=== PATIENT | male | born 1945 | race Caucasian/White ===

== ENCOUNTER 2023-01-30 08:15 | Outpatient (RCR) | payer MEDICARE, BC, SELFPAY | END 2023-05-10 13:06 | disposition home or self-care (01) | PROVIDERS: PCP Family Medicine; Visit Provider Family Medicine | DX: M25.561 Pain in right knee (principal); M17.11 Unilateral primary osteoarthritis, right knee; Z51.89 Encounter for other specified aftercare | CPT/HCPCS: 97110; 97140; 97162 ==

== ENCOUNTER 2023-02-22 08:20 | Emergency (ER) | payer MEDICARE, BC, SELFPAY ==
[2023-02-22] VITALS (18 sets, daily range): BP systolic 159–204; BP diastolic 76–103; PULSE 56–68; RESP 16; TEMP 36.3; O2SAT 98–100; BMI 22.2
[2023-02-22 09:14] LABS: Basophils Absolute Auto 0.02 K/uL (0.00-0.30); Basophils Percent Auto 0.3 % (0.0-3.0); Eosinophils Absolute Auto 0.09 K/uL (0.00-0.50); Eosinophils Percent Auto 1.1 % (0.0-7.0); Hematocrit 36.8 % (37.0-53.0); Immature Granulocytes Abs Auto 0.05 K/uL (0.00-0.30); Immature Granulocytes Pct Auto 0.6 %; Lymphocytes Absolute Auto 2.53 K/uL (0.90-2.90); Lymphocytes Percent Auto 32.1 % (20-44); Mean Corpuscular HGB Conc 33 gm/dL (32-36); Mean Corpuscular Hemoglobin 30 pg (26-34); Mean Corpuscular Volume 91 fL (80-100); Monocytes Percent Auto 8.9 % (0.0-11.0); Neutrophils Absolute Auto 4.49 K/uL (1.7-7.0); Platelet Count* 77 K/uL (140-440); RDW Coefficient of Variation % 13.3 % (11.5-15.5); Red Blood Count 4.03 m/uL (4.30-5.90); White Blood Count* 7.88 K/uL (4.50-11.00)
[2023-02-22 09:27] LABS: Slide Review Reflex No
[2023-02-22 09:28] LABS: Chloride* 110 mmol/L (96-114); Sodium* 135 mmol/L (135-149)
[2023-02-22 09:29] LABS: Potassium* 4.6 mmol/L (3.6-5.1)
[2023-02-22 09:31] LABS: Amylase* 53 U/L (18-89); Blood Urea Nitrogen* 51 mg/dL (7-30); Carbon Dioxide* 14 mmol/L (20-32); Creatinine* 1.5 mg/dL (0.5-1.5); Est. Creatinine Clearance* 42.31; Estimated Glomerular Filt Rate 48 ml/min
[2023-02-22 09:32] LABS: Calcium* 8.5 mg/dL (8.4-10.6); Glucose* 255 mg/dL (60-115)
[2023-02-22] MEDS: ONDANSETRON 2 MG/ML inj 4 MG IVP (10:18)
[2023-02-22] MEDS: 0.9 % SODIUM CHLORIDE 1000 ml 1,000 ML IV (10:19)
[2023-02-22 10:36] LABS: C.Difficile Negative (Negative); CDIFFEPI 027 PRESUMPTIVE NEGATIVE (Negative)
--- NOTE | 2023-02-22 10:38 | ED_ITS ---
HPI - Nausea/Vomiting/Diarrhea General Chief complaint: Diarrhea Stated complaint: Diarrhea Time Seen by Provider: 02/22/23 08:49 History of Present Illness HPI Narrative: Patient is a 77-year-old gentleman who recently completed a course of Augmentin for lower extremity infection as the patient has chronic diabetes. Patient actually completed 9 of 10 days due to extreme volatile diarrhea. Patient has had no blood in his stool. He has no significant abdominal pain but does feel significantly amount of gurgling. He has had no fevers no chills no night sweats. His blood sugars in the 200-250 range. Patient has been taking his insulin without any difficulty. Patient is not been having significant vomiting but his diarrhea is extreme. Patient has no history of C difficile colitis. He has no chest pain shortness a breath orthopnea no PND no nausea no vomiting. Related Data Home Medications Medication Instructions Recorded Confirmed aspirin 81 mg capsule 81 mg PO DAILY 02/22/23 02/22/23 atorvastatin 40 mg tablet 40 mg PO DAILY 02/22/23 02/22/23 clopidogrel 75 mg tablet (Plavix) 75 mg PO DAILY 02/22/23 02/22/23 hydrochlorothiazide 25 mg tablet 25 mg PO DAILY 02/22/23 02/22/23 insulin aspart U-100 100 unit/mL 1 sliding scale dose subcut 02/22/23 02/22/23 subcutaneous solution USEASDIRECTD lisinopril 10 mg tablet 10 mg PO BID 02/22/23 02/22/23 metoprolol succinate 50 mg 50 mg PO DAILY 02/22/23 02/22/23 tablet,extended release 24 hr mycophenolate mofetil 500 mg 500 mg PO BID 02/22/23 02/22/23 tablet (CellCept) prednisone 5 mg tablet 5 mg PO DAILY 02/22/23 02/22/23 sulfamethoxazole 400 1 tab PO DAILY 02/22/23 02/22/23 mg-trimethoprim 80 mg tablet (Bactrim) Allergies Allergy/AdvReac Type Severity Reaction Status Date / Time levofloxacin Allergy Unknown Verified 02/22/23 08:30 Review of Systems Status of ROS: Reports: 10 or more systems reviewed and unremarkable except as noted in History and below [facility] Medical History (Updated 02/22/23 @ 11:33 by Vijay De Santiago MD) Hyperlipidemia ?E78.5 - Hyperlipidemia, unspecified (ICD-10) Hypertension ?I10 - Essential (primary) hypertension (ICD-10) Type 1 diabetes mellitus ?E10.9 - Type 1 diabetes mellitus without complications (ICD-10) Surgical History (Updated 02/22/23 @ 10:40 by Vijay De Santiago MD) Renal transplant, status post ?Z94.0 - Kidney transplant status (ICD-10) Social History Smoking Status: Never smoker Do you use any of these nicotine containing products: None Second hand tobacco smoke exposure: No How often do you have a drink containing alcohol: monthly or less AUDIT-C Alcohol total score: 1 Non-prescribed substance use: denies use service: No Exam Narrative: Exam Narrative: EXAM GENERAL: Patient appears comfortable and well. EYES: No scleral icterus. THYROID: no thyroid nodules or thyromegaly. LYMPH: No supraclavicular or cervical lymphadenopathy. SKIN: Visible skin seen during exam normal or with benign process only. EXT: No dependent lower extremity pedal edema. HEART: Regular rate and rhythm with no murmurs, rubs, or gallops. LUNGS: Clear to auscultation bilaterally with no crackles or wheezes. ABD: Soft, non tender, non distended. Gurgling noted with hyperactive bowel sounds PSYCH: Good eye contact, speech is not pressured. Const: Vital Signs, click to edit/add: Vital Signs - 24 hr 02/22/23 08:36 02/22/23 08:41 02/22/23 08:32 Temperature 97.4 F L Pulse Rate 68 Pulse Rate [Pulse Oximeter] 63 Respiratory Rate 16 Blood Pressure Blood Pressure [Ri ght Upper Arm] 204/103 H 185/91 H Pulse Oximetry 100 100 Oxygen Delivery Me thod Room Air 02/22/23 08:34 02/22/23 08:42 02/22/23 08:44 Temperature Pulse Rate 64 63 61 Pulse Rate [Pulse Oximeter] Respiratory Rate Blood Pressure 204/103 H 185/91 H 179/91 H Blood Pressure [Ri ght Upper Arm] Pulse Oximetry 100 100 100 Oxygen Delivery Me thod 02/22/23 08:45 02/22/23 09:01 02/22/23 09:02 Temperature Pulse Rate 62 60 62 Pulse Rate [Pulse Oximeter] Respiratory Rate Blood Pressure 174/87 H Blood Pressure [Ri ght Upper Arm] Pulse Oximetry 99 100 98 Oxygen Delivery Me thod 02/22/23 09:20 02/22/23 09:32 02/22/23 09:49 Temperature Pulse Rate 59 L 61 Pulse Rate [Pulse Oximeter] Respiratory Rate Blood Pressure 179/96 H Blood Pressure [Ri ght Upper Arm] Pulse Oximetry 99 98 Oxygen Delivery Me thod 02/22/23 10:00 02/22/23 10:03 02/22/23 10:15 Temperature Pulse Rate 58 L 57 L 56 L Pulse Rate [Pulse Oximeter] Respiratory Rate Blood Pressure 159/79 H Blood Pressure [Ri ght Upper Arm] Pulse Oximetry 100 100 100 Oxygen Delivery Me thod 02/22/23 10:30 02/22/23 10:33 02/22/23 10:45 Temperature Pulse Rate 58 L 62 60 Pulse Rate [Pulse Oximeter] Respiratory Rate Blood Pressure 164/76 H Blood Pressure [Ri ght Upper Arm] Pulse Oximetry 100 98 99 Oxygen Delivery Me thod Course Course Hospital Course: Stool for C difficile ordered. CBC basic metabolic panel UA ordered. Normal saline bolus given. IV Zofran given. Reevaluation(s) Reevaluation #1: Patient feeling better after normal saline Time: 11:30 Vital Signs Vital signs: Initial Vital Signs Pulse Rate 68 02/22/23 08:32 Pulse Oximetry 100 02/22/23 08:32 Vital Signs Pulse Rate 68 02/22/23 08:32 Pulse Oximetry 100 02/22/23 08:32 Temperature 97.4 F L 02/22/23 08:36 Pulse Rate 60 02/22/23 10:45 Respiratory Rate 16 02/22/23 08:36 Blood Pressure 164/76 H 02/22/23 10:33 Pulse Oximetry 99 02/22/23 10:45 Oxygen Delivery Method Room Air 02/22/23 08:36 MDM - Nausea/Vomiting/Diarrhea MDM Narrative Medical decision making narrative: Patient is a 77-year-old gentleman who developed diarrhea day 9 of 10 treatment with Augmentin for lower extremity ulceration. Ulceration is healing well. Patient developed significant diarrhea. Interestingly the C difficile testing is negative. Like her lytes are stable to exception of some evidence of pre renal azotemia. Hemoglobin and CBC are stable. Patient received 2 L of normal saline feels much better. Patient is status post renal transplant. Patient will be discharged home to hydrate orally had probiotics and follow up with his primary physician in the next several days. Differential Diagnosis Differential diagnosis: Likely traveler's diarrhea, food poisoning, gastroenteritis, clostridium difficile infection and dehydration Lab Data Labs: Lab Results 02/22/23 02/22/23 Range/Units 08:50 08:53 WBC 7.88 (4.50-11.00) K/uL RBC 4.03 L (4.30-5.90) m/uL Hgb 12.0 L (13.5-17.5) gm/dL Hct 36.8 L (37.0-53.0) % MCV 91 (80-100) fL MCH 30 (26-34) pg MCHC 33 (32-36) gm/dL RDW Coeff of Manan 13.3 (11.5-15.5) % Plt Count 77 L (140-440) K/uL Neut % (Auto) 57.0 (42.0-72.0) % Lymph % (Auto) 32.1 (20-44) % [place] % (Auto) 8.9 (0.0-11.0) % Eos % (Auto) 1.1 (0.0-7.0) % Baso % (Auto) 0.3 (0.0-3.0) % Neut # (Auto) 4.49 (1.7-7.0) K/uL Lymph # (Auto) 2.53 (0.90-2.90) K/uL [place] # (Auto) 0.70 (0.00-0.90) K/UL Eos # (Auto) 0.09 (0.00-0.50) K/uL Baso # (Auto) 0.02 (0.00-0.30) K/uL Sodium 135 (135-149) mmol/L Potassium 4.6 (3.6-5.1) mmol/L Chloride 110 (96-114) mmol/L Carbon Dioxide 14 L (20-32) mmol/L BUN 51 H (7-30) mg/dL Creatinine 1.5 (0.5-1.5) mg/dL Estimated Creat Clear 42.31 Estimated GFR 48 ml/min Glucose 255 H (60-115) mg/dL Calcium 8.5 (8.4-10.6) mg/dL Amylase 53 (18-89) U/L Stl C.difficile Tox PCR Negative (Negative) St C. diff Tox Epid 027 PRESUMPTIVE NEGATIVE (Negative) Discharge Plan Discharge Clinical Impression: Diarrhea Patient Disposition: Home, Self-Care Condition: Stable Instructions: Acute Diarrhea (ED) Additional Instructions: Advance diet as tolerated Probiotics as discussed Follow-up with your doctor in the next several days. Activity Level: No Restrictions Discharge Diet: Regular Prescriptions: No Action aspirin 81 mg capsule 81 mg PO DAILY atorvastatin 40 mg tablet 40 mg PO DAILY clopidogrel [Plavix] 75 mg tablet 75 mg PO DAILY hydrochlorothiazide 25 mg tablet 25 mg PO DAILY lisinopril 10 mg tablet 10 mg PO BID metoprolol succinate 50 mg tablet extended release 24 hr 50 mg PO DAILY mycophenolate mofetil [CellCept] 500 mg tablet 500 mg PO BID prednisone 5 mg tablet 5 mg PO DAILY sulfamethoxazole-trimethoprim [Bactrim] 400-80 mg tablet 1 tab PO DAILY insulin aspart U-100 100 unit/mL solution 1 sliding scale dose subcut USEASDIRECTD Follow Up/Referrals: Ca Grier MD [Primary Care Provider] - Stand Alone Forms: Origin Digital Info Instructions
== END 2023-02-22 12:18 | disposition home or self-care (01) ==
PROVIDERS: Emergency Provider Internal Medicine; PCP Family Medicine
DX: R19.7 Diarrhea, unspecified (principal)
CPT/HCPCS: 36415; 80048; 82150; 85025; 87493; 96374; 99283; J2405; J7030

== ENCOUNTER 2024-04-18 09:18 | Outpatient (CLI) | payer MEDICARE, BC, SELFPAY | END 2024-04-18 09:19 | disposition home or self-care (01) | LOC: WOUND 09:19 | PROVIDERS: PCP Family Medicine; Visit Provider Nurse Practitioner Family | DX: I73.9 Peripheral vascular disease, unspecified (principal); L97.212 Non-pressure chronic ulcer of right calf with fat layer exposed; E10.8 Type 1 diabetes mellitus with unspecified complications; Z79.4 Long term (current) use of insulin; I13.0 Hypertensive heart and chronic kidney disease with heart failure and stage 1 through stage 4 chronic kidney disease, or unspecified chronic kidney disease; D84.9 Immunodeficiency, unspecified; Z94.0 Kidney transplant status | CPT/HCPCS: 11042; G0463 ==

== ENCOUNTER 2024-04-24 10:26 | Outpatient (CLI) | payer MEDICARE, BC, SELFPAY | END 2024-04-24 10:27 | disposition home or self-care (01) | LOC: WOUND 10:26 | PROVIDERS: PCP Family Medicine; Visit Provider Nurse Practitioner Family | DX: I73.9 Peripheral vascular disease, unspecified (principal); L97.212 Non-pressure chronic ulcer of right calf with fat layer exposed; E10.8 Type 1 diabetes mellitus with unspecified complications; I13.0 Hypertensive heart and chronic kidney disease with heart failure and stage 1 through stage 4 chronic kidney disease, or unspecified chronic kidney disease; Z94.0 Kidney transplant status; Z79.4 Long term (current) use of insulin | CPT/HCPCS: 11042 ==

== ENCOUNTER 2024-05-02 08:11 | Outpatient (CLI) | payer MEDICARE, BC, SELFPAY | END 2024-05-02 08:12 | disposition home or self-care (01) | LOC: WOUND 08:11 | PROVIDERS: PCP Family Medicine; Visit Provider Nurse Practitioner Family | DX: I73.9 Peripheral vascular disease, unspecified (principal); L97.312 Non-pressure chronic ulcer of right ankle with fat layer exposed; E10.8 Type 1 diabetes mellitus with unspecified complications; I13.0 Hypertensive heart and chronic kidney disease with heart failure and stage 1 through stage 4 chronic kidney disease, or unspecified chronic kidney disease; Z94.0 Kidney transplant status; Z79.4 Long term (current) use of insulin | CPT/HCPCS: 11042 ==

== ENCOUNTER 2024-05-08 08:00 | Outpatient (CLI) | payer MEDICARE, BC, SELFPAY | END 2024-05-08 08:01 | disposition home or self-care (01) | LOC: WOUND 08:01 | PROVIDERS: PCP Family Medicine; Visit Provider Physician Assistant | DX: I73.9 Peripheral vascular disease, unspecified (principal); L97.212 Non-pressure chronic ulcer of right calf with fat layer exposed; I13.0 Hypertensive heart and chronic kidney disease with heart failure and stage 1 through stage 4 chronic kidney disease, or unspecified chronic kidney disease; E10.8 Type 1 diabetes mellitus with unspecified complications; Z94.0 Kidney transplant status; Z79.4 Long term (current) use of insulin | CPT/HCPCS: 97597 ==

== ENCOUNTER 2024-05-15 08:12 | Outpatient (CLI) | payer MEDICARE, BC, SELFPAY | END 2024-05-15 08:13 | disposition home or self-care (01) | LOC: WOUND 08:12 | PROVIDERS: PCP Family Medicine; Visit Provider Nurse Practitioner Family | DX: I73.9 Peripheral vascular disease, unspecified (principal); I13.0 Hypertensive heart and chronic kidney disease with heart failure and stage 1 through stage 4 chronic kidney disease, or unspecified chronic kidney disease; E10.8 Type 1 diabetes mellitus with unspecified complications; L97.212 Non-pressure chronic ulcer of right calf with fat layer exposed; Z79.4 Long term (current) use of insulin; Z94.0 Kidney transplant status | CPT/HCPCS: 11042 ==

== ENCOUNTER 2024-05-29 08:02 | Outpatient (CLI) | payer MEDICARE, BC, SELFPAY | END 2024-05-29 08:03 | disposition home or self-care (01) | LOC: WOUND 08:03 | PROVIDERS: PCP Family Medicine; Visit Provider Nurse Practitioner Family | DX: I73.9 Peripheral vascular disease, unspecified (principal); I13.0 Hypertensive heart and chronic kidney disease with heart failure and stage 1 through stage 4 chronic kidney disease, or unspecified chronic kidney disease; E10.8 Type 1 diabetes mellitus with unspecified complications; L97.212 Non-pressure chronic ulcer of right calf with fat layer exposed; Z79.4 Long term (current) use of insulin; Z94.0 Kidney transplant status | CPT/HCPCS: 97597 ==

== ENCOUNTER 2024-06-05 08:09 | Outpatient (CLI) | payer MEDICARE, BC, SELFPAY | END 2024-06-05 08:10 | disposition home or self-care (01) | LOC: WOUND 08:09 | PROVIDERS: PCP Family Medicine; Visit Provider Nurse Practitioner Family | DX: I73.9 Peripheral vascular disease, unspecified (principal); I13.0 Hypertensive heart and chronic kidney disease with heart failure and stage 1 through stage 4 chronic kidney disease, or unspecified chronic kidney disease; L97.812 Non-pressure chronic ulcer of other part of right lower leg with fat layer exposed; E10.8 Type 1 diabetes mellitus with unspecified complications; Z94.0 Kidney transplant status; Z79.4 Long term (current) use of insulin | CPT/HCPCS: 97597 ==

== ENCOUNTER 2024-06-12 08:04 | Outpatient (CLI) | payer MEDICARE, BC, SELFPAY | END 2024-06-12 08:05 | disposition home or self-care (01) | LOC: WOUND 08:04 | PROVIDERS: PCP Family Medicine; Visit Provider Nurse Practitioner Family | DX: I73.9 Peripheral vascular disease, unspecified (principal); I13.0 Hypertensive heart and chronic kidney disease with heart failure and stage 1 through stage 4 chronic kidney disease, or unspecified chronic kidney disease; E10.8 Type 1 diabetes mellitus with unspecified complications; L97.212 Non-pressure chronic ulcer of right calf with fat layer exposed; Z94.0 Kidney transplant status; Z79.4 Long term (current) use of insulin | CPT/HCPCS: G0463 ==

== ENCOUNTER 2024-06-19 08:00 | Outpatient (CLI) | payer MEDICARE, BC, SELFPAY | END 2024-06-19 08:01 | disposition home or self-care (01) | PROVIDERS: PCP Family Medicine; Visit Provider Nurse Practitioner Family | DX: I73.9 Peripheral vascular disease, unspecified (principal); I13.0 Hypertensive heart and chronic kidney disease with heart failure and stage 1 through stage 4 chronic kidney disease, or unspecified chronic kidney disease; E10.8 Type 1 diabetes mellitus with unspecified complications; L97.818 Non-pressure chronic ulcer of other part of right lower leg with other specified severity; Z79.4 Long term (current) use of insulin; Z94.0 Kidney transplant status | CPT/HCPCS: G0463 ==

== ENCOUNTER 2025-03-04 12:40 | Outpatient (CLI) | payer MEDICARE, BC, SELFPAY | END 2025-03-04 12:41 | disposition home or self-care (01) | LOC: WOUND 12:41 | PROVIDERS: PCP Family Medicine; Visit Provider Surgery | DX: E11.621 Type 2 diabetes mellitus with foot ulcer (principal); M86.471 Chronic osteomyelitis with draining sinus, right ankle and foot; L97.516 Non-pressure chronic ulcer of other part of right foot with bone involvement without evidence of necrosis; I73.9 Peripheral vascular disease, unspecified; C67.9 Malignant neoplasm of bladder, unspecified; Z79.60 Long term (current) use of unspecified immunomodulators and immunosuppressants; Z94.0 Kidney transplant status; Z79.4 Long term (current) use of insulin; Z96.41 Presence of insulin pump (external) (internal) | CPT/HCPCS: G0463 ==

== ENCOUNTER 2025-03-09 13:17 | Outpatient (CLI) | payer MEDICARE, BC, SELFPAY | END 2025-03-09 13:18 | disposition home or self-care (01) | LOC: WOUND 13:19 | PROVIDERS: PCP Family Medicine; Visit Provider Nurse Practitioner Family | DX: E11.621 Type 2 diabetes mellitus with foot ulcer (principal); M86.471 Chronic osteomyelitis with draining sinus, right ankle and foot; I73.9 Peripheral vascular disease, unspecified; L97.516 Non-pressure chronic ulcer of other part of right foot with bone involvement without evidence of necrosis; Z79.4 Long term (current) use of insulin; Z96.41 Presence of insulin pump (external) (internal) | CPT/HCPCS: G0463 ==

== ENCOUNTER 2025-03-11 13:25 | Outpatient (CLI) | payer MEDICARE, BC, SELFPAY | END 2025-03-11 13:26 | disposition home or self-care (01) | LOC: WOUND 13:25 | PROVIDERS: PCP Family Medicine; Visit Provider Surgery | DX: E11.621 Type 2 diabetes mellitus with foot ulcer (principal); M86.471 Chronic osteomyelitis with draining sinus, right ankle and foot; I73.9 Peripheral vascular disease, unspecified; L97.516 Non-pressure chronic ulcer of other part of right foot with bone involvement without evidence of necrosis; Z96.41 Presence of insulin pump (external) (internal); Z79.4 Long term (current) use of insulin | CPT/HCPCS: 11042; G0463 ==

== ENCOUNTER 2025-03-13 14:49 | Outpatient (CLI) | payer MEDICARE, BC, SELFPAY | END 2025-03-13 14:50 | disposition home or self-care (01) | LOC: WOUND 14:50 | PROVIDERS: PCP Family Medicine; Visit Provider Surgery | DX: E11.621 Type 2 diabetes mellitus with foot ulcer (principal); M86.471 Chronic osteomyelitis with draining sinus, right ankle and foot; L97.512 Non-pressure chronic ulcer of other part of right foot with fat layer exposed; I73.9 Peripheral vascular disease, unspecified; Z79.4 Long term (current) use of insulin; Z96.41 Presence of insulin pump (external) (internal) | CPT/HCPCS: G0463 ==

== ENCOUNTER 2025-03-17 10:55 | Outpatient (CLI) | payer MEDICARE, BC, SELFPAY | END 2025-03-17 10:56 | disposition home or self-care (01) | LOC: WOUND 10:56 | PROVIDERS: PCP Family Medicine; Visit Provider Surgery | DX: M86.471 Chronic osteomyelitis with draining sinus, right ankle and foot (principal); E10.621 Type 1 diabetes mellitus with foot ulcer; L97.518 Non-pressure chronic ulcer of other part of right foot with other specified severity; Z79.4 Long term (current) use of insulin; Z96.41 Presence of insulin pump (external) (internal) | CPT/HCPCS: G0463 ==

== ENCOUNTER 2025-03-18 12:55 | Outpatient (CLI) | payer MEDICARE, BC, SELFPAY | END 2025-03-18 12:56 | disposition home or self-care (01) | LOC: WOUND 12:55 | PROVIDERS: PCP Family Medicine; Visit Provider Surgery | DX: E10.621 Type 1 diabetes mellitus with foot ulcer (principal); M86.471 Chronic osteomyelitis with draining sinus, right ankle and foot; L97.516 Non-pressure chronic ulcer of other part of right foot with bone involvement without evidence of necrosis; I73.9 Peripheral vascular disease, unspecified; Z79.4 Long term (current) use of insulin; Z96.41 Presence of insulin pump (external) (internal); Z94.0 Kidney transplant status | CPT/HCPCS: 87070; G0463 ==

== ENCOUNTER 2025-03-20 11:10 | Outpatient (CLI) | payer MEDICARE, BC, SELFPAY | END 2025-03-20 11:11 | disposition home or self-care (01) | LOC: WOUND 11:10 | PROVIDERS: PCP Family Medicine; Visit Provider Surgery | DX: M86.471 Chronic osteomyelitis with draining sinus, right ankle and foot (principal); E10.621 Type 1 diabetes mellitus with foot ulcer; L97.518 Non-pressure chronic ulcer of other part of right foot with other specified severity; Z79.4 Long term (current) use of insulin; Z96.41 Presence of insulin pump (external) (internal) | CPT/HCPCS: G0463 ==

== ENCOUNTER 2025-03-23 15:35 | Outpatient (CLI) | payer MEDICARE, BC, SELFPAY | END 2025-03-23 15:36 | disposition home or self-care (01) | PROVIDERS: PCP Family Medicine; Visit Provider Physician Assistant Surgical | DX: M86.471 Chronic osteomyelitis with draining sinus, right ankle and foot (principal); E10.621 Type 1 diabetes mellitus with foot ulcer; L97.518 Non-pressure chronic ulcer of other part of right foot with other specified severity; Z79.4 Long term (current) use of insulin; Z96.41 Presence of insulin pump (external) (internal) | CPT/HCPCS: G0463 ==

== ENCOUNTER 2025-03-25 12:41 | Outpatient (CLI) | payer MEDICARE, BC, SELFPAY | END 2025-03-25 12:42 | disposition home or self-care (01) | LOC: WOUND 12:41 | PROVIDERS: PCP Family Medicine; Visit Provider Surgery | DX: E10.621 Type 1 diabetes mellitus with foot ulcer (principal); M86.471 Chronic osteomyelitis with draining sinus, right ankle and foot; L97.516 Non-pressure chronic ulcer of other part of right foot with bone involvement without evidence of necrosis; Z79.4 Long term (current) use of insulin; Z96.41 Presence of insulin pump (external) (internal) | CPT/HCPCS: G0463 ==

== ENCOUNTER 2025-03-27 10:34 | Outpatient (CLI) | payer MEDICARE, BC, SELFPAY | END 2025-03-27 10:35 | disposition home or self-care (01) | PROVIDERS: PCP Family Medicine; Visit Provider Nurse Practitioner Family | DX: E10.621 Type 1 diabetes mellitus with foot ulcer (principal); M86.471 Chronic osteomyelitis with draining sinus, right ankle and foot; L97.518 Non-pressure chronic ulcer of other part of right foot with other specified severity; I73.9 Peripheral vascular disease, unspecified; Z79.4 Long term (current) use of insulin; Z96.41 Presence of insulin pump (external) (internal) | CPT/HCPCS: G0463 ==

== ENCOUNTER 2025-03-30 15:30 | Outpatient (CLI) | payer MEDICARE, BC, SELFPAY | END 2025-03-30 15:31 | disposition home or self-care (01) | LOC: WOUND 15:30 | PROVIDERS: PCP Family Medicine; Visit Provider Nurse Practitioner Family | DX: M86.471 Chronic osteomyelitis with draining sinus, right ankle and foot (principal); E10.621 Type 1 diabetes mellitus with foot ulcer; L97.518 Non-pressure chronic ulcer of other part of right foot with other specified severity; Z79.4 Long term (current) use of insulin; Z96.41 Presence of insulin pump (external) (internal) | CPT/HCPCS: G0463 ==

== ENCOUNTER 2025-04-01 08:23 | Outpatient (CLI) | payer MEDICARE, BC, SELFPAY | END 2025-04-01 08:24 | disposition home or self-care (01) | LOC: WOUND 08:24 | PROVIDERS: PCP Family Medicine; Visit Provider Nurse Practitioner Family | DX: E10.621 Type 1 diabetes mellitus with foot ulcer (principal); L97.516 Non-pressure chronic ulcer of other part of right foot with bone involvement without evidence of necrosis; I73.9 Peripheral vascular disease, unspecified; Z79.4 Long term (current) use of insulin; Z96.41 Presence of insulin pump (external) (internal) | CPT/HCPCS: 11042 ==

== ENCOUNTER 2025-04-03 13:48 | Outpatient (CLI) | payer MEDICARE, BC, SELFPAY | END 2025-04-03 13:49 | disposition home or self-care (01) | PROVIDERS: PCP Family Medicine; Visit Provider Nurse Practitioner Family | DX: E10.621 Type 1 diabetes mellitus with foot ulcer (principal); M86.471 Chronic osteomyelitis with draining sinus, right ankle and foot; L97.516 Non-pressure chronic ulcer of other part of right foot with bone involvement without evidence of necrosis; Z79.4 Long term (current) use of insulin; Z96.41 Presence of insulin pump (external) (internal) | CPT/HCPCS: G0463 ==

== ENCOUNTER 2025-04-06 13:45 | Outpatient (CLI) | payer MEDICARE, BC, SELFPAY | END 2025-04-06 13:46 | disposition home or self-care (01) | LOC: WOUND 13:46 | PROVIDERS: PCP Family Medicine; Visit Provider Nurse Practitioner Family | DX: E10.621 Type 1 diabetes mellitus with foot ulcer (principal); M86.471 Chronic osteomyelitis with draining sinus, right ankle and foot; L97.516 Non-pressure chronic ulcer of other part of right foot with bone involvement without evidence of necrosis; I73.9 Peripheral vascular disease, unspecified; Z79.4 Long term (current) use of insulin | CPT/HCPCS: G0463 ==

== ENCOUNTER 2025-04-08 13:09 | Outpatient (CLI) | payer MEDICARE, BC, SELFPAY | END 2025-04-08 13:10 | disposition home or self-care (01) | LOC: WOUND 13:09 | PROVIDERS: PCP Family Medicine; Visit Provider Nurse Practitioner Family | DX: E10.621 Type 1 diabetes mellitus with foot ulcer (principal); M86.471 Chronic osteomyelitis with draining sinus, right ankle and foot; L97.516 Non-pressure chronic ulcer of other part of right foot with bone involvement without evidence of necrosis; I73.9 Peripheral vascular disease, unspecified; Z79.4 Long term (current) use of insulin; Z96.41 Presence of insulin pump (external) (internal) | CPT/HCPCS: 15275; Q4151 ==

== ENCOUNTER 2025-04-10 13:54 | Outpatient (CLI) | payer MEDICARE, BC, SELFPAY | END 2025-04-10 13:55 | disposition home or self-care (01) | LOC: WOUND 13:55 | PROVIDERS: PCP Family Medicine; Visit Provider Nurse Practitioner Family | DX: E10.621 Type 1 diabetes mellitus with foot ulcer (principal); M86.471 Chronic osteomyelitis with draining sinus, right ankle and foot; L97.516 Non-pressure chronic ulcer of other part of right foot with bone involvement without evidence of necrosis; Z79.4 Long term (current) use of insulin; Z96.41 Presence of insulin pump (external) (internal) | CPT/HCPCS: G0463 ==

== ENCOUNTER 2025-04-15 13:58 | Outpatient (CLI) | payer MEDICARE, BC, SELFPAY | END 2025-04-15 13:59 | disposition home or self-care (01) | LOC: WOUND 13:58 | PROVIDERS: PCP Family Medicine; Visit Provider Nurse Practitioner Family | DX: E10.621 Type 1 diabetes mellitus with foot ulcer (principal); M86.471 Chronic osteomyelitis with draining sinus, right ankle and foot; I73.9 Peripheral vascular disease, unspecified; L97.516 Non-pressure chronic ulcer of other part of right foot with bone involvement without evidence of necrosis; Z79.4 Long term (current) use of insulin; Z96.41 Presence of insulin pump (external) (internal) | CPT/HCPCS: G0463 ==

== ENCOUNTER 2025-04-17 15:45 | Outpatient (CLI) | payer MEDICARE, BC, SELFPAY | END 2025-04-17 15:46 | disposition home or self-care (01) | LOC: WOUND 15:45 | PROVIDERS: PCP Family Medicine; Visit Provider Nurse Practitioner Family | DX: E10.621 Type 1 diabetes mellitus with foot ulcer (principal); M86.471 Chronic osteomyelitis with draining sinus, right ankle and foot; I73.9 Peripheral vascular disease, unspecified; L97.516 Non-pressure chronic ulcer of other part of right foot with bone involvement without evidence of necrosis; Z79.4 Long term (current) use of insulin; Z96.41 Presence of insulin pump (external) (internal) | CPT/HCPCS: G0463 ==

== ENCOUNTER 2025-04-20 10:58 | Outpatient (CLI) | payer MEDICARE, BC, SELFPAY | END 2025-04-20 10:59 | disposition home or self-care (01) | PROVIDERS: PCP Family Medicine; Visit Provider Physician Assistant | DX: E10.621 Type 1 diabetes mellitus with foot ulcer (principal); I73.9 Peripheral vascular disease, unspecified; M86.471 Chronic osteomyelitis with draining sinus, right ankle and foot; L97.516 Non-pressure chronic ulcer of other part of right foot with bone involvement without evidence of necrosis; Z79.4 Long term (current) use of insulin; Z96.41 Presence of insulin pump (external) (internal) | CPT/HCPCS: G0463 ==

== ENCOUNTER 2025-04-22 15:46 | Outpatient (CLI) | payer MEDICARE, BC, SELFPAY | END 2025-04-22 15:47 | disposition home or self-care (01) | LOC: WOUND 15:46 | PROVIDERS: PCP Family Medicine; Visit Provider Surgery | DX: E10.621 Type 1 diabetes mellitus with foot ulcer (principal); M86.471 Chronic osteomyelitis with draining sinus, right ankle and foot; L97.516 Non-pressure chronic ulcer of other part of right foot with bone involvement without evidence of necrosis; I73.9 Peripheral vascular disease, unspecified; Z79.4 Long term (current) use of insulin; Z96.41 Presence of insulin pump (external) (internal) | CPT/HCPCS: 11730; 11750; 15275; Q4151 ==

== ENCOUNTER 2025-04-24 13:27 | Outpatient (CLI) | payer MEDICARE, BC, SELFPAY | END 2025-04-24 13:28 | disposition home or self-care (01) | LOC: WOUND 13:27 | PROVIDERS: PCP Family Medicine; Visit Provider Surgery | DX: E10.621 Type 1 diabetes mellitus with foot ulcer (principal); M86.471 Chronic osteomyelitis with draining sinus, right ankle and foot; L97.516 Non-pressure chronic ulcer of other part of right foot with bone involvement without evidence of necrosis; I73.9 Peripheral vascular disease, unspecified; Z79.4 Long term (current) use of insulin; Z96.41 Presence of insulin pump (external) (internal) | CPT/HCPCS: G0463 ==

== ENCOUNTER 2025-04-27 15:14 | Outpatient (CLI) | payer MEDICARE, BC, SELFPAY | END 2025-04-27 15:15 | disposition home or self-care (01) | LOC: WOUND 15:14 | PROVIDERS: PCP Family Medicine; Visit Provider Surgery | DX: E10.621 Type 1 diabetes mellitus with foot ulcer (principal); L97.516 Non-pressure chronic ulcer of other part of right foot with bone involvement without evidence of necrosis; Z79.4 Long term (current) use of insulin; Z96.41 Presence of insulin pump (external) (internal) | CPT/HCPCS: G0463 ==

== ENCOUNTER 2025-04-29 13:15 | Outpatient (CLI) | payer MEDICARE, BC, SELFPAY | END 2025-04-29 13:16 | disposition home or self-care (01) | LOC: WOUND 13:16 | PROVIDERS: PCP Family Medicine; Visit Provider Surgery | DX: E10.621 Type 1 diabetes mellitus with foot ulcer (principal); M86.471 Chronic osteomyelitis with draining sinus, right ankle and foot; L97.516 Non-pressure chronic ulcer of other part of right foot with bone involvement without evidence of necrosis; I73.9 Peripheral vascular disease, unspecified; Z79.4 Long term (current) use of insulin; Z79.84 Long term (current) use of oral hypoglycemic drugs | CPT/HCPCS: G0463 ==

== ENCOUNTER 2025-05-01 15:31 | Outpatient (CLI) | payer MEDICARE, BC, SELFPAY | END 2025-05-01 15:32 | disposition home or self-care (01) | LOC: WOUND 15:31 | PROVIDERS: PCP Family Medicine; Visit Provider Surgery | DX: E10.621 Type 1 diabetes mellitus with foot ulcer (principal); I73.9 Peripheral vascular disease, unspecified; L97.516 Non-pressure chronic ulcer of other part of right foot with bone involvement without evidence of necrosis; Z79.4 Long term (current) use of insulin; Z96.41 Presence of insulin pump (external) (internal) | CPT/HCPCS: G0463 ==

== ENCOUNTER 2025-05-04 14:29 | Outpatient (CLI) | payer MEDICARE, BC, SELFPAY | END 2025-05-04 14:30 | disposition home or self-care (01) | LOC: WOUND 14:30 | PROVIDERS: PCP Family Medicine; Visit Provider Surgery | DX: E10.621 Type 1 diabetes mellitus with foot ulcer (principal); M86.471 Chronic osteomyelitis with draining sinus, right ankle and foot; I73.9 Peripheral vascular disease, unspecified; L97.516 Non-pressure chronic ulcer of other part of right foot with bone involvement without evidence of necrosis; Z79.4 Long term (current) use of insulin; Z96.41 Presence of insulin pump (external) (internal) | CPT/HCPCS: G0463 ==

== ENCOUNTER 2025-05-06 13:16 | Outpatient (CLI) | payer MEDICARE, BC, SELFPAY | END 2025-05-06 13:17 | disposition home or self-care (01) | LOC: WOUND 13:17 | PROVIDERS: PCP Family Medicine; Visit Provider Surgery | DX: E10.621 Type 1 diabetes mellitus with foot ulcer (principal); M86.471 Chronic osteomyelitis with draining sinus, right ankle and foot; I73.9 Peripheral vascular disease, unspecified; L97.516 Non-pressure chronic ulcer of other part of right foot with bone involvement without evidence of necrosis; Z79.4 Long term (current) use of insulin; Z96.41 Presence of insulin pump (external) (internal) | CPT/HCPCS: 15275; Q4151 ==

== ENCOUNTER 2025-05-11 15:54 | Outpatient (CLI) | payer MEDICARE, BC, SELFPAY | END 2025-05-11 15:55 | disposition home or self-care (01) | LOC: WOUND 15:54 | PROVIDERS: PCP Family Medicine; Visit Provider Surgery | DX: E10.621 Type 1 diabetes mellitus with foot ulcer (principal); M86.471 Chronic osteomyelitis with draining sinus, right ankle and foot; L97.516 Non-pressure chronic ulcer of other part of right foot with bone involvement without evidence of necrosis; I73.9 Peripheral vascular disease, unspecified; Z79.4 Long term (current) use of insulin; Z96.41 Presence of insulin pump (external) (internal) | CPT/HCPCS: G0463 ==

== ENCOUNTER 2025-05-13 13:11 | Outpatient (CLI) | payer MEDICARE, BC, SELFPAY | END 2025-05-13 13:12 | disposition home or self-care (01) | LOC: WOUND 13:11 | PROVIDERS: PCP Family Medicine; Visit Provider Surgery | DX: E10.621 Type 1 diabetes mellitus with foot ulcer (principal); M86.471 Chronic osteomyelitis with draining sinus, right ankle and foot; I73.9 Peripheral vascular disease, unspecified; L97.516 Non-pressure chronic ulcer of other part of right foot with bone involvement without evidence of necrosis; Z79.4 Long term (current) use of insulin; Z96.41 Presence of insulin pump (external) (internal) | CPT/HCPCS: G0463 ==

== ENCOUNTER 2025-05-15 11:15 | Outpatient (CLI) | payer MEDICARE, BC, SELFPAY | END 2025-05-15 11:16 | disposition home or self-care (01) | LOC: WOUND 11:15 | PROVIDERS: PCP Family Medicine; Visit Provider Surgery | DX: E10.621 Type 1 diabetes mellitus with foot ulcer (principal); I73.9 Peripheral vascular disease, unspecified; L97.518 Non-pressure chronic ulcer of other part of right foot with other specified severity; Z79.4 Long term (current) use of insulin; Z96.41 Presence of insulin pump (external) (internal) | CPT/HCPCS: G0463 ==

== ENCOUNTER 2025-05-18 15:59 | Outpatient (CLI) | payer MEDICARE, BC, SELFPAY | END 2025-05-18 16:00 | disposition home or self-care (01) | LOC: WOUND 15:59 | PROVIDERS: PCP Family Medicine; Visit Provider Surgery | DX: E10.621 Type 1 diabetes mellitus with foot ulcer (principal); I73.9 Peripheral vascular disease, unspecified; L97.516 Non-pressure chronic ulcer of other part of right foot with bone involvement without evidence of necrosis; Z79.4 Long term (current) use of insulin; Z96.41 Presence of insulin pump (external) (internal) | CPT/HCPCS: G0463 ==

== ENCOUNTER 2025-05-20 13:13 | Outpatient (CLI) | payer MEDICARE, BC, SELFPAY | END 2025-05-20 13:14 | disposition home or self-care (01) | LOC: WOUND 13:13 | PROVIDERS: PCP Family Medicine; Visit Provider Surgery | DX: E10.621 Type 1 diabetes mellitus with foot ulcer (principal); M86.471 Chronic osteomyelitis with draining sinus, right ankle and foot; I73.9 Peripheral vascular disease, unspecified; L97.516 Non-pressure chronic ulcer of other part of right foot with bone involvement without evidence of necrosis; Z79.4 Long term (current) use of insulin; Z96.41 Presence of insulin pump (external) (internal) | CPT/HCPCS: G0463 ==

== ENCOUNTER 2025-05-25 16:04 | Outpatient (CLI) | payer MEDICARE, BC, SELFPAY | END 2025-05-25 16:05 | disposition home or self-care (01) | LOC: WOUND 16:05 | PROVIDERS: PCP Family Medicine; Visit Provider Surgery | DX: E10.621 Type 1 diabetes mellitus with foot ulcer (principal); M86.471 Chronic osteomyelitis with draining sinus, right ankle and foot; I73.9 Peripheral vascular disease, unspecified; L97.516 Non-pressure chronic ulcer of other part of right foot with bone involvement without evidence of necrosis; Z79.4 Long term (current) use of insulin; Z96.41 Presence of insulin pump (external) (internal) | CPT/HCPCS: G0463 ==

== ENCOUNTER 2025-05-27 13:36 | Outpatient (CLI) | payer MEDICARE, BC, SELFPAY | END 2025-05-27 13:37 | disposition home or self-care (01) | LOC: WOUND 13:36 | PROVIDERS: PCP Family Medicine; Visit Provider Surgery | DX: E10.621 Type 1 diabetes mellitus with foot ulcer (principal); I73.9 Peripheral vascular disease, unspecified; L97.516 Non-pressure chronic ulcer of other part of right foot with bone involvement without evidence of necrosis; Z79.4 Long term (current) use of insulin; Z96.41 Presence of insulin pump (external) (internal) | CPT/HCPCS: 97597 ==

== ENCOUNTER 2025-05-29 14:11 | Outpatient (CLI) | payer MEDICARE, BC, SELFPAY | END 2025-05-29 14:12 | disposition home or self-care (01) | LOC: WOUND 14:12 | PROVIDERS: PCP Family Medicine; Visit Provider Surgery | DX: E10.621 Type 1 diabetes mellitus with foot ulcer (principal); M86.471 Chronic osteomyelitis with draining sinus, right ankle and foot; I73.9 Peripheral vascular disease, unspecified; L97.516 Non-pressure chronic ulcer of other part of right foot with bone involvement without evidence of necrosis; Z79.4 Long term (current) use of insulin; Z96.41 Presence of insulin pump (external) (internal) | CPT/HCPCS: G0463 ==

== ENCOUNTER 2025-06-01 10:59 | Outpatient (CLI) | payer MEDICARE, BC, SELFPAY | END 2025-06-01 11:00 | disposition home or self-care (01) | LOC: WOUND 10:59 | PROVIDERS: PCP Family Medicine; Visit Provider Nurse Practitioner Family | DX: E10.621 Type 1 diabetes mellitus with foot ulcer (principal); M86.471 Chronic osteomyelitis with draining sinus, right ankle and foot; Z48.00 Encounter for change or removal of nonsurgical wound dressing; I73.9 Peripheral vascular disease, unspecified; L97.516 Non-pressure chronic ulcer of other part of right foot with bone involvement without evidence of necrosis; Z79.4 Long term (current) use of insulin; Z96.41 Presence of insulin pump (external) (internal) | CPT/HCPCS: G0463 ==

== ENCOUNTER 2025-06-05 15:26 | Outpatient (CLI) | payer MEDICARE, BC, SELFPAY | END 2025-06-05 15:27 | disposition home or self-care (01) | LOC: WOUND 15:26 | PROVIDERS: PCP Family Medicine; Visit Provider Nurse Practitioner Family | DX: E10.621 Type 1 diabetes mellitus with foot ulcer (principal); L97.516 Non-pressure chronic ulcer of other part of right foot with bone involvement without evidence of necrosis; M86.471 Chronic osteomyelitis with draining sinus, right ankle and foot; Z79.4 Long term (current) use of insulin | CPT/HCPCS: G0463 ==

== ENCOUNTER 2025-06-08 15:02 | Outpatient (CLI) | payer MEDICARE, BC, SELFPAY | END 2025-06-08 15:03 | disposition home or self-care (01) | LOC: WOUND 15:03 | PROVIDERS: PCP Family Medicine; Visit Provider Physician Assistant | DX: E10.621 Type 1 diabetes mellitus with foot ulcer (principal); M86.471 Chronic osteomyelitis with draining sinus, right ankle and foot; I73.9 Peripheral vascular disease, unspecified; L97.516 Non-pressure chronic ulcer of other part of right foot with bone involvement without evidence of necrosis; Z79.4 Long term (current) use of insulin; Z96.41 Presence of insulin pump (external) (internal) | CPT/HCPCS: G0463 ==

== ENCOUNTER 2025-06-10 13:14 | Outpatient (CLI) | payer MEDICARE, BC, SELFPAY | END 2025-06-10 13:15 | disposition home or self-care (01) | LOC: WOUND 13:14 | PROVIDERS: PCP Family Medicine; Visit Provider Surgery | DX: E10.621 Type 1 diabetes mellitus with foot ulcer (principal); M86.471 Chronic osteomyelitis with draining sinus, right ankle and foot; I73.9 Peripheral vascular disease, unspecified; L97.516 Non-pressure chronic ulcer of other part of right foot with bone involvement without evidence of necrosis; Z79.4 Long term (current) use of insulin; Z96.41 Presence of insulin pump (external) (internal) | CPT/HCPCS: G0463 ==

== ENCOUNTER 2025-06-15 12:00 | Outpatient (CLI) | payer MEDICARE, BC, SELFPAY | END 2025-06-15 12:01 | disposition home or self-care (01) | LOC: WOUND 06-16 14:53 | PROVIDERS: PCP Family Medicine; Visit Provider Physician Assistant Surgical | DX: E10.621 Type 1 diabetes mellitus with foot ulcer (principal); M86.471 Chronic osteomyelitis with draining sinus, right ankle and foot; I73.9 Peripheral vascular disease, unspecified; L97.516 Non-pressure chronic ulcer of other part of right foot with bone involvement without evidence of necrosis; Z79.4 Long term (current) use of insulin; Z96.41 Presence of insulin pump (external) (internal) | CPT/HCPCS: G0463 ==

== ENCOUNTER 2025-06-17 13:16 | Outpatient (CLI) | payer MEDICARE, BC, SELFPAY | END 2025-06-17 13:17 | disposition home or self-care (01) | LOC: WOUND 13:16 | PROVIDERS: PCP Family Medicine; Visit Provider Surgery | DX: E10.621 Type 1 diabetes mellitus with foot ulcer (principal); M86.471 Chronic osteomyelitis with draining sinus, right ankle and foot; I73.9 Peripheral vascular disease, unspecified; L97.516 Non-pressure chronic ulcer of other part of right foot with bone involvement without evidence of necrosis; Z79.4 Long term (current) use of insulin | CPT/HCPCS: 11042 ==

== ENCOUNTER 2025-06-19 15:24 | Outpatient (CLI) | payer MEDICARE, BC, SELFPAY | END 2025-06-19 15:25 | disposition home or self-care (01) | LOC: WOUND 15:24 | PROVIDERS: PCP Family Medicine; Visit Provider Surgery | DX: E10.621 Type 1 diabetes mellitus with foot ulcer (principal); I73.9 Peripheral vascular disease, unspecified; L97.516 Non-pressure chronic ulcer of other part of right foot with bone involvement without evidence of necrosis; Z79.4 Long term (current) use of insulin; Z96.41 Presence of insulin pump (external) (internal) | CPT/HCPCS: G0463 ==

== ENCOUNTER 2025-06-22 11:00 | Outpatient (CLI) | payer MEDICARE, BC, SELFPAY | END 2025-06-22 11:01 | disposition home or self-care (01) | PROVIDERS: PCP Family Medicine; Visit Provider Surgery | DX: E10.621 Type 1 diabetes mellitus with foot ulcer (principal); I73.9 Peripheral vascular disease, unspecified; M86.471 Chronic osteomyelitis with draining sinus, right ankle and foot; L97.516 Non-pressure chronic ulcer of other part of right foot with bone involvement without evidence of necrosis; Z79.4 Long term (current) use of insulin; Z96.41 Presence of insulin pump (external) (internal) | CPT/HCPCS: G0463 ==

== ENCOUNTER 2025-06-24 13:16 | Outpatient (CLI) | payer MEDICARE, BC, SELFPAY | END 2025-06-24 13:17 | disposition home or self-care (01) | LOC: WOUND 13:16 | PROVIDERS: PCP Family Medicine; Visit Provider Surgery | DX: E10.621 Type 1 diabetes mellitus with foot ulcer (principal); M86.471 Chronic osteomyelitis with draining sinus, right ankle and foot; L97.516 Non-pressure chronic ulcer of other part of right foot with bone involvement without evidence of necrosis; I73.9 Peripheral vascular disease, unspecified; I25.10 Atherosclerotic heart disease of native coronary artery without angina pectoris; I25.5 Ischemic cardiomyopathy; Z79.4 Long term (current) use of insulin; Z96.41 Presence of insulin pump (external) (internal) | CPT/HCPCS: 15275; Q4151 ==

== ENCOUNTER 2025-06-26 15:42 | Outpatient (CLI) | payer MEDICARE, BC, SELFPAY | END 2025-06-26 15:43 | disposition home or self-care (01) | LOC: WOUND 15:42 | PROVIDERS: PCP Family Medicine; Visit Provider Nurse Practitioner Family | DX: E10.621 Type 1 diabetes mellitus with foot ulcer (principal); I73.9 Peripheral vascular disease, unspecified; L97.516 Non-pressure chronic ulcer of other part of right foot with bone involvement without evidence of necrosis; Z79.4 Long term (current) use of insulin; Z96.41 Presence of insulin pump (external) (internal) | CPT/HCPCS: G0463 ==

== ENCOUNTER 2025-06-29 10:59 | Outpatient (CLI) | payer MEDICARE, BC, SELFPAY | END 2025-06-29 11:00 | disposition home or self-care (01) | LOC: WOUND 10:59 | PROVIDERS: PCP Family Medicine; Visit Provider Surgery | DX: E10.621 Type 1 diabetes mellitus with foot ulcer (principal); I73.9 Peripheral vascular disease, unspecified; L97.516 Non-pressure chronic ulcer of other part of right foot with bone involvement without evidence of necrosis; Z79.4 Long term (current) use of insulin; Z96.41 Presence of insulin pump (external) (internal) | CPT/HCPCS: G0463 ==

== ENCOUNTER 2025-07-01 13:09 | Outpatient (CLI) | payer MEDICARE, BC, SELFPAY | END 2025-07-01 13:10 | disposition home or self-care (01) | LOC: WOUND 13:10 | PROVIDERS: PCP Family Medicine; Visit Provider Surgery | DX: E10.621 Type 1 diabetes mellitus with foot ulcer (principal); M86.471 Chronic osteomyelitis with draining sinus, right ankle and foot; I73.9 Peripheral vascular disease, unspecified; L97.516 Non-pressure chronic ulcer of other part of right foot with bone involvement without evidence of necrosis; Z79.4 Long term (current) use of insulin; Z96.41 Presence of insulin pump (external) (internal) | CPT/HCPCS: 15275; Q4151 ==

== ENCOUNTER 2025-07-03 15:46 | Outpatient (CLI) | payer MEDICARE, BC, SELFPAY | END 2025-07-03 15:47 | disposition home or self-care (01) | LOC: WOUND 15:47 | PROVIDERS: PCP Family Medicine; Visit Provider Surgery | DX: E10.621 Type 1 diabetes mellitus with foot ulcer (principal); M86.471 Chronic osteomyelitis with draining sinus, right ankle and foot; I73.9 Peripheral vascular disease, unspecified; L97.516 Non-pressure chronic ulcer of other part of right foot with bone involvement without evidence of necrosis; Z79.4 Long term (current) use of insulin; Z96.41 Presence of insulin pump (external) (internal) | CPT/HCPCS: G0463 ==

== ENCOUNTER 2025-07-06 10:55 | Outpatient (CLI) | payer MEDICARE, BC, SELFPAY | END 2025-07-06 10:56 | disposition home or self-care (01) | LOC: WOUND 10:55 | PROVIDERS: PCP Family Medicine; Visit Provider Surgery | DX: E10.621 Type 1 diabetes mellitus with foot ulcer (principal); M86.471 Chronic osteomyelitis with draining sinus, right ankle and foot; I73.9 Peripheral vascular disease, unspecified; L97.516 Non-pressure chronic ulcer of other part of right foot with bone involvement without evidence of necrosis; Z79.4 Long term (current) use of insulin; Z96.41 Presence of insulin pump (external) (internal) | CPT/HCPCS: G0463 ==

== ENCOUNTER 2025-07-08 13:17 | Outpatient (CLI) | payer MEDICARE, BC, SELFPAY | END 2025-07-08 13:18 | disposition home or self-care (01) | LOC: WOUND 13:17 | PROVIDERS: PCP Family Medicine; Visit Provider Surgery | DX: E10.621 Type 1 diabetes mellitus with foot ulcer (principal); M86.471 Chronic osteomyelitis with draining sinus, right ankle and foot; I73.9 Peripheral vascular disease, unspecified; L97.516 Non-pressure chronic ulcer of other part of right foot with bone involvement without evidence of necrosis; I25.10 Atherosclerotic heart disease of native coronary artery without angina pectoris; Z79.4 Long term (current) use of insulin; Z96.41 Presence of insulin pump (external) (internal) | CPT/HCPCS: 15275; Q4151 ==

== ENCOUNTER 2025-07-10 15:49 | Outpatient (CLI) | payer MEDICARE, BC, SELFPAY | END 2025-07-10 15:50 | disposition home or self-care (01) | LOC: WOUND 15:49 | PROVIDERS: PCP Family Medicine; Visit Provider Surgery | DX: Z48.00 Encounter for change or removal of nonsurgical wound dressing (principal); E10.621 Type 1 diabetes mellitus with foot ulcer; L97.516 Non-pressure chronic ulcer of other part of right foot with bone involvement without evidence of necrosis; Z79.4 Long term (current) use of insulin; Z96.41 Presence of insulin pump (external) (internal) | CPT/HCPCS: G0463 ==

== ENCOUNTER 2025-07-13 11:02 | Outpatient (CLI) | payer MEDICARE, BC, SELFPAY | END 2025-07-13 11:03 | disposition home or self-care (01) | LOC: WOUND 07-14 12:21 | PROVIDERS: PCP Family Medicine; Visit Provider Surgery | DX: Z48.00 Encounter for change or removal of nonsurgical wound dressing (principal); E10.621 Type 1 diabetes mellitus with foot ulcer; M86.471 Chronic osteomyelitis with draining sinus, right ankle and foot; I73.9 Peripheral vascular disease, unspecified; L97.516 Non-pressure chronic ulcer of other part of right foot with bone involvement without evidence of necrosis; Z79.4 Long term (current) use of insulin; Z96.41 Presence of insulin pump (external) (internal) | CPT/HCPCS: G0463 ==

== ENCOUNTER 2025-07-15 13:10 | Outpatient (CLI) | payer MEDICARE, BC, SELFPAY | END 2025-07-15 13:11 | disposition home or self-care (01) | LOC: WOUND 13:11 | PROVIDERS: PCP Family Medicine; Visit Provider Surgery | DX: E10.621 Type 1 diabetes mellitus with foot ulcer (principal); M86.471 Chronic osteomyelitis with draining sinus, right ankle and foot; I73.9 Peripheral vascular disease, unspecified; L97.516 Non-pressure chronic ulcer of other part of right foot with bone involvement without evidence of necrosis; Z79.4 Long term (current) use of insulin; Z96.41 Presence of insulin pump (external) (internal) | CPT/HCPCS: 97597 ==

== ENCOUNTER 2025-07-22 13:14 | Outpatient (CLI) | payer MEDICARE, BC, SELFPAY | END 2025-07-22 13:15 | disposition home or self-care (01) | LOC: WOUND 13:14 | PROVIDERS: PCP Family Medicine; Visit Provider Surgery | DX: E10.621 Type 1 diabetes mellitus with foot ulcer (principal); M86.471 Chronic osteomyelitis with draining sinus, right ankle and foot; I73.9 Peripheral vascular disease, unspecified; L97.516 Non-pressure chronic ulcer of other part of right foot with bone involvement without evidence of necrosis; Z79.4 Long term (current) use of insulin; Z96.41 Presence of insulin pump (external) (internal); Z94.0 Kidney transplant status; Z79.60 Long term (current) use of unspecified immunomodulators and immunosuppressants | CPT/HCPCS: 15275; Q4151 ==

== ENCOUNTER 2025-07-27 11:01 | Outpatient (CLI) | payer MEDICARE, BC, SELFPAY | END 2025-07-27 11:02 | disposition home or self-care (01) | LOC: WOUND 11:02 | PROVIDERS: PCP Family Medicine; Visit Provider Surgery | DX: E10.621 Type 1 diabetes mellitus with foot ulcer (principal); L97.516 Non-pressure chronic ulcer of other part of right foot with bone involvement without evidence of necrosis; I73.9 Peripheral vascular disease, unspecified; Z79.4 Long term (current) use of insulin; Z96.41 Presence of insulin pump (external) (internal); Z94.0 Kidney transplant status; Z79.60 Long term (current) use of unspecified immunomodulators and immunosuppressants | CPT/HCPCS: G0463 ==

== ENCOUNTER 2025-07-29 13:18 | Outpatient (CLI) | payer MEDICARE, BC, SELFPAY | END 2025-07-29 13:19 | disposition home or self-care (01) | LOC: WOUND 13:18 | PROVIDERS: PCP Family Medicine; Visit Provider Physician Assistant | DX: E10.621 Type 1 diabetes mellitus with foot ulcer (principal); I73.9 Peripheral vascular disease, unspecified; M86.471 Chronic osteomyelitis with draining sinus, right ankle and foot; L97.516 Non-pressure chronic ulcer of other part of right foot with bone involvement without evidence of necrosis; Z79.4 Long term (current) use of insulin; Z96.41 Presence of insulin pump (external) (internal); Z94.0 Kidney transplant status; Z79.60 Long term (current) use of unspecified immunomodulators and immunosuppressants; I25.10 Atherosclerotic heart disease of native coronary artery without angina pectoris | CPT/HCPCS: 97597 ==

== ENCOUNTER 2025-07-31 15:25 | Outpatient (CLI) | payer MEDICARE, BC, SELFPAY | END 2025-07-31 15:26 | disposition home or self-care (01) | LOC: WOUND 15:25 | PROVIDERS: PCP Family Medicine; Visit Provider Surgery | DX: Z48.00 Encounter for change or removal of nonsurgical wound dressing (principal); E10.621 Type 1 diabetes mellitus with foot ulcer; I73.9 Peripheral vascular disease, unspecified; M86.471 Chronic osteomyelitis with draining sinus, right ankle and foot; L97.516 Non-pressure chronic ulcer of other part of right foot with bone involvement without evidence of necrosis; Z94.0 Kidney transplant status; Z79.4 Long term (current) use of insulin; Z96.41 Presence of insulin pump (external) (internal) | CPT/HCPCS: G0463 ==

== ENCOUNTER 2025-08-01 12:29 | Emergency (ER) | payer MEDICARE, BC, SELFPAY ==
--- OUTSIDE RECORDS SUMMARY | 2025-07-17 14:00 | XMS_ITS | Encounter Summary ---
Author Organization [facility] Address [address] [place] [address]. [place] [address] Care Team Providers Care [employer] Interleafer Name Role Phone Nahun Easton MD Unavailable [phone] Ca Grier Unavailable Ca Grier Primary Care Provider [phone] Stefan Thornton Unavailable Ramandeep Collier RN Unavailable Un available Guy Hernandez MD Unavailable [phone] Analilia Arellano MD Unavailable [phone] Guy Hernandez MD Unavailable [phone] Kesha Jones MD Unavailable [phone] Reason for Visit * Reason Comments RECHECK 1 month follow up vi sit * Consultation (Priority: 1-2 Weeks) - Pending Review Specialty Diagnoses / Procedures Referred By Kristina t Referred To Contact Infectious Diseases Diagnoses Immunosuppressed status Non-healing surgical wound Guy Hernandez MD [address] [place] [id number] Phone: tel: fax: Referral ID Status Reason Start Date Expiration Date V isits Requested Visits Authorized [id number] Pending Review 03/25/2025 03/25/2026 1 1 Encounter Details Date Type Department Care Team ([facility] st Contact Info) Description 07/17/2025 2:00 PM CDT Office Visit [facility] Disease Clinic [address] [phone] Kesha Jones MD [address] [facility] [place] [address] [place], [place] [id number] Toe osteomyelitis, right (H) (Primary Dx); Need for vaccination; Immunosuppressed status; Diabetes 1.5, managed as type 1 (H) Social History Tobacco Use Types Packs/Day Years Used Date Smoking Tobacco: Former Cigarettes 0 11/19/1965 - 10/21/2017 Cigars Smokeless Tobacco: Never Alcohol Use Standard Drinks/Week Comments Yes 0 (1 standard drink = 0.6 oz pur e alcohol) 1-2/wk PHQ-2 Answer Date Recorded PHQ-2 Score 0 03/25/2025 Adolescent Education Answer Date Record ed Getting School Help Needed Not on file 09/03 Sex and Gender Information Value Date Recorded Sex Assigned at Male 09/09/2021 5:01 PM CDT 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 Gender Identity Male 09/09/2021 5:01 PM CDT Sexual Orientation Straight 09/09/2021 5: 01 PM CDT documented as of this encounter Last Filed Vital Signs Vital Sign Reading Time Taken Comments Blood Pressure 179/80 07/17/2025 1:50 PM CDT Pulse 60 07/17/2025 1:50 PM CDT Temperature - - Respiratory Rate 20 07/17/2025 1:50 PM CDT Oxygen Saturation 98% 07/17/2025 1:50 PM CDT Inhaled Oxygen Concentration - - Weight 69 kg (152 lb 1.6 oz) 07/17/2025 1:50 PM CDT Height 177.8 cm (5' 10) 07/17/2025 1:50 PM CDT Body Mass Index 21.82 07/17/2025 1:50 PM CDT documented in this encounter Patient Instructions * Patient Instructions* Kesha Jones MD - 07/17/2025 2:00 PM CDT Tdap today In 1 month switch vantin to cefadroxil. Let me know if the new abx is too expensive before filling it Wound care note to be faxed to me once a month - Fax - [phone] Jones Recommended Shingrix, Flu and COVID vaccine Healthy food intake with abxs Aerate legs when possible RTC 6 weeks documented in this encounter Progress Notes * Kesha Jones MD - 07/17/2025 2:00 PM CDT Images from the original note were not included. [facility] [address] [place] [phone] Transplant Infectious Disease Consultation note Today's Date: 07/17/2025 Recommendations: continue Vantin 400 mg po bid for another month Then switch to cefadroxil 500 mg bid due to cost issues Side effects discussed Discussed Healthy food intake with long abx course Discussed Aerating the leg - always wears closed shoes even at home Wound care note to be faxed to me once a month - Fax - [phone] Jones Tdap vaccine given today Recommended Shingrix, Flu and COVID vaccine Will Fax note to Dr. Ananya Silva in [place] wound care RTC 6 weeks Thank you for involving me in the care of this patient. Please do not hesitate to contact me with any questions. Assessment: Jon Horowitz is a 79 year old with PMH of Type 1 diabetes on insulin pump (A1c 6.9 on 03/10/25 ), Kidney transplant in 1985 (on Mycophenolate 500 bid Prednisone 5 mg daily and Septra daily), diabetic neuropathy, Neck surgery 2 years ago, Bladder cancer diagnosed in 2024 on BCG treatment, PAD, ischemic heart disease Right great toe osteomyelitis: had screw placed for a fracture 30 years ago. In 2024 the screw was extruding itself out spontaneously. Building Carpenter Helper (in [place]) removed it in the clinic on 01/06/25 - on 02/10 follow up visit patient reported 3 days of redness and infection in the toe wound. X ray showed periosteal reaction. He rcvd doxycycline 3 weeks total in an intermittent fashion between January and April 2025. Angiogram of the RLE 02/2025 at [facility] showed significant vasculardisease not amenable to intervention. [place], an x ray was obtained that showed distal first phalanx osteolysis.Swab cx grew staph epi and corynebacterium sp. These are contaminants and not very useful. Requested his ben day artist to obtain deep cultures. Bone biopsy on 06/03 showed acute osteomyelitis and deep cultures for aerobic, anaerobic were negative except for Gleimia hominis previously Actinomyces hominis. Patient was on no abxs for >2 weeks when this was obtained. This could represent actinomyces infection which tends to be slow, as in his case, will treat it and see how he does. He had severe diarrhea warranting admission with augmentin before, therefore willavoid. Tried cefpodoxime 400 mg bid with some improvement at 1 month. - Serostatus:unknown - Gamma globulin status:unknown - Immunization status: due for Tdap, Shingrix, Flu and COVID vaccine - Prophylaxis: bactrim daily Total time including chart review, care-coordination and documentation time on the date of encounter - [address] Kesha Jones Division of Infectious Disease [facility] Interval History: On vantin 400 bid GI system is a bit off with it but mild Vantin is expensive, 200 dollars a month after the first month which was even more expensive. He just filled the second month prescription He has been following with wound care MWF. They think it might be getting better Interval History: Last visit 05/08/25 x ray with distal first phalanx osteolysis. Swab cx with staph epi and corynebacterium sp. These are contaminants and not very useful. Will be good to get deep and if possible bone cultures (aerobic,anaerobic, fungal and AFB) from podiatry or wound care for further management. Note was faxed to both ben day artist and wound care. He Stopped doxy like we discussed last visit 06/03 ben day artist cleaned the toe and sent for aerobic, anaerobic and mycobacterial culture. Bone wassent for H and E and that showed acute osteomyelitis. The aerobic culture did not grow any organism. The anaerobic culture grew Gleimia hominis previously Actinomyces hominis. He has seen vascular surgery at [facility]. They did angiogram 2 months ago- he has significant PAD butnone amenable to intervention. Blood sugars are doing well, A1c has been under 7 Reason for consult / Chief complaint: Consulted by Dr. Nunez for non healing toe wound History of presenting illness: Jon Horowitz is a 79 year old with PMH of Type 1 diabetes on insulin pump (A1c 6.9 on 03/10/25 ), Kidney transplant in 1985 (on Mycophenolate 500 bid ,Prednisone 5 mg daily and Septra daily), Necksurgery 2 years ago, Bladder cancer diagnosed in 2024 on BCG treatment, small vessel disease of thefeet Right toe broke decades ago - screw was used to fix it Earlier this year screw started to loosen and was being extruded spontaneously- ben day artist (in [facility]) removed it in the clinic on 01/06/25 - on 02/10 follow up visit patient reported 3 days of rednessand infection in the toe wound. X ray showed periosteal reaction. Wound was cleaned out and cultures taken in the office which was mixed shabana. Ceftriaxone injection was given in the office followed by oral abx till 02/17. Thereafter he is being followed at the wound care in [place] (not in [place], some notes in media tab, [place] [facility] [phone]) who referred him to me for a non healing toe wound to the bone despite growth enhancing wound substances and collagen with silver. He is currently on doxycycline, he thinks for 3 weeks total in an intermittent fashion. Patient Active Problem List Diagnosis Kidney replaced by transplant History of nonmelanoma skin cancer Hypertension Ulcer of left lower extremity with fat layer exposed (H) Actinic keratosis Neoplasm of uncertain behavior of skin Diabetes mellitus, type 2 (H) Seborrheic keratoses, inflamed Squamous cell carcinoma of skin, unspecified Toe infection Urothelial carcinoma (H) Infection Allergies: Allergies Allergen Reactions Amoxicillin-Pot Clavulanate Other (See Comments) and Diarrhea ##Pharmacist completed allergy assessment. Allergy determined to be low risk. Will likely tolerate cefazolin, as it does not share a side chain with amoxicillin and risk for cross-reactivity is low. Zoila Gruber [facility] Diabetes, Exacerbation Levofloxacin Other (See Comments) Patient reports tendinitis in achilles heel (transplant), foot swollen Augmentin after 3/4th of the course developed severe diarrhea, dehydration - few years ago Achilles tendonitis needing surgery with levofloxacin Medications: Current Outpatient Medications Medication Sig Dispense Refill amLODIPine (NORVASC) 10 MG tablet Take 1 tablet by mouth daily. aspirin 81 MG tablet Take 1 tablet by mouth daily atorvastatin (LIPITOR) 40 MG tablet Take 40 mg by mouth calcipotriene (DOVONOX) 0.005 % external cream Mix efudex + calcipotriene equally. Apply BID x 4-10days. Stop when skin gets red. 60 g 1 cefpodoxime (VANTIN) 200 MG tablet Take 2 tablets (400 mg) by mouth 2 times daily. 120 tablet 1 clopidogrel (PLAVIX) 75 MG tablet Take 75 mg by mouth fluorouracil (EFUDEX) 5 % external cream Mix equally with calcipotriene cream. Apply BID x 4-10 days. Stop when skin gets red. 40 g 0 hydrALAZINE (APRESOLINE) 50 MG tablet Take 50 mg by mouth. insulin aspart (NOVOLOG VIAL) 100 UNITS/ML vial lisinopril (PRINIVIL/ZESTRIL) 10 MG tablet TK 1 T PO D 3 metoprolol succinate (TOPROL-XL) 50 MG 24 hr tablet TK 1 T PO BID 3 mycophenolate (GENERIC EQUIVALENT) 250 MG capsule Take 2 capsules (500 mg) by mouth 2 times daily. 360 capsule 3 predniSONE (DELTASONE) 5 MG tablet Take 1 tablet (5 mg) by mouth daily 90 tablet 1 sulfamethoxazole-trimethoprim (BACTRIM,SEPTRA) 400-80 MG per tablet Take 1 tablet by mouth No current facility-administered medications for this visit. Immunizations: Immunization History Administered Date(s) Administered COVID-19 12+ (MODERNA) 09/05/2023, 09/10/2024 COVID-19 Bivalent 18+ (Moderna) 08/01/2022, 03/10/2023 COVID-19 Monovalent 18+ (Moderna) 01/01/2021, 01/29/2021, 07/12/2021, 12/23/2021 Influenza (IIV3) PF 08/19/2012 Pneumo Conj 13-V (2010&after) 09/19/2016 Pneumococcal 23 valent 11/07/2012 TDAP Vaccine (Boostrix) 09/30/2015 Examination: Vital signs: BP (!) 179/80 Pulse 60 Resp 20 Ht 1.778 m (5' 10) Wt 69 kg (152 lb 1.6 oz) SpO2 98% BMI 21.82 kg/m?? Constitutional: Patient in no distress Eyes: not pale, not jaundiced Skin: no rash Extremities: no pedal edema Right great toe- the hole seems smaller. I did not probe it. The nail seems less soft. The skin is less macerated Psych: Alert and oriented x 3 06/12/25 Laboratory: Hematology: Recent Labs Lab Test 12/24/23 1106 12/28/22 1117 04/28/22 0742 WBC 9.6 8.4 7.2 RBC 3.99* 4.15* 3.88* HGB 11.9* 12.5* 11.9* HCT 37.7* 38.8* 36.3* MCV 95 94 94 MCH 29.8 30.1 30.7 MCHC 31.6 32.2 32.8 RDW 13.5 14.0 13.2 PLT 130* 120* 118* Chemistry: Recent Labs Lab Test 05/19/24 0920 04/29/24 0903 12/24/23 1106 12/28/22 1117 12/28/22 1117 04/28/22 0742 NA -- -- 137 -- 142 138 POTASSIUM -- -- 4.8 -- 5.3 4.6 CHLORIDE 102 104 104 < > 106 108 CO2 -- -- - ANIONGAP -- -- 9 -- 13 7 GLC -- -- 98 -- 81 129* BUN -- -- 41.9* -- 41.4* 47* CR -- -- 1.31* -- 1.24* 1.25 SANGEETHA -- -- 9.5 -- 9.5 9.3 < > = values in this interval not displayed. Liver Function Studies: Not available Microbiology: 06/03 aerobic, anaerobic, mycobacterial cx - Gleimia hominis previously Actinomyces hominis. 02/10/25 aerobic wound culture - mixed shabana Pathology: 06/03 right big toe bone biopsy - acute osteomyelitis Imagin06/03/25 Osteomyelitis of the great toe distal phalanx. 05/08/25 Osteolysis of the first distal phalanx suspicious for osteomyelitis. 02/24/25 Right LE angiography We introduced a 5 Welsh sheath, went up and over the bifurcation, obtained a right leg angiogram which showed a patent common femoral artery, patent SFA, diffuse calcific disease affecting the popliteal artery and distal SFA with no focal occlusions or stenoses. 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 The peroneal artery and mid posterior tibial artery are diminutive throughout the leg and do not reconstitute beyond the ankle. We selected the anterior tibial artery and obtained a angiogram and found no evidence of disease that is amenable to endovascular intervention with severe forefoot disease. documented in this encounter Nursing Notes * Gurjit Fall CMA - 07/17/2025 2:00 PM CDT Chief Complaint Patient presents with RECHECK 1 month follow up visit BP (!) 179/80 Pulse 60 Resp 20 Ht 1.778 m (5' 10) Wt 69 kg (152 lb 1.6 oz) SpO2 98% BMI 21.82 kg/m?? Gurjit Fall CMA CMA at 1:52 PM on 07/17/2025 documented in this encounter Plan of Treatment Upcoming Encounters Date Type Department Care Team (Late st Contact Info) Description 08/24/2025 3:00 PM CDT Office Visit [facility] Infect[facility] Disease Clinic [address] [phone] Kesha Jones MD [address] [facility] [place] [address] [place] [address] 03/25/2026 1:00 PM CDT Virtual Visit [facility] Transplant Clinic [address] [place] [phone] Guy Hernandez MD [address] [place] [phone] documented as of this encounter Visit Diagnoses Diagnosis Toe osteomyelitis, right (H)- Primary Unspecified osteomyelitis, ankle and foot Need for vaccination Need for prophylactic vaccination and inoculation against unspecified single disease Immunosuppressed status 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, managed as type 1 (H) documented in this encounter Care Teams [employer] Paper Interleafer Relationship Specialty Start Date End Date Ca Grier [address] [place] [phone] PCP - General Family Practice 10/24/17 Nahun Easton MD [address] [place] [phone] Orthopedics 09/21/17 Ca Grier [address] [place] [phone] Referring Physician Family Practice 09/21/17 Stefan Thornton [address] [place] [phone] Strategic Planning Director INTERNAL MEDICINE - ENDOCRINOLOGY, DIABETES & METABOLISM 04/11/18 Ramandeep Collier, RN Registered Nurse Transplant 04/21/21 Guy Hernandez MD [address] [place] [phone] Nephrology 04/21/21 Analilia Arellano MD [address] [place] [phone] Dermatology 06/21/21 Guy Hernandez MD [address] [place] [phone] Assigned Nephrology Provider 05/11/24 Kesha Jones MD [address] [place] [address] [phone] Assigned Infectious Disease Provider 05/11/25 documented as of this encounter
[2025-08-01] VITALS (49 sets, daily range): BP systolic 110–153; BP diastolic 56–92; PULSE 52–64; RESP 8–65; TEMP 36.7; O2SAT 88–97; BMI 22.6
--- OUTSIDE RECORDS SUMMARY | 2025-08-01 12:32 | XMS_ITS | Encounter Summary ---
Author Organization [place] Address [address] [place] [address]. [place] [address] Care Team Providers Care Blueprinter Name Role Phone Nahun Easton MD Unavailable [phone] Ca Grier Unavailable Ca Grier Primary Care Provider [phone] Stefan Thornton Unavailable Ramandeep Collier RN Unavailable Un available Guy Hernandez MD Unavailable [phone] Analilia Arellano MD Unavailable [phone] Evens Clayton MD Unavailable Guy Hernandez MD Unavailable [phone] Kesha Jnoes MD Unavailable [phone] Encounter Details Date Type Department Care Team (Late st Contact Info) Description 08/07/2023 [facility] Medical Advice [facility] [address] [place] [address] Yenny Dejesus, RN Social History Tobacco Use Types Packs/Day Years Used Date Smoking Tobacco: Former Cigarettes 0 11/19/1965 - 10/21/2017 Cigars Smokeless Tobacco: Never Alcohol Use Standard Drinks/Week Comments Yes 0 (1 standard drink = 0.6 oz pur e alcohol) 1-2/wk PHQ-2 Answer Date Recorded PHQ-2 Score 0 03/21/2022 Sex and Gender Information Value Date Recorded Sex Assigned at Male 09/09/2021 5:01 PM CDT 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 Gender Identity Male 09/09/2021 5:01 PM CDT Sexual Orientation Straight 09/09/2021 5: 01 PM CDT documented as of this encounter Plan of Treatment Upcoming Encounters Date Type Department Care Team (Late st Contact Info) Description 08/24/2025 3:00 PM CDT Office Visit [facility] [address] [address] Kesha Jones MD [address] [facility] [address] [place], [place] [address]44[address] 03/25/2026 1:00 PM CDT Virtual Visit [facility] [address] [place] [address] Guy Hernandez MD [address] [place] [address] [phone] documented as of this encounter Visit Diagnoses Not on filedocumented in this encounter Care Teams Blueprinter Relationship Specialty Start Date End Date Ca Grier [address] [place] [address] [phone] PCP - General Family Practice 10/24/17 Nahun Easton MD [address] [place] [address] 239165 Orthopedics 09/21/17 Ca Grier [address] [place] [address] 843685 Referring Physician Family Practice 09/21/17 Stefan Thornton [address] [place] [address] [phone] Cotton Cleaner INTERNAL MEDICINE - ENDOCRINOLOGY, DIABETES & METABOLISM 04/11/18 Ramandeep Collier, RN Registered Nurse Transplant 04/21/21 Guy Hernandez MD [address] [place] [address] 09195 Nephrology 04/21/21 Analilia Arellano MD [address] [place] [address] 747695 Dermatology 06/21/21 Evens Clayton MD [address] [place] [address] [phone] Assigned Surgical Provider 03/26/22 09/21/23 Guy Hernandez MD [address] [place] [address] [phone] Assigned Nephrology Provider 05/11/24 Kesha Jones MD [address] [place] [address] 191155 Assigned Infectious Disease Provider 05/11/25 documented as of this encounter
--- OUTSIDE RECORDS SUMMARY | 2025-08-01 12:32 | XMS_ITS | Encounter Summary ---
Author Organization [place] Address [address] [place] [address] Care Team Providers Care Form Setter Steel Pan Forms Name Role Phone Wilber Schaefer MD Unavailable Nahun Easton MD Unavailable [phone] Ca Grier Unavailable Ca Grier Primary Care Provider Marisa Skinner MD Unavailable Stefan Thornton Unavailable Sanjeev Pastrana MD Unavailable Evens Clayton MD Unavailable Sanjeev Pastrana MD Unavailable [phone] Ramandeep Collier RN Unavailable Un available Guy Hernandez MD Unavailable [phone] Analilia Arellano MD Unavailable [phone] Guy Hernandez MD Unavailable [phone] Guy Hernandez MD Unavailable [phone] Evens Clayton MD Unavailable Guy Hernandez MD Unavailable [phone] Kesha Jones MD Unavailable [phone] Encounter Details Date Type Department Care Team (Late st Contact Info) Description 03/30/2018 My[facility] Medical Advice [facility] [address] [place] [address] 4th [place] [address] Joseph Thomason DPM [address] [place] [address] [phone] Social History Tobacco Use Types Packs/Day Years Used Date Smoking Tobacco: Some Days Cigarettes Started: 11/19/1965 Cigars Smokeless Tobacco: Never Alcohol Use Standard Drinks/Week Comments Yes 0 (1 standard drink = 0.6 oz pur e alcohol) 1-2/wk Sex and Gender Information Value Date Recorded Sex Assigned at Male 09/09/2021 5:01 PM CDT 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 Gender Identity Male 09/09/2021 5:01 PM CDT Sexual Orientation Straight 09/09/2021 5: 01 PM CDT documented as of this encounter Plan of Treatment Upcoming Encounters Date Type Department Care Team (Late st Contact Info) Description 08/24/2025 3:00 PM CDT Office Visit [facility] [address] [phone] Kesha Jones MD [address] [place] [address] 250 [place], [place] 683925 03/25/2026 1:00 PM CDT Virtual Visit [facility] [address] [place] [address] Guy Hernandez MD [address] [place] [address] [phone] documented as of this encounter Visit Diagnoses Not on filedocumented in this encounter Care Teams Form Setter Steel Pan Forms Relationship Specialty Start Date End Date Ca Grier [address] [place] [address] 15471 PCP - General Family Practice 10/24/17 Wilber Schaefer MD [facility] [place] [address] Dermatology 01/18/15 04/10/18 Nahun Easton MD [address] [place] [address] 76854 Orthopedics 09/21/17 Ca Grier [address] [place] [address] 81072 Referring Physician Family Practice 09/21/17 Marisa Skinner MD [address] [place] [address] 48778 Nephrology 04/11/18 04/20/21 Stefan Thornton [address] [place] [address] 96868 Advertising Dispatch Clerk INTERNAL MEDICINE - ENDOCRINOLOGY, DIABETES & METABOLISM 04/11/18 Sanjeev Pastrana MD [address] [place] [address] 55360 Assigned Surgical Provider 11/07/20 11/27/20 [place] [address] [place] [address] Assigned Surgical Provider 11/28/20 02/26/21 Sanjeev Pastrana MD [address] [address] Assigned Surgical Provider 02/27/21 03/25/22 Ramandeep Collier RN Registered Nurse Transplant 04/21/21 Guy Hernandez MD [address] [place] [address] 23421 Nephrology 04/21/21 Analilia Arellano MD [address] [place] [address] 70159 Dermatology 06/21/21 Guy Hernandez MD [address] [place] [address] 47089 Assigned Nephrology Provider 11/27/21 12/17/21 Guy Hernandez MD [address] [place] [address] 67464 Assigned Nephrology Provider 12/18/21 05/25/23 Evens Clayton MD [address] [place] [address] 68052 Assigned Surgical Provider 03/26/22 09/21/23 Guy Hernandez MD [address] [place] [address] 66895 Assigned Nephrology Provider 05/11/24 Kesha Jones MD [address] [place] [address] 75384 Assigned Infectious Disease Provider 05/11/25 documented as of this encounter
--- OUTSIDE RECORDS SUMMARY | 2025-08-01 12:32 | XMS_ITS | Encounter Summary ---
Author Organization [place] Address [address] [place] [address]. [place] [address] Care Team Providers Care Production Broaching Machine Operator Name Role Phone Nahun Easton MD Unavailable [phone] Ca Grier Unavailable Ca Grier Primary Care Provider [phone] Stefan Thornton Unavailable Ramandeep Collier RN Unavailable Un available Guy Hernandez MD Unavailable [phone] Analilia Arellano MD Unavailable [phone] Guy Hernandez MD Unavailable [phone] Evens Clayton MD Unavailable Guy Hernandez MD Unavailable [phone] Kesha Jones MD Unavailable [phone] Encounter Details Date Type Department Care Team (Late st Contact Info) Description 03/29/2022 My[facility] Medical Advice [facility] [address] [place] [address] Jossie Mueller Social History Tobacco Use Types Packs/Day Years [...] PM CDT 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 No / Unsure 03/21/2022 9:08 AM CDT documented as of this encounter Plan of Treatment Upcoming Encounters Date Type Department Care Team (Late st Contact Info) Description 08/24/2025 3:00 PM CDT Office Visit [facility] [address] [phone] Kesha Jones MD [address] [place] [address] [phone] 03/25/2026 1:00 PM CDT Virtual Visit [facility] [address] [place] [phone] Guy Hernandez MD [address] [place] [address] [phone] documented as of this encounter Visit Diagnoses Not on filedocumented in this encounter Care Teams Production Broaching Machine Operator Relationship Specialty Start Date End Date Ca Grier [address] [place] [address] [phone] PCP - General Family Practice 10/24/17 Nahun Easton MD [address] [place] [address] [phone] Orthopedics 09/21/17 Ca Grier [address] [place] [address] [phone] Referring Physician Family Practice 09/21/17 Stefna Thornton [address] [place] [address] 04660 Suction Operator INTERNAL MEDICINE - ENDOCRINOLOGY, DIABETES & METABOLISM 04/11/18 Ramandeep Collier, RN Registered Nurse Transplant 04/21/21 Guy Hernandez MD [address] [place] [address] 79984 Nephrology 04/21/21 Analilia Arellano MD [address] [place] [address] 03376 MD Dermatology 06/21/21 Guy Hernandez MD [address] [place] [address] 17538 Assigned Nephrology Provider 12/18/21 05/25/23 Evens Clayton MD [address] [place] [address] 10673 Assigned Surgical Provider 03/26/22 09/21/23 Guy Hernandez MD [address] [place] [address] 37645 Assigned Nephrology Provider 05/11/24 Kesha Jones MD [address] [place] [address] 794215 Assigned Infectious Disease Provider 05/11/25 documented as of this encounter
--- OUTSIDE RECORDS SUMMARY | 2025-08-01 12:32 | XMS_ITS | Encounter Summary ---
Author Organization [facility] Address [address] [place] [address]. [place] [address] Care Team Providers Care Sub Prior Name Role Phone Nahun Easton MD Unavailable [phone] Ca Girer Unavailable Ca Grier Primary Care Provider [phone] Stefan Thornton Unavailable Ramandeep Collier RN Unavailable Un available Guy Hernandez MD Unavailable [phone] Analilia Arellano MD Unavailable [phone] Guy Hernandez MD Unavailable [phone] Evens Clayton MD Unavailable Guy Hernandez MD Unavailable [phone] Kesha Jones MD Unavailable [phone] Encounter Details Date Type Department Care Team (Late st Contact Info) Description 04/10/2022 [facility] Medical Advice [facility] [address] [place] [address] Ramandeep Collier, RN Social History Tobacco Use Types Packs/Day [...] PM CDT 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 No / Unsure 04/13/2022 2:10 PM CDT documented as of this encounter Plan of Treatment Upcoming Encounters Date Type Department Care Team (Late st Contact Info) Description 08/24/2025 3:00 PM CDT Office Visit [facility] [address] [phone] Kesha Jones MD [address] [place] [address] 580355 03/25/2026 1:00 PM CDT Virtual Visit [facility] [address] [place] [phone] Guy Hernandez MD [address] [place] [address] [phone] documented as of this encounter Visit Diagnoses Not on filedocumented in this encounter Care Teams Sub Prior Relationship Specialty Start Date End Date Ca Grier [address] [place] [address] [phone] PCP - General Family Practice 10/24/17 Nahun Easton MD [address] [place] [address] 267045 Orthopedics 09/21/17 Ca Grier [address] [place] [address] 794825 Referring Physician Family Practice 09/21/17 Stefan Thornton [address] [place] [address] 91697 Director Of Database Marketing INTERNAL MEDICINE - ENDOCRINOLOGY, DIABETES & METABOLISM 04/11/18 Ramandeep Collier, RN Registered Nurse Transplant 04/21/21 Guy Hernandez MD [address] [place] [address] 11273 Nephrology 04/21/21 Analilia Arellano MD [address] [place] [address] 73902 MD Dermatology 06/21/21 Guy Hernandez MD [address] [place] [address] 61650 Assigned Nephrology Provider 12/18/21 05/25/23 Evens Clayton MD [address] [place] [address] 60310 Assigned Surgical Provider 03/26/22 09/21/23 Guy Hernandez MD [address] [place] [address] 60591 Assigned Nephrology Provider 05/11/24 Kesha Jones MD [address] [place] [address] 706645 Assigned Infectious Disease Provider 05/11/25 documented as of this encounter
--- OUTSIDE RECORDS SUMMARY | 2025-08-01 12:33 | XMS_ITS | Encounter Summary ---
Author Organization [place] Address [address] [place] [address] Care Team Providers Care Meter Record Clerk Name Role Phone Wilber Schaefer MD Unavailable Nahun Easton MD Unavailable [phone] Ca Grier Unavailable Ca Grier Primary Care Provider Marisa Skinner MD Unavailable Stefan Thornton Unavailable Sanjeev Pastrana MD Unavailable [phone] Evens Clayton MD Unavailable Sanjeev Pastrana MD Unavailable [phone] Ramandeep Collier RN Unavailable Un available Guy Hernandez MD Unavailable [phone] Analilia Arellano MD Unavailable [phone] Guy Hernandez MD Unavailable [phone] Guy Hernandez MD Unavailable [phone] Evens Claytno MD Unavailable Guy Hernandez MD Unavailable [phone] Kesha Jones MD Unavailable [phone] Encounter Details Date Type Department Care Team (Late st Contact Info) Description 03/29/2018 MyC Medical Advice [facility] [address] [place] [address] 4th [place] [address] Joseph Thomason DPM [address] [place] [address] [phone] Social History Tobacco Use Types Packs/Day Years Used Date Smoking Tobacco: Some Days Cigarettes Started: 11/19/1965 Cigars Smokeless Tobacco: Never Alcohol Use Standard Drinks/Week Comments Yes 0 (1 standard drink = 0.6 oz pur e alcohol) 1-2/wk Sex and Gender Information Value Date Recorded Sex Assigned at Male 09/09/2021 5:01 PM CDT 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 Gender Identity Male 09/09/2021 5:01 PM CDT Sexual Orientation Straight 09/09/2021 5: 01 PM CDT documented as of this encounter Plan of Treatment Upcoming Encounters Date Type Department Care Team (Late st Contact Info) Description 08/24/2025 3:00 PM CDT Office Visit [facility] Disease [facility] [address] [phone] Kesha Jones MD [address] [place] [address] 250 [place], [place] 7414[address] 03/25/2026 1:00 PM CDT Virtual Visit [facility] Transplant [facility] [address] [place] [phone] Guy Hernandez MD [address] [place] [address] 166385 documented as of this encounter Visit Diagnoses Not on filedocumented in this encounter Care Teams Meter Record Clerk Relationship Specialty Start Date End Date Ca Grier [address] [place] [address] 51095 PCP - General Family Practice 10/24/17 Wilber Schaefer MD [facility] [place] [address] Dermatology 01/18/15 04/10/18 Nahun Easton MD [address] [place] [address] 85315 Orthopedics 09/21/17 Ca Grier [address] [place] [address] 50889 Referring Physician Family Practice 09/21/17 Marisa Skinner MD [address] [place] [address] 21623 Nephrology 04/11/18 04/20/21 Stefan Thornton [address] [place] [address] 96433 Larry Car Operator INTERNAL MEDICINE - ENDOCRINOLOGY, DIABETES & METABOLISM 04/11/18 Sanjeev Pastrana MD [address] [place] [address] 93609 Assigned Surgical Provider 11/07/20 11/27/20 [place] [address] [place] [address] Assigned Surgical Provider 11/28/20 02/26/21 Sanjeev Pastrana MD [address] [address] Assigned Surgical Provider 02/27/21 03/25/22 Ramandeep Collier RN Registered Nurse Transplant 04/21/21 Guy Hernandez MD [address] [place] [address] 63943 Nephrology 04/21/21 Analilia Arellano MD [address] [place] [address] 22573 Dermatology 06/21/21 Guy Hernandez MD [address] [place] [address] 49353 Assigned Nephrology Provider 11/27/21 12/17/21 Guy Hernandez MD [address] [place] [address] 51978 Assigned Nephrology Provider 12/18/21 05/25/23 Evens Clayton MD [address] [place] [address] 84713 Assigned Surgical Provider 03/26/22 09/21/23 Guy Hernandez MD [address] [place] [address] 88472 Assigned Nephrology Provider 05/11/24 Kesha Jones MD [address] [place] [address] 46881 Assigned Infectious Disease Provider 05/11/25 documented as of this encounter
--- OUTSIDE RECORDS SUMMARY | 2025-08-01 12:33 | XMS_ITS | Encounter Summary ---
Author Organization [facility] Address [address] [place] [address] Care Team Providers Care Chainer Name Role Phone Wilber Schaefer MD Unavailable Nahun Easton MD Unavailable [phone] Ca Grier Unavailable Ca Grier Primary Care Provider Marisa Skinner MD Unavailable [phone] Stefan Thornton Unavailable Sanjeev Pastrana MD Unavailable Evens Clayton MD Unavailable Sanjeev Pastrana MD Unavailable [phone] Ramandeep Collier RN Unavailable Un available Guy Hernandez MD Unavailable [phone] Analilia Arellano MD Unavailable [phone] Guy Hernandez MD Unavailable [phone] Guy Hernandez MD Unavailable [phone] Evens Clayton MD Unavailable Guy Hernandez MD Unavailable [phone] Kesha Jones MD Unavailable [phone] Encounter Details Date Type Department Care Team (Late st Contact Info) Description 03/28/2018 MyC Medical Advice [facility] W[facility] Care [address] [place] [address] 4th [place] [address] Joseph Thomason DPM [address] [place] [address] 110755 Social History Tobacco Use Types Packs/Day Years Used Date Smoking Tobacco: Some Days Cigarettes Started: 11/19/1965 Cigars Smokeless Tobacco: Never Alcohol Use Standard Drinks/Week Comments Yes 0 (1 standard drink = 0.6 oz pur e alcohol) 1-2/wk Sex and Gender Information Value Date Recorded Sex Assigned at Male 09/09/2021 5:01 PM CDT 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 Gender Identity Male 09/09/2021 5:01 PM CDT Sexual Orientation Straight 09/09/2021 5: 01 PM CDT documented as of this encounter Plan of Treatment Upcoming Encounters Date Type Department Care Team (Late st Contact Info) Description 08/24/2025 3:00 PM CDT Office Visit [facility] Infect[facility] Disease Clinic [address] [phone] Kesha Jones MD [address] [place] [address] 250 [place], [place] 327075 03/25/2026 1:00 PM CDT Virtual Visit [facility] Trans[facility] [address] [place] [phone] Guy Hernandez MD [address] [place] [address] [phone] documented as of this encounter Visit Diagnoses Not on filedocumented in this encounter Care Teams Chainer Relationship Specialty Start Date End Date Ca Grier [address] [place] [address] 12606 PCP - General Family Practice 10/24/17 Wilber Schaefer MD [facility] [place] [address] Dermatology 01/18/15 04/10/18 Nahun Easton MD [address] [place] [address] 30818 Orthopedics 09/21/17 Ca Grier [address] [place] [address] 17973 Referring Physician Family Practice 09/21/17 Marisa Skinner MD [address] [place] [address] 97905 Nephrology 04/11/18 04/20/21 Stefan Thornton [address] [place] [address] 18969 Mechanical Integrity Specialist INTERNAL MEDICINE - ENDOCRINOLOGY, DIABETES & METABOLISM 04/11/18 Sanjeev Pastrana MD [address] [place] [address] 54895 Assigned Surgical Provider 11/07/20 11/27/20 [place] [address] [place] [address] Assigned Surgical Provider 11/28/20 02/26/21 Sanjeev Pastrana MD [address] [address] Assigned Surgical Provider 02/27/21 03/25/22 Ramandeep Collier RN Registered Nurse Transplant 04/21/21 Guy Hernandez MD [address] [place] [address] 90207 Nephrology 04/21/21 Analilia Arellano MD [address] [place] [address] 00269 Dermatology 06/21/21 Guy Hernandez MD [address] [place] [address] 49643 Assigned Nephrology Provider 11/27/21 12/17/21 Guy Hernandez MD [address] [place] [address] 95968 Assigned Nephrology Provider 12/18/21 05/25/23 Evens Clayton MD [address] [place] [address] 72183 Assigned Surgical Provider 03/26/22 09/21/23 Guy Hernandez MD [address] [place] [address] 75622 Assigned Nephrology Provider 05/11/24 Kesha Jones MD [address] [place] [address] 37460 Assigned Infectious Disease Provider 05/11/25 documented as of this encounter
--- OUTSIDE RECORDS SUMMARY | 2025-08-01 12:33 | XMS_ITS | Encounter Summary ---
Author Organization [facility] Address [address] [place] [address]. [place] [address] Care Team Providers Care Stationary Engineer Name Role Phone Nahun Easton MD Unavailable [phone] Ca Grier Unavailable Ca Grier Primary Care Provider [phone] Stefan Thornton Unavailable Ramandeep Collier RN Unavailable Un available Guy Hernandez MD Unavailable [phone] Analilia Arellano MD Unavailable [phone] Guy Hernandez MD Unavailable [phone] Evens Clayton MD Unavailable Guy Hernandez MD Unavailable [phone] Kesha Jones MD Unavailable [phone] Encounter Details Date Type Department Care Team (Late st Contact Info) Description 02/13/2023 [facility] Medical Advice [facility] [address] [place] [address] Ramandeep Collier, RN Social History [...] PM CDT 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 No / Unsure 02/09/2023 11:20 AM CDT documented as of this encounter Plan of Treatment Upcoming Encounters Date Type Department Care Team (Late st Contact Info) Description 08/24/2025 3:00 PM CDT Office Visit [facility] [address] [phone] Kesha Jones MD [address] [place] [address] 120805 03/25/2026 1:00 PM CDT Virtual Visit [facility] [address] [place] [address] [phone] Guy Hernandez MD [address] [place] [address] [phone] documented as of this encounter Visit Diagnoses Not on filedocumented in this encounter Care Teams Stationary Engineer Relationship Specialty Start Date End Date Ca Grier [address] [place] [address] [phone] PCP - General Family Practice 10/24/17 Nahun Easton MD [address] [place] [address] [phone] Orthopedics 09/21/17 Ca Grier [address] [place] [address] 890015 Referring Physician Family Practice 09/21/17 Stefan Thornton [address] [place] [address] 56902 Alto Singer INTERNAL MEDICINE - ENDOCRINOLOGY, DIABETES & METABOLISM 04/11/18 Ramandeep Collier, RN Registered Nurse Transplant 04/21/21 Guy Hernandez MD [address] [place] [address] 22345 Nephrology 04/21/21 Analilia Arellano MD [address] [place] [address] 16371 MD Dermatology 06/21/21 Guy Hernandez MD [address] [place] [address] 92744 Assigned Nephrology Provider 12/18/21 05/25/23 Evens Clayton MD [address] [place] [address] 55321 Assigned Surgical Provider 03/26/22 09/21/23 Guy Hernandez MD [address] [place] [address] 59680 Assigned Nephrology Provider 05/11/24 Kesha Jones MD [address] [place] [address] 496885 Assigned Infectious Disease Provider 05/11/25 documented as of this encounter
--- OUTSIDE RECORDS SUMMARY | 2025-08-01 12:34 | XMS_ITS | Encounter Summary ---
Author Organization [facility] Address [address] [place] [address]. [place] [address] Care Team Providers Care Egyptologist Name Role Phone Nahun Easton MD Unavailable [phone] Ca Grier Unavailable Ca Grier Primary Care Provider [phone] Stefan Thornton Unavailable Ramandeep Collier RN Unavailable Un available Guy Hernandez MD Unavailable [phone] Analilia Arellano MD Unavailable [phone] Guy Hernandez MD Unavailable [phone] Evens Clayton MD Unavailable Guy Hernandez MD Unavailable [phone] Kesha Jones MD Unavailable [phone] Encounter Details Date Type Department Care Team (Late st Contact Info) Description 02/26/2023 [facility] Advice Initial Department Skyla Joaquin, NAHOMY Social History Tobacco Use Types Packs/Day Years [...] PM CDT 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 Gender Identity Male 09/09/2021 5:01 PM CDT [...] Description 08/24/2025 3:00 PM CDT Office Visit [facility] [address] [phone] Kesha Jones MD [address] [phone] 03/25/2026 1:00 PM CDT Virtual Visit [facility] [address] [place] [address] [phone] Guy Hernandez MD [address] [place] [address] 511185 documented as of this encounter Visit Diagnoses Not on filedocumented in this encounter Care Teams Egyptologist Relationship Specialty Start Date End Date Ca Grier [address] [place] [address] 26386 PCP - General Family Practice 10/24/17 Nahun Easton MD [address] [place] [address] 137225 Orthopedics 09/21/17 Ca Grier [address] [place] [address] 50375 Referring Physician Family Practice 09/21/17 Stefan Thornton [address] [place] [address] 54640 Rig Manager INTERNAL MEDICINE - ENDOCRINOLOGY, DIABETES & METABOLISM 04/11/18 Ramandeep Collier, RN Registered Nurse Transplant 04/21/21 Guy Hernandez MD [address] [place] [address] 31408 Nephrology 04/21/21 Analilia Arellano MD [address] [place] [address] 26626 Dermatology 06/21/21 Guy Hernandez MD [address] [place] [address] 65561 Assigned Nephrology Provider 12/18/21 05/25/23 Evens Clayton MD [address] [place] [address] 38047 Assigned Surgical Provider 03/26/22 09/21/23 Guy Hernandez MD [address] [place] [address] 07142 Assigned Nephrology Provider 05/11/24 Kesha Jones MD [address] [place] [address] 10437 Assigned Infectious Disease Provider 05/11/25 documented as of this encounter
--- OUTSIDE RECORDS SUMMARY | 2025-08-01 12:34 | XMS_ITS | Encounter Summary ---
Author Organization [facility] Address [address] [place] [address]. [place] [address] Care Team Providers Care Spiritual Counselor Name Role Phone Nahun Easton MD Unavailable [phone] Ca Grier Unavailable Ca Grier Primary Care Provider [phone] Marisa Skinner MD Unavailable [phone] Stefan Thornton Unavailable Evens Clayton MD Unavailable Sanjeev Pastrana MD Unavailable [phone] Ramandeep Collier RN Unavailable Un available Guy Hernandez MD Unavailable [phone] Analilia Arellano MD Unavailable [phone] Guy Hernandez MD Unavailable [phone] Guy Hernandez MD Unavailable [phone] Evens Clayton MD Unavailable Guy Hernandez MD Unavailable [phone] Kesha Jones MD Unavailable [phone] Encounter Details Date Type Department Care Team (Late st Contact Info) Description 12/03/2020 [facility] [address] [address] Marisa Skinner MD 717 [facility] [address] [place] [address] Social History Tobacco Use Types Packs/Day Years Used Date Smoking Tobacco: Former Cigarettes 0 11/19/1965 - 10/21/2017 Cigars Smokeless Tobacco: Never Alcohol Use Standard Drinks/Week Comments Yes 0 (1 standard drink = 0.6 oz pur e alcohol) 1-2/wk PHQ-2 Answer Date Recorded PHQ-2 Score 0 11/24/2020 Sex and Gender Information Value Date Recorded Sex Assigned at Male 09/09/2021 5:01 PM CDT 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 No / Unsure 11/24/2020 9:11 AM MORGUE KEEPER documented as of this encounter Plan of Treatment Upcoming Encounters Date Type Department Care Team (Late st Contact Info) Description 08/24/2025 3:00 PM CDT Office Visit [facility] [address] [address] Kesha Jones MD 420 [facility] [address] [place], [place] 334705 03/25/2026 1:00 PM CDT Virtual Visit [facility] [address] [place] [phone] Guy Hernandez MD [address] [place] [address] 410955 documented as of this encounter Visit Diagnoses Not on filedocumented in this encounter Care Teams Spiritual Counselor Relationship Specialty Start Date End Date Ca Grier [address] [place] [address] [phone] PCP - General Family Practice 10/24/17 Nahun Easton MD [address] [place] [address] 89176 Orthopedics 09/21/17 Ca Grier [address] [place] [address] 53865 Referring Physician Family Practice 09/21/17 Marisa Skinner MD [address] [place] [address] 91120 Nephrology 04/11/18 04/20/21 Stefan Thornton [address] [place] [address] [phone] Unemployment Insurance Hearing Officer INTERNAL MEDICINE - ENDOCRINOLOGY, DIABETES & METABOLISM 04/11/18 [place] [address] [place], [place] [address] Assigned Surgical Provider 11/28/20 02/26/21 Sanjeev Pastrana MD 420 [facility] [address] [place], [place] 716035 Assigned Surgical Provider 02/27/21 03/25/22 Ramandeep Collier RN Registered Nurse Transplant 04/21/21 Guy Hernandez MD [address] [place] [address] 596515 Nephrology 04/21/21 Analilia Arellano MD [address] [place] [address] [phone] MD Paredes 06/21/21 Guy Hernandez MD [address] [place] [address] 460725 Assigned Nephrology Provider 11/27/21 12/17/21 Guy Hernandez MD [address] [place] [address] [phone] Assigned Nephrology Provider 12/18/21 05/25/23 Evens Clayton MD [address] [place] [address] [phone] Assigned Surgical Provider 03/26/22 09/21/23 Guy Hernandez MD [address] [place] [address] 928365 Assigned Nephrology Provider 05/11/24 Kesha Jones MD [address] [place] [address] 277775 Assigned Infectious Disease Provider 05/11/25 documented as of this encounter
--- OUTSIDE RECORDS SUMMARY | 2025-08-01 12:34 | XMS_ITS | Encounter Summary ---
Author Organization [facility] Address [address] [place] [address]. [place] [address] Care Team Providers Care Group Marketing Vp Name Role Phone Nahun Easton MD Unavailable [phone] Ca Grier Unavailable Ca Grier Primary Care Provider [phone] Marisa Skinner MD Unavailable [phone] Stefan Thornton Unavailable Sanjeev Pastrana MD Unavailable [phone] Ramandeep Collier RN Unavailable Un available Guy Hernandez MD Unavailable [phone] Analilia Arellano MD Unavailable [phone] Guy Hernandez MD Unavailable [phone] Guy Hernandez MD Unavailable [phone] Evens Clayton MD Unavailable Guy Hernandez MD Unavailable [phone] Kesha Jones MD Unavailable [phone] Encounter Details Date Type Department Care Team (Late st Contact Info) Description 03/23/2021 [facility] [address] [place] [address] Ramandeep Collier, RN Social History [...] PM CDT 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 Gender Identity Male 09/09/2021 5:01 PM CDT Sexual Orientation Straight 09/09/2021 5: 01 PM CDT documented as of this encounter Plan of Treatment Upcoming Encounters Date Type Department Care Team (Late st Contact Info) Description 08/24/2025 3:00 PM CDT Office Visit [facility] Infect[facility] Disease Clinic [address] [phone] Kesha Jones MD [address] [phone] 03/25/2026 1:00 PM CDT Virtual Visit [facility] Trans[facility] [address] [place] [phone] Guy Hernandez MD [address] [place] [address] [phone] documented as of this encounter Visit Diagnoses Not on filedocumented in this encounter Care Teams Group Marketing Vp Relationship Specialty Start Date End Date Ca Grier [address] [place] [address] [phone] PCP - General Family Practice 10/24/17 Nahun Easton MD [address] [place] [address] [phone] Orthopedics 09/21/17 Ca Grier [address] [place] [address] 680405 Referring Physician Family Practice 09/21/17 Marisa Skinner MD [address] [place] [address] 74601 Nephrology 04/11/18 04/20/21 Stefan Thornton [address] [place] [address] 03318 Last Cleaner INTERNAL MEDICINE - ENDOCRINOLOGY, DIABETES & METABOLISM 04/11/18 Sanjeev Pastrana MD [address] [place] [address] 98 [place] [address] Assigned Surgical Provider 02/27/21 03/25/22 Ramandeep Collier RN Registered Nurse Transplant 04/21/21 Guy Hernandez MD [address] [place] [address] 19700 Nephrology 04/21/21 Analilia Arellano MD [address] [place] [address] 93213 Dermatology 06/21/21 Guy Hernandez MD [address] [place] [address] 92773 Assigned Nephrology Provider 11/27/21 12/17/21 Guy Hernandez MD [address] [place] [address] 06369 Assigned Nephrology Provider 12/18/21 05/25/23 Evens Clayton MD [address] [place] [address] 85382 Assigned Surgical Provider 03/26/22 09/21/23 Guy Hernandez MD [address] [place] [address] 37383 Assigned Nephrology Provider 05/11/24 Kesha Jones MD [address] [place] [address] 250 [place] [address] Assigned Infectious Disease Provider 05/11/25 documented as of this encounter
--- OUTSIDE RECORDS SUMMARY | 2025-08-01 12:34 | XMS_ITS | Encounter Summary ---
Author Organization [facility] Address [address] [place] [address]. [place] [address] Care Team Providers Care Jig And Fixture Builder Name Role Phone Nahun Easton MD Unavailable [phone] Ca Grier Unavailable Ca Grier Primary Care Provider [phone] Stefan Thornton Unavailable Ramandeep Collier RN Unavailable Un available Guy Hernandez MD Unavailable [phone] Analilia Arellano MD Unavailable [phone] Guy Hernandez MD Unavailable [phone] Evens Clayton MD Unavailable Guy Hernandez MD Unavailable [phone] Kesha Jones MD Unavailable [phone] Encounter Details Date Type Department Care Team (Late st Contact Info) Description 02/08/2023 [facility] Medical Advice 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 [address] [phone] Kesha Jones MD [address] [place] [address] 096035 03/25/2026 1:00 PM CDT Virtual Visit [facility] [address] [place] [address] [phone] Guy Hernandez MD [address] [place] [address] [phone] documented as of this encounter Visit Diagnoses Not on filedocumented in this encounter Care Teams Jig And Fixture Builder Relationship Specialty Start Date End Date Ca Grier [address] [place] [address] [phone] PCP - General Family Practice 10/24/17 Nahun Easton MD [address] [place] [address] [phone] Orthopedics 09/21/17 Ca Grier [address] [place] [address] [phone] Referring Physician Family Practice 09/21/17 Stefan Thornton [address] [place] [address] 94082 Loss Mitigation Specialist INTERNAL MEDICINE - ENDOCRINOLOGY, DIABETES & METABOLISM 04/11/18 Ramandeep Collier, RN Registered Nurse Transplant 04/21/21 Guy Hernandez MD [address] [place] [address] 62981 Nephrology 04/21/21 Analilia Arellano MD [address] [place] [address] 23014 MD Dermatology 06/21/21 Guy Hernandez MD [address] [place] [address] 48929 Assigned Nephrology Provider 12/18/21 05/25/23 Evens Clayton MD [address] [place] [address] 36607 Assigned Surgical Provider 03/26/22 09/21/23 Guy Hernandez MD [address] [place] [address] 37173 Assigned Nephrology Provider 05/11/24 Kesha Jones MD [address] [place] [address] 564155 Assigned Infectious Disease Provider 05/11/25 documented as of this encounter
--- OUTSIDE RECORDS SUMMARY | 2025-08-01 12:34 | XMS_ITS | Encounter Summary ---
Author Organization [facility] Address [address] [place] [address]. [place] [address] Care Team Providers Care Supervisor Opening And Picking Name Role Phone Nahun Easton MD Unavailable [phone] Ca Grier Unavailable Ca Grier Primary Care Provider [phone] Marisa Skinner MD Unavailable [phone] Stefan Thornton Unavailable Evens Clayton MD Unavailable Sanjeev Pastrana MD Unavailable [phone] Ramandeep Collier RN Unavailable Un available Guy Hernandez MD Unavailable [phone] Analilia Arellano MD Unavailable [phone] Guy Hernandez MD Unavailable [phone] Guy Hernandez MD Unavailable [phone] Evens Clayton MD Unavailable Guy Hernandez MD Unavailable [phone] Kesha Jones MD Unavailable [phone] Encounter Details Date Type Department Care Team (Late st Contact Info) Description 02/02/2021 External Order Results [facility] [address] [place] [address] Outside, Provider Social History Tobacco Use Types Packs/Day Years [...] PM CDT 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 No / Unsure 01/25/2021 10:19 AM ICT SALES REPRESENTATIVE documented as of this encounter Plan of Treatment Upcoming Encounters Date Type Department Care Team (Late st Contact Info) Description 08/24/2025 3:00 PM CDT Office Visit [facility] [address] [address] Kesha Jones MD [address] 063645 03/25/2026 1:00 PM CDT Virtual Visit [facility] [address] [place] [phone] Guy Hernandez MD [address] [place] [address] 407395 documented as of this encounter Procedures Procedure Name Priority Date/Time Associated Diagnosis Comments PROTEIN AND CREATININE WITH RATIO RANDOM URINE Routine 02/02/2021 11:22 AM CDT BASIC METABOLIC PANEL Routine 02/02/2021 10:09 AM CDT CBC WITH PLATELETS Routine 02/02/2021 10 :09 AM CDT documented in this encounter Results * (ABNORMAL) Protein random urine with Creat Ratio (02/02/2021 11:22 AM CDT) Protein Random Urine (External) 23(H) <=14 mg/dL [facility] SC[facility] Creatinine Urine mg/dL (External) 25.0 mg/dL [facility] SC[facility] Protein Total Ur per Cr (External) 0.9(H) <0.2 [facility] SCAN Urine specimen (specimen) 02/02/2021 11:22 AM CDT Narrative JUAN PFT - 02/03/2021 10:55 AM CDT Verified by Jorgito Jacinto on 02/03/2021. us Patient Reported LAB - URINE ORDERABLES Edited R esult - Final JUAN AUGUSTINE LABDE SCAN * (ABNORMAL) Basic metabolic panel (02/02/2021 10:09 AM CDT) Sodium (External) 140 135 - 145 mmol/L [facility] SC[facility] Potassium (External) 4.9 3.5 - 5.0 mmol/L [facility] SC[facility] Chloride (External) 106 98 - 110 mmol/L [facility] SCAN CO2 (External) 27 21 - 31 mmol/L [facility] Anion Gap (External) 7 5 - 18 [facility] SCAN Glucose (External) 109(H) 65 - 100 mg/dL [facility] SCAN Calcium (External) 9.5 8.5 - 10.5 mg/dL [facility] SCAN Urea Nitrogen (External) 37(H) 8 - 25 mg/dL [facility] SCAN Creatinine (External) 1.23 0.72 - 1.25 mg/dL [facility] SCAN BUN/Creatinine Ratio (External) 30(H) 10 - 20 [facility]AN GFR Estimated (if ) (External) >60 >60 ml/min/1.7 3m2 [facility] SCAN GFR Estimated (External) 58(L) >60 ml/min/1.7 3m2 [facility] SCAN Blood specimen (specimen) 02/02/2021 10:09 AM CDT Narrative ALEXISANGIE PFT - 02/02/2021 10:09 AM CDT Verified by Jorgito Jacinto on 02/03/2021. Verified by Jorgito Jacinto on 02/03/2021. Patient Reported LAB - BLOOD ORDERABLES Edited R esult - Final JUAN PFT LABDE SCAN * (ABNORMAL) CBC with platelets (02/02/2021 10:09 AM CDT) WBC Count (External) 6.6 4.5 - 11.0 thou/cu mm [facility]DE SCAN RBC Count (External) 4.00(L) 4.30 - 5.90 thou/cu mm [facility] SCAN Hemoglobin (External) 12.1(L) 13.5 - 17.5 g/dL [facility] SCAN Hematocrit (External) 37.2 37.0 - 53.0 % [facility] SCAN MCV (External) 93 80 - 100 fL [facility] SCAN MCH (External) 30.3 26.0 - 34.0 pg [facility] SCAN MCHC (External) 32.5 32.0 - 36.0 g/dL [facility] SCAN RDW (External) 13.3 11.5 - 15.5 % [facility] SCAN Platelet Count (External) 114(L) 140 - 440 thou/cu mm LABDE SCAN Blood specimen (specimen) 02/02/2021 10:09 AM CDT Narrative JUAN PFT - 02/03/2021 6:31 AM CDT Verified by Jorgito Jacinto on 02/03/2021. Patient Reported LAB - BLOOD ORDERABLES Edited R Joostult - Final JUAN PFT LABDE SCAN documented in this encounter Visit Diagnoses Not on filedocumented in this encounter Care Teams Supervisor Opening And Picking Relationship Specialty Start Date End Date Ca Grier [address] [place] [address] PCP - General Family Practice 10/24/17 Nahun Easton MD [address] [place] [address] 32879 Orthopedics 09/21/17 Ca Grier [address] [place] [address] 58071 Referring Physician Family Practice 09/21/17 Marisa Skinner MD [address] [place] [address] [address] [place] [address] Nephrology 04/11/18 04/20/21 Stefan Thornton [address] [place] [address] 15886 Feedlot Manager INTERNAL MEDICINE - ENDOCRINOLOGY, DIABETES & METABOLISM 04/11/18 [place] [address] [place] [address] Assigned Surgical Provider 11/28/20 02/26/21 Sanjeev Pastrana MD [address] [place] [address] 98 [place] [address] Assigned Surgical Provider 02/27/21 03/25/22 Ramandeep Collier, RN Registered Nurse Transplant 04/21/21 Guy Hernandez MD [address] [place] [address] 40951 Nephrology 04/21/21 Analilia Arellano MD [address] [place] [address] 41381 Dermatology 06/21/21 Guy Hernandez MD [address] [place] [address] 53494 Assigned Nephrology Provider 11/27/21 12/17/21 Guy Hernandez MD [address] [place] [address] 75807 Assigned Nephrology Provider 12/18/21 05/25/23 Evens Clayton MD [address] [place] [address] 70681 Assigned Surgical Provider 03/26/22 09/21/23 Guy Hernandez MD [address] [place] [address] 86488 Assigned Nephrology Provider 05/11/24 Kesha Jones MD [address] [place] [address] 83057 Assigned Infectious Disease Provider 05/11/25 documented as of this encounter
--- OUTSIDE RECORDS SUMMARY | 2025-08-01 12:34 | XMS_ITS | Encounter Summary ---
Author Organization [facility] Address [address] [place] [address]. [place] [address] Care Team Providers Care Gunner Mate Name Role Phone Nahun Easton MD Unavailable [phone] Ca Grier Unavailable Ca Grier Primary Care Provider [phone] Stefan Thornton Unavailable Ramandeep Collier RN Unavailable Un available Guy Hernandez MD Unavailable [phone] Analilia Arellano MD Unavailable [phone] Guy Hernandez MD Unavailable [phone] Evens Clayton MD Unavailable Guy Hernandez MD Unavailable [phone] Kesha Jones MD Unavailable [phone] Encounter Details Date Type Department Care Team (Late st Contact Info) Description 12/29/2022 [facility] [address] [place] [address] kSyla Joaquin, NAHOMY Social History Tobacco Use Types [...] PM CDT 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 No / Unsure 12/28/2022 11:11 AM PAPER TUBE MACHINE OPERATOR documented as of this encounter Plan of Treatment Upcoming Encounters Date Type Department Care Team (Late st Contact Info) Description 08/24/2025 3:00 PM CDT Office Visit [facility] Disease Clinic [address] [phone] Kesha Jones MD [address] [place] [address] 080515 03/25/2026 1:00 PM CDT Virtual Visit [facility] Transplant Clinic [address] [place] [address] [phone] Guy Hernandez MD [address] [place] [address] [phone] documented as of this encounter Visit Diagnoses Not on filedocumented in this encounter Care Teams Gunner Mate Relationship Specialty Start Date End Date Ca Grier [address] [place] [address] [phone] PCP - General Family Practice 10/24/17 Nahun Easton MD [address] [place] [address] 458825 Orthopedics 09/21/17 Ca Grier [address] [place] [address] 296115 Referring Physician Family Practice 09/21/17 Stefan Thornton [address] [place] [address] 92759 Speaking Unit Assembler INTERNAL MEDICINE - ENDOCRINOLOGY, DIABETES & METABOLISM 04/11/18 Ramandeep Collier, RN Registered Nurse Transplant 04/21/21 Guy Hernandez MD [address] [place] [address] 70056 Nephrology 04/21/21 Analilia Arellano MD [address] [place] [address] 89369 MD Dermatology 06/21/21 Guy Hernandez MD [address] [place] [address] 93734 Assigned Nephrology Provider 12/18/21 05/25/23 Evens Clayton MD [address] [place] [address] 12886 Assigned Surgical Provider 03/26/22 09/21/23 Guy Hernandez MD [address] [place] [address] 839915 Assigned Nephrology Provider 05/11/24 Kesha Jones MD [address] [place] [address] 472435 Assigned Infectious Disease Provider 05/11/25 documented as of this encounter
--- OUTSIDE RECORDS SUMMARY | 2025-08-01 12:34 | XMS_ITS | Encounter Summary ---
Author Organization [facility] Address [address] [place] [address] Care Team Providers Care Wastewater Technician Name Role Phone Wilber Schaefer MD Unavailable Nahun Easton MD Unavailable [phone] Ca Grier Unavailable Ca Grier Primary Care Provider Marisa Skinner MD Unavailable [phone] Stefan Thornton Unavailable Sanjeev Pastrana MD Unavailable Evens Clayton MD Unavailable Sanjeev Pastrana MD Unavailable [phone] Ramandeep Collier RN Unavailable Un available Guy Hernandez MD Unavailable [phone] Analilia Arellano MD Unavailable [phone] Guy Hernandez MD Unavailable [phone] Guy Hernandez MD Unavailable [phone] Evens Clayton MD Unavailable Guy Hernandez MD Unavailable [phone] Kesha Jones MD Unavailable [phone] Encounter Details Date Type Department Care Team (Late st Contact Info) Description 04/01/2018 [facility] Medical Advice 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 Gender Identity Male 09/09/2021 5:01 PM CDT Sexual Orientation Straight 09/09/2021 5: 01 PM CDT documented as of this encounter Plan of Treatment Upcoming Encounters Date Type Department Care Team (Late st Contact Info) Description 08/24/2025 3:00 PM CDT Office Visit [facility] Infectious Disease Clinic [address] [phone] Kesha Jones MD [address] [place] [address] 250 [place], [place] 385225 03/25/2026 1:00 PM CDT Virtual Visit [facility] Transplant Clinic [address] [place] [phone] Guy Hernandez MD [address] [place] [address] 104315 documented as of this encounter Visit Diagnoses Not on filedocumented in this encounter Care Teams Wastewater Technician Relationship Specialty Start Date End Date Ca Grier [address] [place] [address] 63282 PCP - General Family Practice 10/24/17 Wilber Schaefer MD [facility] [place] [address] Dermatology 01/18/15 04/10/18 Nahun Easton MD [address] [place] [address] 30729 Orthopedics 09/21/17 Ca Grier [address] [place] [address] 54811 Referring Physician Family Practice 09/21/17 Marisa Skinner MD [address] [place] [address] 33616 Nephrology 04/11/18 04/20/21 Stefan Thornton [address] [place] [address] 01298 Bar Tacker Sewing Machine INTERNAL MEDICINE - ENDOCRINOLOGY, DIABETES & METABOLISM 04/11/18 Sanjeev Pastrana MD [address] [place] [address] 28864 Assigned Surgical Provider 11/07/20 11/27/20 [place] [address] [place] [address] Assigned Surgical Provider 11/28/20 02/26/21 Sanjeev Pastrana MD [address] [address] Assigned Surgical Provider 02/27/21 03/25/22 Ramandeep Collier RN Registered Nurse Transplant 04/21/21 Guy Hernandez MD [address] [place] [address] 77238 Nephrology 04/21/21 Analilia Arellano MD [address] [place] [address] 28106 Dermatology 06/21/21 Guy Hernnadez MD [address] [place] [address] 28553 Assigned Nephrology Provider 11/27/21 12/17/21 Guy Hernandez MD [address] [place] [address] 13367 Assigned Nephrology Provider 12/18/21 05/25/23 Evens Clayton MD [address] [place] [address] 13929 Assigned Surgical Provider 03/26/22 09/21/23 Guy Hernandez MD [address] [place] [address] 02401 Assigned Nephrology Provider 05/11/24 Kesha Jones MD [address] [place] [address] 37844 Assigned Infectious Disease Provider 05/11/25 documented as of this encounter
--- OUTSIDE RECORDS SUMMARY | 2025-08-01 12:34 | XMS_ITS | Encounter Summary ---
Author Organization [facility] Address [address] [place] [address] 18191 Care Team Providers Care Laboratory Mechanical Technician Name Role Phone Wilber Schaefer MD Unavailable Nahun Easton MD Unavailable [phone] Ca Grier Unavailable Ca Grier Primary Care Provider Marisa Skinner MD Unavailable Stefan Thornton Unavailable Sanjeev Pastrana MD Unavailable [phone] Evens Clayton MD Unavailable Sanjeev Pastrana MD Unavailable [phone] Ramandeep Collier RN Unavailable Un available Guy Hernandez MD Unavailable [phone] Analilia Arellano MD Unavailable [phone] Guy Hernandez MD Unavailable [phone] Guy Hernandez MD Unavailable [phone] Evens Clayton MD Unavailable Guy Hernandez MD Unavailable [phone] Kesha Jones MD Unavailable [phone] Encounter Details Date Type Department Care Team (Late st Contact Info) Description 03/28/2018 MyC Medical Advice [facility] Wound Care [address] [place] [address] 4th [place] [address] Joseph Thomason DPM [address] [place] [address] 196065 Social History Tobacco Use Types Packs/Day Years Used Date Smoking Tobacco: Some Days Cigarettes Started: 11/19/1965 Cigars Smokeless Tobacco: Never Alcohol Use Standard Drinks/Week Comments Yes 0 (1 standard drink = 0.6 oz pur e alcohol) 1-2/wk Sex and Gender Information Value Date Recorded Sex Assigned at Male 09/09/2021 5:01 PM CDT 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 Gender Identity Male 09/09/2021 5:01 PM CDT Sexual Orientation Straight 09/09/2021 5: 01 PM CDT documented as of this encounter Plan of Treatment Upcoming Encounters Date Type Department Care Team (Late st Contact Info) Description 08/24/2025 3:00 PM CDT Office Visit [facility] Infectious Disease Clinic [address] [phone] Kesha Jones MD [address] [place] [address] 250 [place], [place] 150765 03/25/2026 1:00 PM CDT Virtual Visit [facility] Transplant Clinic [address] [place] [phone] Guy Hernandez MD [address] [place] [address] [phone] documented as of this encounter Visit Diagnoses Not on filedocumented in this encounter Care Teams Laboratory Mechanical Technician Relationship Specialty Start Date End Date Ca Grier [address] [place] [address] 60854 PCP - General Family Practice 10/24/17 Wilber Schaefer MD [facility] [place] [address] Dermatology 01/18/15 04/10/18 Nahun Easton MD [address] [place] [address] 76108 Orthopedics 09/21/17 Ca Grier [address] [place] [address] 91266 Referring Physician Family Practice 09/21/17 Marisa Skinner MD [address] [place] [address] 35992 Nephrology 04/11/18 04/20/21 Stefan Thornton [address] [place] [address] 70939 Pediatric Nephrologist INTERNAL MEDICINE - ENDOCRINOLOGY, DIABETES & METABOLISM 04/11/18 Sanjeev Pastrana MD [address] [place] [address] 18917 Assigned Surgical Provider 11/07/20 11/27/20 [place] [address] [place] [address] Assigned Surgical Provider 11/28/20 02/26/21 Sanjeev Pastrana MD [address] [address] Assigned Surgical Provider 02/27/21 03/25/22 Ramandeep Collier RN Registered Nurse Transplant 04/21/21 Guy Hernandez MD [address] [place] [address] 82353 Nephrology 04/21/21 Analilia Arellano MD [address] [place] [address] 32926 Dermatology 06/21/21 Guy Hernandez MD [address] [place] [address] 76139 Assigned Nephrology Provider 11/27/21 12/17/21 Guy Hernandez MD [address] [place] [address] 83635 Assigned Nephrology Provider 12/18/21 05/25/23 Evens Clayton MD [address] [place] [address] 43507 Assigned Surgical Provider 03/26/22 09/21/23 Guy Hernandez MD [address] [place] [address] 86142 Assigned Nephrology Provider 05/11/24 Kesha Jones MD [address] [place] [address] 32595 Assigned Infectious Disease Provider 05/11/25 documented as of this encounter
--- OUTSIDE RECORDS SUMMARY | 2025-08-01 12:34 | XMS_ITS | Encounter Summary ---
Author Organization [facility] Address [address] [place] [address]. [place] [address] Care Team Providers Care Legal Cashier Name Role Phone Nahun Easton MD Unavailable [phone] Ca Grier Unavailable Ca Grier Primary Care Provider [phone] Stefan Thornton Unavailable Ramandeep Collier RN Unavailable Un available Guy Hernandez MD Unavailable [phone] Analilia Arellano MD Unavailable [phone] Guy Hernandez MD Unavailable [phone] Kesha Jones MD Unavailable [phone] Encounter Details Date Type Department Care Team (Late st Contact Info) Description 10/31/2023 [facility] Medical Advice [facility] Transplant Clinic [address] [place] [phone] Yenny Dejesus, RN Social History Tobacco Use Types Packs/Day Years Used Date Smoking Tobacco: Former Cigarettes 0 11/19/1965 - 10/21/2017 Cigars Smokeless Tobacco: Never Alcohol Use Standard Drinks/Week Comments Yes 0 (1 standard drink = 0.6 oz pur e alcohol) 1-2/wk PHQ-2 Answer Date Recorded PHQ-2 Score 0 03/21/2022 Adolescent Education Answer Date Record ed Getting School Help Needed Not on file 09/03 Sex and Gender Information Value Date Recorded Sex Assigned at Male 09/09/2021 5:01 PM CDT Legal 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 Gender Identity Male 09/09/2021 5:01 PM CDT Sexual Orientation Straight 09/09/2021 5: 01 PM CDT documented as of this encounter Plan of Treatment Upcoming Encounters Date Type Department Care Team (Late st Contact Info) Description 08/24/2025 3:00 PM CDT Office Visit [facility] Infectious Disease Clinic [address] [address] Kesha Jones MD 420 [facility] 250 [place], [place] 484955 03/25/2026 1:00 PM CDT Virtual Visit [facility] Transplant Clinic [address] [place] [phone] Guy Hernandez MD [address] [place] [address] [phone] documented as of this encounter Visit Diagnoses Not on filedocumented in this encounter Care Teams Legal Cashier Relationship Specialty Start Date End Date Ca Grier [address] [place] [address] 000405 PCP - General Family Practice 10/24/17 Nahun Easton MD [address] [place] [address] 921065 Orthopedics 09/21/17 Ca Grier [address] [place] [address] 574545 Referring Physician Family Practice 09/21/17 Stefan Thornton [address] [place] [address] 913165 Public Speaking Professor INTERNAL MEDICINE - ENDOCRINOLOGY, DIABETES & METABOLISM 04/11/18 Ramandeep Collier, RN Registered Nurse Transplant 04/21/21 Guy Hernandez MD [address] [place] [address] 03985 Nephrology 04/21/21 Analilia Arellano MD [address] [place] [address] 877325 Dermatology 06/21/21 Guy Hernandez MD [address] [place] [address] 600025 Assigned Nephrology Provider 05/11/24 Kesha Jones MD [address] [place] [address] [phone] Assigned Infectious Disease Provider 05/11/25 documented as of this encounter
--- OUTSIDE RECORDS SUMMARY | 2025-08-01 12:34 | XMS_ITS | Encounter Summary ---
Author Organization [place] Address [address] [place] [address]. [place] [address] Care Team Providers Care Bankruptcy Judge Name Role Phone Nahun Easton MD Unavailable [phone] Ca Grier Unavailable Ca Grier Primary Care Provider [phone] Marisa Skinner MD Unavailable [phone] Stefan Thornton Unavailable Evens Clayton MD Unavailable Sanjeev Pastrana MD Unavailable [phone] Ramandeep Collier RN Unavailable Un available Guy Hernandez MD Unavailable [phone] Analilia Arellano MD Unavailable [phone] Guy Hernandez MD Unavailable [phone] Guy Hernandez MD Unavailable [phone] Evens Clayton MD Unavailable Guy Hernandez MD Unavailable [phone] Kesha Jones MD Unavailable [phone] Encounter Details Date Type Department Care Team (Late st Contact Info) Description 02/16/2021 [facility] Transplant Clinic 9 [place] [address] Ramandeep Collier, RN Social History [...] PM CDT Legal 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 No / Unsure 01/25/2021 10:19 AM PROPERTY INSPECTOR documented as of this encounter Plan of Treatment Upcoming Encounters Date Type Department Care Team (Late st Contact Info) Description 08/24/2025 3:00 PM CDT Office Visit [facility] Infectious Disease Clinic [address] [phone] Kesha Jones MD [address] [place] [address] 113165 03/25/2026 1:00 PM CDT Virtual Visit [facility] Transplant Clinic [address] [place] [phone] Guy Hernandez MD [address] [place] [address] 065435 documented as of this encounter Visit Diagnoses Not on filedocumented in this encounter Care Teams Bankruptcy Judge Relationship Specialty Start Date End Date Ca Grier [address] [place] [address] [phone] PCP - General Family Practice 10/24/17 Nahun Easton MD [address] [place] [address] 44157 Orthopedics 09/21/17 Ca Grier [address] [place] [address] 34272 Referring Physician Family Practice 09/21/17 Marisa Skinner MD [address] [place] [address] 37881 Nephrology 04/11/18 04/20/21 Stefan Thornton [address] [place] [address] 11539 Leather Seasoner INTERNAL MEDICINE - ENDOCRINOLOGY, DIABETES & METABOLISM 04/11/18 [place] [address] [place] [address] Assigned Surgical Provider 11/28/20 02/26/21 Sanjeev Pastrana MD [address] [place] [address] 98 [place] [address] Assigned Surgical Provider 02/27/21 03/25/22 Ramandeep Collier RN Registered Nurse Transplant 04/21/21 Guy Hernandez MD [address] [place] [address] 43411 Nephrology 04/21/21 Analilia Arellano MD [address] [place] [address] 37560 Dermatology 06/21/21 Guy Hernandez MD [address] [place] [address] 64224 Assigned Nephrology Provider 11/27/21 12/17/21 Gyu Hernandez MD [address] [place] [address] 56689 Assigned Nephrology Provider 12/18/21 05/25/23 Evens Clayton MD [address] [place] [address] 15891 Assigned Surgical Provider 03/26/22 09/21/23 Guy Hernandez MD [address] [place] [address] 49951 Assigned Nephrology Provider 05/11/24 Kesha Jones MD [address] [place] [address] 62538 Assigned Infectious Disease Provider 05/11/25 documented as of this encounter
--- OUTSIDE RECORDS SUMMARY | 2025-08-01 12:34 | XMS_ITS | Encounter Summary ---
Author Organization [facility] Address [address] [place] [address]. [place] [address] Care Team Providers Care New Autos Delivery Driver Name Role Phone Nahun Easton MD Unavailable [phone] Ca Grier Unavailable Ca Grier Primary Care Provider [phone] Marisa Skinner MD Unavailable [phone] Stefan Thornton Unavailable Evens Clayton MD Unavailable Sanjeev Pastrana MD Unavailable [phone] Ramandeep Collier RN Unavailable Un available Guy Hernandez MD Unavailable [phone] Analilia Arellano MD Unavailable [phone] Guy Hernandez MD Unavailable [phone] Guy Hernandez MD Unavailable [phone] Evens Clayton MD Unavailable Guy Hernandez MD Unavailable [phone] Kesha Jones MD Unavailable [phone] Encounter Details Date Type Department Care Team (Late st Contact Info) Description 01/18/2021 [facility] [address] [address] Thea Fry CMA Social History Tobacco Use Types Packs/Day Years [...] PM CDT Legal 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 CORNER FORMER Gender Identity Male 09/09/2021 5:01 PM CDT Sexual Orientation Straight 09/09/2021 5: 01 PM CDT documented as of this encounter Plan of Treatment Upcoming Encounters Date Type Department Care Team (Late st Contact Info) Description 08/24/2025 3:00 PM CDT Office Visit [facility] Infectious Disease Clinic [address] [address] Kesha Jones MD [address] 728725 03/25/2026 1:00 PM CDT Virtual Visit [facility] Transplant Clinic [address] [place] [address] Guy Hernandez MD [address] [place] [address] [phone] documented as of this encounter Visit Diagnoses Not on filedocumented in this encounter Care Teams New Autos Delivery Driver Relationship Specialty Start Date End Date Ca Grier [address] [place] [address] [phone] PCP - General Family Practice 10/24/17 Nahun Easton MD [address] [place] [address] 39515 Orthopedics 09/21/17 Ca Grier [address] [place] [address] Referring Physician Family Practice 09/21/17 Marisa Skinner MD 717 [facility] 353 [place] [address] Nephrology 04/11/18 04/20/21 Stefan Thornton 717 [facility] 353 [place] [address] Horse Trainer INTERNAL MEDICINE - ENDOCRINOLOGY, DIABETES & METABOLISM 04/11/18 [place] [address] [place] [address] Assigned Surgical Provider 11/28/20 02/26/21 Sanjeev Pastrana MD 420 [facility] 98 [place] [address] Assigned Surgical Provider 02/27/21 03/25/22 Ramandeep Collier, RN Registered Nurse Transplant 04/21/21 Guy Hernandez MD [address] [place] [address] 79867 Nephrology 04/21/21 Analilia Arellano MD [address] [place] [address] 93680 Dermatology 06/21/21 Guy Hernandez MD [address] [place] [address] 37251 Assigned Nephrology Provider 11/27/21 12/17/21 Guy Hernandez MD [address] [place], [place] 376415 Assigned Nephrology Provider 12/18/21 05/25/23 Evens Clayton MD [address] [place] [address]455 Assigned Surgical Provider 03/26/22 09/21/23 Guy Hernandez MD [address] [place] [address]455 Assigned Nephrology Provider 05/11/24 Kesha Jones MD 420 [facility] 250 [place], [place] 134595 Assigned Infectious Disease Provider 05/11/25 documented as of this encounter
--- OUTSIDE RECORDS SUMMARY | 2025-08-01 12:34 | XMS_ITS | Encounter Summary ---
Author Organization [facility] Address [address] [place] [address]. [place] [address] Care Team Providers Care Incinerator Plant Laborer Name Role Phone Nahun Easton MD Unavailable [phone] Ca Grier Unavailable Ca Grier Primary Care Provider [phone] Stefan Thornton Unavailable Ramandeep Collier RN Unavailable Un available Guy Hernandez MD Unavailable [phone] Analilia Arellano MD Unavailable [phone] Guy Hernandez MD Unavailable [phone] Evens Clayton MD Unavailable Guy Hernandez MD Unavailable [phone] Kesha Jones MD Unavailable [phone] Encounter Details Date Type Department Care Team (Late st Contact Info) Description 04/28/2022 [facility] Clinic 9 [place] [address] Ramandeep Collier, RN Social History [...] PM CDT Legal 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 Gender Identity Male 09/09/2021 5:01 PM [...] Office Visit [facility] Infect[facility] Disease Clinic [address] [phone] Kesha Jones MD [address] [place] [address] 275325 03/25/2026 1:00 PM CDT Virtual Visit [facility] Transplant Clinic [address] [place] [phone] Guy Hernandez MD [address] [place] [address] [phone] documented as of this encounter Visit Diagnoses Not on filedocumented in this encounter Care Teams Incinerator Plant Laborer Relationship Specialty Start Date End Date Ca Grier [address] [place] [address] [phone] PCP - General Family Practice 10/24/17 Nahun Easton MD [address] [place] [address] [phone] Orthopedics 09/21/17 Ca Grier [address] [place] [address] [phone] Referring Physician Family Practice 09/21/17 Stefan Thornton [address] [place] [address] 30078 Horse Breeder INTERNAL MEDICINE - ENDOCRINOLOGY, DIABETES & METABOLISM 04/11/18 Ramandeep Collier, RN Registered Nurse Transplant 04/21/21 Guy Hernandez MD [address] [place] [address] 93188 Nephrology 04/21/21 Analilia Arellano MD [address] [place] [address] 71554 MD Dermatology 06/21/21 Guy Hernandez MD [address] [place] [address] 80858 Assigned Nephrology Provider 12/18/21 05/25/23 Evens Clayton MD [address] [place] [address] 28337 Assigned Surgical Provider 03/26/22 09/21/23 Guy Hernandez MD [address] [place] [address] 62324 Assigned Nephrology Provider 05/11/24 Kesha Jones MD [address] [place] [address] 143215 Assigned Infectious Disease Provider 05/11/25 documented as of this encounter
--- OUTSIDE RECORDS SUMMARY | 2025-08-01 12:36 | XMS_ITS | Encounter Summary ---
Author Organization [facility] Address [address] [place] [address]. [place] [address] Care Team Providers Care Plaster Model And Mold Maker Name Role Phone Nahun Easton MD Unavailable [phone] Ca Grier Unavailable Ca Grier Primary Care Provider [phone] Stefan Thornton Unavailable Sanjeev Pastrana MD Unavailable [phone] Ramandeep Collier RN Unavailable Un available Guy Hernandez MD Unavailable [phone] Analilia Arellano MD Unavailable [phone] Guy Hernandez MD Unavailable [phone] Guy Hernandez MD Unavailable [phone] Evens Clayton MD Unavailable Guy Hernandez MD Unavailable [phone] Kesha Jones MD Unavailable [phone] Encounter Details Date Type Department Care Team (Late st Contact Info) Description 09/09/2021 [facility] [address] [place] [address] Ramandeep Collier, RN Social History Tobacco Use Types Packs/Day Years Used Date Smoking Tobacco: Former Cigarettes 0 11/19/1965 - 10/21/2017 Cigars Smokeless Tobacco: Never Alcohol Use Standard Drinks/Week Comments Yes 0 (1 standard drink = 0.6 oz pur e alcohol) 1-2/wk PHQ-2 Answer Date Recorded PHQ-2 Score 0 09/13/2021 Sex and Gender Information Value Date Recorded Sex Assigned at Male 09/09/2021 5:01 PM CDT Legal 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 Gender Identity Male 09/09/2021 5:01 PM CDT Sexual Orientation Straight 09/09/2021 5: 01 PM CDT documented as of this encounter Plan of Treatment Upcoming Encounters Date Type Department Care Team (Late st Contact Info) Description 08/24/2025 3:00 PM CDT Office Visit [facility] [address] [address] Kesha Jones MD [address] [place] [address] 250 [place], [place] 375285 03/25/2026 1:00 PM CDT Virtual Visit [facility] Trans[facility] [address] [place] [phone] Guy Hernandez MD [address] [place] [address] [phone] documented as of this encounter Visit Diagnoses Not on filedocumented in this encounter Care Teams Plaster Model And Mold Maker Relationship Specialty Start Date End Date Ca Grier [address] [place] [address] 065755 PCP - General Family Practice 10/24/17 Nahun Easton MD [address] [place] [address] 118855 Orthopedics 09/21/17 Ca Grier [address] [place] [address] 425015 Referring Physician Family Practice 09/21/17 Stefan Thornton [address] [place] [address] 51698 Cardiac Exercise Specialist INTERNAL MEDICINE - ENDOCRINOLOGY, DIABETES & METABOLISM 04/11/18 Sanjeev Pastrana MD [address] [place] [address] 22142 Assigned Surgical Provider 02/27/21 03/25/22 Ramandeep Collier, RN Registered Nurse Transplant 04/21/21 Guy Hernandez MD [address] [place] [address] 44005 Nephrology 04/21/21 Analilia Arellano MD [address] [place] [address] Dermatology 06/21/21 Guy Hernandez MD [address] [place] [address] 61655 Assigned Nephrology Provider 11/27/21 12/17/21 Guy Hernandez MD [address] [place] [address] 20735 Assigned Nephrology Provider 12/18/21 05/25/23 Evens Clayton MD [address] [place] [address] 01306 Assigned Surgical Provider 03/26/22 09/21/23 Guy Hernandez MD [address] [place] [address] 38687 Assigned Nephrology Provider 05/11/24 Kesha Jones MD [address] [place] [address] 91105 Assigned Infectious Disease Provider 05/11/25 documented as of this encounter
--- OUTSIDE RECORDS SUMMARY | 2025-08-01 12:36 | XMS_ITS | Encounter Summary ---
Author Organization [facility] Address [address] [place] [address]. [place] [address] Care Team Providers Care Newspaper Delivery Driver Name Role Phone Nahun Easton MD Unavailable [phone] Ca Greir Unavailable Ca Grier Primary Care Provider [phone] Stefan Thornton Unavailable Ramandeep Collier RN Unavailable Un available Guy Hernandez MD Unavailable [phone] Analilia Arellano MD Unavailable [phone] Guy Hernandez MD Unavailable [phone] Kesha Jones MD Unavailable [phone] Encounter Details Date Type Department Care Team (Late st Contact Info) Description 02/04/2024 [facility] Transplant [facility] [address] [place] [address] Guy Hernandez MD [address] [place] [address] Social History Tobacco Use Types Packs/Day Years [...] PM CDT 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 Gender Identity Male 09/09/2021 5:01 PM CDT Sexual Orientation Straight 09/09/2021 5: 01 PM CDT documented as of this encounter Plan of Treatment Upcoming Encounters Date Type Department Care Team (Late st Contact Info) Description 08/24/2025 3:00 PM CDT Office Visit [facility] Infect[facility] Disease Clinic [address] [phone] Kesha Jones MD [address] [place] [address] 250 [place], [place] [phone] 03/25/2026 1:00 PM CDT Virtual Visit [facility] Transplant [facility] [address] [place] [phone] Guy Hernandez MD [address] [place] [address] [phone] documented as of this encounter Visit Diagnoses Not on filedocumented in this encounter Care Teams Newspaper Delivery Driver Relationship Specialty Start Date End Date Ca Grier [address] [place] [address] 79651 PCP - General Family Practice 10/24/17 Nahun Easton MD [address] [place] [address] 095845 Orthopedics 09/21/17 Ca Grier [address] [place] [address] 09978 Referring Physician Family Practice 09/21/17 Stefan Thornton [address] [place] [address] 92618 Project Technician INTERNAL MEDICINE - ENDOCRINOLOGY, DIABETES & METABOLISM 04/11/18 Ramandeep Collier, RN Registered Nurse Transplant 04/21/21 Guy Hernandez MD [address] [place] [address] 40778 Nephrology 04/21/21 Analilia Arellano MD [address] [place] [address] 01618 Dermatology 06/21/21 Guy Hernandez MD [address] [place] [address] 97664 Assigned Nephrology Provider 05/11/24 Kesha Jones MD [address] [place] [address] 47727 Assigned Infectious Disease Provider 05/11/25 documented as of this encounter
--- OUTSIDE RECORDS SUMMARY | 2025-08-01 12:36 | XMS_ITS | Encounter Summary ---
Author Organization [facility] Address [address] [place] [address]. [place] [address] Care Team Providers Care Spray Dry Operator Name Role Phone Nahun Easton MD Unavailable [phone] Ca Grier Unavailable Ca Grier Primary Care Provider [phone] Stefan Thornton Unavailable Sanjeev Pastrana MD Unavailable [phone] Ramandeep Collier RN Unavailable Un available Guy Hernandez MD Unavailable [phone] Analilia Arellano MD Unavailable [phone] Guy Hernandez MD Unavailable [phone] Guy Hernandez MD Unavailable [phone] Evens Clayton MD Unavailable Guy Hernandez MD Unavailable [phone] Kesha Jones MD Unavailable [phone] Encounter Details Date Type Department Care Team (Late st Contact Info) Description 04/21/[address] [facility] [address] 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 Infectious Disease Clinic [address] [phone] Kesha Jones MD [address] [place] [address] 250 [place], [place] 171675 03/25/2026 1:00 PM CDT Virtual Visit [facility] Transplant Clinic [address] [place] [phone] Guy Hernandez MD [address] [place] [address] 844255 documented as of this encounter Visit Diagnoses Not on filedocumented in this encounter Care Teams Spray Dry Operator Relationship Specialty Start Date End Date Ca Grier [address] [place] [address] [phone] PCP - General Family Practice 10/24/17 Nahun Easton MD [address] [place] [address] 979495 Orthopedics 09/21/17 Ca Grier [address] [place] [address] 535545 Referring Physician Family Practice 09/21/17 Stefan Thornton [address] [place] [address] 69598 Densitometer Reader INTERNAL MEDICINE - ENDOCRINOLOGY, DIABETES & METABOLISM 04/11/18 Sanjeev Pastrana MD [address] [place] [address] 12607 Assigned Surgical Provider 02/27/21 03/25/22 Ramandeep Collier, RN Registered Nurse Transplant 04/21/21 Guy Hernandez MD [address] [place] [address] 62831 Nephrology 04/21/21 Analilia Arellano MD [address] [place] [address] 28660 Dermatology 06/21/21 Guy Hernandez MD [address] [place] [address] 34126 Assigned Nephrology Provider 11/27/21 12/17/21 Guy Hernandez MD [address] [place] [address] 33811 Assigned Nephrology Provider 12/18/21 05/25/23 Evens Clayton MD [address] [place] [address] 60991 Assigned Surgical Provider 03/26/22 09/21/23 Guy Hernandez MD [address] [place] [address] 28413 Assigned Nephrology Provider 05/11/24 Kesha Jones MD [address] [place] [address] 71072 Assigned Infectious Disease Provider 05/11/25 documented as of this encounter
--- OUTSIDE RECORDS SUMMARY | 2025-08-01 12:36 | XMS_ITS | Encounter Summary ---
Author Organization [facility] Address [address] [place] [address]. [place] [address] Care Team Providers Care Software Computer Specialist Name Role Phone Nahun Easton MD Unavailable [phone] Ca Grier Unavailable Ca Grier Primary Care Provider [phone] Stefan Thornton Unavailable Ramandeep Collier RN Unavailable Un available Guy Hernandez MD Unavailable [phone] Analilia Arellano MD Unavailable [phone] Guy Hernandez MD Unavailable [phone] Kesha Jones MD Unavailable [phone] Encounter Details Date Type Department Care Team (Late st Contact Info) Description 07/12/2025 [facility] Infectious Disease Clinic [place] [address] [place] [address] Kesha Jones MD [address] [facility] [address] [place] [address] Social History Tobacco Use Types Packs/Day [...] PM CDT 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 Hare's clinic note from Dr. Jones to fax number [phone] Destiney Pierre CMA * Telephone Encounter - Sole Willis RN - 07/13/2025 3:25 PM CDT Images from the original note were not included. Rn CC heard from provider and called pharm again to ask about alternate. Here is provider message: Kesha Jones MD to Me (Selected Message) 07/13/25 1:39 PM Thank you so much Sole for getting me that information. Can you please find out one more thing ? Can u ask his pharmacy, equivalent ceohalosporin antibiotics to the one prescribed, that would be cheaper under his insurance plan ?? Thanks much AB RN CC spoke with the pharmacy and they will talk to the pt about calling his insurance to see if other medications that are equivlent would be cheaper if the pt wants. The pt will pay for it he was just wondering if he is staying on it before pays the money. Sole Willis RN * Telephone Encounter - Sole Willis RN - 07/13/2025 7:38 AM CDT Pt reached out via [employer] to ask if Vantin should be refiled prior to next appt on 07/17 b/c current fill is running out on 07/13. Here is Dr Jones's last progress note. Unclear if pt is on the abx assisted or only one month. Routed to provider. Progresss Note: Transplant Infectious Disease Consultation note Today's Date: 06/12/2025 Recommendations: Start Vantin 400 mg po bid Side effects discussed Discussed Healthy food intake with long abx course Discussed Aerating the leg - always wears closed shoes even at home Will Fax note to Dr. Ananya Silva in [place] wound care RTC 1 month Sole Willis RN documented in this encounter Plan of Treatment Upcoming Encounters Date Type Department Care Team (Late st Contact Info) Description 08/24/2025 3:00 PM CDT Office Visit [facility] Infectious Disease Clinic [address] [address] Kesha Jones MD [address] [facility] [address] [place], [place] 1239[address] 03/25/2026 1:00 PM CDT Virtual Visit [facility] Transplant Clinic [address] [place] [address] [phone] Guy Hernandez MD [address] [place] [address] [phone] documented as of this encounter Visit Diagnoses Not on filedocumented in this encounter Care Teams Software Computer Specialist Relationship Specialty Start Date End Date Ca Grier [address] [place] [address] 535695 PCP - General Family Practice 10/24/17 Nahun Easton MD [address] [place] [address] 012415 Orthopedics 09/21/17 Ca Grier [address] [place] [address] 46756 Referring Physician Family Practice 09/21/17 Stefan Thornton [address] [place] [address] 94091 Fabrication Engineer INTERNAL MEDICINE - ENDOCRINOLOGY, DIABETES & METABOLISM 04/11/18 Ramandeep Collier, RN Registered Nurse Transplant 04/21/21 Guy Hernandez MD [address] [place] [address] 83925 Nephrology 04/21/21 Analilia Arellano MD [address] [place] [address] 16588 Dermatology 06/21/21 Guy Hernandez MD [address] [place] [address] [phone] Assigned Nephrology Provider 05/11/24 Kesha Jones MD [address] [place] [address] 09536 Assigned Infectious Disease Provider 05/11/25 documented as of this encounter
--- OUTSIDE RECORDS SUMMARY | 2025-08-01 12:36 | XMS_ITS | Encounter Summary ---
Author Organization [facility] Address [address] [place] [address]. [place] [address] Care Team Providers Care Linking Machine Operator Name Role Phone Nahun Easton MD Unavailable [phone] Ca Grier Unavailable Ca Grier Primary Care Provider [phone] Marisa Skinner MD Unavailable [phone] Stefan Thornton Unavailable Sanjeev Pastrana MD Unavailable [phone] Ramandeep Collier RN Unavailable Un available Guy Hernandez MD Unavailable [phone] Analilia Arellano MD Unavailable [phone] Guy Hernandez MD Unavailable [phone] Guy Hernandez MD Unavailable [phone] Evens Clayton MD Unavailable Guy Hernandez MD Unavailable [phone] Kesha Jones MD Unavailable [phone] Encounter Details Date Type Department Care Team (Late st Contact Info) Description 04/12/2021 External Order Results [facility] Transplant Clinic [address] [place] [address] Outside, Provider Kidney transplanted; Encounter for long-term (current) use of high-risk medication Social History Tobacco Use Types Packs/Day Years [...] PM CDT 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 Gender Identity Male 09/09/2021 5:01 PM CDT Sexual Orientation Straight 09/09/2021 5: 01 PM CDT documented as of this encounter Plan of Treatment Upcoming Encounters Date Type Department Care Team (Late st Contact Info) Description 08/24/2025 3:00 PM CDT Office Visit [facility] Infectious Disease Clinic [address] [phone] Kesha Jones MD [address] [phone] 03/25/2026 1:00 PM CDT Virtual Visit [facility] Transplant Clinic [address] [place] [phone] Guy Hernandez MD [address] [place] [address] [phone] documented as of this encounter Procedures Procedure Name Priority Date/Time Associated Diagnosis Comments HEMOGLOBIN A1C Routine 04/12/2021 11:34 AM CDT Kidney transplanted Encounter for long-term (current) use of high-risk medication BASIC METABOLIC PANEL Routine 04/12/2021 11:34 AM CDT CBC WITH PLATELETS Routine 04/12/2021 11 :34 AM CDT UA WITH MICROSCOPIC AND REFLEX TO CULTURE Routine 04/12/2021 11:33 AM CDT Kidney transplanted Encounter for long-term (current) use of high-risk medication EXTERNAL CULTURE RESULTS Routine 04/12/2021 11:33 AM CDT PROTEIN AND CREATININE WITH RATIO RANDOM URINE Routine 04/12/2021 11:33 AM CDT ALBUMIN AND CREATININE WITH RATIO RANDOM URINE QUANTITATIVE Routine 04/12/2021 11:33 AM CDT documented in this encounter Results * (ABNORMAL) Basic metabolic panel (04/12/2021 11:34 AM CDT) Sodium (External) 139 135 - 145 mmol/L LABDE SCAN Potassium (External) 4.7 3.5 - 5.0 mmol/L LABDE SCAN Chloride (External) 106 98 - 110 mmol/L LABDE SCAN CO2 (External) 25 21 - 31 mmol/L LABDE SCAN Anion Gap (External) 8 5 - 18 LABDE SCAN Glucose (External) 70 65 - 100 mg/dL LABDE SCAN Calcium (External) 9.2 8.5 - 10.5 mg/dL LABDE SCAN Urea Nitrogen (External) 29(H) 8 - 25 mg/dL LABDE SCAN Creatinine (External) 1.11 0.72 - 1.25 mg/dL LABDE SCAN BUN/Creatinine Ratio (External) 26(H) 10 - 20 LABDE SCAN GFR Estimated (External) >60 >60 ml/min/1.7 3m2 LABDE SCAN Blood 04/12/2021 11:3 4 AM CDT Narrative JUAN AUGUSTINE - 04/13/2021 11:50 AM CDT Verified by Jakob Vaughn on 04/13/2021. us Patient Reported LAB - BLOOD ORDERABLES Edited R esult - Final ALEXISANGIE PFChon LABDE SCAN * (ABNORMAL) Hemoglobin A1c (04/12/2021 11:34 AM CDT) Hemoglobin A1C (External) 7.3(H) <=6.4 % LABDE SCAN Blood 04/12/2021 11:3 4 AM CDT Narrative [facility]FT - 04/13/2021 7:15 AM CDT Verified by Jorgito Jacinto on 04/13/2021. Jericho Helton MD LAB - BLOOD ORDERABLES E dited Result - Final Performing Organization Address City/[facility]/ZIP Co de Phone Number [facility] PFT LABDE SCAN * (ABNORMAL) CBC with platelets (04/12/2021 11:34 AM CDT) WBC Count (External) 7.6 4.5 - 11.0 thou/cu mm LABDE SCAN RBC Count (External) 3.89(L) 4.30 - 5.90 mm LABDE SCAN Hemoglobin (External) 11.9(L) 13.5 - 17.5 g/dL LABDE SCAN Hematocrit (External) 36.2(L) 37.0 - 53.0 % LABDE SCAN MCV (External) 93 80 - 100 fL LABDE SCAN MCH (External) 30.6 26.0 - 34.0 pg LABDE SCAN MCHC (External) 32.9 32.0 - 36.0 g/dL LABDE SCAN RDW (External) 13.8 11.5 - 15.5 % LABDE SCAN Platelet Count (External) 120(L) 140 - 440 thou/cu mm LABDE SCAN Blood 04/12/2021 11:3 4 AM CDT Narrative [facility] - 04/13/2021 7:12 AM CDT Verified by Jakob Vaughn on 04/13/2021. us Patient Reported LAB - BLOOD ORDERABLES Edited R esult - Final [facility]FT LABDE SCAN * External Culture Results (04/12/2021 11:33 AM CDT) Scan Culture Results (External) See Scanned Report LABDE SCAN Comment:Urine Culture 04/12/2021 11:3 3 AM CDT Narrative [facility]FT - 04/14/2021 10:18 AM CDT Verified by Jorgito Jacinto on 04/14/2021. us Patient Reported LABORATORY Edited Result - Final Performing Organization Address [facility] Co de Phone Number [facility] PFT LABDE SCAN * (ABNORMAL) Protein random urine with Creat Ratio (04/12/2021 11:33 AM CDT) Protein Random Urine (External) 11 <=14 mg/dL LABDE SCAN Creatinine Urine mg/dL (External) 23.3 mg/dL LABDE SCAN Protein Total Ur per Cr (External) 0.5(H) <0.2 LABDE SCAN Urine 04/12/2021 11:3 3 AM CDT Narrative [facility]FT - 04/13/2021 11:50 AM CDT Verified by Jakob Vaughn on 04/13/2021. us Patient Reported LAB - URINE ORDERABLES Edited R esult - Final Performing Organization Address [facility] de Phone Number [facility] PFT LABDE SCAN * (ABNORMAL) Albumin Random Urine Quantitative with Creat Ratio (04/12/2021 11:33 AM CDT) Microalbumin Urine (External) 49.4 mg/L LABDE SCAN Creatinine Urine mg/dL (External) 0.23 G/L LABDE SCAN Microalbumin Urine mg/g Cr (External) 214.8(H) <30.0 mg/g creat LABDE SCAN Urine 04/12/2021 11:3 3 AM CDT Narrative [facility] - 04/13/2021 11:50 AM CDT Verified by Jakob Vaughn on 04/13/2021. us Patient Reported LAB - URINE ORDERABLES Edited R esult - Final Performing Organization Address [facility] Co de Phone Number [facility] * UA with Microscopic reflex to Culture (04/12/2021 11:33 AM CDT) Source Urine (External) Urine LABDE SCAN Color Urine (External) Yellow Yellow LABDE SCAN Appearance Urine (External) Clear Clear LABDE SCAN Specific [place] Urine (External) 1.010 1.010 - 1.025 LABDE SCAN pH Urine (External) 6.0 5.5 - 8.5 LABDE SCAN Urobilinogen (External) Normal Normal EU/dL LABDE SCAN Protein Albumin Ur (External) Negative Negative mg/dL LABDE SCAN Glucose Urine (External) Negative Negative mg/dL LABDE SCAN Ketones Urine (External) Negative Negative mg/dL LABDE SCAN Bilirubin Urine (External) Negative Negative LABDE SCAN Blood Urine (External) Negative Negative LABDE SCAN Nitrites Urine (External) Negative Negative LABDE SCAN Leukocyte Esterase Urine (External) Negative Negative LABDE SCAN Urine 04/12/2021 11:3 3 AM CDT Narrative JUAN PFT - 04/13/2021 7:15 AM CDT Verified by Jorgito Jacinto on 04/13/2021. 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 Encounter for long-term (current) use of high-risk medication Encounter for long-term (current) use of other medications documented in this encounter Care Teams Linking Machine Operator Relationship Specialty Start Date End Date Ca Grier [address] [place] [address] PCP - General Family Practice 10/24/17 Nahun Easton MD [address] [place] [address] Orthopedics 09/21/17 Ca Grier [address] [place] [address] Referring Physician Family Practice 09/21/17 Marisa Skinner MD [address] [facility] [address] [place] [address] Nephrology 04/11/18 04/20/21 Stefan Thornton [address] [facility] [address] [place] [address] Bar Gauger And Lubricator Tender INTERNAL MEDICINE - ENDOCRINOLOGY, DIABETES & METABOLISM 04/11/18 Sanjeev Pastrana MD [address] [place] [address] [address] [place] [address] Assigned Surgical Provider 02/27/21 03/25/22 Ramandeep Collier, RN Registered Nurse Transplant 04/21/21 Guy Hernandez MD [address] [place] [address] Nephrology 04/21/21 Analilia Arellano MD [address] [place] [address] MD Paredes 06/21/21 Guy Hernandez MD [address] [place] [address] 45791 Assigned Nephrology Provider 11/27/21 12/17/21 Guy Hernandez MD [address] [place] [address] 11316 Assigned Nephrology Provider 12/18/21 05/25/23 Evens Clayton MD [address] [place] [address] 41231 Assigned Surgical Provider 03/26/22 09/21/23 Guy Hernandez MD [address] [place], [place] 906605 Assigned Nephrology Provider 05/11/24 Kesha Jones MD [address] [facility] [address] [place] [address] Assigned Infectious Disease Provider 05/11/25 documented as of this encounter
--- OUTSIDE RECORDS SUMMARY | 2025-08-01 12:36 | XMS_ITS | Encounter Summary ---
Author Organization [facility] Address [address] [place] [address]. [place] [address] Care Team Providers Care Football Coach Name Role Phone Nahun Easton MD Unavailable [phone] Ca Grier Unavailable Ca Grier Primary Care Provider [phone] Stefan Thornton Unavailable Ramandeep Collier RN Unavailable Un available Guy Hernandez MD Unavailable [phone] Analilia Arellano MD Unavailable [phone] Guy Hernandez MD Unavailable [phone] Kesha Jones MD Unavailable [phone] Encounter Details Date Type Department Care Team (Late st Contact Info) Description 03/24/2024 MyC Medical Advice [facility] [address] [place] [address] Yenny Dejesus, RN Social History [...] PM CDT 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 Gender Identity Male 09/09/2021 5:01 PM CDT Sexual Orientation Straight 09/09/2021 5: 01 PM CDT documented as of this encounter Plan of Treatment Upcoming Encounters Date Type Department Care Team (Late st Contact Info) Description 08/24/2025 3:00 PM CDT Office Visit [facility] [address] [address] Kesha Jones MD 420 [facility] [address] [place], [place] [phone] 03/25/2026 1:00 PM CDT Virtual Visit [facility] [address] [place] [phone] Guy Hernandez MD [address] [place] [address] [phone] documented as of this encounter Visit Diagnoses Not on filedocumented in this encounter Care Teams Football Coach Relationship Specialty Start Date End Date Ca Grier [address] [place] [address] [phone] PCP - General Family Practice 10/24/17 Nahun Easton MD [address] [place] [address] [phone] Orthopedics 09/21/17 Ca Grier [address] [place] [address] [phone] Referring Physician Family Practice 09/21/17 Stefan Thornton [address] [place] [address] [phone] Housekeeping Staff INTERNAL MEDICINE - ENDOCRINOLOGY, DIABETES & METABOLISM 04/11/18 Ramandeep Collier, RN Registered Nurse Transplant 04/21/21 Guy Hernandez MD [address] [place] [address] 99195 Nephrology 04/21/21 Analilia Arellano MD [address] [place] [address] [phone] Dermatology 06/21/21 Guy Hernandez MD [address] [place] [address] [phone] Assigned Nephrology Provider 05/11/24 Kesha Jones MD [address] [place] [address] [phone] Assigned Infectious Disease Provider 05/11/25 documented as of this encounter
--- OUTSIDE RECORDS SUMMARY | 2025-08-01 12:36 | XMS_ITS | Encounter Summary ---
Author Organization [facility] Address [address] [place] [address]. [place] [address] Care Team Providers Care Netezza Architect Name Role Phone Nahun Easton MD Unavailable [phone] Ca Grier Unavailable Ca Grier Primary Care Provider [phone] Marisa Skinner MD Unavailable [phone] Stefan Thornton Unavailable Sanjeev Pastrana MD Unavailable [phone] Evens Clayton MD Unavailable Sanjeev Pastrana MD Unavailable [phone] Ramandeep Collier RN Unavailable Un available Guy Hernandez MD Unavailable [phone] Analilia Arellano MD Unavailable [phone] Guy Hernandez MD Unavailable [phone] Guy Hernandez MD Unavailable [phone] Evens Clayton MD Unavailable Guy Hernandez MD Unavailable [phone] Kesha Jones MD Unavailable [phone] Encounter Details Date Type Department Care Team (Late st Contact Info) Description 07/23/2018 [facility] [address] [address] Marisa Skinner MD 717 [facility] 353 [place], [place] [phone] Social History Tobacco Use Types Packs/Day Years Used Date Smoking Tobacco: Former Cigarettes 0 11/19/1965 - 10/21/2017 Cigars Smokeless Tobacco: Never Alcohol Use Standard Drinks/Week Comments Yes 0 (1 standard drink = 0.6 oz pur e alcohol) 1-2/wk Sex and Gender Information Value Date Recorded Sex Assigned at Male 09/09/2021 5:01 PM CDT Legal 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 COLLECTION CLERK Gender Identity Male 09/09/2021 5:01 PM CDT Sexual Orientation Straight 09/09/2021 5: 01 PM CDT documented as of this encounter Plan of Treatment Upcoming Encounters Date Type Department Care Team (Late st Contact Info) Description 08/24/2025 3:00 PM CDT Office Visit [facility] [address] [address] Kesha Jones MD 420 [facility] [address] [place], [place] [address] 03/25/2026 1:00 PM CDT Virtual Visit [facility] [address] [place] [phone] Guy Hernandez MD [address] [place] [address] [phone] documented as of this encounter Visit Diagnoses Not on filedocumented in this encounter Care Teams Netezza Architect Relationship Specialty Start Date End Date Ca Grier [address] [place] [address] [phone] PCP - General Family Practice 10/24/17 Nahun Easton MD [address] [place] [address] [phone] Orthopedics 09/21/17 Ca Grier [address] [place] [address] [phone] Referring Physician Family Practice 09/21/17 Marisa Skinner MD [address] [place] [address] 51042 Nephrology 04/11/18 04/20/21 Stefan Thornton [address] [place] [address] [phone] Oracle Database Manager INTERNAL MEDICINE - ENDOCRINOLOGY, DIABETES & METABOLISM 04/11/18 Sanjeev Pastrana MD [address] [place] [address] [phone] Assigned Surgical Provider 11/07/20 11/27/20 [place] [address] [place], [place] [phone] Assigned Surgical Provider 11/28/20 02/26/21 Sanjeev Pastrana MD [address] [place] [address] [phone] Assigned Surgical Provider 02/27/21 03/25/22 Ramandeep Collier, RN Registered Nurse Transplant 04/21/21 Guy Hernandez MD [address] [place] [address] [phone] Nephrology 04/21/21 Analilia Arellano MD [address] [place] [address] [phone] MD Paredes 06/21/21 Guy Hernandez MD [address] [place] [address] 67593 Assigned Nephrology Provider 11/27/21 12/17/21 Guy Hernandez MD [address] [place] [address] [phone] Assigned Nephrology Provider 12/18/21 05/25/23 Evens Clayton MD [address] [place] [address] [phone] Assigned Surgical Provider 03/26/22 09/21/23 Guy Hernandez MD [address] [place] [address] 25315 Assigned Nephrology Provider 05/11/24 Kesha Jones MD [address] [place] [address] [phone] Assigned Infectious Disease Provider 05/11/25 documented as of this encounter
--- OUTSIDE RECORDS SUMMARY | 2025-08-01 12:36 | XMS_ITS | Encounter Summary ---
Author Organization [facility] Address [address] [place] [address]. [place] [address] Care Team Providers Care Fire Lieutenant Marine Name Role Phone Nahun Easton MD Unavailable [phone] Ca Grier Unavailable Ca Grier Primary Care Provider [phone] Stefan Thornton Unavailable Ramandeep Collier RN Unavailable Un available Guy Hernandez MD Unavailable [phone] Analilia Arellano MD Unavailable [phone] Guy Hernandez MD Unavailable [phone] Kesha Jones MD Unavailable [phone] Encounter Details Date Type Department Care Team (Late st Contact Info) Description 05/19/2024 External Order Results [facility] [address] [place] [address] Outside, Provider Social History Tobacco Use Types Packs/Day Years Used Date Smoking Tobacco: Former Cigarettes 0 11/19/1965 - 10/21/2017 Cigars Smokeless Tobacco: Never Alcohol Use Standard Drinks/Week Comments Yes 0 (1 standard drink = 0.6 oz pur e alcohol) 1-2/wk PHQ-2 Answer Date Recorded PHQ-2 Score 0 04/15/2024 Adolescent Education Answer Date Record ed Getting School Help Needed Not on file 09/03 Sex and Gender Information Value Date Recorded Sex Assigned at Male 09/09/2021 5:01 PM CDT Legal 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 FISH SEINER Gender Identity Male 09/09/2021 5:01 PM CDT Sexual Orientation Straight 09/09/2021 5: 01 PM CDT documented as of this encounter Plan of Treatment Upcoming Encounters Date Type Department Care Team (Late st Contact Info) Description 08/24/2025 3:00 PM CDT Office Visit [facility] [address] [phone] Kesha Jones MD 420 [facility] [address] [place], [place] [phone] 03/25/2026 1:00 PM CDT Virtual Visit [facility] [address] [place] [address] Guy Hernandez MD [address] [place] [address] documented as of this encounter Procedures Procedure Name Priority Date/Time Associated Diagnosis Comments BASIC METABOLIC PANEL Routine 05/19/2024 9:20 AM CDT BASIC METABOLIC PANEL Routine 04/29/2024 9:03 AM CDT documented in this encounter Results * (ABNORMAL) Basic metabolic panel (05/19/2024 9:20 AM CDT) Sodium (External) 136 136 - 145 mmol/L NON-INTERFACED (ONBASE SCANS) Potassium (External) 5.1 3.5 - 5.1 mmol/L NON-INTERFACED (ONBASE SCANS) Chloride (External) 102 98 - 107 mmol/L NON-INTERFACED (ONBASE SCANS) Anion Gap (External) 11 5 - 18 NON-INTERFACED (ONBASE SCANS) Glucose (External) 296(H) 70 - 99 mg/dL NON-INTERFACED (ONBASE SCANS) Calcium (External) 9.5 8.8 - 10.2 mg/dL NON-INTERFACED (ONBASE SCANS) Urea Nitrogen (External) 39(H) 8 - 23 mg/dL NON-INTERFACED (ONBASE SCANS) Creatinine (External) 1.13 0.70 - 1.20 mg/dL NON-INTERFACED (ONBASE SCANS) BUN/Creatinine Ratio (External) 35(H) 10 - 20 Ratio NON-INTERFACED (ONBASE SCANS) GFR Estimated (External) 67(L) >90 mL/min/1.7 3m2 NON-INTERFACED (ONBASE SCANS) Blood BLOOD SPECIMEN / Unknown 05/19/2024 9:20 AM CDT Narrative JUAN PFT - 10/27/2024 10:51 AM FISH SEINER Verified by Arlyn North on 10/27/2024. us Provider Outside LAB - BLOOD ORDERABLES Edited R esult - Final JUAN PFChon NON-INTERFACED (ONBASE SCANS) * (ABNORMAL) Basic metabolic panel (04/29/2024 9:03 AM CDT) Sodium (External) 138 136 - 145 mmol/L NON-INTERFACE D (ONBASE SCANS) Potassium (External) 4.9 3.5 - 5.1 mmol/L NON-INTERFACE D (ONBASE SCANS) Chloride (External) 104 98 - 107 mmol/L NON-INTERFACE D (ONBASE SCANS) CO2 (External) 23 22 - 29 mmol/L NON-INTERFACE D (ONBASE SCANS) Anion Gap (External) 11 5 - 18 mmol/L NON-INTERFACE D (ONBASE SCANS) Glucose (External) 95 70 - 99 mg/dL NON-INTERFACE D (ONBASE SCANS) Calcium (External) 9.3 8.8 - 10.2 mg/dL NON-INTERFACE D (ONBASE SCANS) Urea Nitrogen (External) 42(H) 8 - 23 mg/dL NON-INTERFACE D (ONBASE SCANS) Creatinine (External) 1.27(H) 0.70 - 1.20 mg/dL NON-INTERFACE D (ONBASE SCANS) BUN/Creatinine Ratio (External) 33(H) 10 - 20 Ratio NON-INTERFACE D (ONBASE SCANS) GFR Estimated (External) 59(L) >90 mL/min/1.7 3m2 NON-INTERFACE D (ONBASE SCANS) Blood BLOOD SPECIMEN / Unknown 04/29/2024 9:03 AM CDT Narrative JUAN PFT - 10/27/2024 10:51 AM FISH SEINER Verified by Arlyn North on 10/27/2024. us Provider Outside LAB - BLOOD ORDERABLES Edited R esult - Final JUAN PFT NON-INTERFACED (ONBASE SCANS) documented in this encounter Visit Diagnoses Not on filedocumented in this encounter Care Teams Fire Lieutenant Marine Relationship Specialty Start Date End Date Ca Grier [address] [place] [address] [phone] PCP - General Family Practice 10/24/17 Nahun Easton MD [address] [place] [address] [phone] Orthopedics 09/21/17 Ca Grier [address] [place] [address] 45799 Referring Physician Family Practice 09/21/17 Stefan Thornton [address] [place] [address] [phone] Trade Mark Attorney INTERNAL MEDICINE - ENDOCRINOLOGY, DIABETES & METABOLISM 04/11/18 Ramandeep Collier, RN Registered Nurse Transplant 04/21/21 Guy Hernandez MD [address] [place] [address] [phone] Nephrology 04/21/21 Analilia Arellano MD [address] [place] [address] [phone] Dermatology 06/21/21 Guy Hernandez MD [address] [place], [place] [address] Assigned Nephrology Provider 05/11/24 Kesha Jones MD 420 [facility] [address] [place] [address] Assigned Infectious Disease Provider 05/11/25 documented as of this encounter
--- OUTSIDE RECORDS SUMMARY | 2025-08-01 12:36 | XMS_ITS | Clinical Summary ---
Author Organization [facility] Address [address] [place] [address]. [place] [address] Care Team Providers Care Batch Still Operator Name Role Phone Nahun Easton MD Unavailable [phone] Ca Grier Unavailable Ca Grier Primary Care Provider [phone] Stefan Thornton Unavailable Ramandeep Collier RN Unavailable Un available Guy Hernandez MD Unavailable [phone] Analilia Arellano MD Unavailable [phone] Guy Hernandez MD Unavailable [phone] Kesha Jones MD Unavailable [phone] Allergies Active Allergy Reactions Criticality Noted Date Comments Amoxicillin-Pot Clavulanate Other (See Comments),Diarrhea 02/20/2023 ##Pharmacist completed allergy assessment. Allergy determined to be low risk. Will likely tolerate cefazolin, as it does not share a side chain with amoxicillin and risk for cross-reactivity is low. Zoila Allyn [facility] Diabetes, Exacerbation Levofloxacin Other (See Comments) 03/29/2017 Patient reports tendinitis in achilles heel (transplant), foot swollen Medications aspirin 81 MG tablet Take 1 tablet by mouth daily Active clopidogrel (PLAVIX) 75 MG tablet Take 75 mg by mouth 6 Active insulin aspart (NOVOLOG VIAL) 100 UNITS/ML vial 6 Active sulfamethoxazo le-trimethopri m (BACTRIM,SEPTR A) 400-80 MG per tablet Take 1 tablet by mouth 6 Active atorvastatin (LIPITOR) 40 MG tablet Take 40 mg by mouth 6 Active lisinopril (PRINIVIL/ZEST RIL) 10 MG tablet TK 1 T PO D 3 8 Active metoprolol succinate (TOPROL-XL) 50 MG 24 hr tablet TK 1 T PO BID 3 8 Active fluorouracil (EFUDEX) 5 % external creamIndicatio ns:Actinic keratosis Mix equally with calcipotriene cream. Apply BID x 4-10 days. Stop when skin gets red. 40 g 1 Active calcipotriene (DOVONOX) 0.005 % external creamIndicatio ns:Actinic keratosis Mix efudex + calcipotriene equally. Apply BID x 4-10 days. Stop when skin gets red. 60 g 1 1 Active predniSONE (DELTASONE) 5 MG tabletIndicati ons:Status post kidney transplant,Imm unosuppressive management encounter following kidney transplant,Aft ercare following organ transplant Take 1 tablet (5 mg) by mouth daily 90 tablet 1 3 Active mycophenolate (GENERIC EQUIVALENT) 250 MG capsuleIndicat ions:Status post kidney transplant Take 2 capsules (500 mg) by mouth 2 times daily. 360 capsule 3 5 Active amLODIPine (NORVASC) 10 MG tablet Take 1 tablet by mouth daily. 4 Active hydrALAZINE (APRESOLINE) 50 MG tablet Take 50 mg by mouth. 5 Active cefpodoxime (VANTIN) 200 MG tabletIndicati ons:Toe osteomyelitis, right (H) Take 2 tablets (400 mg) by mouth 2 times daily. 120 tablet 1 5 Active cefadroxil (DURICEF) 500 MG capsuleIndicat ions:Toe osteomyelitis, right (H) Take 1 capsule (500 mg) by mouth 2 times daily. 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 Toe infection 02/06/2023 Squamous cell carcinoma of skin, unspecified Overview (11/14/2021): multiple, last in 2010 Seborrheic keratoses, inflamed 02/21/2021 Diabetes mellitus, type 2 01/25/2021 Actinic keratosis 11/10/2020 Neoplasm of uncertain behavior of skin Ulcer of left lower extremity with fat layer exp osed 02/08/2018 History of nonmelanoma skin cancer 03/31/2013 Kidney replaced by transplant 10/18/2011 Hypertension Encounters Date Type Department Care Team Description 07/27/2025 MyC Medical Advice [facility] Infectious Disease [address] [phone] Kesha Jones MD 07/17/2025 2:00 PM CDT Office Visit [facility] Infectious Disease [address] [phone] Kesha Jones MD Toe osteomyelitis, right (H) (Primary Dx); Need for vaccination; Immunosuppressed status; Diabetes 1.5, managed as type 1 (H) 07/17/2025 Travel 07/12/2025 MyC Medical Advice [facility] Infectious Disease [address] [address] Kesha Jones MD 06/17/2025 Telephone [facility] Infectious Disease [address] [address] Kesha Jones MD 06/12/2025 2:00 PM CDT Office Visit [facility] Infectious Disease [address] [phone] Kesha Jones MD Toe osteomyelitis, right (H) (Primary Dx); Immunosuppressed status; Diabetes 1.5, managed as type 1 (H) 06/12/2025 Travel 06/11/2025 Travel 05/10/2025 MyC Medical Advice [facility] Infectious Disease [address] [address] Kesha Jones MD 05/08/2025 3:40 PM CDT Ancillary Procedure [facility] Imaging [facility] X[facility] [place] [address] [place] [address] [address] [place] [address] Kesha Jones MD 05/08/2025 2:00 PM CDT Office Visit [facility] Infectious Disease Clinic [address] [address] Guy Hernandez MD Bhaskaran, Archana, MD Toe osteomyelitis, right (H) (Primary Dx); Immunosuppressed status; Diabetes 1.5, managed as type 1 (H) 05/08/2025 Travel from Last 3 Months Immunizations Immunization Administration Dates Next Due COVID-19 Bivalent 18+ (Moderna) 08/01/2022 Influenza (IIV3) PF 08/19/2012 Pneumo Conj 13-V (2010&after) 09/19/2016 Pneumococcal 23 valent 11/07/2012 TDAP (Adacel,Boostrix) 07/17/2025 TDAP Vaccine (Boostrix) 09/30/2015 Family History Medical History Relation Comments Hypertension Father Coronary Artery Disease Mother Hypertension Mother Cancer No family hx of skin cancer Skin Cancer No family hx of Relation Status Comments Father Mother Social History Tobacco Use Types Packs/Day Years [...] PM CDT Legal 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 TEAM LEADER Gender Identity Male 09/09/2021 5:01 PM CDT Sexual Orientation Straight 09/09/2021 5: 01 PM CDT Last Filed Vital Signs Vital Sign Reading Time Taken Comments Blood Pressure 179/80 07/17/2025 1:50 PM CDT Pulse 60 07/17/2025 1:50 PM CDT Temperature 36.3 C (97.3 F) 06/12/2025 2:02 PM CDT Respiratory Rate 20 07/17/2025 1:50 PM CDT Oxygen Saturation 98% 07/17/2025 1:50 PM CDT Inhaled Oxygen Concentration - - Weight 69 kg (152 lb 1.6 oz) 07/17/2025 1:50 PM CDT Height 177.8 cm (5' 10) 07/17/2025 1:50 PM CDT Body Mass Index 21.82 07/17/2025 1:50 PM CDT Plan of Treatment Upcoming Encounters Date Type Department Care Team (Late st Contact Info) Description 08/24/2025 3:00 PM CDT Office Visit [facility] Infectious Disease Clinic [address] [address] Kesha Jones MD 420 [facility] 250 [place], [place] [phone] 03/25/2026 1:00 PM CDT Virtual Visit [facility] Transplant Clinic [address] [place] [address] Guy Hernandez MD [address] [place] [address] Health Maintenance Due Date Last Done Comments ADVANCE CARE PLANNING 1945 ANNUAL REVIEW OF HM ORDERS 1947 DIABETIC FOOT EXAM 1947 EYE EXAM 1947 HEPATITIS C SCREENING 1965 ZOSTER VACCINE (1 of 2) 1966 LUNG CANCER SCREENING 1997 MEDICARE ANNUAL WELLNESS VISIT 2012 MICROALBUMIN 04/12/2022 04/12/2021 A1C 01/01/2025 10/01/2024, 12/12/2020, 04/12/2021, Additional history exists BMP 05/19/2025 05/19/2024, 04/19, 12/24/2023, Additional history exists COVID-19 VACCINE (8 - Moderna risk season) 2025 09/10/2024, 09/05/2023, 03/10/2023, Additional history exists INFLUENZA VACCINE (#1) 2025 , 08/07/2023, 10/10/2022, Additional history exists LIPID 10/01/2025 10/01/2024, 07/21, 08/10/2020, Additional history exists FALL RISK ASSESSMENT 07/17/2026 07/17/2025, 03/21/2022, 03/21/2022, Additional history exists DTAP/TDAP/TD VACCINE (3 - Td or Tdap) 07/17/2035 07/17/2025, 09/30/2015, 02/23/2005 COLONOSCOPY Discontinued 11/19/2014 PNEUMOCOCCAL VACCINE 50+ YEARS Completed 09/19/2016, 11/07/2012 COLORECTAL CANCER SCREENING Discontinued FIT Discontinued 10/28/2019 RSV VACCINE Completed 11/21/2023 PHQ-2 (once per calendar year) Completed 03/25/2025, 04/15/2024, 03/21/2022, Additional history exists CT COLONOGRAPHY Discontinued FLEX SIG Discontinued HPV VACCINE (No Doses Required) Completed MENINGITIS VACCINE Aged Out No longer eligible based on patient's age to complete this topic sDNA (Cologuard) Discontinued Medical Devices Implanted Type Area Blood Bank Calendar Control Clerk Device Identifier Shelf Expiration Date Model / Serial / Lot Imp Scr [employer] Bi[employer]p [id number] Implanted:Qty: 1 on 10/24/2017 by Nahun Easton MD at [facility] Metallic Hardware/Anc hor Left: Ankle ARTHREX 05/18/2019 [id number] / / [id number] Procedures Procedure Name Priority Date/Time Associated Diagnosis Comments XR FOOT RIGHT G/E 3 VIEWS Routine 05/08/2025 3:34 PM CDT Immunosuppressed status ANAEROBIC BACTERIAL CULTURE ROUTINE Routine 05/08/2025 3:29 PM CDT AEROBIC BACTERIAL CULTURE ROUTINE Routine 05/08/2025 3:29 PM CDT LIPID PROFILE Routine 10/01/2024 11:25 AM WAREHOUSE TEAM LEADER HEMOGLOBIN A1C Routine 10/01/2024 11:24 AM WAREHOUSE TEAM LEADER BASIC METABOLIC PANEL Routine 05/19/2024 9:20 AM CDT ALBUMIN AND CREATININE WITH RATIO RANDOM URINE QUANTITATIVE Routine 04/12/2021 11:33 AM CDT from Last 3 Months or Most Recently Relevant to Health Maintenance Results * XR Foot Right G/E 3 Views (05/08/2025 3:34 PM CDT) Anatomical Region Laterality Modality Foot, Ankle Right Digital Radiogra phy Impressions 05/08/2025 4:43 PM CDT Impression: Osteolysis of the first distal phalanx suspicious for osteomyelitis. Comparison with prior studies, if available, would be helpful. YUNG VICENTE MD (Joe) Narrative 05/08/2025 4:43 PM CDT 3 views right foot radiographs 05/08/2025 4:42 PM History: Immunosuppressed status; Non-healing surgical wound Comparison: None Findings: Nonweightbearing AP, oblique, and lateral views of the right foot were obtained. Evidence of prior first interphalangeal joint instrumentation. Osteolysis of the first distal phalanx, especially distally. Questionable soft tissue ulceration in this region. Lisfranc articulation alignment is congruent on this non-weight bearing study. Mild degenerative changes of first metatarsophalangeal joint. Achilles tendon insertional and plantar calcaneal enthesopathy. Vascular calcifications. Procedure Note Yung Vicente, DO - 05/08/2025 3 views right foot radiographs 05/08/2025 4:42 PM History: Immunosuppressed status; Non-healing surgical wound Comparison: None Findings: Nonweightbearing AP, oblique, and lateral views of the right foot were obtained. Evidence of prior first interphalangeal joint instrumentation. Osteolysis of the first distal phalanx, especially distally. Questionable soft tissue ulceration in this region. Lisfranc articulation alignment is congruent on this non-weight bearing study. Mild degenerative changes of first metatarsophalangeal joint. Achilles tendon insertional and plantar calcaneal enthesopathy. Vascular calcifications. Impression: Osteolysis of the first distal phalanx suspicious for osteomyelitis. Comparison with prior studies, if available, would be helpful. YUNG VICENTE MD (Joe) Kesha Jones MD IMG DIAGNOSTIC IMAGING ORDE SUE Final Result * (ABNORMAL) Wound Aerobic Bacterial Culture Routine With Gram Stain (05/08/2025 3:29 PM CDT) Culture 2+ Staphylococcus epidermidis(A) 05/10/2025 1:30 PM CDT [facility] Comment:Susceptibilities not routinely done, refer to antibiogram to view typical susceptibility profiles Culture 2+ Corynebacterium species(A) 05/10/2025 1:30 PM CDT [facility] Comment:Susceptibilities not routinely done, refer to antibiogram to view typical susceptibility profiles Gram Stain Result 3+ Gram positive cocci(A) 05/10/2025 1:30 PM CDT [facility] Gram Stain Result 1+ Gram positive bacilli(A) 05/10/2025 1:30 PM CDT [facility] Gram Stain Result 3+ WBC seen(A) 1:30 PM CDT [facility] Comment:Predominantly PMNs Wound PART OF TOE OF RIGHT FOOT / Unknown Non-blood Collection / Unknown 05/08/2025 3:29 PM CDT 05/08/2025 3:35 PM CDT Kesha Jones MD LAB - MICRO GENERAL ORDERAB LES Final Result [facility] Inf. Diseases Diag. Lab [address] [facility] [place] [address], [facility] * (ABNORMAL) Anaerobic bacterial culture (05/08/2025 3:29 PM CDT) Culture No anaerobic organisms isolated SUHA 05/15/2025 9:29 AM CDT [facility] Culture 1+ Gram positive bacilli, resembling diphtheroids( A) 05/15/2025 9:29 AM CDT [facility] Comment: No further identification Susceptibilities not routinely done, refer to antibiogram to view typical susceptibility profiles Not isolated or reported on routine aerobic culture Wound PART OF TOE OF RIGHT FOOT / Unknown Non-blood Collection / Unknown 05/08/2025 3:29 PM CDT 05/08/2025 3:35 PM CDT us Kesha Jones MD LAB - MICRO GENERAL ORDERAB LES Final Result [facility] Inf. Diseases Diag. Lab [address] [facility] [place] [address], [facility] * Lipid Profile (10/01/2024 11:25 AM WAREHOUSE TEAM LEADER) Cholesterol (External) 138 <200 mg/dL NON-INTERFACE D (ONBASE SCANS) HDL Cholesterol (External) 67 >=40 mg/dL NON-INTERFACE D (ONBASE SCANS) Triglycerides (External) 85 <150 mg/dL NON-INTERFACE D (ONBASE SCANS) LDL Cholesterol Calculated (External) 54 <100 mg/dL NON-INTERFACE D (ONBASE SCANS) Blood BLOOD SPECIMEN / Unknown 10/01/2024 11:25 AM WAREHOUSE TEAM LEADER Narrative ZACHE PFT - 10/29/2024 1:47 PM WAREHOUSE TEAM LEADER Verified by Janice Hutson on 10/29/2024. us Provider Outside LAB - BLOOD ORDERABLES Edited R esult - Final ZACHE PFT NON-INTERFACED (ONBASE SCANS) * (ABNORMAL) Hemoglobin A1c (10/01/2024 11:24 AM WAREHOUSE TEAM LEADER) Hemoglobin A1C (External) 6.7(H) <6.0 % OF TOTAL HGB NON-INTERFACED (ONBASE SCANS) Blood BLOOD SPECIMEN / Unknown 10/01/2024 11:24 AM WAREHOUSE TEAM LEADER Narrative BREEZE PFT - 10/29/2024 1:47 PM WAREHOUSE TEAM LEADER Verified by Janice Hutson on 10/29/2024. Provider Outside LAB - BLOOD ORDERABLES Edited R CrowdSling - Final JUAN PFT NON-INTERFACED (ONBASE SCANS) * (ABNORMAL) Basic metabolic panel (05/19/2024 9:20 [...] Narrative JUAN PFT - 10/27/2024 10:51 AM WAREHOUSE TEAM LEADER Verified by Arlyn North on 10/27/2024. Provider Outside LAB - BLOOD ORDERABLES Edited R CrowdSling - Final JUAN PFT NON-INTERFACED (ONBASE SCANS) * (ABNORMAL) Albumin Random Urine Quantitative with Creat Ratio (04/12/2021 11:33 AM CDT) Microalbumin Urine (External) 49.4 mg/L LABDE SCAN Creatinine Urine mg/dL (External) 0.23 G/L LABDE SCAN Microalbumin Urine mg/g Cr (External) 214.8(H) <30.0 mg/g creat LABDE SCAN Urine 04/12/2021 11:3 3 AM CDT Narrative JUAN PFT - 04/13/2021 11:50 AM CDT Verified by Jakob Vaughn on 04/13/2021. us Patient Reported LAB - URINE ORDERABLES Edited R esult - Final JUAN PFT LABDE SCAN from Last 3 Months or Most Recently Relevant to Health Maintenance Insurance MEDICARE [facility] MEDICARE SUPPLEMENT MEDICARE [place] MED[place]PP[place] MED[place] SUPPLEMENT Care Teams Batch Still Operator Relationship Specialty Start Date End Date Cherrie Ca [address] [place] [address] PCP - General Family Practice 10/24/17 Nahun Easton MD [address] [place] [address] [phone] Orthopedics 09/21/17 Ca Grier [address] [place] [address]79 Referring Physician Family Practice 09/21/17 Stefan Thornton [address] [place] [address] 53790 Senior Data Mining Analyst INTERNAL MEDICINE - ENDOCRINOLOGY, DIABETES & METABOLISM 04/11/18 Ramandeep Collier, RN Registered Nurse Transplant 04/21/21 Guy Hernandez MD [address] [place] [address] [phone] Nephrology 04/21/21 Analilia Arellano MD [address] [place] [address] [phone] Dermatology 06/21/21 Guy Hernandez MD [address] [place] [address] [phone] Assigned Nephrology Provider 05/11/24 Kesha Jones MD [address] [place] [address] Assigned Infectious Disease Provider 05/11/25
--- OUTSIDE RECORDS SUMMARY | 2025-08-01 12:36 | XMS_ITS | Encounter Summary ---
Author Organization [facility] Address [address] [place] [address]. [place] [address] Care Team Providers Care Toy Trains And Accessories Salesperson Name Role Phone Nahun Easton MD Unavailable [phone] Ca Grier Unavailable Ca Grier Primary Care Provider [phone] Marisa Skinner MD Unavailable [phone] Stefan Thornton Unavailable Sanjeev Pastrana MD Unavailable [phone] Evens Clayton MD Unavailable Sanjeev Pastrana MD Unavailable [phone] Ramandeep Collier RN Unavailable Un available Guy Hernandez MD Unavailable [phone] Analilia Arellano MD Unavailable [phone] Guy Hernandez MD Unavailable [phone] Guy Hernandez MD Unavailable [phone] Evens Clayton MD Unavailable Guy Hernandez MD Unavailable [phone] Kesha Jones MD Unavailable [phone] Encounter Details Date Type Department Care Team (Late st Contact Info) Description 07/23/2018 [facility] Nephrology Clinic [address] [address] Marisa Skinner MD 7[address] [facility] [address] [place], [place] [phone] Social History Tobacco Use Types Packs/Day Years Used Date Smoking Tobacco: Former Cigarettes 0 11/19/1965 - 10/21/2017 Cigars Smokeless Tobacco: Never Alcohol Use Standard Drinks/Week Comments Yes 0 (1 standard drink = 0.6 oz pur e alcohol) 1-2/wk Sex and Gender Information Value Date Recorded Sex Assigned at Male 09/09/2021 5:01 PM CDT Legal 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 Gender Identity Male 09/09/2021 5:01 PM CDT Sexual Orientation Straight 09/09/2021 5: 01 PM CDT documented as of this encounter Plan of Treatment Upcoming Encounters Date Type Department Care Team (Late st Contact Info) Description 08/24/2025 3:00 PM CDT Office Visit [facility] Infectious Disease Clinic [address] [address] Kesha Jones MD 420 [facility] [address] [place], [place] [address] 03/25/2026 1:00 PM CDT Virtual Visit [facility] Transplant Clinic [address] [place] [address] Guy Hernandez MD [address] [place] [address] [phone] documented as of this encounter Visit Diagnoses Not on filedocumented in this encounter Care Teams Toy Trains And Accessories Salesperson Relationship Specialty Start Date End Date Ca Grier [address] [place] [address] [phone] PCP - General Family Practice 10/24/17 Nahun Easton MD [address] [place] [address] [phone] Orthopedics 09/21/17 Ca Grier [address] [place] [address] 598265 Referring Physician Family Practice 09/21/17 Marisa Skinner MD [address] [place] [address] Nephrology 04/11/18 04/20/21 Stefan Thornton [address] [place] [address] [phone] Video Production Engineer INTERNAL MEDICINE - ENDOCRINOLOGY, DIABETES & METABOLISM 04/11/18 Sanjeev Pastrana MD [address] [place] [address] [phone] Assigned Surgical Provider 11/07/20 11/27/20 [place] [address] [place], [place] [address] Assigned Surgical Provider 11/28/20 02/26/21 Sanjeev Pastrana MD [address] [place] [address] 392005 Assigned Surgical Provider 02/27/21 03/25/22 Ramandeep Collier, RN Registered Nurse Transplant 04/21/21 Guy Hernandez MD [address] [place] [address] [phone] Nephrology 04/21/21 Analilia Arellano MD [address] [place] [address] [phone] MD Paredes 06/21/21 Guy Hernandez MD [address] [place] [address] 44483 Assigned Nephrology Provider 11/27/21 12/17/21 Guy Hernandez MD [address] [place] [address] 91793 Assigned Nephrology Provider 12/18/21 05/25/23 Evens Clayton MD [address] [place] [address] 44482 Assigned Surgical Provider 03/26/22 09/21/23 Guy Hernandez MD [address] [place] [address]3425 Assigned Nephrology Provider 05/11/24 Kesha Jones MD [address] [place] [address] Assigned Infectious Disease Provider 05/11/25 documented as of this encounter
--- OUTSIDE RECORDS SUMMARY | 2025-08-01 12:36 | XMS_ITS | Encounter Summary ---
Author Organization [facility] Address [address] [place] [address]. [place] [address] Care Team Providers Care Car Carder Name Role Phone Nahun Easton MD Unavailable [phone] Ca Grier Unavailable Ca Grier Primary Care Provider [phone] Stefan Thornton Unavailable Ramandeep Collier RN Unavailable Un available Guy Hernandez MD Unavailable [phone] Analilia Arellano MD Unavailable [phone] Guy Hernandez MD Unavailable [phone] Kesha Jones MD Unavailable [phone] Encounter Details Date Type Department Care Team (Late st Contact Info) Description 06/17/2025 Telephone [facility] Disease [facility] [place] [address] [place] [address] Kesha Jones MD 420 [facility] 250 [place] [address] Social History Tobacco Use Types [...] PM CDT Legal 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 Jones's most recent office not [facility] to fax number [phone] Destiney Pierre CMA documented in this encounter Plan of Treatment Upcoming Encounters Date Type Department Care Team (Late st Contact Info) Description 08/24/2025 3:00 PM CDT Office Visit [facility] Infectious Disease Clinic [address] [address] Kesha Jones MD [address] [phone] 03/25/2026 1:00 PM CDT Virtual Visit [facility] Transplant Clinic [address] [place] [address] Guy Hernandez MD [address] [place] [address] [phone] documented as of this encounter Visit Diagnoses Not on filedocumented in this encounter Care Teams Car Carder Relationship Specialty Start Date End Date Ca Grier [address] [place] [address] [phone] PCP - General Family Practice 10/24/17 Nahun Easton MD [address] [place] [address] 49896 Orthopedics 09/21/17 Ca Grier [address] [place] [address] 43540 Referring Physician Family Practice 09/21/17 Stefan Thornton [address] [place] [address] 36469 Multimedia Author INTERNAL MEDICINE - ENDOCRINOLOGY, DIABETES & METABOLISM 04/11/18 Ramandeep Collier, RN Registered Nurse Transplant 04/21/21 Guy Hernandez MD [address] [place] [address]28 Nephrology 04/21/21 Analilia Arellano MD [address] [place] [address] Dermatology 06/21/21 Guy Hernandez MD [address] [place] [address] 16032 Assigned Nephrology Provider 05/11/24 Kesha Jones MD [address] [place] [address] 57463 Assigned Infectious Disease Provider 05/11/25 documented as of this encounter
--- OUTSIDE RECORDS SUMMARY | 2025-08-01 12:36 | XMS_ITS | Encounter Summary ---
Author Organization [facility] Address [address] [place] [address]. [place] [address] Care Team Providers Care Equipment Mechanic Name Role Phone Nahun Easton MD Unavailable [phone] Ca Grier Unavailable Ca Grier Primary Care Provider [phone] Stefan Thornton Unavailable Sanjeev Pastrana MD Unavailable [phone] Ramandeep Collier RN Unavailable Un available Guy Hernandez MD Unavailable [phone] Analilia Arellano MD Unavailable [phone] Guy Hernandez MD Unavailable [phone] Guy Hernandez MD Unavailable [phone] Evens Clayton MD Unavailable Guy Hernandez MD Unavailable [phone] Kesha Jones MD Unavailable [phone] Encounter Details Date Type Department Care Team (Late st Contact Info) Description 06/21/2021 [facility] [place] [address] [facility] 3rd [place] [address] Sanjeev Pastrana MD 420 [facility] [address] [place] [address] Social History Tobacco Use Types [...] PM CDT Legal 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 FUEL OPERATOR Gender Identity Male 09/09/2021 5:01 PM CDT Sexual Orientation Straight 09/09/2021 5: 01 PM CDT COVID-19 Exposure Response Date Recorded In the last month, have you been in contact with someone who was confirmed or suspected to have Coronavirus / COVID-19? Unable to assess 06/21/2021 12:55 PM CDT documented as of this encounter Plan of Treatment Upcoming Encounters Date Type Department Care Team (Late st Contact Info) Description 08/24/2025 3:00 PM CDT Office Visit [facility] Infectious Disease Clinic [address] [address] Kesha Jones MD [address] [place] [address] 111135 03/25/2026 1:00 PM CDT Virtual Visit [facility] Transplant Clinic [address] [place] [address] Guy Hernandez MD [address] [place] [address] [phone] documented as of this encounter Visit Diagnoses Not on filedocumented in this encounter Care Teams Equipment Mechanic Relationship Specialty Start Date End Date Ca Grier [address] [place] [address] [phone] PCP - General Family Practice 10/24/17 Nahun Easton MD [address] [place] [address] Orthopedics 09/21/17 Ca Grier [address] [place] [address] Referring Physician Family Practice 09/21/17 Stefan Thornton [address] [place] [address] 26938 Transportation Project Manager INTERNAL MEDICINE - ENDOCRINOLOGY, DIABETES & METABOLISM 04/11/18 Sanjeev Pastrana MD [address] [place] [address] Assigned Surgical Provider 02/27/21 03/25/22 Ramandeep Collier RN Registered Nurse Transplant 04/21/21 Guy Hernandez MD [address] [place] [address] Nephrology 04/21/21 Analilia Arellano MD [address] [place] [address] Dermatology 06/21/21 Guy Hernandez MD [address] [place] [address] Assigned Nephrology Provider 11/27/21 12/17/21 Guy Hernandez MD [address] [place] [address] 78093 Assigned Nephrology Provider 12/18/21 05/25/23 Evens Clayton MD [address] [place] [address] 366[address] Assigned Surgical Provider 03/26/22 09/21/23 Guy Hernandez MD [address] [place] [address] Assigned Nephrology Provider 05/11/24 Kesha Jones MD [address] [place] [address] [address] [place] [address] Assigned Infectious Disease Provider 05/11/25 documented as of this encounter
--- OUTSIDE RECORDS SUMMARY | 2025-08-01 12:36 | XMS_ITS | Encounter Summary ---
Author Organization [facility] Address [address] [place] [address]. [place] [address] Care Team Providers Care Operator Coating Furnace Name Role Phone Nahun Easton MD Unavailable [phone] Ca Grier Unavailable Ca Grier Primary Care Provider [phone] Marisa Skinner MD Unavailable [phone] Stefan Thornton Unavailable Sanjeev Pastrana MD Unavailable [phone] Evens Clayton MD Unavailable Sanjeev Pastrana MD Unavailable [phone] Ramandeep Collier RN Unavailable Un available Guy Hernandez MD Unavailable [phone] Analilia Arellano MD Unavailable [phone] Guy Hernandez MD Unavailable [phone] Guy Hernandez MD Unavailable [phone] Evens Clayton MD Unavailable Guy Hernandez MD Unavailable [phone] Kesha Jones MD Unavailable [phone] Encounter Details Date Type Department Care Team (Latest Contact Info) Description 08/21/2019 External Order Results [facility] [address] [place] [phone] Kidney transplanted; Complications, kidney transplant; Aftercare following organ transplant Social History Tobacco Use Types Packs/Day Years Used Date Smoking Tobacco: Former Cigarettes 0 11/19/1965 - 10/21/2017 Cigars Smokeless Tobacco: Never Alcohol Use Standard Drinks/Week Comments Yes 0 (1 standard drink = 0.6 oz pur e alcohol) 1-2/wk PHQ-2 Answer Date Recorded PHQ-2 Score 2 11/26/2018 Sex and Gender Information Value Date Recorded Sex Assigned at Male 09/09/2021 5:01 PM CDT Legal 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 Gender Identity Male 09/09/2021 5:01 PM CDT Sexual Orientation Straight 09/09/2021 5: 01 PM CDT documented as of this encounter Plan of Treatment Upcoming Encounters Date Type Department Care Team (Late st Contact Info) Description 08/24/2025 3:00 PM CDT Office Visit [facility] Infectious Disease Clinic [address] [phone] Kesha Jones MD 420 [facility] [address] [place], [place] 5232[address] 03/25/2026 1:00 PM CDT Virtual Visit [facility] Transplant Clinic [address] [place] [phone] Guy Hernandez MD [address] [place] [address] [phone] documented as of this encounter Procedures Procedure Name Priority Date/Time Associated Diagnosis Comments PROTEIN AND CREATININE WITH RATIO RANDOM URINE Routine 08/21/2019 10:45 AM CDT Kidney transplanted Complications, kidney transplant Aftercare following organ transplant PLATELET COUNT Routine 08/21/2019 10:45 AM CDT HEMOGLOBIN Routine 08/21/2019 10:45 AM CDT BASIC METABOLIC PANEL Routine 08/21/2019 10:45 AM CDT Kidney transplanted Complications, kidney transplant Aftercare following organ transplant documented in this encounter Results * (ABNORMAL) Platelet count (08/21/2019 10:45 AM CDT) Platelet Count (External) 128(L) 140 - 440 thou/cu mm LABDE SCAN Blood specimen (specimen) 08/21/2019 10:45 AM CDT Narrative BREEZE PFT - 08/22/2019 1:17 PM CDT Verified by Soraida Vasquez on 08/22/2019. Patient Reported LAB - BLOOD ORDERABLES Edited [facility] LABDE [facility] * (ABNORMAL) Hemoglobin (08/21/2019 10:45 AM CDT) Hemoglobin (External) 12.4(L) 13.5 - 17.5 g/dL LABDE SCAN Blood specimen (specimen) 08/21/2019 10:45 AM CDT Narrative BREEZE PFT - 08/22/2019 1:17 PM CDT Verified by Soraida Vasquez on 08/22/2019. Patient Reported LAB - BLOOD ORDERABLES Edited [facility]LEXISEZE PFT LABDE SCAN * (ABNORMAL) Protein random urine with Creat Ratio (08/21/2019 10:45 AM CDT) Protein Random Urine (External) 15(H) <=14 mg/dL LABDE SCAN Creatinine Urine mg/dL (External) 48.2(L) 63.0 - 166.0 mg/dL LABDE SCAN Protein Total Ur per Cr (External) 0.3(H) <0.2 LABDE SCAN Urine specimen (specimen) 08/21/2019 10:45 AM CDT Narrative B[facility]ZE PFT - 08/22/2019 1:17 PM CDT Verified by Soraida Vasquez on 08/22/2019. us Jericho Helton MD LAB - URINE ORDERABLES E dited Result - Final JUAN PFT LABDE SCAN * (ABNORMAL) Basic metabolic panel (08/21/2019 10:45 AM CDT) Sodium (External) 138 135 - 145 mmol/L LABDE SCAN Potassium (External) 4.6 3.5 - 5.0 mmol/L LABDE SCAN Chloride (External) 105 98 - 110 mmol/L LABDE SCAN CO2 (External) 24 21 - 31 mmol/L LABDE SCAN Anion Gap (External) 9 5 - 18 LABDE SCAN Glucose (External) 112(H) 65 - 100 mg/dL LABDE SCAN Calcium (External) 9.4 8.5 - 10.5 mg/dL LABDE SCAN Urea Nitrogen (External) 35(H) 8 - 25 mg/dL LABDE SCAN Creatinine (External) 1.20 0.72 - 1.25 mg/dL LABDE SCAN BUN/Creatinine Ratio (External) 29(H) 10 - 20 LABDE SCAN GFR Estimated (if ) (External) >60 >60 mL/min/1.7 3m2 LABDE SCAN GFR Estimated (External) 60(L) >60 ml/min/1.7 3m2 LABDE SCAN Blood specimen (specimen) 08/21/2019 10:45 AM CDT Narrative JUAN PFT - 08/22/2019 1:17 PM CDT Verified by Soraida Vasquez on 08/22/2019. 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, kidney transplant Complications of transplanted kidney Aftercare following organ transplant documented in this encounter Care Teams Operator Coating Furnace Relationship Specialty Start Date End Date Ca Grier [address] [place] [address] PCP - General Family Practice 10/24/17 Nahun Easton MD [address] [place] [address] Orthopedics 09/21/17 Ca Grier 9 [place] [address] Referring Physician Family Practice 09/21/17 Marisa Skinner MD 7 [facility] [address] [place] [address] Nephrology 04/11/18 04/20/21 Stefan Thornton 7 [facility] [address] [place] [address] Information Services Manager INTERNAL MEDICINE - ENDOCRINOLOGY, DIABETES & METABOLISM 04/11/18 Sanjeev Pastrana MD 420 [facility] [address] [place] [address] Assigned Surgical Provider 11/07/20 11/27/20 [place] [address] [place] [address] Assigned Surgical Provider 11/28/20 02/26/21 Sanjeev Pastrana MD [address] [facility] [address] [place] [address] Assigned Surgical Provider 02/27/21 03/25/22 Ramandeep Collier, RN Registered Nurse Transplant 04/21/21 Guy Hernandez MD [address] [place] [address] Nephrology 04/21/21 Analilia Arellano MD [address] [place] [address] MD Paredes 06/21/21 Guy Hernandez MD [address] [place] [address] Assigned Nephrology Provider 11/27/21 12/17/21 Guy Hernandez MD [address] [place] [address] Assigned Nephrology Provider 12/18/21 05/25/23 Evens Clayton MD [address] [place] [address]95 Assigned Surgical Provider 03/26/22 09/21/23 Guy Hernandez MD [address] [place] [address] Assigned Nephrology Provider 05/11/24 Kesha Jones MD [address] [place] [address] Assigned Infectious Disease Provider 05/11/25 documented as of this encounter
--- OUTSIDE RECORDS SUMMARY | 2025-08-01 12:36 | XMS_ITS | Encounter Summary ---
Author Organization [facility] Address [address] [place] [address]. [place] [address] Care Team Providers Care Make Up Operator Name Role Phone Nahun Easton MD Unavailable [phone] Ca Grier Unavailable Ca Grier Primary Care Provider [phone] Marisa Skinner MD Unavailable [phone] Stefan Thornton Unavailable Sanjeev Pastrana MD Unavailable Evens Clayton MD Unavailable Sanjeev Pastrana MD Unavailable [phone] Ramandeep Collier RN Unavailable Un available Guy Hernandez MD Unavailable [phone] Analilia Arellano MD Unavailable [phone] Guy Hernandez MD Unavailable [phone] Guy Hernandez MD Unavailable [phone] Evens Clayton MD Unavailable Guy Hernandez MD Unavailable [phone] Kesha Jones MD Unavailable [phone] Encounter Details Date Type Department Care Team (Late st Contact Info) Description 11/04/2018 [facility] Nephrology Clinic [address] [address] Marisa Skinner MD 717 [facility] [address] [place], [place] [phone] Social History Tobacco Use Types Packs/Day Years Used Date Smoking Tobacco: Former Cigarettes 0 11/19/1965 - 10/21/2017 Cigars Smokeless Tobacco: Never Alcohol Use Standard Drinks/Week Comments Yes 0 (1 standard drink = 0.6 oz pur e alcohol) 1-2/wk Sex and Gender Information Value Date Recorded Sex Assigned at Male 09/09/2021 5:01 PM CDT 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 Skinner: This pt has moderate albuminuria. ??I already told him we would not biopsy (he is atransplant). ??I forgot to mention two important things. ??Glu control should be optimized. ??BP should be <130/80. Thanks NSIC SCIENTIST documented in this encounter Plan of Treatment Upcoming Encounters Date Type Department Care Team (Late st Contact Info) Description 08/24/2025 3:00 PM CDT Office Visit [facility] Infectious Disease Clinic [address] [address] Kesha Jones MD 420 [facility] [address] [place], [place] [address] 03/25/2026 1:00 PM CDT Virtual Visit [facility] Transplant Clinic [address] [place] [address] Guy Hernandez MD [address] [place] [address] [phone] documented as of this encounter Visit Diagnoses Not on filedocumented in this encounter Care Teams Make Up Operator Relationship Specialty Start Date End Date CherrieMatthewe [address] [place] [address] PCP - General Family Practice 10/24/17 Nahun Easton MD [address] [place] [address] Orthopedics 09/21/17 Ca Grier [address] [place] [address] Referring Physician Family Practice 09/21/17 Marisa Skinner MD [address] [place] [address] Nephrology 04/11/18 04/20/21 Stefan Thornton [address] [place] [address] [phone] Billiard Table Repairer INTERNAL MEDICINE - ENDOCRINOLOGY, DIABETES & METABOLISM 04/11/18 Sanjeev Pastrana MD [address] [place] [address] Assigned Surgical Provider 11/07/20 11/27/20 [place] [address] [place], [place] [address] Assigned Surgical Provider 11/28/20 02/26/21 Sanjeev Pastrana MD [address] [address] Assigned Surgical Provider 02/27/21 03/25/22 Ramandeep Collier, RN Registered Nurse Transplant 04/21/21 Guy Hernandez MD [address] [place] [address] Nephrology 04/21/21 Analilia Arellano MD [address] [place] [address] MD Dermatology 06/21/21 Guy Hernandez MD [address] [place] [address] Assigned Nephrology Provider 11/27/21 12/17/21 Guy Hernandez MD [address] [place] [address] Assigned Nephrology Provider 12/18/21 05/25/23 Evens Clayton MD [address] [place] [address] 86[address] Assigned Surgical Provider 03/26/22 09/21/23 Guy Hernandez MD [address] [place] [address] 36047 Assigned Nephrology Provider 05/11/24 Kesha Jones MD [address] [place] [address] Assigned Infectious Disease Provider 05/11/25 documented as of this encounter
--- OUTSIDE RECORDS SUMMARY | 2025-08-01 12:36 | XMS_ITS | Encounter Summary ---
Author Organization [facility] Address [address] [place] [address]. [place] [address] Care Team Providers Care Tool Die Maker Name Role Phone Nahun Easton MD Unavailable [phone] Ca Grier Unavailable Ca Grier Primary Care Provider [phone] Stefan Thornton Unavailable Ramandeep Collier RN Unavailable Un available Guy Hernandez MD Unavailable [phone] Analilia Arellano MD Unavailable [phone] Guy Hernandez MD Unavailable [phone] Kesha Jones MD Unavailable [phone] Encounter Details Date Type Department Care Team (Late st Contact Info) Description 05/10/2025 [facility] Medical Advice [facility] Infectious Disease Clinic [place] [id number] [place] [address] Kesha Jones MD 420 [facility] 250 [place] [address] Social History Tobacco Use Types [...] PM CDT 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 Gender Identity Male 09/09/2021 5:01 PM CDT Sexual Orientation Straight 09/09/2021 5: 01 PM CDT documented as of this encounter Plan of Treatment Upcoming Encounters Date Type Department Care Team (Late st Contact Info) Description 08/24/2025 3:00 PM CDT Office Visit [facility] Infectious Disease Clinic [address] [phone] Kesha Jones MD [address] [address] 03/25/2026 1:00 PM CDT Virtual Visit [facility] Transplant Clinic [address] [place] [address] Guy Hernandez MD [address] [place] [address] 378605 documented as of this encounter Visit Diagnoses Not on filedocumented in this encounter Care Teams Tool Die Maker Relationship Specialty Start Date End Date Ca Grier [address] [place] [address] PCP - General Family Practice 10/24/17 Nahun Easton MD [address] [place] [address] 864535 Orthopedics 09/21/17 Ca Grier [address] [place] [address] Referring Physician Family Practice 09/21/17 Stefan Thornton [address] [place] [address] [facility] INTERNAL MEDICINE - ENDOCRINOLOGY, DIABETES & METABOLISM 04/11/18 Ramandeep Collier, RN Registered Nurse Transplant 04/21/21 Guy Hernandez MD [address] [place] [address] Nephrology 04/21/21 Analilia Arellano MD [address] [place] [address] Dermatology 06/21/21 Guy Hernandez MD [address] [place] [address] Assigned Nephrology Provider 05/11/24 Kesha Jones MD [address] [place] [address] Assigned Infectious Disease Provider 05/11/25 documented as of this encounter
--- OUTSIDE RECORDS SUMMARY | 2025-08-01 12:36 | XMS_ITS | Encounter Summary ---
Author Organization [facility] Address [address] [place] [address]. [place] [address] Care Team Providers Care Companion Caregiver Name Role Phone Nahun Easton MD Unavailable [phone] Ca Grier Unavailable Ca Grier Primary Care Provider [phone] Marisa Skinner MD Unavailable [phone] Stefan Thornton Unavailable Sanjeev Pastrana MD Unavailable Evens Clayton MD Unavailable Sanjeev Pastrana MD Unavailable [phone] Ramandeep Collier RN Unavailable Un available Guy Hernandez MD Unavailable [phone] Analilia Arellano MD Unavailable [phone] Guy Hernandez MD Unavailable [phone] Guy Hernandez MD Unavailable [phone] Evens Clayton MD Unavailable Guy Hernandez MD Unavailable [phone] Kesha Jones MD Unavailable [phone] Encounter Details Date Type Department Care Team (Late st Contact Info) Description 08/10/2020 External Order Results [facility] Transplant Clinic [address] [place] [phone] Outside, Provider Social History Tobacco Use Types Packs/Day Years Used Date Smoking Tobacco: Former Cigarettes 0 11/19/1965 - 10/21/2017 Cigars Smokeless Tobacco: Never Alcohol Use Standard Drinks/Week Comments Yes 0 (1 standard drink = 0.6 oz pur e alcohol) 1-2/wk PHQ-2 Answer Date Recorded PHQ-2 Score 0 11/25/2019 Sex and Gender Information Value Date Recorded Sex Assigned at Male 09/09/2021 5:01 PM CDT 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 Gender Identity Male 09/09/2021 5:01 PM CDT Sexual Orientation Straight 09/09/2021 5: 01 PM CDT documented as of this encounter Plan of Treatment Upcoming Encounters Date Type Department Care Team (Late st Contact Info) Description 08/24/2025 3:00 PM CDT Office Visit [facility] Infectious Disease Clinic [address] [phone] Kesha Jones MD 420 [facility] 250 [place] [address] 03/25/2026 1:00 PM CDT Virtual Visit [facility] Transplant Clinic [address] [place] [phone] Guy Hernandez MD [address] [place] [address] documented as of this encounter Procedures Procedure Name Priority Date/Time Associated Diagnosis Comments LIPID PROFILE Routine 08/10/2020 10:28 AM CDT BASIC METABOLIC PANEL Routine 08/10/2020 10:28 AM CDT CBC WITH PLATELETS Routine 08/10/2020 10 :28 AM CDT documented in this encounter Results * Lipid Profile (08/10/2020 10:28 AM CDT) Cholesterol (External) 124 100 - 199 mg/dL LABDE SCAN Triglycerides (External) 50 <150 mg/dL LABDE SCAN HDL Cholesterol (External) 51 >40 mg/dL LABDE SCAN LDL-Cholesterol (External) 63 <=130 mg/dL LABDE SCAN Blood specimen (specimen) 08/10/2020 10:28 AM CDT Jeremie MARTINEZ PFT - 08/11/2020 8:10 AM CDT Verified by Jorgito Jacinto on 08/11/2020. us Patient Reported LAB - BLOOD ORDERABLES Edited R [facility] [employer] JUAN PFT LABDE SCAN * (ABNORMAL) Basic metabolic panel (08/10/2020 10:28 AM CDT) Sodium (External) 137 135 - 145 mmol/L LABDE SCAN Potassium (External) 4.9 3.5 - 5.0 mmol/L LABDE SCAN Chloride (External) 105 98 - 110 mmol/L LABDE SCAN CO2 (External) 23 21 - 31 mmol/L LABDE SCAN Anion Gap (External) 9 5 - 18 LABDE SCAN Glucose (External) 190(H) 65 - 100 mg/dL LABDE SCAN Calcium (External) 9.0 8.5 - 10.5 mg/dL LABDE SCAN Urea Nitrogen (External) 42(H) 8 - 25 mg/dL LABDE SCAN Creatinine (External) 1.40(H) 0.72 - 1.25 mg/dL LABDE SCAN BUN/Creatinine Ratio (External) 30(H) 10 - 20 LABDE SCAN GFR Estimated (if ) (External) 60(L) >60 ml/min/1.7 3m2 LABDE SCAN GFR Estimated (External) 50(L) >60 ml/min/1.7 3m2 LABDE SCAN Blood specimen (specimen) 08/10/2020 10:28 AM CDT Narrative JUAN PFT - 08/11/2020 8:10 AM CDT Verified by Jorgito Jacinto on 08/11/2020. us Patient Reported LAB - BLOOD ORDERABLES Edited [employer] - Final [facility] PFT LABDE SCAN * (ABNORMAL) CBC with platelets (08/10/2020 10:28 AM CDT) Hemoglobin (External) 12.1(L) 13.5 - 17.5 g/dL LABDE SCAN MCV (External) 91 80 - 100 fL LABDE SCAN Platelet Count (External) 120(L) 140 - 440 thou/cu mm LABDE SCAN Blood specimen (specimen) 08/10/2020 10:28 AM CDT Narrative JUAN PFT - 08/11/2020 7:47 AM CDT Verified by Jakob Vaughn on 08/11/2020. us Patient Reported LAB - BLOOD ORDERABLES Edited [facility] - Final JUAN PFT LABDE SCAN documented in this encounter Visit Diagnoses Not on filedocumented in this encounter Care Teams Companion Caregiver Relationship Specialty Start Date End Date Ca Grier [address] [place] [address] PCP - General Family Practice 10/24/17 Nahun Easton MD [address] [place] [address] Orthopedics 09/21/17 Ca Grier [address] [place] [address] Referring Physician Family Practice 09/21/17 Marisa Skinner MD [address] [place] [address] Nephrology 04/11/18 04/20/21 Stefan Thornton [address] [place] [address] Sales Service Assistant INTERNAL MEDICINE - ENDOCRINOLOGY, DIABETES & METABOLISM 04/11/18 Sanjeev Pastrana MD [address] [place] [address] Assigned Surgical Provider 11/07/20 11/27/20 [place] [address] [place] [address] Assigned Surgical Provider 11/28/20 02/26/21 Sanjeev Pastrana MD [address] [place] [address]649 Assigned Surgical Provider 02/27/21 03/25/22 Ramandeep Collier RN Registered Nurse Transplant 04/21/21 Guy Hernandez MD [address] [place] [address] Nephrology 04/21/21 Analilia Arellano MD [address] [place] [address] Dermatology 06/21/21 Guy Hernandez MD [address] [place] [address] Assigned Nephrology Provider 11/27/21 12/17/21 Guy Hernandez MD [address] [place] [address] Assigned Nephrology Provider 12/18/21 05/25/23 Evens Clayton MD [address] [place] [address] Assigned Surgical Provider 03/26/22 09/21/23 Guy Hernandez MD [address] [place] [address] Assigned Nephrology Provider 05/11/24 Kesha Jones MD [address] [place] [address] [address] [place] [address] Assigned Infectious Disease Provider 05/11/25 documented as of this encounter
--- OUTSIDE RECORDS SUMMARY | 2025-08-01 12:36 | XMS_ITS | Encounter Summary ---
Author Organization [place] Address [address] [place] [address]. [place] [address] Care Team Providers Care Bullet Assembly Press Operator Name Role Phone Nahun Easton MD Unavailable [phone] Ca Grier Unavailable Ca Grier Primary Care Provider [phone] Stefan Thornton Unavailable Sanjeev Pastrana MD Unavailable [phone] Ramandeep Collier RN Unavailable Un available Guy Hernandez MD Unavailable [phone] Analilia Arellano MD Unavailable [phone] Guy Hernandez MD Unavailable [phone] Guy Hernandez MD Unavailable [phone] Evens Clayton MD Unavailable Guy Hernandez MD Unavailable [phone] Kesha Jones MD Unavailable [phone] Encounter Details Date Type Department Care Team (Late st Contact Info) Description 08/10/2021 External Order Results [facility] [address] [place] [address] Outside, Provider Social History Tobacco Use Types [...] PM CDT 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 Gender Identity Male 09/09/2021 5:01 PM CDT Sexual Orientation Straight 09/09/2021 5: 01 PM CDT documented as of this encounter Plan of Treatment Upcoming Encounters Date Type Department Care Team (Late st Contact Info) Description 08/24/2025 3:00 PM CDT Office Visit [facility] [address] [address] Kesha Jones MD 420 [facility] 250 [place], [place] [address] 03/25/2026 1:00 PM CDT Virtual Visit [facility] [address] [place] [address] Gyu Hernandez MD [address] [place] [address] [phone] documented as of this encounter Procedures Procedure Name Priority Date/Time Associated Diagnosis Comments BASIC METABOLIC PANEL Routine 08/10/2021 10:08 AM CDT CBC WITH PLATELETS Routine 08/10/2021 10 :08 AM CDT documented in this encounter Results * (ABNORMAL) Basic metabolic panel (08/10/2021 10:08 AM CDT) Sodium (External) 138 135 - 145 mmol/L NON-INTERFACE D (ONBASE SCANS) Potassium (External) 4.5 3.5 - 5.0 mmol/L NON-INTERFACE D (ONBASE SCANS) Chloride (External) 104 98 - 110 mmol/L NON-INTERFACE D (ONBASE SCANS) CO2 (External) 24 21 - 31 mmol/L NON-INTERFACE D (ONBASE SCANS) Anion Gap (External) 10 5 - 18 NON-INTERFACE D (ONBASE SCANS) Glucose (External) 91 65 - 100 mg/dL NON-INTERFACE D (ONBASE SCANS) Calcium (External) 9.5 8.5 - 10.5 mg/dL NON-INTERFACE D (ONBASE SCANS) Urea Nitrogen (External) 40(H) 8 - 25 mg/dL NON-INTERFACE D (ONBASE SCANS) Creatinine (External) 1.45(H) 0.72 - 1.25 mg/dL NON-INTERFACE D (ONBASE SCANS) BUN/Creatinine Ratio (External) 28(H) 10 - 20 NON-INTERFACE D (ONBASE SCANS) GFR Estimated (External) 48(L) >60 ml/min/1.7 3m2 NON-INTERFACE D (ONBASE SCANS) Blood 08/10/2021 10:0 8 AM CDT Narrative JUAN PFT - 08/12/2021 1:32 PM CDT Verified by Soraida Vasquez on 08/12/2021. Jericho Helton MD LAB - BLOOD ORDERABLES E dited Result - Final JUAN PFT NON-INTERFACED (ONBASE SCANS) * (ABNORMAL) CBC with platelets (08/10/2021 10:08 AM CDT) WBC Count (External) 6.7 4.5 - 11.0 thou/cu mm NON-INTERFACE D (ONBASE SCANS) RBC Count (External) 4.08(L) 4.30 - 5.90 mil/cu mm NON-INTERFACE D (ONBASE SCANS) Hemoglobin (External) 12.5(L) 13.5 - 17.5 g/dL NON-INTERFACE D (ONBASE SCANS) Hematocrit (External) 38.0 37.0 - 53.0 % NON-INTERFACE D (ONBASE SCANS) MCV (External) 93 80 - 100 fL NON-INTERFACE D (ONBASE SCANS) MCH (External) 30.6 26.0 - 34.0 pg NON-INTERFACE D (ONBASE SCANS) MCHC (External) 32.9 32.0 - 36.0 g/dL NON-INTERFACE D (ONBASE SCANS) RDW (External) 13.5 11.5 - 15.5 % NON-INTERFACE D (ONBASE SCANS) Platelet Count (External) 113(L) 140 - 440 thou/cu mm NON-INTERFACE D (ONBASE SCANS) Blood 08/10/2021 10:0 8 AM CDT Narrative JUAN PFT - 08/12/2021 9:34 AM CDT Verified by Jakob Vaughn on 08/12/2021. Ca Grier LAB - BLOOD ORDERABLES Edited Re sult - Final JUAN PFT NON-INTERFACED (ONBASE SCANS) documented in this encounter Visit Diagnoses Not on filedocumented in this encounter Care Teams Bullet Assembly Press Operator Relationship Specialty Start Date End Date Ca Grier [address] [place] [address] PCP - General Family Practice 10/24/17 Nahun Easton MD [address] [place] [address] [phone] Orthopedics 09/21/17 Ca Grier [address] [place] [address] 77789 Referring Physician Family Practice 09/21/17 Stefan Thornton [address] [place] [address] [phone] Shoe Lacer INTERNAL MEDICINE - ENDOCRINOLOGY, DIABETES & METABOLISM 04/11/18 Sanjeev Pastrana MD [address] [place] [address] Assigned Surgical Provider 02/27/21 03/25/22 Ramandeep Collier RN Registered Nurse Transplant 04/21/21 Guy Hernandez MD [address] [place] [address]20 Nephrology 04/21/21 Analilia Arellano MD [address] [place] [address] Dermatology 06/21/21 Guy Hernandez MD [address] [place] [address] Assigned Nephrology Provider 11/27/21 12/17/21 Guy Hernandez MD [address] [place] [address] 30927 Assigned Nephrology Provider 12/18/21 05/25/23 Evens Clayton MD [address] [place] [address]296 Assigned Surgical Provider 03/26/22 09/21/23 Guy Hernandez MD [address] [place] [address] 69703 Assigned Nephrology Provider 05/11/24 Kesha Jones MD [address] [place] [address] Assigned Infectious Disease Provider 05/11/25 documented as of this encounter
--- OUTSIDE RECORDS SUMMARY | 2025-08-01 12:36 | XMS_ITS | Encounter Summary ---
Author Organization [place] Address [address] [place] [address]. [place] [address] Care Team Providers Care Senior Talent Acquisition Specialist Name Role Phone Nahun Easton MD Unavailable [phone] Ca Grier Unavailable Ca Grier Primary Care Provider [phone] Stefan Thornton Unavailable Ramandeep Collier RN Unavailable Un available Guy Hernandez MD Unavailable [phone] Analilia Arellano MD Unavailable [phone] Guy Hernandez MD Unavailable [phone] Kesha Jones MD Unavailable [phone] Encounter Details Date Type Department Care Team (Late st Contact Info) Description 04/17/2025 [facility] Medical Advice [facility] [address] [place] [address] Gema Ambrocio RN Social History Tobacco Use Types Packs/Day [...] PM CDT 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 Gender Identity Male 09/09/2021 5:01 PM CDT Sexual Orientation Straight 09/09/2021 5: 01 PM CDT documented as of this encounter Plan of Treatment Upcoming Encounters Date Type Department Care Team (Late st Contact Info) Description 08/24/2025 3:00 PM CDT Office Visit [facility] [address] [phone] Kesha Jones MD 420 [facility] 250 [place], [place] 78[address] 03/25/2026 1:00 PM CDT Virtual Visit [facility] [address] [place] [phone] Guy Hernandez MD [address] [place] [address] 512995 documented as of this encounter Visit Diagnoses Not on filedocumented in this encounter Care Teams Senior Talent Acquisition Specialist Relationship Specialty Start Date End Date Ca Grier [address] [place] [address] [phone] PCP - General Family Practice 10/24/17 Nahun Easton MD [address] [place] [address] [phone] Orthopedics 09/21/17 Ca Grier [address] [place] [address] 317115 Referring Physician Family Practice 09/21/17 Stefan Thornton [address] [place] [address] [phone] Green Pipefitter INTERNAL MEDICINE - ENDOCRINOLOGY, DIABETES & METABOLISM 04/11/18 Ramandeep Collier, RN Registered Nurse Transplant 04/21/21 Guy Hernandez MD [address] [place] [address] Nephrology 04/21/21 Analilia Arellano MD [address] [place] [address] 868255 Dermatology 06/21/21 Guy Hernandez MD [address] [place] [address] [phone] Assigned Nephrology Provider 05/11/24 Kesha Jones MD [address] [place] [address] [phone] Assigned Infectious Disease Provider 05/11/25 documented as of this encounter
--- OUTSIDE RECORDS SUMMARY | 2025-08-01 12:36 | XMS_ITS | Encounter Summary ---
Author Organization [place] Address [address] [place] [address]. [place] [address] Care Team Providers Care Corn Press Operator Name Role Phone Wilber Schaefer MD Unavailable Nahun Easton MD Unavailable [phone] Ca Grier Unavailable Ca Grier Primary Care Provider [phone] Marisa Skinner MD Unavailable [phone] Stefan Thornton Unavailable Sanjeev Pastrana MD Unavailable Evens Clayton MD Unavailable Sanjeev Pastrana MD Unavailable Ramandeep Collier RN Unavailable Un available Guy Hernandez MD Unavailable [phone] Analilia Arellano MD Unavailable [phone] Guy Hernandez MD Unavailable [phone] Guy Hernandez MD Unavailable [phone] Evens Clayton MD Unavailable Guy Hernandez MD Unavailable [phone] Kesha Jones MD Unavailable [phone] Encounter Details Date Type Department Care Team (Late st Contact Info) Description 09/20/2016 External Order Results [facility] [address] [place] [phone] Social History Tobacco Use Types Packs/Day Years Used Date Smoking Tobacco: Some Days Alcohol Use Standard Drinks/Week Comments Not Asked 0 (1 standard drink = 0.6 oz pur e alcohol) Sex and Gender Information Value Date Recorded Sex Assigned at Male 09/09/2021 5:01 PM CDT 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 Gender Identity Male 09/09/2021 5:01 PM CDT Sexual Orientation Straight 09/09/2021 5: 01 PM CDT documented as of this encounter Plan of Treatment Upcoming Encounters Date Type Department Care Team (Late st Contact Info) Description 08/24/2025 3:00 PM CDT Office Visit [facility] [address] [phone] Kesha Jones MD 420 [facility] 250 [place], [place] [address] 03/25/2026 1:00 PM CDT Virtual Visit [facility] [address] [place] [address] [phone] Guy Hernandez MD [address] [place] [address] [phone] documented as of this encounter Procedures Procedure Name Priority Date/Time Associated Diagnosis Comments EXTERNAL LAB RESULTS Routine 09/19/2016 11:12 AM CDT documented in this encounter Results * (ABNORMAL) TXP External Lab Result (09/19/2016 11:12 AM CDT) Sodium (External) 138 135 - 145 mmol/L LABDE SCAN Potassium (External) 4.7 3.5 - 5.0 mmol/L LABDE SCAN Chloride (External) 106 98 - 110 mmol/L LABDE SCAN CO2 (External) 23 21 - 31 mmol/L LABDE SCAN Anion Gap (External) 9 5 - 18 ml/min/1.7 3m2 LABDE SCAN Glucose (External) 83 65 - 100 mg/dL LABDE SCAN Calcium (External) 9.7 8.5 - 10.5 mg/dL LABDE SCAN Urea Nitrogen (External) 41(H) 8 - 25 mg/dL LABDE SCAN Creatinine (External) 1.34(H) 0.72 - 1.25 mg/dL LABDE SCAN BUN/Creatinine Ratio (External) 31(H) 10 - 20 LABDE SCAN GFR Estimated (if ) (External) >60 >60 ml/min/1.7 3m2 LABDE SCAN GFR Estimated (External) 53(L) >60 ml/min/1.7 3m2 LABDE SCAN Protein Total Ur (External) 8 1 - 14 mg/dL LABDE SCAN Creatinine Urine mg/dL (External) 90.2 63.0 - 166.0 mg/dL LABDE SCAN Protein Total Ur per Cr (External) 0.1 <0.2 LABDE SCAN Hemoglobin (External) 12.0(L) 13.5 - 17.5 g/dL LABDE SCAN MCV (External) 94 80 - 100 fL LABDE SCAN Platelet Count (External) 142 140 - 440 thou/cu mm LABDE SCAN MPV (External) 9.7 6.5 - 11.0 fL LABDE SCAN 09/19/2016 11:1 2 AM CDT Narrative JUAN PFT - 09/20/2016 4:28 PM CDT Verified by Sarah Bradshaw on 09/20/2016. us Patient Reported LABORATORY Edited Result - Final JUAN PFT LABDE SCAN documented in this encounter Visit Diagnoses Not on filedocumented in this encounter Care Teams Corn Press Operator Relationship Specialty Start Date End Date Ca Grier [address] [place] [address] PCP - General Family Practice 10/24/17 Wilber Schaefer MD [facility] [address] [place] [address] Dermatology 01/18/15 04/10/18 Nahun Easton MD [address] [place], [place] 185105 Orthopedics 09/21/17 Ca Grier [address] [place], [place] 5523[address] Referring Physician Family Practice 09/21/17 Marisa Skinner MD [address] 850994 Nephrology 04/11/18 04/20/21 Stefan Thornton 7 [facility] [address] [place], [place] [phone] Slot Shift Supervisor INTERNAL MEDICINE - ENDOCRINOLOGY, DIABETES & METABOLISM 04/11/18 Sanjeev Pastrana MD 420 [facility] [address] [place], [place] [address] Assigned Surgical Provider 11/07/20 11/27/20 [place] [address] [place] [address] Assigned Surgical Provider 11/28/20 02/26/21 Sanjeev Pastrana MD 420 [facility] [address] [place], [place] 557185 Assigned Surgical Provider 02/27/21 03/25/22 Ramandeep Collier, RN Registered Nurse Transplant 04/21/21 Guy Hernandez MD [address] [place] [address] 576395 Nephrology 04/21/21 Analilia Arellano MD [address] [place] [address] [phone] MD Dermatology 06/21/21 Guy Hernandez MD [address] [place] [address]60 Assigned Nephrology Provider 11/27/21 12/17/21 Guy Hernandez MD [address] [place] [address] [phone] Assigned Nephrology Provider 12/18/21 05/25/23 Evens Clayton MD [address] [place] [address] [phone] Assigned Surgical Provider 03/26/22 09/21/23 Guy Hernandez MD [address] [place] [address] [phone] Assigned Nephrology Provider 05/11/24 Kesha Jones MD [address] [place] [address] [phone] Assigned Infectious Disease Provider 05/11/25 documented as of this encounter
--- OUTSIDE RECORDS SUMMARY | 2025-08-01 12:36 | XMS_ITS | Encounter Summary ---
Author Organization [place] Address [address] [place] [address]. [place] [address] Care Team Providers Care Border Patrol Officer Name Role Phone Nahun Easton MD Unavailable [phone] Ca Grier Unavailable Ca Grier Primary Care Provider [phone] Marisa Skinner MD Unavailable [phone] Stefan Thornton Unavailable Sanjeev Pastrana MD Unavailable Evens Clayton MD Unavailable Sanjeev Pastrana MD Unavailable [phone] Ramandeep Collier RN Unavailable Un available Guy Hernandez MD Unavailable [phone] Analilia Arellano MD Unavailable [phone] Guy Hernandez MD Unavailable [phone] Guy Hernandez MD Unavailable [phone] Evens Clayton MD Unavailable Guy Hernandez MD Unavailable [phone] Kesha Jones MD Unavailable [phone] Encounter Details Date Type Department Care Team (Late st Contact Info) Description 10/14/2019 [facility] [address] [phone] Marisa Skinner MD 717 [facility] 353 [place], [place] 422[address] Social History Tobacco Use Types Packs/Day Years [...] PM CDT 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 Gender Identity Male 09/09/2021 5:01 PM CDT Sexual Orientation Straight 09/09/2021 5: 01 PM CDT documented as of this encounter Plan of Treatment Upcoming Encounters Date Type Department Care Team (Late st Contact Info) Description 08/24/2025 3:00 PM CDT Office Visit [facility] [address] [phone] Kesha Jones MD 420 [facility] 250 [place], [place] [address] 03/25/2026 1:00 PM CDT Virtual Visit [facility] [address] [place] [phone] Guy Hernandez MD [address] [place] [address] documented as of this encounter Visit Diagnoses Not on filedocumented in this encounter Care Teams Border Patrol Officer Relationship Specialty Start Date End Date Ca Grier [address] [place] [address] PCP - General Family Practice 10/24/17 Nahun Easton MD [address] [place] [address] [place] [address] Orthopedics 09/21/17 Ca Grier [address] [place] [address] Referring Physician Family Practice 09/21/17 Marisa Skinner MD 7 [facility] [address] [place] [address] Nephrology 04/11/18 04/20/21 Stefan Thornton [address] [place] [address] Environmental Conservation Professor INTERNAL MEDICINE - ENDOCRINOLOGY, DIABETES & METABOLISM 04/11/18 Sanjeev Pastrana MD 420 [facility] 98 [place] [address] Assigned Surgical Provider 11/07/20 11/27/20 [place] [address] [place] [address] Assigned Surgical Provider 11/28/20 02/26/21 Sanjeev Pastrana MD 420 [facility] 98 [place] [address] Assigned Surgical Provider 02/27/21 03/25/22 Ramandeep Collier, RN Registered Nurse Transplant 04/21/21 Guy Hernandez MD [address] [place] [address] Nephrology 04/21/21 Analilia Arellano MD [address] [place] [address] MD Paredes 06/21/21 Guy Hernandez MD [address] [place] [address] 25625 Assigned Nephrology Provider 11/27/21 12/17/21 Guy Hernandez MD [address] [place] [address] 61288 Assigned Nephrology Provider 12/18/21 05/25/23 Evens Clayton MD [address] [place] [address] 58297 Assigned Surgical Provider 03/26/22 09/21/23 Guy Hernandez MD [address] [place] [address] 35156 Assigned Nephrology Provider 05/11/24 Kesha Jones MD [address] [place] [address] Assigned Infectious Disease Provider 05/11/25 documented as of this encounter
--- OUTSIDE RECORDS SUMMARY | 2025-08-01 12:36 | XMS_ITS | Encounter Summary ---
Author Organization [place] Address [address] [place] [address]. [place] [address] Care Team Providers Care Energy Conservation Representative Name Role Phone Nahun Easton MD Unavailable [phone] Ca Grier Unavailable Ca Grier Primary Care Provider [phone] Stefan Thornton Unavailable Ramandeep Collier RN Unavailable Un available Guy Hernandez MD Unavailable [phone] Analilia Arellano MD Unavailable [phone] Guy Hernandez MD Unavailable [phone] Kesha Jones MD Unavailable [phone] Encounter Details Date Type Department Care Team (Late st Contact Info) Description 07/27/2025 [facility] Medical Advice [facility] [place] [address]19 [place] [address] Kesha Jones MD 420 [facility] [address] [place] [address] Social History Tobacco Use Types [...] PM CDT Legal 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 Gender Identity Male 09/09/2021 5:01 PM CDT Sexual Orientation Straight 09/09/2021 5: 01 PM CDT documented as of this encounter Plan of Treatment Upcoming Encounters Date Type Department Care Team (Late st Contact Info) Description 08/24/2025 3:00 PM CDT Office Visit [facility] [address] [phone] Kesha Jones MD [address] 6[address] 03/25/2026 1:00 PM CDT Virtual Visit [facility] [address] [place] [phone] Guy Hernandez MD [address] [place] [address] 212015 documented as of this encounter Visit Diagnoses Not on filedocumented in this encounter Care Teams Energy Conservation Representative Relationship Specialty Start Date End Date Ca Grier [address] [place] [address] PCP - General Family Practice 10/24/17 Nahun Easton MD [address] [place] [address] [phone] Orthopedics 09/21/17 Ca Grier [address] [place] [address] 19916 Referring Physician Family Practice 09/21/17 Stefan Thornton [address] [place] [address] 06288 Ware Tester INTERNAL MEDICINE - ENDOCRINOLOGY, DIABETES & METABOLISM 04/11/18 Ramandeep Collier, RN Registered Nurse Transplant 04/21/21 Guy Hernandez MD [address] [place] [address] 00632 Nephrology 04/21/21 Analilia Arellano MD [address] [place] [address] Dermatology 06/21/21 Guy Hernandez MD [address] [place] [address] 57443 Assigned Nephrology Provider 05/11/24 Kesha Jones MD [address] [place] [address] 16[address] Assigned Infectious Disease Provider 05/11/25 documented as of this encounter
--- OUTSIDE RECORDS SUMMARY | 2025-08-01 12:36 | XMS_ITS | Encounter Summary ---
Author Organization [place] Address [address] [place] [address]. [place] [address] Care Team Providers Care Industrial Engineering Name Role Phone Nahun Easton MD Unavailable [phone] Ca Grier Unavailable Ca Grier Primary Care Provider [phone] Stefan Thornton Unavailable Ramandeep Collier RN Unavailable Un available Guy Hernandez MD Unavailable [phone] Analilia Arellano MD Unavailable [phone] Guy Hernandez MD Unavailable [phone] Kesha Jones MD Unavailable [phone] Encounter Details Date Type Department Care Team (Latest Contact Info) Description 07/17/2025 Travel Social History Tobacco Use Types Packs/Day Years [...] PM CDT 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 Gender Identity Male 09/09/2021 5:01 PM CDT Sexual Orientation Straight 09/09/2021 5: 01 PM CDT documented as of this encounter Plan of Treatment Upcoming Encounters Date Type Department Care Team (Late st Contact Info) Description 08/24/2025 3:00 PM CDT Office Visit [facility] [address] [phone] Kesha Jones MD [address] [place] [address] [phone] 03/25/2026 1:00 PM CDT Virtual Visit [facility] [address] [place] [phone] Guy Hernandez MD [address] [place] [address] [phone] documented as of this encounter Visit Diagnoses Not on filedocumented in this encounter Care Teams Industrial Engineering Relationship Specialty Start Date End Date Ca Grier [address] [place] [address] PCP - General Family Practice 10/24/17 Nahun Easton MD [address] [place] [address] 18757 Orthopedics 09/21/17 Ca Grier [address] [place] [address] Referring Physician Family Practice 09/21/17 Stefan Thornton [address] [place] [address] 66012 Credit Coordinator INTERNAL MEDICINE - ENDOCRINOLOGY, DIABETES & METABOLISM 04/11/18 Ramandeep Collier, RN Registered Nurse Transplant 04/21/21 Guy Hernandez MD [address] [place] [address] Nephrology 04/21/21 Analilia Arellano MD [address] [place] [address] Dermatology 06/21/21 Guy Hernandez MD [address] [place] [address] 27676 Assigned Nephrology Provider 05/11/24 Kesha Jones MD [address] [place] [address] 250 [place] [address] Assigned Infectious Disease Provider 05/11/25 documented as of this encounter
--- OUTSIDE RECORDS SUMMARY | 2025-08-01 12:36 | XMS_ITS | Encounter Summary ---
Author Organization [facility] Address [address] [place] [address]. [place] [address] Care Team Providers Care Cancellation Clerk Name Role Phone Nahun Easton MD Unavailable [phone] Ca Grier Unavailable Ca Grier Primary Care Provider [phone] Stefan Thornton Unavailable Ramandeep Collier RN Unavailable Un available Guy Hernandez MD Unavailable [phone] Analilia Arellano MD Unavailable [phone] Guy Hernandez MD Unavailable [phone] Kesha Jones MD Unavailable [phone] Encounter Details Date Type Department Care Team (Late st Contact Info) Description 10/01/2024 External Order Results [facility] [address] [place] [address] Outside, Provider Social History Tobacco Use Types [...] PM CDT 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 Gender Identity Male 09/09/2021 5:01 PM CDT Sexual Orientation Straight 09/09/2021 5: 01 PM CDT documented as of this encounter Plan of Treatment Upcoming Encounters Date Type Department Care Team (Late st Contact Info) Description 08/24/2025 3:00 PM CDT Office Visit [facility] Disease [facility] [address] [phone] Kesha Jones MD 420 [facility] [address] [place], [place] [address] 03/25/2026 1:00 PM CDT Virtual Visit [facility] Transplant Clinic [address] [place] [phone] Guy Hernandez MD [address] [place] [address] documented as of this encounter Procedures Procedure Name Priority Date/Time Associated Diagnosis Comments TSH Routine 10/01/2024 11:25 AM LOFT RIGGER POTASSIUM Routine 10/01/2024 11:25 AM LOFT RIGGER LIPID PROFILE Routine 10/01/2024 11:25 AM LOFT RIGGER HEMOGLOBIN A1C Routine 10/01/2024 11:24 AM LOFT RIGGER CREATININE Routine 10/01/2024 11:24 AM LOFT RIGGER documented in this encounter Results * Potassium (10/01/2024 11:25 AM LOFT RIGGER) Potassium (External) 5.3 3.5 - 5.3 mmol/L NON-INTERFACED (ONBASE SCANS) Blood BLOOD SPECIMEN / Unknown 10/01/2024 11:25 AM LOFT RIGGER Narrative JUAN PFT - 10/29/2024 1:47 PM LOFT RIGGER Verified by Janice Hutson on 10/29/2024. Provider Outside LAB - BLOOD ORDERABLES Edited [facility] [employer] [facility] Performing Organization Address [facility] Co de Phone Number BREEZE PFT NON-INTERFACED (ONBASE SCANS) * Lipid Profile (10/01/2024 11:25 AM LOFT RIGGER) Cholesterol (External) 138 <200 mg/dL NON-INTERFACE D (ONBASE SCANS) HDL Cholesterol (External) 67 >=40 mg/dL NON-INTERFACE D (ONBASE SCANS) Triglycerides (External) 85 <150 mg/dL NON-INTERFACE D (ONBASE SCANS) LDL Cholesterol Calculated (External) 54 <100 mg/dL NON-INTERFACE D (ONBASE SCANS) Blood BLOOD SPECIMEN / Unknown 10/01/2024 11:25 AM LOFT RIGGER Narrative BREEZE PFT - 10/29/2024 1:47 PM LOFT RIGGER Verified by Janice Hutson on 10/29/2024. Provider Outside LAB - BLOOD ORDERABLES Edited [email or web address] Performing Organization Address [facility] Co de Phone Number BREEZE PFT NON-INTERFACED (ONBASE SCANS) * TSH (10/01/2024 11:25 AM LOFT RIGGER) Pathologist [facility] TSH (External) 2.17 0.40 - 4.50 mIU/L NON-INTERFACED (ONBASE SCANS) Blood BLOOD SPECIMEN / Unknown 10/01/2024 11:25 AM LOFT RIGGER Narrative BREEZE PFT - 10/29/2024 1:47 PM LOFT RIGGER Verified by Janice Hutson on 10/29/2024. Provider Outside LAB - BLOOD ORDERABLES Edited [email or web address] [facility] Performing Organization Address [facility] Co de Phone Number BREEZE PFT NON-INTERFACED (ONBASE SCANS) * (ABNORMAL) Hemoglobin A1c (10/01/2024 11:24 AM LOFT RIGGER) Hemoglobin A1C (External) 6.7(H) <6.0 % OF TOTAL HGB NON-INTERFACED (ONBASE SCANS) Blood BLOOD SPECIMEN / Unknown 10/01/2024 11:24 AM LOFT RIGGER Narrative BREEZE PFT - 10/29/2024 1:47 PM LOFT RIGGER Verified by Janice Hutson on 10/29/2024. Provider Outside LAB - BLOOD ORDERABLES Edited R [facility] JUAN PFT NON-INTERFACED (ONBASE SCANS) * Creatinine (10/01/2024 11:24 AM LOFT RIGGER) Creatinine (External) 1.13 0.70 - 1.28 mg/dL NON-INTERFACED (ONBASE SCANS) GFR Estimated (External) 67 > or = 60 mL/min/1.7 3m2 NON-INTERFACED (ONBASE SCANS) Blood BLOOD SPECIMEN / Unknown 10/01/2024 11:24 AM LOFT RIGGER Narrative BREEZE PFT - 10/29/2024 1:47 PM LOFT RIGGER Verified by Janice Hutson on 10/29/2024. Provider Outside LAB - BLOOD ORDERABLES Edited [employer] [employer] JUAN PFT NON-INTERFACED (ONBASE SCANS) documented in this encounter Visit Diagnoses Not on filedocumented in this encounter Care Teams Cancellation Clerk Relationship Specialty Start Date End Date Ca Grier [address] [place] [address] [phone] PCP - General Family Practice 10/24/17 Nahun Easton MD [address] [place] [address] 222355 Orthopedics 09/21/17 Ca Grier [address] [place] [address]109 Referring Physician Family Practice 09/21/17 Stefan Thornton [address] [place] [address] 532295 Electric Razor Mechanic INTERNAL MEDICINE - ENDOCRINOLOGY, DIABETES & METABOLISM 04/11/18 Ramandeep Collier, RN Registered Nurse Transplant 04/21/21 Guy Hernandez MD [address] [place] [address] [phone] Nephrology 04/21/21 Analilia Arellano MD [address] [place] [address] [phone] Dermatology 06/21/21 Guy Hernandez MD [address] [place] [address] [phone] Assigned Nephrology Provider 05/11/24 Kesha Jones MD [address] [place] [address] [phone] Assigned Infectious Disease Provider 05/11/25 documented as of this encounter
--- OUTSIDE RECORDS SUMMARY | 2025-08-01 12:36 | XMS_ITS | Encounter Summary ---
Author Organization [facility] Address [address] [place] [address]. [place] [address] Care Team Providers Care Revenue Stamper Name Role Phone Nahun Easton MD Unavailable [phone] Ca Grier Unavailable Ca Grier Primary Care Provider [phone] Stefan Thornton Unavailable Ramandeep Collier RN Unavailable Un available Guy Hernandez MD Unavailable [phone] Analilia Arellano MD Unavailable [phone] Guy Hernandez MD Unavailable [phone] Kesha Jones MD Unavailable [phone] Encounter Details Date Type Department Care Team (Late st Contact Info) Description 08/05/2024 MyC Medical Advice [facility] [address] [place] [phone] Yenny Dejesus, RN Social History Tobacco [...] PM CDT 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 Gender Identity Male 09/09/2021 5:01 PM CDT Sexual Orientation Straight 09/09/2021 5: 01 PM CDT documented as of this encounter Plan of Treatment Upcoming Encounters Date Type Department Care Team (Late st Contact Info) Description 08/24/2025 3:00 PM CDT Office Visit [facility] [address] [phone] Kesha Jones MD 420 [facility] [address] [place], [place] [address] 03/25/2026 1:00 PM CDT Virtual Visit [facility] [address] [place] [phone] Guy Hernandez MD [address] [place] [address] [phone] documented as of this encounter Visit Diagnoses Not on filedocumented in this encounter Care Teams Revenue Stamper Relationship Specialty Start Date End Date Ca Grier [address] [place] [address] [phone] PCP - General Family Practice 10/24/17 Nahun Easton MD [address] [place] [address] [phone] Orthopedics 09/21/17 Ca Grier [address] [place] [address] [phone] Referring Physician Family Practice 09/21/17 Stefan Thornton [address] [place] [address] 189605 Teacher'S Assistant INTERNAL MEDICINE - ENDOCRINOLOGY, DIABETES & METABOLISM 04/11/18 Ramandeep Collier, RN Registered Nurse Transplant 04/21/21 Guy Hernandez MD [address] [place] [address] 78760 Nephrology 04/21/21 Analilia Arellano MD [address] [place] [address] 016695 Dermatology 06/21/21 Guy Hernandez MD [address] [place] [address] [phone] Assigned Nephrology Provider 05/11/24 Kesha Jones MD [address] [place] [address] 198725 Assigned Infectious Disease Provider 05/11/25 documented as of this encounter
--- OUTSIDE RECORDS SUMMARY | 2025-08-01 12:36 | XMS_ITS | Encounter Summary ---
Author Organization [facility] Address [address] [place] [address]. [place] [address] Care Team Providers Care Booking Officer Name Role Phone Nahun Easton MD Unavailable [phone] Ca Grier Unavailable Ca Grier Primary Care Provider [phone] Marisa Skinner MD Unavailable [phone] Stefan Thornton Unavailable Sanjeev Pastrana MD Unavailable [phone] Evens Clayton MD Unavailable Sanjeev Pastrana MD Unavailable [phone] Ramandeep Collier RN Unavailable Un available Guy Hernandez MD Unavailable [phone] Analiila Arellano MD Unavailable [phone] Guy Hernandez MD Unavailable [phone] Guy Hernandez MD Unavailable [phone] Evens Clayton MD Unavailable Guy Hernandez MD Unavailable [phone] Kesha Jones MD Unavailable [phone] Encounter Details Date Type Department Care Team (Late st Contact Info) Description 08/16/2018 MyC Medical Advice [facility] [address] [place] [address] [phone] Joseph Thomason DPM [address] [place] [address] [phone] Social History Tobacco Use Types Packs/Day Years Used Date Smoking Tobacco: Former Cigarettes 0 11/19/1965 - 10/21/2017 Cigars Smokeless Tobacco: Never Alcohol Use Standard Drinks/Week Comments Yes 0 (1 standard drink = 0.6 oz pur e alcohol) 1-2/wk Sex and Gender Information Value Date Recorded Sex Assigned at Male 09/09/2021 5:01 PM CDT 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 Gender Identity Male 09/09/2021 5:01 PM CDT Sexual Orientation Straight 09/09/2021 5: 01 PM CDT documented as of this encounter Plan of Treatment Upcoming Encounters Date Type Department Care Team (Late st Contact Info) Description 08/24/2025 3:00 PM CDT Office Visit [facility] Infectious Disease Clinic [address] [phone] Kesha Jones MD [address] 488[address] 03/25/2026 1:00 PM CDT Virtual Visit [facility] Transplant [facility] [address] [place] [phone] Guy Hernandez MD [address] [place] [address] [phone] documented as of this encounter Visit Diagnoses Not on filedocumented in this encounter Care Teams Booking Officer Relationship Specialty Start Date End Date Ca Grier [address] [place] [address] [phone] PCP - General Family Practice 10/24/17 Nahun Easton MD [address] [place] [address] 377535 Orthopedics 09/21/17 Ca Grier [address] [place] [address] 044435 Referring Physician Family Practice 09/21/17 Marisa Skinner MD [address] [address] Nephrology 04/11/18 04/20/21 Stefan Thornton [address] [place] [address] [phone] Grocery Bagger INTERNAL MEDICINE - ENDOCRINOLOGY, DIABETES & METABOLISM 04/11/18 Sanjeev Pastrana MD [address] [place] [address] [phone] Assigned Surgical Provider 11/07/20 11/27/20 [place] [address] [place], [place] 8340[address] Assigned Surgical Provider 11/28/20 02/26/21 Sanjeev Pastrana MD [address] [place] [address] [phone] Assigned Surgical Provider 02/27/21 03/25/22 Ramandeep Collier, RN Registered Nurse Transplant 04/21/21 Guy Hernandez MD [address] [place] [address] 361695 Nephrology 04/21/21 Analilia Arellano MD [address] [place] [address] [phone] MD Paredes 06/21/21 Guy Hernandez MD [address] [place] [address] 70288 Assigned Nephrology Provider 11/27/21 12/17/21 Guy Hernandez MD [address] [place] [address] 40387 Assigned Nephrology Provider 12/18/21 05/25/23 Evens Clayton MD [address] [place] [address] 85857 Assigned Surgical Provider 03/26/22 09/21/23 Guy Hernandez MD [address] [place] [address] 14893 Assigned Nephrology Provider 05/11/24 Kesha Jones MD [address] [place] [address] 44697 Assigned Infectious Disease Provider 05/11/25 documented as of this encounter
--- OUTSIDE RECORDS SUMMARY | 2025-08-01 12:37 | XMS_ITS | Encounter Summary ---
Author Organization [facility] Address [address] [place] [address]. [place] [address] Care Team Providers Care Automatic Splicing Machine Operator Name Role Phone Wilber Schaefer MD Unavailable Nahun Easton MD Unavailable [phone] Ca Grier Unavailable Ca Grier Primary Care Provider [phone] Marisa Skinner MD Unavailable [phone] Stefan Thornton Unavailable Sanjeev Pastrana MD Unavailable [phone] Evens Clayton MD Unavailable Sanjeev Pastrana MD Unavailable [phone] Ramandeep Collier RN Unavailable Un available Guy Hernandez MD Unavailable [phone] Analilia Arellano MD Unavailable [phone] Guy Hernandez MD Unavailable [phone] Guy Hernandez MD Unavailable [phone] Evens Clayton MD Unavailable Guy Hernandez MD Unavailable [phone] Kesha Jones MD Unavailable [phone] Encounter Details Date Type Department Care Team (Late st Contact Info) Description 06/01/2017 MyC Medical [facility] [address] [phone] Marisa Skinner MD 717 [facility] 353 [place] [address] Social History Tobacco Use Types Packs/Day Years Used Date Smoking Tobacco: Some Days Alcohol Use Standard Drinks/Week Comments Not Asked 0 (1 standard drink = 0.6 oz pur e alcohol) Sex and Gender Information Value Date Recorded Sex Assigned at Male 09/09/2021 5:01 PM CDT 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 Gender Identity Male 09/09/2021 5:01 PM CDT Sexual Orientation Straight 09/09/2021 5: 01 PM CDT documented as of this encounter Plan of Treatment Upcoming Encounters Date Type Department Care Team (Late st Contact Info) Description 08/24/2025 3:00 PM CDT Office Visit [facility] Infectious Disease Clinic [address] [phone] Kesha Jones MD 420 [facility] 250 [place], [place] [address] 03/25/2026 1:00 PM CDT Virtual Visit [facility] Transplant Clinic [address] [place] [phone] Guy Hernandez MD [address] [place] [address] [phone] documented as of this encounter Visit Diagnoses Not on filedocumented in this encounter Care Teams Automatic Splicing Machine Operator Relationship Specialty Start Date End Date Ca Grier [address] [place] [address] [phone] PCP - General Family Practice 10/24/17 Wilber Schaefer MD [facility] [place] [place], [place] [address] Dermatology 01/18/15 04/10/18 Nahun Easton MD [address] [place] [address] 469395 Orthopedics 09/21/17 Ca Grier [address] [place] [address] 214555 Referring Physician Family Practice 09/21/17 Marisa Skinner MD [address] [place] [address] [phone] Nephrology 04/11/18 04/20/21 Stefan Thornton [address] [place] [address] 459174 Coal Unloader INTERNAL MEDICINE - ENDOCRINOLOGY, DIABETES & METABOLISM 04/11/18 Sanjeev Pastrana MD [address] [place] [address] [phone] Assigned Surgical Provider 11/07/20 11/27/20 [place] [address] [place], [place] 26[address] Assigned Surgical Provider 11/28/20 02/26/21 Sanjeev Pastrana MD [address] [phone] Assigned Surgical Provider 02/27/21 03/25/22 Ramandeep Collier RN Registered Nurse Transplant 04/21/21 Guy Hernandez MD [address] [place] [address] 83588 Nephrology 04/21/21 Analilia Arellano MD [address] [place] [address] 47555 MD Dermatology 06/21/21 Guy Hernandez MD [address] [place] [address] 38791 Assigned Nephrology Provider 11/27/21 12/17/21 Guy Hernandez MD [address] [place] [address] 79414 Assigned Nephrology Provider 12/18/21 05/25/23 Evens Clayton MD [address] [place] [address] 00015 Assigned Surgical Provider 03/26/22 09/21/23 Guy Hernandez MD [address] [place] [address] 13357 Assigned Nephrology Provider 05/11/24 Kesha Jones MD [address] [place] [address] 51169 Assigned Infectious Disease Provider 05/11/25 documented as of this encounter
--- OUTSIDE RECORDS SUMMARY | 2025-08-01 12:37 | XMS_ITS | Encounter Summary ---
Author Organization [facility] Address [address] [place] [address] Care Team Providers Care Corporate Legal Intern Name Role Phone Wilber Schaefer MD Unavailable Nahun Easton MD Unavailable Ca Grier Unavailable Ca Grier Primary Care Provider [phone] Marisa Skinner MD Unavailable Stefan Thornton Unavailable Sanjeev Pastrana MD Unavailable [phone] Evens Clayton MD Unavailable Sanjeev Pastrana MD Unavailable Ramandeep Collier RN Unavailable Un available Guy Hernandez MD Unavailable [phone] Analilia Arellano MD Unavailable [phone] Guy Hernandez MD Unavailable [phone] Guy Hernandez MD Unavailable [phone] Evens Clayton MD Unavailable Guy Hernandez MD Unavailable [phone] Kesha Jones MD Unavailable [phone] Encounter Details Date Type Department Care Team (Late st Contact Info) Description 03/17/2015 External Order Results [facility] [address] [facility] [address] [facility] [address] [place] [phone] Social History Tobacco Use Types Packs/Day Years Used Date Smoking Tobacco: Some Days Alcohol Use Standard Drinks/Week Comments Not Asked 0 (1 standard drink = 0.6 oz pur e alcohol) Sex and Gender Information Value Date Recorded Sex Assigned at Male 09/09/2021 5:01 PM CDT 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 Infectious Disease Clinic [address] [phone] Kesha Jones MD 420 [facility] 250 [place], [place] 6[address] 03/25/2026 1:00 PM CDT Virtual Visit [facility] Transplant Clinic [address] [place] [phone] Guy Hernandez MD [address] [place] [address] [phone] documented as of this encounter Procedures Procedure Name Priority Date/Time Associated Diagnosis Comments EXTERNAL LAB RESULTS Routine 12/15/2014 10:17 AM PAY STATION DEPARTMENT MANAGER documented in this encounter Results * (ABNORMAL) TXP External Lab Result (12/15/2014 10:17 AM PAY STATION DEPARTMENT MANAGER) Hemoglobin A1C (External) 7.4(H) <=6.4 % LABDE SCAN LDL-Cholesterol (External) 55 mg/dL LABDE SCAN Creatinine (External) 1.1 0.72 - 1.25 mg/dL LABDE SCAN GFR Estimated (if ) (External) >60 >60 LABDE SCAN 12/15/2014 10:1 7 AM PAY STATION DEPARTMENT MANAGER Narrative JUAN PFT - 03/17/2015 3:21 PM CDT Verified by Parish Spencer on 03/17/2015. us Patient Reported LABORATORY Edited Result - Final JUAN PFT LABDE SCAN documented in this encounter Visit Diagnoses Not on filedocumented in this encounter Care Teams Corporate Legal Intern Relationship Specialty Start Date End Date Ca Grier [address] [place] [phone] PCP - General Family Practice 10/24/17 Wilber Schaefer MD [facility] [address] [place] [address] Dermatology 01/18/15 04/10/18 Nahun Easton MD [address] [place] [address] [phone] Orthopedics 09/21/17 Ca Grier [address] [place] [address] 75771 Referring Physician Family Practice 09/21/17 Marisa Siknner MD [address] [place] [address] 65266 Nephrology 04/11/18 04/20/21 Stefan Thornton [address] [place] [address] 48138 Rn Diabetes INTERNAL MEDICINE - ENDOCRINOLOGY, DIABETES & METABOLISM 04/11/18 Sanjeev Pastrana MD [address] [address] Assigned Surgical Provider 11/07/20 11/27/20 [place] [address] [place] [address] Assigned Surgical Provider 11/28/20 02/26/21 Sanjeev Pastrana MD [address] [place] [address]251 Assigned Surgical Provider 02/27/21 03/25/22 Ramandeep Collier, RN Registered Nurse Transplant 04/21/21 Guy Hernandez MD [address] [place] [address] Nephrology 04/21/21 Analilia Arellano MD [address] [place] [address] Dermatology 06/21/21 Guy Hernandez MD [address] [place] [address] 35188 Assigned Nephrology Provider 11/27/21 12/17/21 Guy Hernandez MD [address] [place] [address] 85206 Assigned Nephrology Provider 12/18/21 05/25/23 Evens Clayton MD [address] [place] [address] 12402 Assigned Surgical Provider 03/26/22 09/21/23 Guy Hernandez MD [address] [place] [address] Assigned Nephrology Provider 05/11/24 Kesha Jones MD [address] [place] [address] 250 [place], [place] 677035 Assigned Infectious Disease Provider 05/11/25 documented as of this encounter
--- OUTSIDE RECORDS SUMMARY | 2025-08-01 12:37 | XMS_ITS | Encounter Summary ---
Author Organization [place] Address [address] [place] [address]. [place] [address] Care Team Providers Care President Mortgage Company Name Role Phone Wilber Schaefer MD Unavailable Nahun Easton MD Unavailable [phone] Ca Grier Unavailable Ca Grier Primary Care Provider Marisa Skinner MD Unavailable [phone] Stefan Thornton Unavailable Sanjeev Pastrana MD Unavailable Evens Clayton MD Unavailable Sanjeev Pastrana MD Unavailable [phone] Ramandeep Collier RN Unavailable Un available Guy Hernandez MD Unavailable [phone] Analilia Arellano MD Unavailable [phone] Guy Hernandez MD Unavailable [phone] Guy Hernandez MD Unavailable [phone] Evens Clayton MD Unavailable Guy Hernandez MD Unavailable [phone] Kesha Jones MD Unavailable [phone] Encounter Details Date Type Department Care Team (Late st Contact Info) Description 06/14/2017 [facility] Nephrology Clinic [address] [address] Teresita Conte Social History Tobacco Use Types Packs/Day Years Used Date Smoking Tobacco: Some Days Alcohol Use Standard Drinks/Week Comments Not Asked 0 (1 standard drink = 0.6 oz pur e alcohol) Sex and Gender Information Value Date Recorded Sex Assigned at Male 09/09/2021 5:01 PM CDT Legal 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 Gender Identity Male 09/09/2021 5:01 PM CDT Sexual Orientation Straight 09/09/2021 5: 01 PM CDT documented as of this encounter Plan of Treatment Upcoming Encounters Date Type Department Care Team (Late st Contact Info) Description 08/24/2025 3:00 PM CDT Office Visit [facility] Disease [facility] [address] [phone] Kesha Jones MD [address] [address] 03/25/2026 1:00 PM CDT Virtual Visit [facility] Transplant [facility] [address] [place] [address] Guy Hernandez MD [address] [place] [address] 080015 documented as of this encounter Visit Diagnoses Not on filedocumented in this encounter Care Teams President Mortgage Company Relationship Specialty Start Date End Date Ca Grier [address] [place] [address] PCP - General Family Practice 10/24/17 Wilber Schaefer MD [facility] DERMAT[facility] [address] [place] [address] Dermatology 01/18/15 04/10/18 Nahun Easton MD [address] [place] [address] Orthopedics 09/21/17 Ca Grier [address] [place] [address] Referring Physician Family Practice 09/21/17 Marisa Skinner MD 717 [facility] 353 [place] [address] Nephrology 04/11/18 04/20/21 Stefan Thornton 717 [facility] [address] [place] [address] Gantry Crane Operator INTERNAL MEDICINE - ENDOCRINOLOGY, DIABETES & METABOLISM 04/11/18 Sanjeev Pastrana MD 420 [facility] [address] [place] [address] Assigned Surgical Provider 11/07/20 11/27/20 [place] [address] [place] [address] Assigned Surgical Provider 11/28/20 02/26/21 Sanjeev Pastrana MD 420 [facility] [address] [place] [address] Assigned Surgical Provider 02/27/21 03/25/22 Ramandeep Collier, RN Registered Nurse Transplant 04/21/21 Guy Hernandez MD [address] [place] [address] Nephrology 04/21/21 Analilia Arellano MD [address] [place] [address] MD Paredes 06/21/21 Guy Hernandez MD [address] [place] [address] Assigned Nephrology Provider 11/27/21 12/17/21 Guy Hernandez MD [address] [place] [address] Assigned Nephrology Provider 12/18/21 05/25/23 Evesn Clayton MD [address] [place] [address] Assigned Surgical Provider 03/26/22 09/21/23 Guy Hernandez MD [address] [place] [address] Assigned Nephrology Provider 05/11/24 Kesha Jones MD [address] [place] [address] Assigned Infectious Disease Provider 05/11/25 documented as of this encounter
--- OUTSIDE RECORDS SUMMARY | 2025-08-01 12:37 | XMS_ITS | Encounter Summary ---
Author Organization [place] Address [address] [place] [address]. [place] [address] Care Team Providers Care Mining Captain Name Role Phone Wilber Schaefer MD Unavailable Nahun Easton MD Unavailable [phone] Ca Grier Unavailable Ca Grier Primary Care Provider Marisa Skinner MD Unavailable Stefan Thornton Unavailable Sanjeev Pastrana MD Unavailable Evens Clayton MD Unavailable Sanjeev Pastrana MD Unavailable [phone] Ramandeep Collier RN Unavailable Un available Guy Hernandez MD Unavailable [phone] Analilia Arellano MD Unavailable [phone] Guy Hernandez MD Unavailable [phone] Guy Hernandez MD Unavailable [phone] Evens Clayton MD Unavailable Guy Hernandez MD Unavailable [phone] Kesha Jones MD Unavailable [phone] Encounter Details Date Type Department Care Team (Late st Contact Info) Description 10/14/2017 [facility] Medical [facility] Nephrology Clinic [address] [address] Marisa Skinner MD 717 [facility] 353 [place], [place] [address] Social History Tobacco Use Types Packs/Day Years Used Date Smoking Tobacco: Some Days Smokeless Tobacco: Never Alcohol Use Standard Drinks/Week Comments Not Asked 0 (1 standard drink = 0.6 oz pur e alcohol) Sex and Gender Information Value Date Recorded Sex Assigned at Male 09/09/2021 5:01 PM CDT Legal 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 Skinner's recommendation. Advised to call if further questions. Irene Hoyos, RN NT FITTINGS MAKER documented in this encounter Plan of Treatment Upcoming Encounters Date Type Department Care Team (Late st Contact Info) Description 08/24/2025 3:00 PM CDT Office Visit [facility] Infectious Disease Clinic [address] [address] Kesha Jones MD 420 [facility] [address] [place], [place] [address] 03/25/2026 1:00 PM CDT Virtual Visit [facility] Transplant Clinic [address] [place] [address] Guy Hernandez MD [address] [place] [address] 707305 documented as of this encounter Visit Diagnoses Not on filedocumented in this encounter Care Teams Mining Captain Relationship Specialty Start Date End Date RunCa serna [address] [place] [address] PCP - General Family Practice 10/24/17 Wilber Schaefer MD [facility] D[facility] [address] [place] [address] Dermatology 01/18/15 04/10/18 Nahun Easton MD [address] [place] [address] 069205 Orthopedics 09/21/17 YehudaMatthew thorntone [address] [place] [address] Referring Physician Family Practice 09/21/17 Marisa Skinner MD 717 [facility] 353 [place] [address] Nephrology 04/11/18 04/20/21 Stefan Thornton 717 [facility] [address] [place] [address] Family Preservation Officer INTERNAL MEDICINE - ENDOCRINOLOGY, DIABETES & METABOLISM 04/11/18 Sanjeev Pastrana MD 420 [facility] 98 [place] [address] Assigned Surgical Provider 11/07/20 11/27/20 [place] [address] [place] [address] Assigned Surgical Provider 11/28/20 02/26/21 Sanjeev Pastrana MD 420 [facility] [address] [place] [address] Assigned Surgical Provider 02/27/21 03/25/22 Ramandeep Collier, RN Registered Nurse Transplant 04/21/21 Guy Hernandez MD [address] [place] [address] Nephrology 04/21/21 Analilia Arellano MD [address] [place] [address] Dermatology 06/21/21 Guy Hernandez MD [address] [place] [address] Assigned Nephrology Provider 11/27/21 12/17/21 Guy Hernandez MD [address] [place] [address] Assigned Nephrology Provider 12/18/21 05/25/23 Evens Clayton MD [address] [place] [address] Assigned Surgical Provider 03/26/22 09/21/23 Guy Hernandez MD [address] [place] [address] Assigned Nephrology Provider 05/11/24 Kesha Jones MD 420 [facility] [address] [place] [address] Assigned Infectious Disease Provider 05/11/25 documented as of this encounter
--- OUTSIDE RECORDS SUMMARY | 2025-08-01 12:37 | XMS_ITS | Clinical Summary ---
Author Organization [facility] Address [address] [place] [address] Care Team Providers Care Engineering Operator Name Role Phone Unavailable Primary Care Provider Unavailabl e Source Comments Patient records contain information from all sites at [facility]. For routine questions regarding patient records, call [phone] during business hours, M-F 8:00 AM - 5:00 PM Central Time. Record requests for emergency care only can be directed to [phone] at any time.[facility] Allergies Active Allergy Reactions Criticality Noted Date Comments Levofloxacin Other (see comments) High 03/29/2017 Patient reports tendinitis in achilles heel (transplant), foot swollen tendonitis Patient reports tendinitis in achilles heel (transplant), foot swollen tendonitis Medications * This document contains information received from the source organization and may not represent a complete record from that organization. aspirin 81 mg capsule Take 81 mg by mouth daily. 0 Active atenolol (for_TENORMIN) 25 mg tablet Take 25 mg by mouth 2 (two) times a day. 0 Active atorvastatin (LIPITOR) 40 mg tablet Take 1 tablet by mouth at bedtime. 4 Active fluorouracil (for_CARAC) 0.5 % cream Apply 1 application topically daily. 2 Active MULTIVITAMIN WITH MINERALS ORAL Take 1 tablet by mouth daily. 3 Active mycophenolate (for_CELLCEPT) 250 mg capsule TK 3 CS PO QAM AND 2 QPM 3 7 Active predniSONE (for_DELTASONE) 5 mg tablet Take 5 mg by mouth daily. 1 7 Active hydroCHLOROthia zide (for_HYDRODIURI L) 25 mg tablet TK 1 T PO D 2 7 Active metoprolol succinate (for_TOPROL-XL) 50 mg 24 hr tablet Take 50 mg by mouth 2 (two) times a day. 8 Active vitamins A,C,E-zinc-afsaneh er (PRESERVISION AREDS) 7,160 Units-113 mg-100 Units per tablet Take 2 tablets by mouth 2 (two) times a day. 7 Active sulfamethoxazol e-trimethoprim (for_BACTRIM,SE PTRA) 400-80 mg per tablet Take 1 tablet by mouth daily. 7 Active lisinopriL (PRINIVIL,ZESTR IL) 5 mg tablet Take 5 mg by mouth 2 (two) times a day. 1 Active lisinopriL (PRINIVIL,ZESTR IL) 5 mg tablet Take 1 tablet by mouth 2 (two) times a day. 1 Active nystatin (MYCOSTATIN) 100,000 unit/gram ointment Apply topically. 0 Active clopidogreL (PLAVIX) 75 mg tablet Take 75 mg by mouth daily. 1 Active insulin glargine 100 unit/mL (3 mL) injection 16 units once a day 1 Active insulin aspart U-100 (NovoLOG) 100 unit/mL injection INJECT 45 UNITS VIA PUMP DIRECTED 1 Active carboxymethylce llulose sodium (REFRESH CELLUVISC OPHT) Administer 1 drop into affected eye(s) as needed (Dry Eye). Active hydrALAZINE (Apresoline) 25 mg tablet Take 25 mg by mouth Medrol Dose Pack scheduling ONLY. 4 Active brimonidine (Alphagan) 0.2 % ophthalmic solution INSTILL 1 DROP IN BOTH EYES TWICE DAILY 10 mL 11 4 Active Active Problems Problem Noted Date Diagnosed Date Anemia Of Chronic Disease 02/04/2018 Cerebrovascular Disease 02/04/2018 Overview (02/04/2018): Overview: amaurosis right eye -carotid us & echocardiogram negative Atherosclerotic Heart Diseas e Of [place] Coronary Artery Without Angina Pectoris 02/04/2018 Diabetes Mellitus Type 1 Complication 02/04/2018 Overview (02/04/2018): Overview: Formatting of this note may be different from the original. Diagnosed at age 22, around 1976 continous subcutaneus insulin infusion Nephropathy transplant 1985 Macro: + CAD, + CVA, + PVD (stent to left lower extremity) Micro: History of proliferative retinopathy -vitrectomy left eye 1985 - bilateral stafford retinal laser - stable 08/27;q 4 months at [facility]; stable 02/28; no active retinopathy 05/30 Has history Occular hypertension, macular degeneration Eye exam: February 2014 - exceedingly stable with no new retinopathy or issues. Visual ha normal. Eye exam: Jun 2014: Stable. No prolif retinopathy. No diabetes mellitus macular edema. Eye exams 3 times a year. Last was in Fall 2014. Stable per his report. peripheral neuropathy . Last foot exam: March 2017 + hammer toes , most prominent are 2nd toes bilaterally. Decreased sensation in left 2nd hammer toe. Otherwise, mild decreased sensation, but not bad. Dry. No edema. Nephropathy: CREATININE (mg/dL) Date Value 10/02/2013 1.28* MICROALBUMIN,RAND UR (mg/g creat) Date Value 11/26/2008 37.2* Hypertension 02/04/2018 Ischemic Heart Chronic Disease 02/04/2018 Overview (02/04/2018): Overview: 12/21 plasty x3 & 1stent om 01/18 stent post desc &cx 03/20 stent intermediate art. 04/21 stent rca Malignant neoplasm of posterior wall of urinary bladder 02/04/2018 Thrombocytopenia 02/04/2018 Peripheral Vascular Disease 02/04/2018 Overview (02/04/2018): Overview: left fem art repair 02/20 decreased pulses left 2017: Found with 50-75% stenosis distal SFA, but transcutaneous O2s were OK. 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 Weiner (Vascular clinic) in fall 2014. Results suggest that his symptoms are most likely from neurogenic claudication. Right leg. He is following up with his spine surgeon. Radiculopathy Lumbosacral 02/16/2014 Insulin Pump Status 10/02/2013 Overview (02/04/2018): Overview: Accu -chek Spirit Combo pump (settings Nov 20, 2016): Reports this Spirit Combo pump was new in 2011 Change Basal rates to: [place] 0.6 6a 0.95 2p 0.9 6p 0.9 __ Bolus: Manually bolusses: Breakfast and lunch, 1 units per 12 grams Evening meal and anything after evening meal, 1 units per 15 And 1 units per 50mg/dL 70-149 No additional insulin; 150-199 1 unit; 200-249 2 units; 250-299 3 units; 300-349 4 units; 350-399 5 units; 400 or greater 6 units and notify MD Diabetes Mellitus Type 1 Hyperglycemia 1 Overview (04/10/2017): Diabetes mellitus with ophthalmic manifestations, type II or unspecified type, not stated as uncontrolled Keratosis Actinic 10/06/2010 Glaucoma Suspect Ocular Hypertension (HTN) NOS 1 Tumor Skin Uncertain Behavior 05/16/2010 Benign neoplasm of colon 03/19/2009 Overview (02/04/2018): Overview: Colonoscopy 02/2009 polyp repeat in 1 year Colonoscopy 06/2010 normal repeat in 5 years Personal History Of Other Malignant Neoplasm Of Skin 12/02/2007 Dermatitis Photocontact 10/31/2007 Cancer Skin Squamous Cell Personal History 07/09 Malignant Neoplasm Of Neck Squamous Cell 006 Family History Medical History Relation Name Comments Glaucoma Father Relation Name Status Comments Father Social History Tobacco Use Types Packs/Day Years Used Date Smoking Tobacco: Some Days Hunger Vital Sign Answer Date Recorded Within the past 12 months, y ou worried that your food would run out before you got the money to buy more. Never true 10/28/20 23 Within the past 12 months, t he food you bought just didn't last and you didn't have money to get more. Never true 10/28/2023 PRAPARE - Transportation Answer Date Re corded In the past 12 months, has l ack of transportation kept you from medical appointments or from getting medications? No 10/19 In the past 12 months, has l ack of transportation kept you from meetings, work, or from getting things needed for daily living? No 10/28/2023 Housing Stability Answer Date Recorded What is your living situation today? 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 Gender Identity Male 06/03/2018 2:55 PM CDT Sexual Orientation Straight 06/03/2018 2: 55 PM CDT Last Filed Vital Signs Vital Sign Reading Time Taken Comments Blood Pressure 130/70 05/25/2017 8:52 AM CDT Pulse - - Temperature - - Respiratory Rate - - Oxygen Saturation - - Inhaled Oxygen Concentration - - Weight - - Height - - Body Mass Index - - Plan of Treatment Upcoming Encounters Date Type Department Care Team (Late st Contact Info) Description 08/03/2025 9:45 AM CDT Ancillary Procedure Department of Ophthalmology in [place], [place] [address] [phone] Shilo Castle M.D. [address] [address] Health Maintenance Due Date Last Done Comments Diabetic Office Visit with Foot Exam 1945 Hepatitis C Screening 1945 Office Visit for Blood Pressure Check / Re-check 1945 Urine Albumin 1945 Zoster Vaccines (1 of 2) 1966 Hepatitis B Vaccines (1 of 3 - Risk 3-dose series) 2007 Depression Screening (Annual PHQ-2) 11/19/2024 Fall Risk Screen (Annual) 11/19/2024 Hemoglobin A1C 07/02/2025 01/02/2025, 09/19, 05/19/2024, Additional history exists COVID-19 Vaccine (8 - Moderna risk season) 2025 09/10/2024, 09/05/2023, 03/10/2023, Additional history exists Influenza Vaccine (#1) 2025 , 08/07/2023, 10/10/2022, Additional history exists DTaP,Tdap,and Td Vaccines (2 - Td or Tdap) 09/30/2025 09/30/2015, 02/23/2005 Creatinine Level (Kidney Function Test) 02/24/2026 02/24/2025, 10/01/2024, 05/19/2024, Additional history exists Potassium Level 02/24/2026 02/24/2025, 09/19, 05/19/2024, Additional history exists Sodium Level 02/24/2026 02/24/2025, 07/0 11/2023, 04/29/2024, Additional history exists Diabetic Eye Exam 04/09/2026 04/09/2025, , 10/29/2023, Additional history exists Colonoscopy Discontinued 11/19/2014 Colorectal Cancer Screening Discontinued Pneumococcal vaccine (50+ years) Completed 09/19/2016, 11/07/2012 RSV vaccine - (32-36 weeks) or 60+ years Completed 11/21/2023 CT Colonography Discontinued Cologuard Discontinued FIT Discontinued HPV Vaccines Aged Out No longer eligi ble based on patient's age to complete this topic IPV Vaccines Aged Out No longer eligi ble based on patient's age to complete this topic Insurance [facility] MEDICARE
--- OUTSIDE RECORDS SUMMARY | 2025-08-01 12:37 | XMS_ITS | Encounter Summary ---
Author Organization [place] Address [address] [place] [address]. [place] [address] Care Team Providers Care Tenter Feeder Name Role Phone Nahun Easton MD Unavailable [phone] Ca Grier Unavailable Ca Grier Primary Care Provider [phone] Stefan Thornton Unavailable Sanjeev Pastrana MD Unavailable [phone] Ramandeep Collier RN Unavailable Un available Guy Hernandez MD Unavailable [phone] Analilia Arellano MD Unavailable [phone] Guy Hernandez MD Unavailable [phone] Evens Clayton MD Unavailable Guy Hernandez MD Unavailable [phone] Kesha Jones MD Unavailable [phone] Encounter Details Date Type Department Care Team (Late st Contact Info) Description 01/31/2022 [facility] [address] [place] [address] Ramandeep Collier, RN Social History [...] PM CDT Legal 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 Gender Identity Male 09/09/2021 5:01 PM CDT Sexual Orientation Straight 09/09/2021 5: 01 PM CDT documented as of this encounter Plan of Treatment Upcoming Encounters Date Type Department Care Team (Late st Contact Info) Description 08/24/2025 3:00 PM CDT Office Visit [facility] Infectious Disease Clinic [address] [phone] Kesha Jones MD [address] [phone] 03/25/2026 1:00 PM CDT Virtual Visit [facility] Transplant Clinic [address] [place] [phone] Guy Hernandez MD [address] [place] [address] [phone] documented as of this encounter Visit Diagnoses Not on filedocumented in this encounter Care Teams Tenter Feeder Relationship Specialty Start Date End Date Ca Grier [address] [place] [address] PCP - General Family Practice 10/24/17 Nahun Easton MD [address] [place] [address]44155 Orthopedics 09/21/17 Ca Grier [address] [place] [address] Referring Physician Family Practice 09/21/17 Stefan Thornton [address] [place] [address] Intake Worker INTERNAL MEDICINE - ENDOCRINOLOGY, DIABETES & METABOLISM 04/11/18 Sanjeev Pastrana MD [address] [place] [address] [address] [place] [address] Assigned Surgical Provider 02/27/21 03/25/22 Ramandeep Collier, RN Registered Nurse Transplant 04/21/21 Guy Hernandez MD [address] [place] [address] Nephrology 04/21/21 Analilia Arellano MD [address] [place] [address] Dermatology 06/21/21 Guy Hernandez MD [address] [place] [address] Assigned Nephrology Provider 12/18/21 05/25/23 Evens Clayton MD [address] [place] [address] Assigned Surgical Provider 03/26/22 09/21/23 Guy Hernandez MD [address] [place] [address] Assigned Nephrology Provider 05/11/24 Kesha Jones MD [address] [place] [address] [address] [place] [address] Assigned Infectious Disease Provider 05/11/25 documented as of this encounter
--- OUTSIDE RECORDS SUMMARY | 2025-08-01 12:37 | XMS_ITS | Encounter Summary ---
Author Organization [facility] Address [address] [place] [address]. [place] [address] Care Team Providers Care Family Therapist Name Role Phone Wilber Schaefer MD Unavailable Nahun Easton MD Unavailable Ca Grier Unavailable Ca Grier Primary Care Provider Marisa Skinner MD Unavailable Stefan Thornton Unavailable Sanjeev Pastrana MD Unavailable Evens [place] MD Unavailable Sanjeev Pastrana MD Unavailable Ramandeep Collier RN Unavailable Un available Guy Hernandez MD Unavailable [phone] Analilia Arellano MD Unavailable [phone] Guy Hernandez MD Unavailable [phone] Guy Hernandez MD Unavailable [phone] Evens [place] MD Unavailable Guy Hernandez MD Unavailable [phone] Kesha Jones MD Unavailable [phone] Encounter Details Date Type Department Care Team (Late st Contact Info) Description 01/01/2017 External Order Results [facility] [address] [place] [address] [phone] Social History Tobacco Use Types Packs/Day Years Used Date Smoking Tobacco: Some Days Alcohol Use Standard Drinks/Week Comments Not Asked 0 (1 standard drink = 0.6 oz pur e alcohol) Sex and Gender Information Value Date Recorded Sex Assigned at Male 09/09/2021 5:01 PM CDT Legal 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 STOCKBROKER Gender Identity Male 09/09/2021 5:01 PM CDT Sexual Orientation Straight 09/09/2021 5: 01 PM CDT documented as of this encounter Plan of Treatment Upcoming Encounters Date Type Department Care Team (Late st Contact Info) Description 08/24/2025 3:00 PM CDT Office Visit [facility] [address] [phone] Kesha Jones MD 420 [facility] 250 [place], [place] [address]245 03/25/2026 1:00 PM CDT Virtual Visit [facility] [address] [place] [address] [phone] Guy Hernandez MD [address] [place] [address] [phone] documented as of this encounter Procedures Procedure Name Priority Date/Time Associated Diagnosis Comments EXTERNAL LAB RESULTS Routine 12/25/2016 2:06 PM STOCKBROKER documented in this encounter Results * (ABNORMAL) TXP External Lab Result (12/25/2016 2:06 PM STOCKBROKER) Protein Total Ur (External) 11 1 - 14 mg/dL LABDE SCAN Creatinine Urine mg/dL (External) 73.2 63.0 - 166.0 mg/dL LABDE SCAN Protein Total Ur per Cr (External) 0.2(H) <0.2 RATIO LABDE SCAN 12/25/2016 2:06 PM STOCKBROKER Narrative BREEZE PFT - 01/01/2017 10:21 AM STOCKBROKER Verified by Sarah Bradshaw on 01/01/2017. us Patient Reported LABORATORY Edited Result - Final JUAN PFT LABDE SCAN documented in this encounter Visit Diagnoses Not on filedocumented in this encounter Care Teams Family Therapist Relationship Specialty Start Date End Date Ca Grier [address] [place] [address] PCP - General Family Practice 10/24/17 Wilber Schaefer MD [facility] [address] [place] [address] Dermatology 01/18/15 04/10/18 Nahun Easton MD [address] [place] [address] 53758 Orthopedics 09/21/17 Ca Grier [address] [place] [address] 39897 Referring Physician Family Practice 09/21/17 Marisa Skinner MD [address] [place] [address] [id number] Nephrology 04/11/18 04/20/21 Stefan Thornton [address] [place] [address] [phone] Bed Machine Operator INTERNAL MEDICINE - ENDOCRINOLOGY, DIABETES & METABOLISM 04/11/18 Sanjeev Pastrana MD [address] [place] [address] 98 [place], [place] 110265 Assigned Surgical Provider 11/07/20 11/27/20 [place] [address] [place] [address] Assigned Surgical Provider 11/28/20 02/26/21 Sanjeev Pastrana MD [address] [place] [address] 6[address]95 Assigned Surgical Provider 02/27/21 03/25/22 Ramandeep Collier, RN Registered Nurse Transplant 04/21/21 Guy Hernandez MD [address] [place] [address] 39[address] Nephrology 04/21/21 Analilia Arellano MD [address] [place] [address] 94[address] MD Dermatology 06/21/21 Guy Hernandez MD [address] [place] [address] 50332 Assigned Nephrology Provider 11/27/21 12/17/21 Guy Hernandez MD [address] [place] [address] 97937 Assigned Nephrology Provider 12/18/21 05/25/23 Evens [place] MD [address] [place] [address] 87195 Assigned Surgical Provider 03/26/22 09/21/23 Guy Hernandez MD [address] [place] [address] 33108 Assigned Nephrology Provider 05/11/24 Kesha Jones MD [address] [place] [address] [id number] Assigned Infectious Disease Provider 05/11/25 documented as of this encounter
--- OUTSIDE RECORDS SUMMARY | 2025-08-01 12:37 | XMS_ITS | Encounter Summary ---
Author Organization [facility] Address [address] [place] [address]. [place] [address] Care Team Providers Care Insurance Licensing Supervisor Name Role Phone Wilber Schaefer MD Unavailable Nahun Easton MD Unavailable [phone] Ca Grier Unavailable Ca Grier Primary Care Provider Marisa Skinner MD Unavailable Stefan Thornton Unavailable Sanjeev Pastrana MD Unavailable Evens [place] MD Unavailable Sanjeev Pastrana MD Unavailable [phone] Ramandeep Collier RN Unavailable Un available Guy Hernandez MD Unavailable [phone] Analilia Arellano MD Unavailable [phone] Guy Hernandez MD Unavailable [phone] Guy Hernandez MD Unavailable [phone] Evens [place] MD Unavailable Guy Hernandez MD Unavailable [phone] Kesha Jones MD Unavailable [phone] Encounter Details Date Type Department Care Team (Late st Contact Info) Description 07/10/2016 External Order Results [facility] [address] [place] [phone] Social History Tobacco Use Types Packs/Day Years Used Date Smoking Tobacco: Some Days Alcohol Use Standard Drinks/Week Comments Not Asked 0 (1 standard drink = 0.6 oz pur e alcohol) Sex and Gender Information Value Date Recorded Sex Assigned at Male 09/09/2021 5:01 PM CDT Legal 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 SERVICES 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 Gender Identity Male 09/09/2021 5:01 PM CDT Sexual Orientation Straight 09/09/2021 5: 01 PM CDT documented as of this encounter Plan of Treatment Upcoming Encounters Date Type Department Care Team (Late st Contact Info) Description 08/24/2025 3:00 PM CDT Office Visit [facility] [address] [phone] Kesha Jones MD 420 [facility] 250 [place], [place] 8045[address] 03/25/2026 1:00 PM CDT Virtual Visit [facility] [address] [place] [address] [phone] Guy Hernandez MD [address] [place] [address] 322345 documented as of this encounter Procedures Procedure Name Priority Date/Time Associated Diagnosis Comments EXTERNAL LAB RESULTS Routine 07/07/2016 8:08 AM CDT documented in this encounter Results * (ABNORMAL) TXP External Lab Result (07/07/2016 8:08 AM CDT) Sodium (External) 140 135 - 145 mmol/L LABDE SCAN Potassium (External) 4.7 3.5 - 5.0 mmol/L LABDE SCAN Chloride (External) 107 98 - 110 mmol/L LABDE SCAN CO2 (External) 24 21 - 31 mmol/L LABDE SCAN Anion Gap (External) 9 5 - 18 ml/min/1. 73m2 LABDE SCAN Glucose (External) 95 65 - 100 mg/dL LABDE SCAN Calcium (External) 9.6 8.5 - 10.5 mg/dL LABDE SCAN Urea Nitrogen (External) 38(H) 8 - 25 mg/dL LABDE SCAN Creatinine (External) 1.37(H) 0.72 - 1.25 mg/dL LABDE SCAN BUN/Creatinine Ratio (External) 28(H) 10 - 20 ml/min/1. 73m2 LABDE SCAN GFR Estimated (if ) (External) >60 >60 ml/min/1. 73m2 LABDE SCAN GFR Estimated (External) 52(L) >60 ml/min/1. 73m2 LABDE SCAN Cholesterol (External) 125 100 - 199 mg/dL LABDE SCAN Triglycerides (External) 89 <150 mg/dL LABDE SCAN HDL Cholesterol (External) 49 >40 mg/dL LABDE SCAN LDL-Cholesterol (External) 58 <=130 mg/dL LABDE SCAN WBC Count (External) 6.2 4.5 - 11.0 thou/cu mm LABDE SCAN RBC Count (External) 4.09(L) 4.30 - 5.90 mil/cu mm LABDE SCAN Hemoglobin (External) 12.6(L) 13.5 - 17.5 g/dL LABDE SCAN Hematocrit (External) 37.9 37.0 - 53.0 % LABDE SCAN MCV (External) 93 80 - 100 LABDE SCAN MCH (External) 30.8 26.0 - 34.0 pg LABDE SCAN MCHC (External) 33.2 32.0 - 36.0 g/dL LABDE SCAN RDW (External) 12.9 11.5 - 15.5 % LABDE SCAN Platelet Count (External) 146 140 - 440 thou/cu mm LABDE SCAN MPV (External) 9.5 6.5 - 11.0 LABDE SCAN 07/07/2016 8:08 AM CDT Narrative JUAN DUDLEYT - 07/10/2016 9:02 AM CDT Verified by Bailee San on 07/10/2016. us Patient Reported LABORATORY Edited Result - Final JUAN PFT LABDE SCAN documented in this encounter Visit Diagnoses Not on filedocumented in this encounter Care Teams Insurance Licensing Supervisor Relationship Specialty Start Date End Date Ca Grier [address] [place] [address] PCP - General Family Practice 10/24/17 Wilber Schaefer MD [facility] DERMAT[facility] [address] [place] [address] Dermatology 01/18/15 04/10/18 Nahun Easton MD [address] [place] [address] 900415 Orthopedics 09/21/17 Ca Grier [address] [place] [address] 81987 Referring Physician Family Practice 09/21/17 Marisa Skinner MD 717 [facility] 353 [place] [address] Nephrology 04/11/18 04/20/21 Stefan Thornton 717 [facility] [address] [place] [address] Crematorium Operator INTERNAL MEDICINE - ENDOCRINOLOGY, DIABETES & METABOLISM 04/11/18 Sanjeev Pastrana MD 420 [facility] 98 [place], [place] 263625 Assigned Surgical Provider 11/07/20 11/27/20 [place] [address] [place] [address] Assigned Surgical Provider 11/28/20 02/26/21 Sanjeev Pastrana MD 420 [facility] 98 [place] [address] Assigned Surgical Provider 02/27/21 03/25/22 Ramandeep Collier, RN Registered Nurse Transplant 04/21/21 Guy Hernandez MD [address] [place] [address] 96883 Nephrology 04/21/21 Analilia Arellano MD [address] [place] [address] 19067 Dermatology 06/21/21 Guy Hernandez MD [address] [place] [address] 04477 Assigned Nephrology Provider 11/27/21 12/17/21 Guy Hernandez MD [address] [place] [address] 39717 Assigned Nephrology Provider 12/18/21 05/25/23 Evens Clayton MD [address] [place] [address] 01671 Assigned Surgical Provider 03/26/22 09/21/23 Guy Hernandez MD [address] [place] [address] 08538 Assigned Nephrology Provider 05/11/24 Kesha Jones MD [address] [place] [address] 250 [place] [address] Assigned Infectious Disease Provider 05/11/25 documented as of this encounter
--- OUTSIDE RECORDS SUMMARY | 2025-08-01 12:37 | XMS_ITS | Encounter Summary ---
Author Organization [facility] Address [address] [place] [address]. [place] [address] Care Team Providers Care Factory Focus Technician Name Role Phone Wilber Schaefer MD Unavailable Nahun Easton MD Unavailable [phone] Ca Grier Unavailable Ca Grier Primary Care Provider [phone] Marisa Skinner MD Unavailable Stefan Thornton Unavailable Sanjeev Pastrana MD Unavailable [phone] Evens Clayton MD Unavailable Sanjeev Pastrana MD Unavailable [phone] Ramandeep Collier RN Unavailable Un available Guy Hernandez MD Unavailable [phone] Analilia Arellano MD Unavailable [phone] Guy Hernandez MD Unavailable [phone] Guy Hernandez MD Unavailable [phone] Evens Clayton MD Unavailable Guy Hernandez MD Unavailable [phone] Kesha Jones MD Unavailable [phone] Encounter Details Date Type Department Care Team (Late st Contact Info) Description 03/17/2016 External Order Results [facility] [address] [place] [address] [phone] Social History Tobacco Use Types Packs/Day Years Used Date Smoking Tobacco: Some Days Alcohol Use Standard Drinks/Week Comments Not Asked 0 (1 standard drink = 0.6 oz pur e alcohol) Sex and Gender Information Value Date Recorded Sex Assigned at Male 09/09/2021 5:01 PM CDT Legal 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 LEAD COATER Gender Identity Male 09/09/2021 5:01 PM CDT Sexual Orientation Straight 09/09/2021 5: 01 PM CDT documented as of this encounter Plan of Treatment Upcoming Encounters Date Type Department Care Team (Late st Contact Info) Description 08/24/2025 3:00 PM CDT Office Visit [facility] [address] [phone] Kesha Jones MD 420 [facility] 250 [place], [place] [address] 03/25/2026 1:00 PM CDT Virtual Visit [facility] [address] [place] [address] [phone] Guy Hernandez MD [address] [place] [address] [phone] documented as of this encounter Procedures Procedure Name Priority Date/Time Associated Diagnosis Comments EXTERNAL LAB RESULTS Routine 03/16/2016 11:26 AM CDT documented in this encounter Results * (ABNORMAL) TXP External Lab Result (03/16/2016 11:26 AM CDT) Sodium (External) 139 135 - 145 ml/min/1.7 3m2 LABDE SCAN Potassium (External) 4.9 3.5 - 5.0 ml/min/1.7 3m2 LABDE SCAN Chloride (External) 105 98 - 110 ml/min/1.7 3m2 LABDE SCAN CO2 (External) 23 21 - 31 ml/min/1.7 3m2 LABDE SCAN Anion Gap (External) 11 5 - 18 ml/min/1.7 3m2 LABDE SCAN Glucose (External) 187(H) 65 - 100 mg/dL LABDE SCAN Calcium (External) 9.8 8.5 - 10.5 mg/dL LABDE SCAN Urea Nitrogen (External) 35(H) 8 - 25 mg/dL LABDE SCAN Creatinine (External) 1.36(H) 0.72 - 1.25 mg/dL LABDE SCAN BUN/Creatinine Ratio (External) 26(H) 10 - 20 ml/min/1.7 3m2 LABDE SCAN GFR Estimated (if ) (External) >60 >60 ml/min/1.7 3m2 LABDE SCAN GFR Estimated (External) 52(L) >60 ml/min/1.7 3m2 LABDE SCAN Protein Albumin Ur (External) 16 LABDE SCAN Creatinine Urine mg/dL (External) 39.8 LABDE SCAN Protein Total Ur per Cr (External) 0.4 LABDE SCAN Hemoglobin (External) 12.3 LABDE SCAN MCV (External) 93 LABDE SCAN Platelet Count (External) 141 LABDE SCAN MPV (External) 10.0 LABDE SCAN 03/16/2016 11:2 6 AM CDT Narrative JUAN PFT - 03/17/2016 8:25 AM CDT Verified by Yesenia Turner on 03/17/2016. us Patient Reported LABORATORY Edited Result - Final JUAN PFT LABDE SCAN documented in this encounter Visit Diagnoses Not on filedocumented in this encounter Care Teams Factory Focus Technician Relationship Specialty Start Date End Date Ca Grier [address] [place] [address] PCP - General Family Practice 10/24/17 Wilber Schaefer MD [facility] [address] [place] [address] Dermatology 01/18/15 04/10/18 Nahun Easton MD [address] [place] [address] Orthopedics 09/21/17 Ca Grier [address] [place] [address] Referring Physician Family Practice 09/21/17 Marisa Skinner MD 717 [facility] 353 [place] [address] Nephrology 04/11/18 04/20/21 Stefan Thornton 717 [facility] [address] [place] [address] Energy Advisor INTERNAL MEDICINE - ENDOCRINOLOGY, DIABETES & METABOLISM 04/11/18 Sanjeev Pastrana MD 420 [facility] 98 [place] [address] Assigned Surgical Provider 11/07/20 11/27/20 [place] [address] [place] [address] Assigned Surgical Provider 11/28/20 02/26/21 Sanjeev Pastrana MD 420 [facility] 98 [place] [address] Assigned Surgical Provider 02/27/21 03/25/22 Ramandeep Collier, RN Registered Nurse Transplant 04/21/21 Guy Hernandez MD [address] [place] [address] Nephrology 04/21/21 Analilia Arellano MD [address] [place] [address] MD Paredes 06/21/21 Guy Hernandez MD [address] [place] [address] 30919 Assigned Nephrology Provider 11/27/21 12/17/21 Guy Hernandez MD [address] [place] [address] 49814 Assigned Nephrology Provider 12/18/21 05/25/23 Evens Clayton MD [address] [place] [address] 77379 Assigned Surgical Provider 03/26/22 09/21/23 Guy Hernandez MD [address] [place] [address] 89285 Assigned Nephrology Provider 05/11/24 Kesha Jones MD [address] [place] [address]97 Assigned Infectious Disease Provider 05/11/25 documented as of this encounter
--- OUTSIDE RECORDS SUMMARY | 2025-08-01 12:37 | XMS_ITS | Encounter Summary ---
Author Organization [facility] Address [address] [place] [address]. [place] [address] Care Team Providers Care Craft Center Director Name Role Phone Wilber Schaefer MD Unavailable Nahun Easton MD Unavailable [phone] Ca Grier Unavailable Ca Grier Primary Care Provider Marisa Skinner MD Unavailable Stefan Thornton Unavailable Sanjeev Pastrana MD Unavailable Evens [place] MD Unavailable Sanjeev Pastrana MD Unavailable [phone] Ramandeep Collier RN Unavailable Un available Guy Hernandez MD Unavailable [phone] Analilia Arellano MD Unavailable [phone] Guy Hernandez MD Unavailable [phone] Guy Hernandez MD Unavailable [phone] Evens [place] MD Unavailable Guy Hernandez MD Unavailable [phone] Kesha Jones MD Unavailable [phone] Encounter Details Date Type Department Care Team (Late st Contact Info) Description 04/22/2017 External Order Results [facility] [address] [place] [address] [phone] Social History Tobacco Use Types Packs/Day Years Used Date Smoking Tobacco: Some Days Alcohol Use Standard Drinks/Week Comments Not Asked 0 (1 standard drink = 0.6 oz pur e alcohol) Sex and Gender Information Value Date Recorded Sex Assigned at Male 09/09/2021 5:01 PM CDT Legal 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 Gender Identity Male 09/09/2021 5:01 PM CDT Sexual Orientation Straight 09/09/2021 5: 01 PM CDT documented as of this encounter Plan of Treatment Upcoming Encounters Date Type Department Care Team (Late st Contact Info) Description 08/24/2025 3:00 PM CDT Office Visit [facility] [address] [phone] Kesha Jones MD 420 [facility] 250 [place], [place] [address] 03/25/2026 1:00 PM CDT Virtual Visit [facility] [address] [place] [address] [phone] Guy Hernandez MD [address] [place] [address] 471985 documented as of this encounter Procedures Procedure Name Priority Date/Time Associated Diagnosis Comments EXTERNAL LAB RESULTS Routine 04/19/2017 3:21 PM CDT documented in this encounter Results * (ABNORMAL) TXP External Lab Result (04/19/2017 3:21 PM CDT) Sodium (External) 135 135 - 145 mmol/L LABDE SCAN Potassium (External) 5.2(H) 3.5 - 5.0 mmol/L LABDE SCAN Chloride (External) 106 98 - 110 mmol/L LABDE SCAN CO2 (External) 23 21 - 31 mmol/L LABDE SCAN Anion Gap (External) 6 5 - 18 LABDE SCAN Glucose (External) 185(H) 65 - 100 mg/dL LABDE SCAN Calcium (External) 9.4 8.5 - 10.5 mg/dL LABDE SCAN Urea Nitrogen (External) 39(H) 8 - 25 mg/dL LABDE SCAN Creatinine (External) 1.36(H) 0.72 - 1.25 mg/dL LABDE SCAN BUN/Creatinine Ratio (External) 29(H) 10 - 20 LABDE SCAN GFR Estimated (if ) (External) >60 >60 ml/min/1.7 3m2 LABDE SCAN GFR Estimated (External) 52(L) >60 ml/min/1.7 3m2 LABDE SCAN WBC Count (External) 6.1 4.5 - 11.6 thou/cu mm LABDE SCAN RBC Count (External) 3.83(L) 4.30 - 5.90 mil/cu mm LABDE SCAN Hemoglobin (External) 11.6(L) 13.5 - 17.5 g/dL LABDE SCAN Hematocrit (External) 35.6(L) 37.0 - 53.0 % LABDE SCAN MCV (External) 93 80 - 100 fL LABDE SCAN MCH (External) 30.3 26.0 - 34.0 pg LABDE SCAN MCHC (External) 32.6 32.0 - 36.0 g/dL LABDE SCAN RDW (External) 13.2 11.5 - 15.5 % LABDE SCAN Platelet Count (External) 140 140 - 440 thou/cu mm LABDE SCAN MPV (External) 10.3 6.5 - 11.0 fL LABDE SCAN Protein Total Ur (External) 8 1 - 14 mg/dL LABDE SCAN Creatinine Urine mg/dL (External) 49.0(L) 63.0 - 166.0 mg/dL LABDE SCAN Protein Total Ur per Cr (External) 0.2(H) <0.2 RATIO LABDE SCAN 04/19/2017 3:21 PM CDT Narrative JUAN AUGUSTINE - 04/22/2017 10:13 AM CDT Verified by Jakob Vaughn on 04/22/2017. us Patient Reported LABORATORY Edited Result - Final JUAN AUGUSTINE LABDE SCAN documented in this encounter Visit Diagnoses Not on filedocumented in this encounter Care Teams Craft Center Director Relationship Specialty Start Date End Date CherrieMatthewe [address] [place] [address] PCP - General Family Practice 10/24/17 Wilber Schaefer MD [facility] [address] [place] [address] Dermatology 01/18/15 04/10/18 Nahun Easton MD [address] [place] [address] 318005 Orthopedics 09/21/17 Ca Grier [address] [place] [address] 9[address]53 Referring Physician Family Practice 09/21/17 Marisa Skinner MD [address] [address] Nephrology 04/11/18 04/20/21 Stefan Thornton [address] [place] [address] Director Multimedia INTERNAL MEDICINE - ENDOCRINOLOGY, DIABETES & METABOLISM 04/11/18 Sanjeev Pastrana MD 420 [facility] 98 [place] [address] Assigned Surgical Provider 11/07/20 11/27/20 [place] [address] [place] [address] Assigned Surgical Provider 11/28/20 02/26/21 Sanjeev Pastrana MD 420 [facility] 98 [place] [address] Assigned Surgical Provider 02/27/21 03/25/22 Ramandeep Collier, RN Registered Nurse Transplant 04/21/21 Guy Hernandez MD [address] [place] [address]326 Nephrology 04/21/21 Analilia Arellano MD [address] [place] [address] Dermatology 06/21/21 Guy Hernandez MD [address] [place] [address] 76723 Assigned Nephrology Provider 11/27/21 12/17/21 Guy Hernandez MD [address] [place] [address] 5[address]64 Assigned Nephrology Provider 12/18/21 05/25/23 Evens Clayton MD [address] [place] [address] 83680 Assigned Surgical Provider 03/26/22 09/21/23 Guy Hernandez MD [address] [place] [address] 80746 Assigned Nephrology Provider 05/11/24 Kesha Jones MD [address] [place] [address] 250 [place] [address] Assigned Infectious Disease Provider 05/11/25 documented as of this encounter
--- OUTSIDE RECORDS SUMMARY | 2025-08-01 12:37 | XMS_ITS | Encounter Summary ---
Author Organization [facility] Address [address] [place] [address] Care Team Providers Care Grocery Store Clerk Name Role Phone Wilber Schaefer MD Unavailable Nahun Easton MD Unavailable [phone] Ca Grier Unavailable Ca Grier Primary Care Provider Marisa Skinner MD Unavailable Stefan Thornton Unavailable Sanjeev Pastrana MD Unavailable [phone] Evens Clayton MD Unavailable Sanjeev Pastrana MD Unavailable [phone] Ramandeep Collier RN Unavailable Un available Guy Hernandez MD Unavailable [phone] Analilia Arellano MD Unavailable [phone] Guy Hernandez MD Unavailable [phone] Guy Hernandez MD Unavailable [phone] Evens Clayton MD Unavailable Guy Hernandez MD Unavailable [phone] Kesha Jones MD Unavailable [phone] Encounter Details Date Type Department Care Team (Late st Contact Info) Description 01/15/2018 MyC Medical Advice [facility] [address] 4th [place] [address] Joseph Thomason DPM [address] [place] [address] 209695 Social History Tobacco Use Types Packs/Day Years Used Date Smoking Tobacco: Some Days Cigarettes Started: 11/19/1965 Cigars Smokeless Tobacco: Never Alcohol Use Standard Drinks/Week Comments Yes 0 (1 standard drink = 0.6 oz pur e alcohol) 1-2/wk Sex and Gender Information Value Date Recorded Sex Assigned at Male 09/09/2021 5:01 PM CDT 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 Gender Identity Male 09/09/2021 5:01 PM CDT Sexual Orientation Straight 09/09/2021 5: 01 PM CDT documented as of this encounter Plan of Treatment Upcoming Encounters Date Type Department Care Team (Late st Contact Info) Description 08/24/2025 3:00 PM CDT Office Visit [facility] Disease Clinic [address] [phone] Kesha Jones MD [address] [place] [address] 250 [place], [place] [phone] 03/25/2026 1:00 PM CDT Virtual Visit [facility] Transplant Clinic [address] [place] [address] Guy Hernandez MD [address] [place] [address] 893515 documented as of this encounter Visit Diagnoses Not on filedocumented in this encounter Care Teams Grocery Store Clerk Relationship Specialty Start Date End Date Ca Grier [address] [place] [address]25 PCP - General Family Practice 10/24/17 Wilber Schaefer MD [facility] [place] [address] Dermatology 01/18/15 04/10/18 Nahun Easton MD [address] [place] [address] 13909 Orthopedics 09/21/17 Ca Grier [address] [place] [address]14 Referring Physician Family Practice 09/21/17 Marisa Skinner MD [address] [place] [address] 17894 Nephrology 04/11/18 04/20/21 Stefan Thornton [address] [place] [address] 66051 Opthalmic Tech INTERNAL MEDICINE - ENDOCRINOLOGY, DIABETES & METABOLISM 04/11/18 Sanjeev Pastrana MD [address] [place] [address] 98847 Assigned Surgical Provider 11/07/20 11/27/20 [place] [address] [place] [address] Assigned Surgical Provider 11/28/20 02/26/21 Sanjeev Pastrana MD [address] [address] Assigned Surgical Provider 02/27/21 03/25/22 Ramandeep Collier RN Registered Nurse Transplant 04/21/21 Guy Hernandez MD [address] [place] [address] 66385 Nephrology 04/21/21 Analilia Arellano MD [address] [place] [address] Dermatology 06/21/21 Guy Hernandez MD [address] [place] [address] 9[address]12 Assigned Nephrology Provider 11/27/21 12/17/21 Guy Hernandez MD [address] [place] [address] 30466 Assigned Nephrology Provider 12/18/21 05/25/23 Evens Clayton MD [address] [place] [address] 42092 Assigned Surgical Provider 03/26/22 09/21/23 Guy Hernandez MD [address] [place] [address] 36338 Assigned Nephrology Provider 05/11/24 Kesha Jones MD [address] [place] [address] 24647 Assigned Infectious Disease Provider 05/11/25 documented as of this encounter
--- OUTSIDE RECORDS SUMMARY | 2025-08-01 12:37 | XMS_ITS | Encounter Summary ---
Author Organization [place] Address [address] [place] [address]. [place] [address] Care Team Providers Care Hand Molder And Caster Name Role Phone Wilber Schaefer MD Unavailable Nahun Easton MD Unavailable Ca Grier Unavailable Ca Grier Primary Care Provider Marisa Skinner MD Unavailable Stefan Thornton Unavailable Sanjeev Pastrana MD Unavailable Evens Clayton MD Unavailable Sanjeev Pastrana MD Unavailable [phone] Ramandeep Collier RN Unavailable Un available Guy Hernandez MD Unavailable [phone] Analilia Arellano MD Unavailable [phone] Guy Hernandez MD Unavailable [phone] Guy Hernandez MD Unavailable [phone] Evens Clayton MD Unavailable Guy Hernandez MD Unavailable [phone] Kesha Jones MD Unavailable [phone] Encounter Details Date Type Department Care Team (Late st Contact Info) Description 06/09/2016 External Order Results [facility] [address] [place] [address] [phone] Social History Tobacco Use Types Packs/Day Years Used Date Smoking Tobacco: Some Days Alcohol Use Standard Drinks/Week Comments Not Asked 0 (1 standard drink = 0.6 oz pur e alcohol) Sex and Gender Information Value Date Recorded Sex Assigned at Male 09/09/2021 5:01 PM CDT Legal 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 ADULT CARE PROVIDER Gender Identity Male 09/09/2021 5:01 PM CDT Sexual Orientation Straight 09/09/2021 5: 01 PM CDT documented as of this encounter Plan of Treatment Upcoming Encounters Date Type Department Care Team (Late st Contact Info) Description 08/24/2025 3:00 PM CDT Office Visit [facility] Disease [facility] [address] [phone] Kesha Jones MD 420 [facility] [place] 250 [place], [place] 376255 03/25/2026 1:00 PM CDT Virtual Visit [facility] Trans[facility] [address] [place] [address] [phone] Guy Hernandez MD [address] [place] [address] [phone] documented as of this encounter Procedures Procedure Name Priority Date/Time Associated Diagnosis Comments EXTERNAL LAB RESULTS Routine 06/09/2016 1:08 PM CDT documented in this encounter Results * (ABNORMAL) TXP External Lab Result (06/09/2016 1:08 PM CDT) Creatinine (External) 1.22 0.72 - 1.25 mg/dL LABDE SCAN GFR Estimated (if ) (External) >60 >60 ml/min/1.7 3m2 LABDE SCAN GFR Estimated (External) 59(L) >60 ml/min/1.7 3m2 LABDE SCAN 06/09/2016 1:08 PM CDT Narrative JUAN PFT - 06/09/2016 4:02 PM CDT Verified by Lizbeth Aguirre on 06/09/2016. us Patient Reported LABORATORY Edited Result - Final JUAN PFT LABDE SCAN documented in this encounter Visit Diagnoses Not on filedocumented in this encounter Care Teams Hand Molder And Caster Relationship Specialty Start Date End Date Ca Grier [address] [place] [address] PCP - General Family Practice 10/24/17 Wilber Schaefer MD [facility] [address] [place] [address] Dermatology 01/18/15 04/10/18 Nahun Easton MD [address] [place] [address] 19237 Orthopedics 09/21/17 Ca Grier [address] [place] [address] 59291 Referring Physician Family Practice 09/21/17 Marisa Skinner MD [address] [place] [address] 32370 Nephrology 04/11/18 04/20/21 Stefan Thornton [address] [place] [address] 565464 Crew Manager INTERNAL MEDICINE - ENDOCRINOLOGY, DIABETES & METABOLISM 04/11/18 Sanjeev Pastrana MD [address] [place] [address] 98 [place], [place] 659855 Assigned Surgical Provider 11/07/20 11/27/20 [place] [address] [place] [address] Assigned Surgical Provider 11/28/20 02/26/21 Sanjeev Pastrana MD [address] [place] [address]143 Assigned Surgical Provider 02/27/21 03/25/22 Ramandeep Collier, RN Registered Nurse Transplant 04/21/21 Guy Hernandez MD [address] [place] [address] 0[address]28 Nephrology 04/21/21 Analilia Arellano MD [address] [place] [address]505 MD Paredes 06/21/21 Guy Hernandez MD [address] [place] [address] 05978 Assigned Nephrology Provider 11/27/21 12/17/21 Guy Hernandez MD [address] [place] [address] 92691 Assigned Nephrology Provider 12/18/21 05/25/23 Evens Clayton MD [address] [place] [address] 37890 Assigned Surgical Provider 03/26/22 09/21/23 Guy Hernandez MD [address] [place] [address] 87070 Assigned Nephrology Provider 05/11/24 Kesha Jones MD [address] [place] [address] 250 [place] [address] Assigned Infectious Disease Provider 05/11/25 documented as of this encounter
--- OUTSIDE RECORDS SUMMARY | 2025-08-01 12:37 | XMS_ITS | Encounter Summary ---
Author Organization [facility] Address [address] [place] [address]. [place] [address] Care Team Providers Care Certified Pathology Assistant Name Role Phone Wilber Schaefer MD Unavailable Nahun Easton MD Unavailable [phone] Ca Grier Unavailable Ca Grier Primary Care Provider Marisa Skinner MD Unavailable Stefan Thornton Unavailable Sanjeev Pastrana MD Unavailable Evens Clayton MD Unavailable Sanjeev Pastrana MD Unavailable Ramandeep Collier RN Unavailable Un available Guy Hernandez MD Unavailable [phone] Analilia Arellano MD Unavailable [phone] Guy Hernandez MD Unavailable [phone] Guy Hernandez MD Unavailable [phone] Evens Clayton MD Unavailable Guy Hernandez MD Unavailable [phone] Kesha Jones MD Unavailable [phone] Encounter Details Date Type Department Care Team (Late st Contact Info) Description 08/31/2017 External Order Results [facility] [address] [place] [address] [phone] Social History Tobacco Use Types Packs/Day Years Used Date Smoking Tobacco: Some Days Alcohol Use Standard Drinks/Week Comments Not Asked 0 (1 standard drink = 0.6 oz pur e alcohol) Sex and Gender Information Value Date Recorded Sex Assigned at Male 09/09/2021 5:01 PM CDT Legal 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 Gender Identity Male 09/09/2021 5:01 PM CDT Sexual Orientation Straight 09/09/2021 5: 01 PM CDT documented as of this encounter Plan of Treatment Upcoming Encounters Date Type Department Care Team (Late st Contact Info) Description 08/24/2025 3:00 PM CDT Office Visit [facility] Disease [facility] [address] [phone] Kesha Jones MD 420 [facility] 250 [place], [place] 9[address] 03/25/2026 1:00 PM CDT Virtual Visit [facility] Trans[facility] [address] [place] [address] [phone] Guy Hernandez MD [address] [place] [address] 066735 documented as of this encounter Procedures Procedure Name Priority Date/Time Associated Diagnosis Comments EXTERNAL LAB RESULTS Routine 08/30/2017 8:09 AM CDT documented in this encounter Results * (ABNORMAL) TXP External Lab Result (08/30/2017 8:09 AM CDT) Sodium (External) 139 135 - 145 mmol/L LABDE SCAN Potassium (External) 4.5 3.5 - 5.0 mmol/L LABDE SCAN Chloride (External) 107 98 - 110 mmol/L LABDE SCAN CO2 (External) 27 21 - 31 mmol/L LABDE SCAN Anion Gap (External) 5 5 - 18 LABDE SCAN Glucose (External) 52(L) 65 - 100 mg/dL LABDE SCAN Calcium (External) 9.7 8.5 - 10.5 mg/dL LABDE SCAN Urea Nitrogen (External) 39(H) 8 - 25 mg/dL LABDE SCAN Creatinine (External) 1.24 0.72 - 1.25 mg/dL LABDE SCAN BUN/Creatinine Ratio (External) 31(H) 10 - 20 LABDE SCAN GFR Estimated (if ) (External) >60 >60 ml/min/1.7 3m2 LABDE SCAN GFR Estimated (External) 58(L) >60 ml/min/1.7 3m2 LABDE SCAN C Peptide (External) <0.10(L) 0.78 - 5.19 ng/mL LABDE SCAN WBC Count (External) 6.0 4.5 - 11.0 thou/cu mm LABDE SCAN RBC Count (External) 4.05(L) 4.30 - 5.90 mil/cu mm LABDE SCAN Hemoglobin (External) 12.2(L) 13.5 - 17.5 g/dL LABDE SCAN Hematocrit (External) 38.1 37.0 - 53.0 % LABDE SCAN MCV (External) 94 80 - 100 fL LABDE SCAN MCH (External) 30.1 26.0 - 34.0 pg LABDE SCAN MCHC (External) 32.0 32.0 - 36.0 g/dL LABDE SCAN RDW (External) 13.4 11.5 - 15.5 % LABDE SCAN Platelet Count (External) 147 140 - 440 thou/cu mm LABDE SCAN MPV (External) 9.7 6.5 - 11.0 fL LABDE SCAN 08/30/2017 8:09 AM CDT Narrative ALEXISANGIE PFT - 08/31/2017 4:28 PM CDT Verified by Sarah Bradshaw on 08/31/2017. us Patient Reported LABORATORY Edited Result - Final JUAN PFT LABDE SCAN documented in this encounter Visit Diagnoses Not on filedocumented in this encounter Care Teams Certified Pathology Assistant Relationship Specialty Start Date End Date Ca Grier [address] [place] [address] PCP - General Family Practice 10/24/17 Wilber Schaefer MD [facility] [address] [place] [address] Dermatology 01/18/15 04/10/18 Nahun Easton MD [address] [place] [address] 90676 Orthopedics 09/21/17 Ca Girer [address] [place] [address] 51856 Referring Physician [facility] Practice 09/21/17 Marisa Skinner MD [address] [place] [address]99 Nephrology 04/11/18 04/20/21 Stefan Thornton [address] [place] [address] 81737 Real Estate Administrator INTERNAL MEDICINE - ENDOCRINOLOGY, DIABETES & METABOLISM 04/11/18 Sanjeev Pastrana MD [address] [place] [address] 59523 Assigned Surgical Provider 11/07/20 11/27/20 [place] [address] [place], [place] [address] Assigned Surgical Provider 11/28/20 02/26/21 Sanjeev Pastrana MD [address] [address] Assigned Surgical Provider 02/27/21 03/25/22 Ramandeep Collier, RN Registered Nurse Transplant 04/21/21 Guy Hernandez MD [address] [place] [address] 19532 Nephrology 04/21/21 Analilia Arellano MD [address] [place] [address] Dermatology 06/21/21 Guy Hernandez MD [address] [place] [address] 36419 Assigned Nephrology Provider 11/27/21 12/17/21 Guy Hernandez MD [address] [place] [address] 76194 Assigned Nephrology Provider 12/18/21 05/25/23 Evens Clayton MD [address] [place] [address] 47129 Assigned Surgical Provider 03/26/22 09/21/23 Guy Hernandez MD [address] [place] [address] 06002 Assigned Nephrology Provider 05/11/24 Kesha Jones MD [address] [place] [address] 32355 Assigned Infectious Disease Provider 05/11/25 documented as of this encounter
--- OUTSIDE RECORDS SUMMARY | 2025-08-01 12:37 | XMS_ITS | Encounter Summary ---
Author Organization [place] Address [address] [place] [address] Care Team Providers Care Filenet Developer Name Role Phone Wilber Schaefer MD Unavailable Nahun Easton MD Unavailable [phone] Ca Grier Unavailable Ca Grier Primary Care Provider Marisa Skinner MD Unavailable [phone] Stefan Thornton Unavailable Sanjeev Pastrana MD Unavailable Evens Clayton MD Unavailable Sanjeev Pastrana MD Unavailable [phone] Ramandeep Collier RN Unavailable Un available Guy Hernandez MD Unavailable [phone] Analilia Arellano MD Unavailable [phone] Guy Hernandez MD Unavailable [phone] Guy Hernandez MD Unavailable [phone] Evens Clayton MD Unavailable Guy Hernandez MD Unavailable [phone] Kesha Jones MD Unavailable [phone] Encounter Details Date Type Department Care Team (Late st Contact Info) Description 03/14/2017 MyC Medical Advice Initial Department [facility] Social History Tobacco Use Types Packs/Day Years Used Date Smoking Tobacco: Some Days Alcohol Use Standard Drinks/Week Comments Not Asked 0 (1 standard drink = 0.6 oz pur e alcohol) Sex and Gender Information Value Date Recorded Sex Assigned at Male 09/09/2021 5:01 PM CDT Legal 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 Gender Identity Male 09/09/2021 5:01 PM CDT Sexual Orientation Straight 09/09/2021 5: 01 PM CDT documented as of this encounter Plan of Treatment Upcoming Encounters Date Type Department Care Team (Late st Contact Info) Description 08/24/2025 3:00 PM CDT Office Visit [facility] Infect[facility] Disease Clinic [address] [phone] Kesha Jones MD [address] [phone] 03/25/2026 1:00 PM CDT Virtual Visit [facility] Transplant Clinic [address] [place] [phone] Guy Hernandez MD [address] [place] [address] documented as of this encounter Visit Diagnoses Not on filedocumented in this encounter Care Teams Filenet Developer Relationship Specialty Start Date End Date Ca Grier [address] [place] [address] [id number] PCP - General Family Practice 10/24/17 Wilber Schaefer MD [facility] [address] [place] [address] Dermatology 01/18/15 04/10/18 Nahun Easton MD [address] [place] [address] [phone] Orthopedics 09/21/17 Ca Grier [address] [place] [address] 530455 Referring Physician Family Practice 09/21/17 Marisa Skinner MD [address] [address] Nephrology 04/11/18 04/20/21 Stefan Thornton [address] [place] [address] 970714 Gardener INTERNAL MEDICINE - ENDOCRINOLOGY, DIABETES & METABOLISM 04/11/18 Sanjeev Pastrana MD [address] [place] [address] 487535 Assigned Surgical Provider 11/07/20 11/27/20 [place] [address] [place], [place] 252[address] Assigned Surgical Provider 11/28/20 02/26/21 Sanjeev Pastrana MD [address] [place] [address] 227445 Assigned Surgical Provider 02/27/21 03/25/22 Ramandeep Collier, RN Registered Nurse Transplant 04/21/21 Guy Hernandez MD [address] [place] [address] 327145 Nephrology 04/21/21 Analilia Arellano MD [address] [place] [address] 473185 MD Paredes 06/21/21 Guy Hernandez MD [address] [place] [address] 54766 Assigned Nephrology Provider 11/27/21 12/17/21 Guy Hernandez MD [address] [place] [address] 27417 Assigned Nephrology Provider 12/18/21 05/25/23 Evens Clayton MD [address] [place] [address] 90023 Assigned Surgical Provider 03/26/22 09/21/23 Guy Hernandez MD [address] [place] [address] 31246 Assigned Nephrology Provider 05/11/24 Kesha Jones MD [address] [place] [address] 81937 Assigned Infectious Disease Provider 05/11/25 documented as of this encounter
--- OUTSIDE RECORDS SUMMARY | 2025-08-01 12:37 | XMS_ITS | Encounter Summary ---
Author Organization [facility] Address [address] [place] [address]. [place] [address] Care Team Providers Care Industrial Paramedic Name Role Phone Wilber Schaefer MD Unavailable Nahun Easton MD Unavailable Ca Grier Unavailable Ca Grier Primary Care Provider Marisa Skinner MD Unavailable [phone] Stefan Thornton Unavailable Sanjeev Pastrana MD Unavailable [phone] Evens Clayton MD Unavailable Sanjeev Pastrana MD Unavailable Ramandeep Collier RN Unavailable Un available Guy Hernandez MD Unavailable [phone] Analilia Arellano MD Unavailable [phone] Guy Hernandez MD Unavailable [phone] Guy Hernandez MD Unavailable [phone] Evens Clayton MD Unavailable Guy Hernandez MD Unavailable [phone] Kesha Jones MD Unavailable [phone] Encounter Details Date Type Department Care Team (Late st Contact Info) Description 03/16/2016 External Order Results [facility] [address] [place] [address] [phone] Social History Tobacco Use Types Packs/Day Years Used Date Smoking Tobacco: Some Days Alcohol Use Standard Drinks/Week Comments Not Asked 0 (1 standard drink = 0.6 oz pur e alcohol) Sex and Gender Information Value Date Recorded Sex Assigned at Male 09/09/2021 5:01 PM CDT Legal 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 SWEEPER 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 Gender Identity Male 09/09/2021 5:01 PM CDT Sexual Orientation Straight 09/09/2021 5: 01 PM CDT documented as of this encounter Plan of Treatment Upcoming Encounters Date Type Department Care Team (Late st Contact Info) Description 08/24/2025 3:00 PM CDT Office Visit [facility] Disease [facility] [address] [phone] Kesha Jones MD 420 [facility] 250 [place], [place] 69[address] 03/25/2026 1:00 PM CDT Virtual Visit [facility] Trans[facility] [address] [place] [address] [phone] Guy Hernandez MD [address] [place] [address] 085345 documented as of this encounter Procedures Procedure Name Priority Date/Time Associated Diagnosis Comments EXTERNAL LAB RESULTS Routine 12/31/2015 8:26 AM INDUSTRIAL SWEEPER CLEANER documented in this encounter Results * TXP External Lab Result (12/31/2015 8:26 AM INDUSTRIAL SWEEPER CLEANER) Creatinine (External) 1.18 0.72 - 1.25 mg/dL LABDE SCAN GFR Estimated (if ) (External) >60 >60 ml/min/1.7 3m2 LABDE SCAN GFR Estimated (External) >60 >60 ml/min/1.7 3m2 LABDE SCAN TSH (External) 2.88 0.35 - 4.94 LABDE SCAN 12/31/2015 8:26 AM INDUSTRIAL SWEEPER CLEANER Narrative JUAN PFT - 03/16/2016 6:51 AM CDT Verified by Bailee San on 03/16/2016. us Patient Reported LABORATORY Edited Result - Final JUAN PFT LABDE SCAN documented in this encounter Visit Diagnoses Not on filedocumented in this encounter Care Teams Industrial Paramedic Relationship Specialty Start Date End Date Ca Grier [address] [place] [address] PCP - General Family Practice 10/24/17 Wilber Schaefer MD [facility] [address] [place] [address] Dermatology 01/18/15 04/10/18 Nahun Easton MD [address] [place] [address] Orthopedics 09/21/17 Ca Grier [address] [place] [address] 89352 Referring Physician Family Practice 09/21/17 Marisa Skinner MD [address] [place] [address]194 Nephrology 04/11/18 04/20/21 Stefan Thornton [address] [place] [address] 81956 Mechanical Maintenance Instructor INTERNAL MEDICINE - ENDOCRINOLOGY, DIABETES & METABOLISM 04/11/18 Sanjeev Pastrana MD [address] [address] Assigned Surgical Provider 11/07/20 11/27/20 [place] [address] [place] [address] Assigned Surgical Provider 11/28/20 02/26/21 Sanjeev Pastrana MD [address] [place] [address] 77856 Assigned Surgical Provider 02/27/21 03/25/22 Ramandeep Collier, RN Registered Nurse Transplant 04/21/21 Guy Hernandez MD [address] [place] [address] 13[address] Nephrology 04/21/21 Analilia Arellano MD [address] [place] [address] MD Paredes 06/21/21 Guy Hernandez MD [address] [place] [address] 0[address] Assigned Nephrology Provider 11/27/21 12/17/21 Guy Hernandez MD [address] [place] [address] 44548 Assigned Nephrology Provider 12/18/21 05/25/23 Evens Clayton MD [address] [place] [address] 35588 Assigned Surgical Provider 03/26/22 09/21/23 Guy Hernandez MD [address] [place] [address] Assigned Nephrology Provider 05/11/24 Kesha Jones MD [address] [place] [address] 250 [place], [place] 927945 Assigned Infectious Disease Provider 05/11/25 documented as of this encounter
--- OUTSIDE RECORDS SUMMARY | 2025-08-01 12:37 | XMS_ITS | Encounter Summary ---
Author Organization [facility] Address [address] [place] [address] Care Team Providers Care Cyber Forensic Specialist Name Role Phone Wilber Schaefer MD Unavailable Nahun Easton MD Unavailable [phone] Ca Grier Unavailable Ca Grier Primary Care Provider Marisa Skinner MD Unavailable Stefan Thornton Unavailable Sanjeev Pastrana MD Unavailable Evens Clayton MD Unavailable Sanjeev Pastrana MD Unavailable [phone] Ramandeep Collier RN Unavailable Un available Guy Hernandez MD Unavailable [phone] Analilia Arellano MD Unavailable [phone] Guy Hernandez MD Unavailable [phone] Guy Hernandez MD Unavailable [phone] Evens Clayton MD Unavailable Guy Hernandez MD Unavailable [phone] Kesha Jones MD Unavailable [phone] Encounter Details Date Type Department Care Team (Late st Contact Info) Description 12/11/2017 MyC Medical Advice [facility] Orthopaedic [address] 4th [place] [phone] Nahun Easton MD [address] [place] [address] Social History Tobacco Use Types Packs/Day Years Used Date Smoking Tobacco: Some Days Smokeless Tobacco: Never Alcohol Use Standard Drinks/Week Comments Not Asked 0 (1 standard drink = 0.6 oz pur e alcohol) Sex and Gender Information Value Date Recorded Sex Assigned at Male 09/09/2021 5:01 PM CDT Legal 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 Gender Identity Male 09/09/2021 5:01 PM CDT Sexual Orientation Straight 09/09/2021 5: 01 PM CDT documented as of this encounter Plan of Treatment Upcoming Encounters Date Type Department Care Team (Late st Contact Info) Description 08/24/2025 3:00 PM CDT Office Visit [facility] [address] [address] Kesha Jones MD [address] 847295 03/25/2026 1:00 PM CDT Virtual Visit [facility] [address] [place] [address] Guy Hernandez MD [address] [place] [address] [phone] documented as of this encounter Visit Diagnoses Not on filedocumented in this encounter Care Teams Cyber Forensic Specialist Relationship Specialty Start Date End Date Ca Grier [address] [place] [address] [phone] PCP - General Family Practice 10/24/17 Wilber Schaefer MD [facility] [place], [place] 95[address]26 Dermatology 01/18/15 04/10/18 Nahun Easton MD [address] [place] [address] 488645 Orthopedics 09/21/17 Ca Grier [address] [place] [address] 720465 Referring Physician Family Practice 09/21/17 Marisa Skinner MD [address] [place] [address] [phone] Nephrology 04/11/18 04/20/21 Stefan Thornton [address] [place] [address] 633744 Check Out Clerk INTERNAL MEDICINE - ENDOCRINOLOGY, DIABETES & METABOLISM 04/11/18 Sanjeev Pastrana MD [address] [place] [address] 198475 Assigned Surgical Provider 11/07/20 11/27/20 [place] [address] [place], [place] 886709 Assigned Surgical Provider 11/28/20 02/26/21 Sanjeev Pastrana MD [address] 354885 Assigned Surgical Provider 02/27/21 03/25/22 Ramandeep Collier RN Registered Nurse Transplant 04/21/21 Guy Hernandez MD [address] [place] [address] 07417 Nephrology 04/21/21 Analilia Arellano MD [address] [place] [address]35 MD Dermatology 06/21/21 Guy Hernandez MD [address] [place] [address] 95130 Assigned Nephrology Provider 11/27/21 12/17/21 Guy Hernandez MD [address] [place] [address] 32830 Assigned Nephrology Provider 12/18/21 05/25/23 Evens Clayton MD [address] [place] [address] 47812 Assigned Surgical Provider 03/26/22 09/21/23 Guy Hernandez MD [address] [place] [address] 94996 Assigned Nephrology Provider 05/11/24 Kesha Jones MD [address] [place] [address]247 Assigned Infectious Disease Provider 05/11/25 documented as of this encounter
--- OUTSIDE RECORDS SUMMARY | 2025-08-01 12:37 | XMS_ITS | Encounter Summary ---
Author Organization [facility] Address [address] [place] [address]. [place] [address] Care Team Providers Care Manager Recruiting Name Role Phone Wilber Schaefer MD Unavailable Nahun Easton MD Unavailable Ca Grier Unavailable Ca Grier Primary Care Provider Marisa Skinner MD Unavailable Stefan Thornton Unavailable Sanjeev Pastrana MD Unavailable [phone] Evens Clayton MD Unavailable Sanjeev Pastrana MD Unavailable [phone] Ramandeep Collier RN Unavailable Un available Guy Hernandez MD Unavailable [phone] Analilia Arellano MD Unavailable [phone] Guy Hernandez MD Unavailable [phone] Guy Hernandez MD Unavailable [phone] Evens Clayton MD Unavailable Guy Hernandez MD Unavailable [phone] Kesha Jones MD Unavailable [phone] Encounter Details Date Type Department Care Team (Late st Contact Info) Description 12/22/2016 External Order Results [facility] [address] [place] [phone] Social History Tobacco Use Types Packs/Day Years Used Date Smoking Tobacco: Some Days Alcohol Use Standard Drinks/Week Comments Not Asked 0 (1 standard drink = 0.6 oz pur e alcohol) Sex and Gender Information Value Date Recorded Sex Assigned at Male 09/09/2021 5:01 PM CDT Legal 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 CLOTH HAULER Gender Identity Male 09/09/2021 5:01 PM CDT Sexual Orientation Straight 09/09/2021 5: 01 PM CDT documented as of this encounter Plan of Treatment Upcoming Encounters Date Type Department Care Team (Late st Contact Info) Description 08/24/2025 3:00 PM CDT Office Visit [facility] [address] [phone] Kesha Jones MD 420 [facility] [address] [place], [place] 515235 03/25/2026 1:00 PM CDT Virtual Visit [facility] [address] [place] [address] [phone] Guy Hernandez MD [address] [place] [address] [phone] documented as of this encounter Procedures Procedure Name Priority Date/Time Associated Diagnosis Comments EXTERNAL LAB RESULTS Routine 12/20/2016 2:48 PM CLOTH HAULER documented in this encounter Results * (ABNORMAL) TXP External Lab Result (12/20/2016 2:48 PM CLOTH HAULER) Sodium (External) 134(L) 135 - 145 mmol/L LABDE SCAN Potassium (External) 4.8 3.5 - 5.0 mmol/L LABDE SCAN Chloride (External) 103 98 - 110 mmol/L LABDE SCAN CO2 (External) 21 21 - 31 mmol/L LABDE SCAN Anion Gap (External) 10 5 - 18 LABDE SCAN Glucose (External) 244(H) 65 - 100 mg/dL LABDE SCAN Calcium (External) 8.7 8.5 - 10.5 mg/dL LABDE SCAN Urea Nitrogen (External) 42(H) 8 - 25 mg/dL LABDE SCAN Creatinine (External) 1.44(H) 0.72 - 1.25 mg/dL LABDE SCAN BUN/Creatinine Ratio (External) 29(H) 10 - 20 LABDE SCAN GFR Estimated (if ) (External) 59(L) >60 ml/min/1.7 3m2 LABDE SCAN GFR Estimated (External) 49(L) >60 ml/min/1.7 3m2 LABDE SCAN Hemoglobin (External) 11.1(L) 13.5 - 17.5 g/dL LABDE SCAN MCV (External) 93 80 - 100 fL LABDE SCAN Platelet Count (External) 100(L) 140 - 440 thou/cu mm LABDE SCAN MPV (External) 10.3 6.5 - 11.0 fL LABDE SCAN 12/20/2016 2:48 PM CLOTH HAULER Narrative JUAN PFT - 12/22/2016 9:36 AM CLOTH HAULER Verified by Sarah Bradshaw on 12/22/2016. us Patient Reported LABORATORY Edited Result - Final JUAN PFT LABDE SCAN documented in this encounter Visit Diagnoses Not on filedocumented in this encounter Care Teams Manager Recruiting Relationship Specialty Start Date End Date [facility] [address] [place] [address] PCP - General Family Practice 10/24/17 Wilber Schaefer MD [facility] [address] [place] [address] Dermatology 01/18/15 04/10/18 Nahun Easton MD [address] [place] [address] 886265 Orthopedics 09/21/17 Ca Grier [address] [place] [address] 95626 Referring Physician Family Practice 09/21/17 Marisa Skinner MD 717 [facility] [address] [place] [address] Nephrology 04/11/18 04/20/21 Stefan Thornton [address] 835914 Bessemer Bottom Maker INTERNAL MEDICINE - ENDOCRINOLOGY, DIABETES & METABOLISM 04/11/18 Sanjeev Pastrana MD 420 [facility] 98 [place], [place] 413665 Assigned Surgical Provider 11/07/20 11/27/20 [place] [address] [place] [address] Assigned Surgical Provider 11/28/20 02/26/21 Sanjeev Pastrana MD [address] [place] [address] 98 [place] [address] Assigned Surgical Provider 02/27/21 03/25/22 Ramandeep Collier, RN Registered Nurse Transplant 04/21/21 Guy Hernandez MD [address] [place] [address] 674515 Nephrology 04/21/21 Analilia Arellano MD [address] [place] [address] [phone] MD Paredes 06/21/21 Guy Hernandez MD [address] [place] [address] 11079 Assigned Nephrology Provider 11/27/21 12/17/21 Guy Hernandez MD [address] [place] [address] 87948 Assigned Nephrology Provider 12/18/21 05/25/23 Evens Clayton MD [address] [place] [address] [phone] Assigned Surgical Provider 03/26/22 09/21/23 Guy Hernandez MD [address] [place] [address] 794185 Assigned Nephrology Provider 05/11/24 Kesha Jones MD [address] [place] [address] 466015 Assigned Infectious Disease Provider 05/11/25 documented as of this encounter
--- OUTSIDE RECORDS SUMMARY | 2025-08-01 12:37 | XMS_ITS | Encounter Summary ---
Author Organization [facility] Address [address] [place] [address] Care Team Providers Care Flat Sheet Maker Name Role Phone Wilber Schaefer MD Unavailable Nahun Easton MD Unavailable Ca Grier Unavailable Ca Grier Primary Care Provider Marisa Skinner MD Unavailable Stefan Thornton Unavailable Sanjeev Pastrana MD Unavailable [phone] Evens Clayton MD Unavailable Sanjeev Pastrana MD Unavailable Ramandeep Collier RN Unavailable Un available Guy Hernandez MD Unavailable [phone] Analilia Arellano MD Unavailable [phone] Guy Hernandez MD Unavailable [phone] Guy Hernandez MD Unavailable [phone] Evens Clayton MD Unavailable Guy Hernandez MD Unavailable [phone] Kesha Jones MD Unavailable [phone] Encounter Details Date Type Department Care Team (Late st Contact Info) Description 10/16/2017 MyC Medical Advice [facility] [address] [place] [address] 3rd [place] [address] Tigre Porter MD [address] [place] [address] [address] [place] [address] Social History Tobacco Use Types Packs/Day Years Used Date Smoking Tobacco: Some Days Smokeless Tobacco: Never Alcohol Use Standard Drinks/Week Comments Not Asked 0 (1 standard drink = 0.6 oz pur e alcohol) Sex and Gender Information Value Date Recorded Sex Assigned at Male 09/09/2021 5:01 PM CDT Legal 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 Gender Identity Male 09/09/2021 5:01 PM CDT Sexual Orientation Straight 09/09/2021 5: 01 PM CDT documented as of this encounter Plan of Treatment Upcoming Encounters Date Type Department Care Team (Late st Contact Info) Description 08/24/2025 3:00 PM CDT Office Visit [facility] [address] [phone] Kesha Jones MD [address] [place] [address] 250 [place], [place] 7[address] 03/25/2026 1:00 PM CDT Virtual Visit [facility] [address] [place] [phone] Guy Hernandez MD [address] [place] [address] 722305 documented as of this encounter Visit Diagnoses Not on filedocumented in this encounter Care Teams Flat Sheet Maker Relationship Specialty Start Date End Date Ca Grier [address] [place] [address] [phone] PCP - General Family Practice 10/24/17 Wilber Schaefer MD [facility] [place], [place] 430926 Dermatology 01/18/15 04/10/18 Nahun Easton MD [address] [place] [address] 829255 Orthopedics 09/21/17 Ca Grier [address] [place] [address] 141535 Referring Physician Family Practice 09/21/17 Marisa Skinner MD [address] [place] [address] 360724 Nephrology 04/11/18 04/20/21 Stefan Thornton [address] [place] [address] 063664 Well Servicing Rig Operator INTERNAL MEDICINE - ENDOCRINOLOGY, DIABETES & METABOLISM 04/11/18 Sanjeev Pastrana MD [address] [place] [address] 863735 Assigned Surgical Provider 11/07/20 11/27/20 [place] [address] [place], [place] 6408[address] Assigned Surgical Provider 11/28/20 02/26/21 Sanjeev Pastrana MD [address] [phone] Assigned Surgical Provider 02/27/21 03/25/22 Ramandeep Collier RN Registered Nurse Transplant 04/21/21 Guy Hernandez MD [address] [place] [address] 71498 Nephrology 04/21/21 Analilia Arellano MD [address] [place] [address] 68389 MD Dermatology 06/21/21 Guy Hernandez MD [address] [place] [address] 49540 Assigned Nephrology Provider 11/27/21 12/17/21 Guy Hernandez MD [address] [place] [address] 19617 Assigned Nephrology Provider 12/18/21 05/25/23 Evens Clayton MD [address] [place] [address] 31109 Assigned Surgical Provider 03/26/22 09/21/23 Guy Hernandez MD [address] [place] [address] 10968 Assigned Nephrology Provider 05/11/24 Kesha Jones MD [address] [place] [address] 10782 Assigned Infectious Disease Provider 05/11/25 documented as of this encounter
--- OUTSIDE RECORDS SUMMARY | 2025-08-01 12:37 | XMS_ITS | Encounter Summary ---
Author Organization [facility] Address [address] [place] [address]. [place] [address] Care Team Providers Care Diesel Engine Engineer Name Role Phone Nahun Easton MD Unavailable [phone] Ca Grier Unavailable Ca Grier Primary Care Provider [phone] Stefan Thornton Unavailable Sanjeev Pastrana MD Unavailable [phone] Ramandeep Collier RN Unavailable Un available Guy Hernandez MD Unavailable [phone] Analilia Arellano MD Unavailable [phone] Guy Hernandez MD Unavailable [phone] Evens Clayton MD Unavailable Guy Hernandez MD Unavailable [phone] Kesha Jones MD Unavailable [phone] Encounter Details Date Type Department Care Team (Late st Contact Info) Description 01/31/2022 [facility] [address] [address] Guy Hernandez MD [address] [place] [address] Social History Tobacco Use Types Packs/Day [...] PM CDT Legal 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 Gender Identity Male 09/09/2021 5:01 PM CDT Sexual Orientation Straight 09/09/2021 5: 01 PM CDT documented as of this encounter Plan of Treatment Upcoming Encounters Date Type Department Care Team (Late st Contact Info) Description 08/24/2025 3:00 PM CDT Office Visit [facility] Infectious Disease Clinic [address] [phone] Kesha Jones MD [address] [phone] 03/25/2026 1:00 PM CDT Virtual Visit [facility] Transplant Clinic [address] [place] [phone] Guy Hernandez MD [address] [place] [address] 018125 documented as of this encounter Visit Diagnoses Not on filedocumented in this encounter Care Teams Diesel Engine Engineer Relationship Specialty Start Date End Date Ca Grier [address] [place] [address] 214455 PCP - General Family Practice 10/24/17 Nahun Easton MD [address] [place] [address] 380085 Orthopedics 09/21/17 Ca Grier [address] [place] [address] 876995 Referring Physician Family Practice 09/21/17 Stefan Thornton [address] [place] [address] 000635 Customer Technical Services Manager INTERNAL MEDICINE - ENDOCRINOLOGY, DIABETES & METABOLISM 04/11/18 Sanjeev Pastrana MD [address] [place] [address] 901625 Assigned Surgical Provider 02/27/21 03/25/22 Ramandeep Collier, RN Registered Nurse Transplant 04/21/21 Guy Hernandez MD [address] [place] [address] 88032 Nephrology 04/21/21 Analilia Arellano MD [address] [place] [address] 64553 MD Dermatology 06/21/21 Guy Hernandez MD [address] [place] [address] 18370 Assigned Nephrology Provider 12/18/21 05/25/23 Evens Clayton MD [address] [place] [address] 24113 Assigned Surgical Provider 03/26/22 09/21/23 Guy Hernandez MD [address] [place] [address] 60099 Assigned Nephrology Provider 05/11/24 Kesha Jones MD [address] [place] [address] 250 [place] [address] Assigned Infectious Disease Provider 05/11/25 documented as of this encounter
--- OUTSIDE RECORDS SUMMARY | 2025-08-01 12:37 | XMS_ITS ---
Author Organization [facility] Address [address] [place] [address]. 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 as Active Follow-up on 12/27/2022 Kidney CoordinatorJanice Leos RN Phone: N/A Fax: N/A Email: N/A [employer] [employer] Organ Diagnosis Organ 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 Survival Infection Treatment Organism Resolved 02/11/2025 39 years Infection Medical management 02/06/2023 37 years Toe infection Antibiotics Donor Information Organ ABO Source Meets Risk Criteria HLA Match Mismatches Cross Match Right Kidney Transplanted A: B: DR: Right Kidney Donor Serology Results Anti-HBcAb No results on file HBsAg No results on file HBsAb No results on file HBV DNA No results on file Anti-HCV No results on file Anti-HIV I/II No results on file Anti-CMV No results on file Anti-HTLV I/II No results on file RPR/VDRL No results on file EBV IgG No results on file EBV IgM No results on file EBNA No results on file Toxoplasma No results on file MUSA No results on file Care Team Name Role Phone Fax Email Janice Leos RN Kidney Coordinator N/A N/A N/A Guy Burgos MD Transplant Physician [phone] N/A Events Post-Transplant Pre-Transplant Admitted: 01/25/1986 Referred: 12/10/1985 Transplanted: 01/29/1986 Discharged: 02/06/1986 Appointments (07/01/2025 - 08/31/2025) When With Visit Type Description 07/17/2025 Inf Disease - Conor juárez, Yolanda Return Patient Toe osteomyelitis, right (H) (Primary Dx); Need for vaccination; Immunosuppressed status; Diabetes 1.5, managed as type 1 (H) 08/24/2025 Inf Disease - Roebrt, Yolanda Retur n Patient
--- OUTSIDE RECORDS SUMMARY | 2025-08-01 12:37 | XMS_ITS | Encounter Summary ---
Author Organization [facility] Address [address] [place] [address]. [place] [address] Care Team Providers Care Photographic Process Attendant Name Role Phone Wilber Schaefer MD Unavailable Nahun Easton MD Unavailable [phone] Ca Grier Unavailable Ca Grier Primary Care Provider Marisa Skinner MD Unavailable [phone] Stefan Thornton Unavailable Sanjeev Pastrana MD Unavailable Evens Clayton MD Unavailable Sanjeev Pastrana MD Unavailable [phone] Ramandeep Collier RN Unavailable Un available Gyu Hernandez MD Unavailable [phone] Analilia Arellano MD Unavailable [phone] Guy Hernandez MD Unavailable [phone] Guy Hernandez MD Unavailable [phone] Evens Clayton MD Unavailable Guy Hernandez MD Unavailable [phone] Kesha Jones MD Unavailable [phone] Encounter Details Date Type Department Care Team (Late st Contact Info) Description 12/21/2016 MyC Medical [facility] Clinic [address] [address] Marisa Skinner MD 717 [facility] [address] [place] [address] Social History Tobacco Use Types Packs/Day Years Used Date Smoking Tobacco: Some Days Alcohol Use Standard Drinks/Week Comments Not Asked 0 (1 standard drink = 0.6 oz pur e alcohol) Sex and Gender Information Value Date Recorded Sex Assigned at Male 09/09/2021 5:01 PM CDT Legal 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 Gender Identity Male 09/09/2021 5:01 PM CDT Sexual Orientation Straight 09/09/2021 5: 01 PM CDT documented as of this encounter Plan of Treatment Upcoming Encounters Date Type Department Care Team (Late st Contact Info) Description 08/24/2025 3:00 PM CDT Office Visit [facility] Disease [facility] [address] [address] Kesha Jones MD 420 [facility] [address] [place], [place] 9539[address] 03/25/2026 1:00 PM CDT Virtual Visit [facility] Transplant Clinic [address] [place] [address] Guy Hernandez MD [address] [place] [address] [phone] documented as of this encounter Visit Diagnoses Not on filedocumented in this encounter Care Teams Photographic Process Attendant Relationship Specialty Start Date End Date Ca Grier [address] [place] [address] [phone] PCP - General Family Practice 10/24/17 Wilber Schaefer MD [facility] [place] [address] Dermatology 01/18/15 04/10/18 Nahun Easton MD [address] [place] [address] 075225 Orthopedics 09/21/17 Ca Grier [address] [place] [address] 636905 Referring Physician Family Practice 09/21/17 Marisa Skinner MD [address] [place] [address] 519494 Nephrology 04/11/18 04/20/21 Stefan Thornton [address] [place] [address] [phone] [employer] INTERNAL MEDICINE - ENDOCRINOLOGY, DIABETES & METABOLISM 04/11/18 Sanjeev Pastrana MD [address] [place] [address] 839905 Assigned Surgical Provider 11/07/20 11/27/20 [place] [address] [place], [place] 8479[address] Assigned Surgical Provider 11/28/20 02/26/21 Sanjeev Pastrana MD [address] 136025 Assigned Surgical Provider 02/27/21 03/25/22 Ramandeep Collier RN Registered Nurse Transplant 04/21/21 Guy Hernandez MD [address] [place] [address] 11251 Nephrology 04/21/21 Analilia Arellano MD [address] [place] [address] 87843 MD Dermatology 06/21/21 Guy Hernandez MD [address] [place] [address] 62698 Assigned Nephrology Provider 11/27/21 12/17/21 uGy Hernandez MD [address] [place] [address] 28880 Assigned Nephrology Provider 12/18/21 05/25/23 Evens Clayton MD [address] [place] [address] 56341 Assigned Surgical Provider 03/26/22 09/21/23 Guy Hernandez MD [address] [place] [address] 10820 Assigned Nephrology Provider 05/11/24 Kesha Jones MD [address] [place] [address] 58626 Assigned Infectious Disease Provider 05/11/25 documented as of this encounter
--- OUTSIDE RECORDS SUMMARY | 2025-08-01 12:37 | XMS_ITS | Encounter Summary ---
Author Organization [facility] Address [address] [place] [address]. [place] [address] Care Team Providers Care Entry Level Automotive Technician Name Role Phone Wilber Schaefer MD Unavailable Nahun Easton MD Unavailable [phone] Ca Grier Unavailable Ca Grier Primary Care Provider Marisa Skinner MD Unavailable [phone] Stefan Thornton Unavailable Sanjeev Pastrana MD Unavailable Evens Clayton MD Unavailable Sanjeev Pastrana MD Unavailable [phone] Ramandeep Collier RN Unavailable Un available Guy Hernandez MD Unavailable [phone] Analilia Arellano MD Unavailable [phone] Guy Hernandez MD Unavailable [phone] Guy Hernandez MD Unavailable [phone] Evens Clayton MD Unavailable Guy Hernandez MD Unavailable [phone] Kesha Jones MD Unavailable [phone] Encounter Details Date Type Department Care Team (Late st Contact Info) Description 05/16/[address] 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 Gender Identity Male 09/09/2021 5:01 PM CDT Sexual Orientation Straight 09/09/2021 5: 01 PM CDT documented as of this encounter Plan of Treatment Upcoming Encounters Date Type Department Care Team (Late st Contact Info) Description 08/24/2025 3:00 PM CDT Office Visit [facility] Infectious Disease Clinic [address] [address] Kesha Jones MD 420 [facility] 250 [place], [place] [address] 03/25/2026 1:00 PM CDT Virtual Visit [facility] Transplant Clinic [address] [place] [address] Guy Hernandez MD [address] [place] [address] [phone] documented as of this encounter Visit Diagnoses Not on filedocumented in this encounter Care Teams Entry Level Automotive Technician Relationship Specialty Start Date End Date Ca Grier [address] [place] [address] [phone] PCP - General Family Practice 10/24/17 Wilber Schaefer MD [facility] [place], [place] 397[address] Dermatology 01/18/15 04/10/18 Nahun Easton MD [address] [place] [address] [phone] Orthopedics 09/21/17 Ca Grier [address] [place] [address] 610555 Referring Physician Family Practice 09/21/17 Marisa Skinner MD [address] [place] [address] [id number] Nephrology 04/11/18 04/20/21 Stefan Thornton [address] [place] [address] [phone] [facility] INTERNAL MEDICINE - ENDOCRINOLOGY, DIABETES & METABOLISM 04/11/18 Sanjeev Pastrana MD [address] [place] [address] [id number] Assigned Surgical Provider 11/07/20 11/27/20 [place] [address] [place], [place] [address] Assigned Surgical Provider 11/28/20 02/26/21 Sanjeev Pastrana MD [address] 820305 Assigned Surgical Provider 02/27/21 03/25/22 Ramandeep Collier RN Registered Nurse Transplant 04/21/21 Guy Hernandez MD [address] [place] [address] Nephrology 04/21/21 Analilia Arellano MD [address] [place] [address] MD Dermatology 06/21/21 Guy Hernandez MD [address] [place] [address] Assigned Nephrology Provider 11/27/21 12/17/21 Guy Hernandez MD [address] [place] [address] 28785 Assigned Nephrology Provider 12/18/21 05/25/23 Evens Clayton MD [address] [place] [address] 39736 Assigned Surgical Provider 03/26/22 09/21/23 Guy Hernandez MD [address] [place] [address] Assigned Nephrology Provider 05/11/24 Kesha Jones MD [address] [place] [address]89 Assigned Infectious Disease Provider 05/11/25 documented as of this encounter
--- OUTSIDE RECORDS SUMMARY | 2025-08-01 12:37 | XMS_ITS | Encounter Summary ---
Author Organization [facility] Address [address] [place] [address] Care Team Providers Care Inner Diameter Grinder Tool Name Role Phone Wilber Schaefer MD Unavailable Nahun Easton MD Unavailable [phone] Ca Grier Unavailable Ca Grier Primary Care Provider Marisa Skinner MD Unavailable [phone] Stefan Thornton Unavailable Sanjeev Pastrana MD Unavailable [phone] Evens Clayton MD Unavailable Sanjeev Pastrana MD Unavailable [phone] Ramandeep Collier RN Unavailable Un available Guy Hernandez MD Unavailable [phone] Analilia Arellano MD Unavailable [phone] Guy Hernandez MD Unavailable [phone] Guy Hernandez MD Unavailable [phone] Evens Clayton MD Unavailable Guy Hernandez MD Unavailable [phone] Kesha Jones MD Unavailable [phone] Encounter Details Date Type Department Care Team (Late st Contact Info) Description 01/30/2018 MyC Medical Advice [facility] Orthopaedic [address] 4th [place] [address] Joseph Thomason DPM [address] [place] [address] [phone] Social History Tobacco Use Types Packs/Day Years Used Date Smoking Tobacco: Some Days Cigarettes Started: 11/19/1965 Cigars Smokeless Tobacco: Never Alcohol Use Standard Drinks/Week Comments Yes 0 (1 standard drink = 0.6 oz pur e alcohol) 1-2/wk Sex and Gender Information Value Date Recorded Sex Assigned at Male 09/09/2021 5:01 PM CDT 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 Gender Identity Male 09/09/2021 5:01 PM CDT Sexual Orientation Straight 09/09/2021 5: 01 PM CDT documented as of this encounter Plan of Treatment Upcoming Encounters Date Type Department Care Team (Late st Contact Info) Description 08/24/2025 3:00 PM CDT Office Visit [facility] Infectious Disease Clinic [address] [phone] Kesha Jones MD [address] [place] [address] 250 [place], [place] [address] 03/25/2026 1:00 PM CDT Virtual Visit [facility] Transplant Clinic [address] [place] [address] Guy Hernandez MD [address] [place] [address] [phone] documented as of this encounter Visit Diagnoses Not on filedocumented in this encounter Care Teams Inner Diameter Grinder Tool Relationship Specialty Start Date End Date Ca Grier [address] [place] [address] PCP - General Family Practice 10/24/17 Wilber Schaefer MD [facility] [place] [address] Dermatology 01/18/15 04/10/18 Nahun Easton MD [address] [place] [address] 1967[address] Orthopedics 09/21/17 Ca Grier [address] [place] [address] Referring Physician Family Practice 09/21/17 Marisa Skinner MD [address] [place] [address] Nephrology 04/11/18 04/20/21 Stefan Thornton [address] [place] [address] 10353 Amusement Machine Mechanic INTERNAL MEDICINE - ENDOCRINOLOGY, DIABETES & METABOLISM 04/11/18 Sanjeev Pastrana MD [address] [place] [address] Assigned Surgical Provider 11/07/20 11/27/20 [place] [address] [place] [address] Assigned Surgical Provider 11/28/20 02/26/21 Sanjeev Pastrana MD [address] [address] Assigned Surgical Provider 02/27/21 03/25/22 Ramandeep Collier RN Registered Nurse Transplant 04/21/21 Guy Hernandez MD [address] [place] [address] Nephrology 04/21/21 Analilia Arellano MD [address] [place] [address] Dermatology 06/21/21 Guy Hernandez MD [address] [place] [address] Assigned Nephrology Provider 11/27/21 12/17/21 Guy Hernandez MD [address] [place] [address] Assigned Nephrology Provider 12/18/21 05/25/23 Evens Clayton MD [address] [place] [address] 27934 Assigned Surgical Provider 03/26/22 09/21/23 Guy Hernandez MD [address] [place] [address] 14843 Assigned Nephrology Provider 05/11/24 Kesha Jones MD [address] [place] [address] Assigned Infectious Disease Provider 05/11/25 documented as of this encounter
--- OUTSIDE RECORDS SUMMARY | 2025-08-01 12:37 | XMS_ITS | Encounter Summary ---
Author Organization [facility] Address [address] [place] [address]. [place] [address] Care Team Providers Care Electrical Continuity Tester Name Role Phone Nahun Easton MD Unavailable [phone] Ca Grier Unavailable Ca Grier Primary Care Provider [phone] Stefan Thornton Unavailable Sanjeev Pastrana MD Unavailable [phone] Ramandeep Collier RN Unavailable Un available Guy Hernandez MD Unavailable [phone] Analilia Arellano MD Unavailable [phone] Guy Hernandez MD Unavailable [phone] Evens Clayton MD Unavailable Guy Hernandez MD Unavailable [phone] Kesha Jones MD Unavailable [phone] Encounter Details Date Type Department Care Team (Late st Contact Info) Description 03/17/2022 [facility] Dermatology Clinic [place] [phone] [facility] [address]rd [place] [address] Efrain Brown MD [address] [place] [address] 6481 [place] [address] Social History Tobacco Use Types [...] PM CDT 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 No / Unsure 03/18/2022 6:15 PM CDT documented as of this encounter Plan of Treatment Upcoming Encounters Date Type Department Care Team (Late st Contact Info) Description 08/24/2025 3:00 PM CDT Office Visit [facility] Infectious Disease Clinic [address] [address] Kesha Jones MD [address] [phone] 03/25/2026 1:00 PM CDT Virtual Visit [facility] Transplant Clinic [address] [place] [phone] Guy Hernandez MD [address] [place] [address] [phone] documented as of this encounter Visit Diagnoses Not on filedocumented in this encounter Care Teams Electrical Continuity Tester Relationship Specialty Start Date End Date Ca Grier [address] [place] [address] PCP - General Family Practice 10/24/17 Nahun Easton MD [address] [place] [address] 488125 Orthopedics 09/21/17 Ca Grier [address] [place] [address] 85272 Referring Physician Family Practice 09/21/17 Stefan Thornton [address] [place] [address]1992 Fire Patroller INTERNAL MEDICINE - ENDOCRINOLOGY, DIABETES & METABOLISM 04/11/18 Sanjeev Pastrana MD [address] [place] [address] [phone] Assigned Surgical Provider 02/27/21 03/25/22 Ramandeep Collier RN Registered Nurse Transplant 04/21/21 Guy Hernandez MD [address] [place] [address]40 Nephrology 04/21/21 Analilia Arellano MD [address] [place] [address] Dermatology 06/21/21 Guy Hernandez MD [address] [place] [address] 62576 Assigned Nephrology Provider 12/18/21 05/25/23 Evens Clayton MD [address] [place] [address] Assigned Surgical Provider 03/26/22 09/21/23 Guy Hernandez MD [address] [place] [address] 34976 Assigned Nephrology Provider 05/11/24 Kesha Jones MD [address] [place] [address] 48[address] Assigned Infectious Disease Provider 05/11/25 documented as of this encounter
--- OUTSIDE RECORDS SUMMARY | 2025-08-01 12:37 | XMS_ITS | Encounter Summary ---
Author Organization [facility] Address [address] [place] [address]. [place] [address] Care Team Providers Care Metal Patternmaker Name Role Phone Wilber Schaefer MD Unavailable Nahun Easton MD Unavailable Ca Grier Unavailable Ca Grier Primary Care Provider Marisa Skinner MD Unavailable [phone] Stefan Thornton Unavailable Sanjeev Pastrana MD Unavailable Evens Clayton MD Unavailable Sanjeev Pastrana MD Unavailable [phone] Ramandeep Collier RN Unavailable Un available Guy Hernandez MD Unavailable [phone] Analilia Arellano MD Unavailable [phone] uGy Hernandez MD Unavailable [phone] Guy Hernandez MD Unavailable [phone] Evens Clayton MD Unavailable Guy Hernandez MD Unavailable [phone] Kesha Jones MD Unavailable [phone] Encounter Details Date Type Department Care Team (Late st Contact Info) Description 04/22/2017 External Order Results [facility] Transplant Clinic [address] [place] [phone] Santiago Lockett MD [address] [place] [address] [id number] [place], [place] [phone] Social History Tobacco Use Types Packs/Day Years Used Date Smoking Tobacco: Some Days Alcohol Use Standard Drinks/Week Comments Not Asked 0 (1 standard drink = 0.6 oz pur e alcohol) Sex and Gender Information Value Date Recorded Sex Assigned at Male 09/09/2021 5:01 PM CDT 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 Erroneous order ID: [id number] Order canceled by: GUCCI LEMON Order cancel date/time: 04/23/2017 2:04 PM documented in this encounter Plan of Treatment Upcoming Encounters Date Type Department Care Team (Late st Contact Info) Description 08/24/2025 3:00 PM CDT Office Visit [facility] Infectious Disease Clinic [address] [phone] Kesha Jones MD 420 [facility] 250 [place], [place] [address] 03/25/2026 1:00 PM CDT Virtual Visit [facility] Transplant Clinic [address] [place] [phone] Guy Hernandez MD [address] [place] [address] [phone] documented as of this encounter Visit Diagnoses Not on filedocumented in this encounter Care Teams Metal Patternmaker Relationship Specialty Start Date End Date Ca Grier 909 [place] [address] PCP - General Family Practice 10/24/17 Wilber Schaefer MD [facility] 3850 [place] [address] Dermatology 01/18/15 04/10/18 Nahun Easton MD [address] [place] [address] 213675 Orthopedics 09/21/17 Cherrie Ca [address] [place] [address] Referring Physician Family Practice 09/21/17 Marisa Skinner MD 717 [facility] 353 [place] [address] Nephrology 04/11/18 04/20/21 Stefan Thornton 717 [facility] [address] [place] [address] Smoke And Flame Specialist INTERNAL MEDICINE - ENDOCRINOLOGY, DIABETES & METABOLISM 04/11/18 Sanjeev Pastrana MD 420 [facility] 98 [place] [address] Assigned Surgical Provider 11/07/20 11/27/20 [place] [address] [place] [address] Assigned Surgical Provider 11/28/20 02/26/21 Sanjeev Pastrana MD 420 [facility] 98 [place] [address] Assigned Surgical Provider 02/27/21 03/25/22 Ramandeep Collier, RN Registered Nurse Transplant 04/21/21 Guy Hernandez MD [address] [place] [address] Nephrology 04/21/21 Analilia Arellano MD [address] [place] [address] Dermatology 06/21/21 Guy Hernandez MD [address] [place] [address]12 Assigned Nephrology Provider 11/27/21 12/17/21 Guy Hernandez MD [address] [place] [address] Assigned Nephrology Provider 12/18/21 05/25/23 Evens Clayton MD [address] [place] [address] Assigned Surgical Provider 03/26/22 09/21/23 Guy Hernandez MD [address] [place] [address] Assigned Nephrology Provider 05/11/24 Kesha Jones MD 420 [facility] 250 [place] [address] Assigned Infectious Disease Provider 05/11/25 documented as of this encounter
--- OUTSIDE RECORDS SUMMARY | 2025-08-01 12:38 | XMS_ITS | Clinical Summary ---
Author Organization [facility] Address [address] [address] Care Team Providers Care Veterinary Technology Instructor Name Role Phone Ca Grier MD Primary Care Provider [phone] Source Comments You are receiving this document as you are listed as the primary care provider,follow-up provider, or the patient has been referred to you for consultation.This is in compliance with the Medicare andMain Campus Medical Centercaid EHR Incentive Program,which states Providers who transition their patient to another setting of careor provider of care or refers their patient to another provider of care shouldprovide summary care record for each transition of care or referral. [facility] Allergies No known active allergies Medications ASA BUFF (MAG CARB-AL GLYC) 325 MG OR TABS None Entered Ac tive PLAVIX 75 MG OR TABS Take one tablet by mouth every day. Active INDAPAMIDE 1.25 MG OR TABS None Entered Active PREDNISONE 5MG ORAL TABS None Entered Active SEPTRA 400-80 MG OR TABS Take one tablet by mouth two times each day (morning and evening) for ten days. Active LIPITOR 10MG ORAL TABS Take one tablet by mouth every day. Active MAG-200 OR None Entered Active CAPOTEN 50 MG OR TABS None Entered Active ATENOLOL None Entered Active MULTIPLE VITAMIN TABS Take one tablet by mouth every day. Active hydrochlorothia zide (ORETIC) 25 MG tablet 6 Active lisinopril (ZESTRIL) 20 MG tablet 6 Active aspirin 81 MG tablet Take 81 mg by mouth daily. Active Multiple Vitamins-Minera ls (PRESERVISION AREDS OR) Active mycophenolate (CELLCEPT) 250 MG capsule 6 Active NOVOLOG 100 UNIT/ML injection 6 Active fluorouracil (EFUDEX) 5 % cream 6 Active fluorouracil (EFUDEX) 5 % creamIndication s:AK (actinic keratosis) Apply topically daily. Apply daily for 2 to 4 weeks. Wash hands after applying. Avoid sun. 40 g 11 8 Active metoprolol tartrate (LOPRESSOR) 25 MG tablet Take 50 mg by mouth. Active Active Problems Problem Noted Date Diagnosed Date History of SCC (squamous cell carcinoma) of skin 09/27/2016 History of renal transplant 09/27/2016 Social History Tobacco Use Types Packs/Day Years Used Date Smoking Tobacco: Never Assessed Sex and Gender Information Value Date Recorded Sex Assigned at Not on file Legal Sex Male 4:22 AM CDT Gender Identity Not on file Sexual Orientation Not on file Last Filed Vital Signs Vital Sign Reading Time Taken Comments Blood Pressure 162/77 03/11/2006 4:52 PM CDT Pulse 64 03/11/2006 4:52 PM CDT Temperature 35.6 C (96 F) 03/11/2006 4:52 PM CDT Respiratory Rate 16 03/11/2006 4:52 PM CDT Oxygen Saturation 97% 03/11/2006 4:52 PM CDT Inhaled Oxygen Concentration - - Weight - - Height - - Body Mass Index - - Plan of Treatment Health Maintenance Due Date Last Done Comments Hep C Screening (Preventive Services) 1945 Medicare Annual Wellness Visit 1945 Zoster/Shingles Vaccine (1 of 2) 1966 HepB Vaccine (1) 2007 RSV Vaccine (1 - 1-dose 75+ series) 2022 COVID-19 Vaccine (3 - 2024- season) 2025 01/29/2021, 01/01/2021 Influenza Vaccine (#1) 2025 , 08/13/2019, 12/05/2018, Additional history exists DTaP/Tdap/Td Vaccine (2 - Tdap) 09/30/2025 09/30/2015 Pneumococcal Vaccine 50+ Yrs Completed 09/19/2016, 11/07/2012 HepA Vaccine Aged Out No longer eligi ble based on patient's age to complete this topic Hib Vaccine Aged Out No longer eligi ble based on patient's age to complete this topic IPV (Polio) Vaccine Aged Out No longe r eligible based on patient's age to complete this topic MCV4 Vaccine Aged Out No longer eligi ble based on patient's age to complete this topic Meningococcal B Vaccine Aged Out No l onger eligible based on patient's age to complete this topic Insurance [phone] (Work) [address] [place] [phone] MEDICARE BCBS MEDICARE SUPPLEMENT MEDICARE BCBS MEDICARE SUPPLEMENT Care Teams Veterinary Technology Instructor Relationship Specialty Start Date End Date Ca Grier MD [address] [place] [address] PCP - General Family Practice 09/27/16
--- OUTSIDE RECORDS SUMMARY | 2025-08-01 12:38 | XMS_ITS | Clinical Summary ---
Author Organization [facility] Address [address] [place] [id number] Care Team Providers Care Staff Antisubmarine Officer Name Role Phone Ca Grier MD Primary Care Provide r Marisa Skinner Unavailable [phone] Stefan Thornton MD Unavailable Penny Hand RN Unavailable [facility] [place] Unavailable Allergies Active Allergy Reactions Criticality Noted Date Comments Amoxicillin-Pot Clavulanate Diarrhea,Diabetes, Exacerbation,Other - Describe In Comment Field 02/20/2023 ##Pharmacist completed allergy assessment. Allergy determined to be low risk. Will likely tolerate cefazolin, as it does not share a side chain with amoxicillin and risk for cross-reactivity is low. Zoilajeanne Gruber [facility] Levofloxacin Other - Describe In Comment Field High 03/29/2017 tendonitis Patient reports tendinitis in achilles heel (transplant), foot swollen tendonitis Patient reports tendinitis in achilles heel (transplant), foot swollen tendonitis Medications aspirin enteric coated 81 mg tablet Take 1 tablet by mouth once daily. 0 04/27/20 14 Active Vit A,C,M-Tvxr-Sdvmoq (PRESERVISION AREDS) 14,320-226-200 atvc-gt-scfb cap Take 1 capsule. by mouth two times daily. 0 08/08/20 18 Active mycophenolate (CELLCEPT) 250 mg capsule Take 500 mg by mouth 2 times daily. 11/25/19 20 Active brimonidine (ALPHAGAN) 0.2 % ophthalmic solution Place 1 Drop into both eyes 2 times daily. 10/31/20 21 Active Insulin Syringe-Needle U-100 0.3 mL 30 gauge x 04/03Indications: Type 1 diabetes mellitus with other circulatory complication (HC) For administering insulin at home. 100 Each 3 11/09/20 21 Active Subcutaneous Insulin Pump (T:Slim X2 Control-IQ)Indica tions:Diabetes mellitus type 1 with complications (HC) For home use. 1 Each 03/16/20 23 Active amoxicillin (AMOXIL) 500 mg capsule Take 500 mg by mouth one time if needed. Prior to dental procedures 01/10/20 23 Active sennosides-docusa te (SENOKOT S) (8.6-50 mg) tabletIndications :Neurogenic claudication Take 2 Tablets by mouth two times daily. 20 Tablet 05/25/20 23 Active insulin aspart U-100 (NOVOLOG) 100 unit/mL injectionIndicati ons:Diabetes mellitus type 1 with complications (HC) INJECT UP TO 70 UNITS VIA PUMP EACH DAY DIRECTED 70 mL 3 12/26/19 24 Active Dexcom G6 Sensor for continuous blood glucose monitor (CGM)Indications: Diabetes mellitus type 1 with complications (HC) Change every 10 days per manufacturers directions 03/31/20 24 Active Dexcom G6 Transmitter for continuous blood glucose monitor (CGM)Indications: Diabetes mellitus type 1 with complications (HC) As directed. Change every 3 months and/or if battery fails per cosmetic account coordinator directions 03/31/20 24 Active Insulin Pump Cartridge (t:slim X2) crtgIndications:D iabetes mellitus type 1 with complications (HC) Change every 3 days 03/31/20 24 Active clopidogreL (PLAVIX) 75 mg tabletIndications :Coronary artery disease due to lipid rich plaque TAKE 1 TABLET(75 MG) BY MOUTH EVERY DAY 90 Tablet 3 07/21/20 24 Active predniSONE (DELTASONE) 5 mg tabletIndications :Renal transplant recipient (HC) TAKE 1 TABLET BY MOUTH EVERY DAY 100 Tablet 3 07/28/20 24 Active atorvastatin (LIPITOR) 40 mg tabletIndications :Pure hypercholesterole ana,Diabetes mellitus type 1 with complications (HC) Take 1 Tablet (40 mg) by mouth once daily. 90 Tablet 3 11/03/20 24 Active metoprolol succinate (TOPROL XL) 50 mg sustained-release tabletIndications :Hypertension, unspecified type Take 1 Tablet (50 mg) by mouth two times daily. 180 Tablet 3 11/03/20 24 Active amLODIPine (NORVASC) 10 mg tabletIndications :HTN (hypertension) Take 1 Tablet (10 mg) by mouth once daily. 90 Tablet 3 11/03/20 24 Active hydrALAZINE (APRESOLINE TABLET) 50 mg tabletIndications :HTN (hypertension) Take 1 Tablet (50 mg) by mouth two times daily. 180 Tablet 3 02/03/20 25 Active hydroCHLOROthiazi de 25 mg tabletIndications :Essential hypertension Take 1 Tablet (25 mg) by mouth once daily. 90 Tablet 3 02/06/20 25 Active durable medical equipment (DME)Indications: Infection,Infecti on of toe [phone] Squared Toe Post Op shoe, Large 1 Each 02/11/20 25 Active doxycycline monohydrate 100 mg tabletIndications :bone infection Take 1 Tablet (100 mg) by mouth two times daily. 28 Tablet 03/24/20 25 Active trimethoprim-sulf amethoxazole 80-400 mg tabIndications:Ki dney replaced by transplant (HC) TAKE 1 TABLET BY MOUTH EVERY DAY 90 Tablet 3 04/24/20 25 Active lisinopriL (PRINIVIL; ZESTRIL) 10 mg tabletIndications :Diabetes mellitus type 1 with complications (HC),Chronic ischemic heart disease TAKE 1 TABLET(10 MG) BY MOUTH TWICE DAILY 180 Tablet 1 06/26/20 25 Active cefpodoxime (VANTIN) 200 mg tablet Take 400 mg by mouth. 06/12/20 25 Active blood sugar diagnostic (Contour Next Test Strips) stripIndications: Type 1 diabetes mellitus with other circulatory complication (HC) Dispense item covered by pt ins. E11.9 IDDM type II - Test 3 times/day. 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 Weiner (Vascular clinic) in fall 2014. Results suggest that his symptoms are most likely from neurogenic claudication. Right leg. He is following up with his spine surgeon. 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 Follows with nephrology at [facility]. Usually annual follow-up, near the end of the calendar year. Macro: + CAD, + CVA, + PVD (stent to left lower extremity, Left SFA) Follows up with vascular specialty Micro: History of proliferative retinopathy -vitrectomy left eye 1985 - bilateral stafford retinal laser - stable 08/27;q 4 months at [facility]; stable 02/28; no active retinopathy 05/30 Has history Occular hypertension, macular degeneration Eye exam: February 2014 - exceedingly stable with no new retinopathy or issues. Visual ha normal. Eye exam: Jun 2014: Stable. No prolif retinopathy. No diabetes mellitus macular edema. ... Eye exams regularly. As of : had eye exam 04/09/25 with [facility] Mild peripheral neuropathy. Foot exam:+ hammer toes , most prominent are 2nd toes bilaterally. Decreased sensation in left 2nd hammer toe. Otherwise, mild decreased sensation, but not bad. Dry. No edema. * seeing podiatry ( left foot with Achilles tendon rupture/ ulcer ) Nephropathy: Status post renal transplant. Follows at [facility]. See above. ISCHEMIC HEART DISEASE Overview (03/13/2007): 2 plasty x3 & 1stent om 01/18 stent post desc &cx 03/20 stent intermediate art. 04/21 stent rca STATUS POST KIDNEY TRANSPLANTATION IN 1985 Unspecified essential hypertension Pure hypercholesterolemia MILD THROMBOCYTOPENIA Cerebrovascular disease, unspecified Overview (03/13/2007): amaurosis right eye -carotid us & echocardiogram negative Peripheral vascular disease, unspecified Overview (10/25/2017): left fem art repair 02/20 decreased pulses left 2017: Found with 50-75% stenosis distal SFA, but transcutaneous O2s were OK. Anemia of other chronic disease Abnormal stress test Coronary artery disease due to lipid rich plaque H/O kidney transplant Malignant neoplasm of posterior wall of urinary bladder Resolved Problems Problem Noted Date Diagnosed Date Resolved Date Hypertensive heart and chron ic kidney disease with heart failure and stage 1 through stage 4 chronic kidney disease, or unspecified chronic kidney disease 06/15/2022 01/20/2025 Chronic kidney disease, stage III (moderate) 6 10/05/2016 Nausea secondary to pain and held prednisone 4 09/30/2015 Insulin pump status 10/10/2014 03/20/20 15 Acute cholecystitis 11/05/2012 08/04/20 16 Acute sinusitis, unspecified 09/13/2009 02/16/2014 See Logician for additional problems 01/09/2004 02/28/2007 Personal history of other sp ecified diseases(V13.89) 10/01/2015 TOBACCO USE 11/28/2004 Tobacco use disorder 014 Overview (03/13/2007): quit 12/21 35 pk yr Encounters Date Type Department Care Team Description 07/31/2025 12:30 PM CDT Ancillary Procedure [facility] [address] [place] [address] Arrived 07/31/2025 12:15 PM CDT Ancillary Procedure [facility] [address] [place] [address] Arrived 07/31/2025 Travel 07/30/2025 6:10 PM CDT E-Visit [facility] [address] [facility] [place] [address] Ca Grier MD eVisit for Fatigue 07/30/2025 Refill [facility] [address] [facility] [address] Ca Grier MD Refill Request (Clopidogrel) 07/01/2025 10:30 AM CDT Office Visit [facility] [address] [facility] [address] [phone] Stefan Thornton MD Diabetes (No new diabetic concerns at this time. ) 07/01/2025 Travel 06/23/2025 Refill [facility] [address] [facility] [address] Ca Grier MD Refill Request (Lisinopril) 06/16/2025 Orders Only [facility] Scanner 1 scan: (1-Ord) [facility], 06/16/2025 06/03/2025 10:45 AM CDT Ancillary Procedure [facility] [address] [place] [address] 06/03/2025 10:30 AM CDT Office Visit [facility] [address] [facility] [address] Darin De La Torre, DPM Follow Up (Right great toe) 06/03/2025 Travel 05/15/2025 2:45 PM CDT Procedure Only [facility] [address] [place] [address] Sal Krishnamurthy MD Procedure (cystoscopy) 05/15/2025 Travel from Last 3 Months Immunizations Immunization Administration Dates Next Due Amb Influenza, Inactivated A IIV4 (Age 65+ Years) Preserv Free 09/08/2020 COVID-19 VACCINE SPIKEVAX (M ODERNA 50MCG/0.5ML) 12YO+ PFS 09/05/2023 COVID-19 vaccine (Moderna 100mcg/0.5mL) PF, MDV 12/23/2021,07/12/2021,01/29/2021,01/01 COVID-19 vaccine (Moderna 50 mcg/0.5mL) 12YO+ BIVALENT PF, MDV 03/10/2023,08/01/2022 Influenza A (H1N1), Inactiva patrick (Age >=3 Years) 12/02/2009 Influenza, High-dose Inactivated 024,08/04/2016,09/30/2015,11/30 Influenza, IIV3 (Age >=3 years) 10/17/20 13,11/07/2012,08/08/2011,08/23,08/19/2009,10/02/2008,10/03/2007 ,10/10/2006,11/03/2003 Influenza, IIV4 10/10/2022 Influenza, Inactivated AIIV4 (Age 65+ Years) Preserv Free 08/07/2023,08/10/2021 Influenza, Inactivated IIV3 (Age 65+ Years) Preserv Free 08/13/2019,12/05/2018,09/06/2017 Pneumococcal Poly,23-Valent (Pneumovax) 11/07/2012 Pneumococcal conj 13-Valent (Prevnar 13) 09/19/2016 RSV, Bivalent Vaccine Recons tituted (Abrysvo 120MCG/0.5mL) 11/21/2023 Td, Preservative Free (age >= 7 Years) 5 Tdap 09/30/2015 Family History Medical History Relation Name Comments Good Health Brother Good Health Daughter Cancer Father Heart Disease Father Heart Disease Mother 4 Vessel CABG Hypertension Mother Good Health Sister Hypertension Sister Good Health Son Relation Name Status Comments Brother Alive Daughter Father (Age 82) CHF, Abdom inal cancer Mother (Age 82) [place] Sister Alive Son Social History Tobacco Use Types Packs/Day Years Used Date Smoking Tobacco: Former Cigarettes 1 48 Q uit: 10/19/2017 Smokeless Tobacco: Never Tobacco Cessation:Counseling Given: Yes Comments:smoked for 50 years Alcohol Use Standard Drinks/Week Comments Yes 2 (1 standard drink = 0.6 oz pur e alcohol) Very Rarely PHQ-2 Answer Date Recorded PHQ-2 TOTAL SCORE 0 03/13/2023 Social Connections Answer Date Recorded Do you often feel lonely or isolated from those around you? 0 04/08/2024 Financial Resource Strain Answer Date R ecorded Difficulty of Paying Living Expenses 3 04/08/2024 Difficulty of Paying Living Expenses Not on file 04/08/2024 Food Insecurity Answer Date Recorded Do you worry your food will run out before you are able to buy more? 1 04/08/2024 Transportation Needs Answer Date Record ed Does lack of transportation keep you from medica l appointments? 1 04/08/2024 Does lack of transportation keep you from work, meetings or getting things that you need? 1 04/08/2024 Housing Stability Answer Date Recorded What is your housing situation today? 1 04/08/2024 Interpersonal Safety Answer Date Record ed Are you being hit, kicked, p ushed or yelled at (see row info)? No 02/24/2025 Interpersonal Safety Abuse 12 - 18 Not on file 02/24/2025 Interpersonal Safety Ambulatory Vulnerability No t on file 02/24/2025 Utilities Answer Date Recorded Do you have trouble paying f or utilities (for example, heat, electricity, water, phone)? 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 Gender Identity Not on file Sexual Orientation Not on file Occupation Industry Job Start Date Job End Date retired Not on file Not on file Not on file Obstetrics History Last Filed Vital Signs Vital Sign Reading Time Taken Comments Blood Pressure 110/60 07/01/2025 10:41 AM CDT Pulse 68 07/01/2025 10:41 AM CDT Temperature 36.6 C (97.9 F) 02/24/2025 11:24 AM CDT Respiratory Rate 18 02/24/2025 7:01 PM CDT Oxygen Saturation 95% 06/03/2025 10:41 AM CDT Inhaled Oxygen Concentration - - Weight 68.9 kg (152 lb) 07/01/2025 10:41 AM CDT Height 173.4 cm (5' 8.25) 07/01/2025 10:41 AM C DT Body Mass Index 22.94 07/01/2025 10:41 AM CDT Plan of Treatment Upcoming Encounters Date Type Department Care Team (Late st Contact Info) Description 08/04/2025 8:00 AM CDT Office Visit [facility] [address] [place] [address] Ca Grier MD [address] [place] [address] 08/14/2025 10:30 AM CDT Procedure Only 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 Office Visit [facility] [address] [address] [place] [address] [address] 12/30/2025 12:30 PM [employer] COLLECTION CLERK Office Visit [facility] [address] [facility] [address] [place] [address] Stefan Thornton MD [address] [facility] [address] [place] [address] Health Maintenance Due Date Last Done Comments Hepatitis C screening for age 18-79 1965 Zoster (shingles) series for age 50+ (1 of 2) [address] (for lung CA) age 50-80 1997 Medicare Wellness for age 65+ 12/06/2019 12/05/2018, 04/06/2017 Depression screening for age 12+ 03/19/2024 03/19/2023, 03/13/2023, 03/13/2023, Additional history exists COVID-19 vaccine series (9 - Moderna risk season) 2025 09/10/2024, 09/05/2023, 03/10/2023, Additional history exists Influenza Vaccine (#1) 2025 , 08/07/2023, 10/10/2022, Additional history exists Tetanus booster 09/30/2025 09/30/2015, 02/23/2005 BMI (ht and wt on same day) for age 18+ 07/01/2026 07/01/2025, 11/03/2024, 10/01/2024, Additional history exists Pneumococcal series for age 50+ Completed 09/19/2016, 11/07/2012 RSV vaccine for adults or Completed 11/21/2023 Hepatitis B series for 19+ Aged Out N o longer eligible based on patient's age to complete this topic Medical Devices Implanted Type Area Field Identification Specialist Device Identifier Shelf Expiration Date Model / Serial / Lot [id number] 30cc Mtf Crushed Canclls Pouch [[id number]] Implanted:Qty: 1 on 10/09/2014 at [facility] Explanted:(Quanti ty not on file) Spine [employer] 06/26/2017 [id number]# / [id number] / [id number] Matrix 20cc Osteoamp Mix Bmp [[id number]] Implanted:Qty: 1 on 10/09/2014 at [facility] Explanted:(Quanti ty not on file) Spine Second Funnel 07/07/2019 [id number]# / [id number] / Spacer Lmbr [id number] 0deg [address] Unlif Peek - [id number] Implanted:Qty: 1 on 10/09/2014 at [facility] Spine Yazmin Spine [id number]# / / Spacer Unilif 9x30x0 Avs Pl Peek - [id number] Implanted:Qty: 1 on 10/09/2014 at [facility] Spine Yazmin Spine [id number]# / / Screw Post 6.5x45mm Std Trio Thoraco-Lmbr - [id number] Implanted:Qty: 4 on 10/09/2014 at [facility] Spine Yazmin Spine [id number]# / / Screw Post 6.5x50mm Std Trio Thoraco-Lmbr - [id number] Implanted:Qty: 1 on 10/09/2014 at [facility] Spine Yazmin Spine [id number]# / / Screw Post 7.5x50mm Std Trio Thoraco-Lmbr - [id number] Implanted:Qty: 1 on 10/09/2014 at [facility] Spine Basin Spine [id number]# / / Kalen Suzy Rad 70mm 108mm Radius - [id number] Implanted:Qty: 2 on 10/09/2014 at [facility] Spine Yazmin Spine [id number]# / / Cnnctr Sm Offset - [id number] Implanted:Qty: 6 on 10/09/2014 at [facility] Spine Basin Spine [id number]# / / Screw Zevo Manan Sd [id number] Implanted:Qty: 8 on 05/21/2023 by Cee Berman MBChB at [facility] N/A: Spine [id number] / / Description:SCREW ZEVO MANAN S D [id number] Plate Zevo 57mm 3lvl Implanted:Qty: 1 on 05/21/2023 by Cee Berman MBChB at [facility] N/A: Spine [id number] / / Description:PLATE ZEVO 57MM 3LVL [id number] ne Matrix 3cc Andres Dbf Putty Dbm Implanted:Qty: 1 on 05/21/2023 by Cee Berman MBChB at [facility] N/A: Spine Medtronic Spine/Ortho 04/16/2025 [id number] / [id number] / Demineralized Cortical Bone Fiber 1.0cc Implanted:Qty: 1 on 05/21/2023 by Cee Berman MBChB at [facility] N/A: Spine [employer] 01/14/2027 [id number] / [id number] / Description:DEMINERALIZED CO RTICAL BONE FIBER 1.0CC Shadi Spacer Tc 6 Deg Md 9mm Implanted:Qty: 1 on 05/21/2023 by Cee Berman MBChB at [facility] N/A: Spine 08/08/2026 [id number] / / [id number] Description:SHADI SPACER TC 6 DEG MD 9MM Shadi Spacer Tc 6 Deg Md 9mm Implanted:Qty: 1 on 05/21/2023 by Cee Berman MBChB at [facility] N/A: Spine 11/08/2027 [id number] / / [id number] Description:SHADI SPACER TC 6 DEG MD 9MM Shadi Spacer Tc 6 Deg Md 7mm Implanted:Qty: 1 on 05/21/2023 by Cee Berman MBChB at [facility] N/A: Spine 04/05/2028 [id number] / / [id number] Description:SHADI SPACER TC 6 DEG MD 7MM Procedures Procedure Name Priority Date/Time Associated Diagnosis Comments XR CHEST 2 VIEWS PA AND LATERAL Routine 07/31/2025 12:27 PM CDT Fatigue, unspecified type Chills XR SPINE CERVICAL 3 VIEWS Routine 07/31/2025 12:26 PM CDT Neck pain FRUCTOSAMINE Routine 07/01/2025 10:32 AM CDT Diabetes mellitus type 1 with complications (HC) HEMOGLOBIN A1C MONITORING (POCT) Routine 07/01/2025 10:32 AM CDT Diabetes mellitus type 1 with complications (HC) LIPID PANEL W REFLEX MEASURED LDL Routine 07/01/2025 10:32 AM CDT Diabetes mellitus type 1 with complications (HC) CREATININE Routine 07/01/2025 10:32 AM CDT Diabetes mellitus type 1 with complications (HC) SCAN-OPERATIVE/PROCE DURE REPORT 06/16/2025 12:00 AM CDT ANAEROBIC CULTURE Routine 06/03/2025 1:4 0 PM CDT Chronic osteomyelitis of toe, right (HC) AEROBIC BACTERIAL CULTURE, STAIN Routine 06/03/2025 1:39 PM CDT Chronic osteomyelitis of toe, right (HC) FUNGUS CULT, OTHER SOURCE Routine 06/03/2025 1:38 PM CDT Chronic osteomyelitis of toe, right (HC) AFB CULTURE, STAIN Routine 06/03/2025 1: 38 PM CDT Chronic osteomyelitis of toe, right (HC) PATH TISSUE EXAM Routine 06/03/2025 12:2 5 PM CDT Chronic osteomyelitis of toe, right (HC) XR TOES 3 VIEWS RIGHT Routine 06/03/2025 10:40 AM CDT Chronic osteomyelitis of toe, right (HC) from Last 3 Months Results * XR CHEST 2 VIEWS PA AND LATERAL (07/31/2025 12:27 PM CDT) Anatomical Region Laterality Modality CHEST, THORAX, Lung, HEART Compu patrick Radiography 07/31/2025 4:37 PM CDT Narrative 07/31/2025 4:37 PM CDT For Patients: As a result of the Cures Act, medical imaging exams and procedure reports are released immediately into your electronic medical record. You may view this report before your referring provider. If you have questions, please contact your health care provider. Indication: Chills Fatigue, unspecified type Technique: PA and lateral views of the chest. Comparison: 09/27/2009. Findings: Mildly enlarged cardiomediastinal silhouette with calcified aortic knob. Moderate interstitial prominence. Mild bibasilar opacities. Blunting of the bilateral costophrenic angles. No visualized pneumothorax. Impression: Moderate interstitial prominence with blunting of the bilateral costophrenic angles; findings may represent mild pulmonary edema or fluid overload. Mild bibasilar opacities are favored to represent atelectasis, though developing infection can not be excluded. Dictated by Sudhir Lomas MD @ 07/31/2025 4:37:24 PM (Electronically Signed) Procedure Note Abdifatah Lomas MD - 07/31/2025 For Patients: As a result of the Cures Act, medical imagingexams and procedure reports are released immediately into your electronicmedical record. You may view this report before your referring provider.If you have questions, please contact your health care provider. Indication: Chills Fatigue, unspecified type Technique: PA and lateral views of the chest. Comparison: 09/27/2009. Findings: Mildly enlarged cardiomediastinal silhouette with calcified aortic knob. Moderate interstitial prominence. Mild bibasilar opacities. Blunting of the bilateral costophrenic angles. No visualized pneumothorax. Impression: Moderate interstitial prominence with blunting of the bilateralcostophrenic angles; findings may represent mild pulmonary edema or fluidoverload. Mild bibasilar opacities are favored to represent atelectasis, thoughdeveloping infection can not be excluded. Dictated by Sudhir Lomas MD @ 07/31/2025 4:37:24 PM (Electronically Signed) us Ca Grier MD GENERAL IMAGING Final Result * XR SPINE CERVICAL 3 VIEWS (07/31/2025 12:26 PM CDT) Anatomical Region Laterality Modality CERVICAL SPINE Computed Radiogr aphy 07/31/2025 4:34 PM CDT Narrative 07/31/2025 4:34 PM CDT For Patients: As a result of the Cures Act, medical imaging exams and procedure reports are released immediately into your electronic medical record. You may view this report before your referring provider. If you have questions, please contact your health care provider. Indication: Neck pain Technique: Three views of the cervical spine. Comparison: 05/05/2024. Findings: Postsurgical changes from anterior cervical discectomy fusion from C3 to C6. 4 millimeter of anterolisthesis of C2 on C3. No acute fracture or hardware complication. Surgical clips are seen anterior to the spine. Moderate facet arthropathy is seen throughout the visualized spine. Impression: Postsurgical changes from anterior cervical discectomy fusion from C3 to C6. 4 millimeter of anterolisthesis of C2 on C3. No acute fracture or hardware complication. Dictated by Sudhir Lomas MD @ 07/31/2025 4:34:09 PM (Electronically Signed) Procedure Note Abdifatah Lomas MD - 07/31/2025 For Patients: As a result of the Century Cures Act, medical imagingexams and procedure reports are released immediately into your electronicmedical record. You may view this report before your referring provider.If you have questions, please contact your health care provider. Indication: Neck pain Technique: Three views of the cervical spine. Comparison: 05/05/2024. Findings: Postsurgical changes from anterior cervical discectomy fusion from C3 toC6. 4 millimeter of anterolisthesis of C2 on C3. No acute fracture or hardware complication. Surgical clips are seen anterior to the spine. Moderate facet arthropathy is seen throughout the visualized spine. Impression: Postsurgical changes from anterior cervical discectomy fusion from C3 toC6. 4 millimeter of anterolisthesis of C2 on C3. No acute fracture or hardware complication. Dictated by Sudhir Lomas MD @ 07/31/2025 4:34:09 PM (Electronically Signed) Ca Grier MD GENERAL IMAGING Final Result * (ABNORMAL) FRUCTOSAMINE (07/01/2025 10:32 AM CDT) FRUCTOSAMINE 327(H) 205 - 285 umol/L 07/05/2025 3:27 AM CDT [facility] Blood BLOOD SPECIMEN / Unknown [facility] / Unknown 07/01/2025 10:32 AM CDT 07/01/2025 10:34 AM CDT Stefan Thornton MD SEND OUTS Final Resul t [facility] [address] [place] [address], * LIPID PANEL W REFLEX MEASURED LDL (07/01/2025 10:32 AM CDT) CHOLESTEROL, TOTAL 125 <200 mg/dL 07/02/2025 8:07 AM CDT [facility] TRIGLYCERIDES 80 <150 mg/dL 07/02/2025 8:07 AM CDT [facility] HDL CHOLESTEROL 60 > OR = 40 mg/dL 07/02/2025 8:07 AM CDT [facility] NON HDL CHOLESTEROL 65 <130 mg/dL (calc) 07/02/2025 8:07 AM CDT [facility] Comment: For patients with diabetes plus 1 major ASCVD risk factor, treating to a non-HDL-C goal of <100 mg/dL (LDL-C of <70 mg/dL) is considered a therapeutic option. CHOL/HDLC RATIO 2.1 <5.0 (calc) 07/02/2025 8:07 AM CDT [facility] LDL-CHOLESTEROL 49 mg/dL (calc) 07/02/2025 8:07 AM CDT [facility] Comment: Reference range: <100 Desirable range <100 mg/dL for primary prevention; <70 mg/dL for patients with CHD or diabetic patients with > or = 2 CHD risk factors. LDL-C is now calculated using the Kulwant calculation, which is a validated novel method providing better accuracy than the Friedewald equation in the estimation of LDL-C. Fox RAJAN et al. VENECIA. 2013;310(19): 1976-4070 (http://education.[employer]i.The African Store/faq/PAF550) Blood BLOOD SPECIMEN / Unknown [facility] / Unknown 07/01/2025 10:32 AM CDT 07/01/2025 10:34 AM CDT Stefan Thornton MD CHEMISTRY Final Resul t [facility] [address] [address], * CREATININE (07/01/2025 10:32 AM CDT) CREATININE 1.24 0.70 - 1.28 mg/dL 07/02/2025 8:07 AM CDT [facility] EGFR 60 > OR = 60 mL/min/1.73 m2 07/02/2025 8:07 AM CDT [facility] Blood BLOOD SPECIMEN / Unknown [facility] / Unknown 07/01/2025 10:32 AM CDT 07/01/2025 10:34 AM CDT Stefan Thornton MD CHEMISTRY Final Resul t [facility] [address] [address], * (ABNORMAL) HEMOGLOBIN A1C MONITORING (POCT) (07/01/2025 10:32 AM CDT) POC HEMOGLOBIN A1C 6.8(H) <6.0 % OF TOTAL HGB 07/01/2025 10:46 AM CDT [facility] Comment: Any point of care results exhibiting inconsistency with the patient's clinical status should be repeated using a different testing method. Blood BLOOD SPECIMEN / Unknown [facility] / Unknown 07/01/2025 10:32 AM CDT 07/01/2025 10:34 AM CDT Stefan Thornton MD CHEMISTRY Final Resul t Performing Organization Address [facility] Co de Phone Number [facility] [address] [address], [facility] [address] [address] * SCAN-OPERATIVE/PROCEDURE REPORT (06/16/2025 12:00 AM CDT) Scanner OTHER Final Result * (ABNORMAL) ANAEROBIC CULTURE (06/03/2025 1:40 PM CDT) CULTURE RESULT(A) 06/10/2025 10:53 AM CDT [facility] CULTURE 1+ Gleimia hominis (formerly Actinomyces hominis) 06/10/2025 10:53 AM CDT [facility] Other SPECIMEN FROM BONE / Unknown Non-Blood / Unknown 06/03/2025 1:40 PM CDT 06/03/2025 1:40 PM CDT Darin CANDELARIO MICROBIOLOGY Final Res ult [facility] [address] [place] [address], [place] * AEROBIC BACTERIAL CULTURE, STAIN (06/03/2025 1:39 PM CDT) CULTURE No Growth. 06/09/2025 10:30 AM CDT [facility] GRAM STAIN No Epithelial cells 06/09/2025 10:30 AM CDT [facility] GRAM STAIN No RBCs 06/09/2025 10:30 AM CDT [facility] GRAM STAIN No PMNs 06/09/2025 10:30 AM CDT [facility] GRAM STAIN No organisms seen 06/09/2025 10:30 AM CDT [facility] Other SPECIMEN FROM BONE / Unknown Non-Blood / Unknown 06/03/2025 1:39 PM CDT 06/03/2025 1:39 PM CDT Darin De La Torre DP MICROBIOLOGY Final Res ult Performing Organization Address [facility]/ZIP Co de Phone Number [facility] [address] [place] [address], [place] * AFB CULTURE, STAIN (06/03/2025 1:38 PM CDT) CULTURE No Mycobacterium isolated. 07/17/2025 6:57 AM CDT [facility] ACID FAST STAIN No acid fast bacilli seen 07/17/2025 6:57 AM CDT [facility] Other SPECIMEN FROM BONE / Unknown Non-Blood / Unknown 06/03/2025 1:38 PM CDT 06/03/2025 1:38 PM CDT Darin De La Torre DP MICROBIOLOGY Final Res ult Performing Organization Address City/[facility]/ZIP Co de Phone Number [facility] [address] [place] [address], [place] * FUNGUS CULT, OTHER SOURCE (06/03/2025 1:38 PM CDT) CULTURE No Fungus isolated. 07/03/2025 7:05 AM CDT [facility] Other TISSUE SPECIMEN / Unknown Non-Blood / Unknown 06/03/2025 1:38 PM CDT 06/04/2025 10:38 AM CDT us Darin De La Torre DPM MICROBIOLOGY Final Res ult [facility] [address] [place] [address], [place] * PATH TISSUE EXAM (06/03/2025 12:25 PM CDT) Case Report Pathology Report Case: [id number] Authorizing Provider: Darin De La Torre DPM Collected: 06/03/2025 1225 Ordering Location: [facility] Received: 06/03/2025 1444 Clinic Pathologist: Sarah Salvador MD Specimens: A) - Right Great Toe B) - Right Great Toe 06/09/2025 11:[address] [facility] Final Diagnosis A) BONE, DISTAL PHALANX, RIGHT GREAT TOE, BIOPSY: Acute osteomyelitis B) BONE, RIGHT GREAT TOE, BIOPSY: Acute osteomyelitis 06/09/2025 11:[address] [facility] at 1155 CDT Clinical Information Right great toe infection 06/09/2025 11:[address] [facility] Gross Description A) Received in formalin, labeled with the patient's name and distal phalanx right great toe, is a 0.3 x 0.3 x 0.3 cm ragged suarez-brown bone fragment, which is entirely submitted one cassette. B) Received in formalin, labeled with the patient's name and , is a 0.5 x 0.5 x 0.4 cm ragged suarez-brown bone fragment, which is entirely submitted in one cassette. STN 06/05/2025 06/09/2025 11:[address] [facility] Microscopic Description The final diagnosis is based on microscopic examination of appropriate sections of all specimens. 06/09/2025 11:55 AM CDT [facility] Additional Information Interpreted at [facility] - [address] [facility] [address], [place] [address] 06/09/2025 11:[address] [facility] Other (Right Great Toe) Non-Blood / Unknown 06/03/2025 12:25 PM CDT 06/03/2025 2:44 PM CDT Comment:Bone, distal phalanx right great toe Specimen (specimen) (Right Great Toe) Non-Blood / Unknown 06/03/2025 12:25 PM CDT 06/04/2025 7:54 PM CDT Darin De La Torre DPM PATHOLOGY/CYTOLOGY Final Result [facility] [address] [place] [address], [place] * XR TOES 3 VIEWS RIGHT (06/03/2025 10:40 AM CDT) Anatomical Region Laterality Modality TOES Computed Radiogr aphy 06/03/2025 3:01 PM CDT Narrative 06/03/2025 3:01 PM CDT For Patients: As a result of the Century Cures Act, medical imaging exams and procedure reports are released immediately into your electronic medical record. You may view this report before your referring provider. If you have questions, please contact your health care provider. Indication: Chronic osteomyelitis of toe, right Technique: Three views right great toe Comparison: 02/10/2025 Findings: Destructive changes involving the distal aspect of the great toe distal phalanx noted with overlying soft tissue swelling. Vascular calcifications. Impression: Osteomyelitis of the great toe distal phalanx. Dictated by Alden Montero MD @ 06/03/2025 3:01:15 PM (Electronically Signed) Procedure Note Alden Montero MD - 06/03/2025 For Patients: As a result of the Cures Act, medical imagingexams and procedure reports are released immediately into your electronicmedical record. You may view this report before your referring provider.If you have questions, please contact your health care provider. Indication: Chronic osteomyelitis of toe, right Technique: Three views right great toe Comparison: 02/10/2025 Findings: Destructive changes involving the distal aspect of the great toe distalphalanx noted with overlying soft tissue swelling. Vascularcalcifications. Impression: Osteomyelitis of the great toe distal phalanx. Dictated by Alden Montero MD @ 06/03/2025 3:01:15 PM (Electronically Signed) Darin De La Torre DP GENERAL IMAGING Final Res ult from Last 3 Months Insurance MEDICARE [place] ONLY MEDICARE PART A HB ONLY MEDICARE PART B HB ONLY [facility] MEDIC[facility] PART A HB ONLY MEDICARE PART B HB ONLY MEDICARE PPS 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 Expl anation Healthcare Directive 06/08/2023 023 * Full Code (Latest Code Status on File) Date Activated Date Inactivated Comments 01/23/2025 7:29 AM 01/23/2025 1:56 PM Should be disc ussed pre operatively with anesthesia or surgeon Question Answer Comments Code Status Discussion: Not Discussed * Full Code Date Activated Date Inactivated Comments 05/25/2023 10:13 AM 05/28/2023 3:53 PM Question Answer Comments Code Status Discussion: Reviewed Preferences * Full Code Date Activated Date Inactivated Comments 05/21/2023 11:11 AM 05/25/2023 10:13 AM Question Answer Comments Code Status Discussion: Unable to Assess Preferences, Provider to review later * Full Code Date Activated Date Inactivated Comments 05/21/2023 11:08 AM 05/21/2023 11:11 AM Question Answer Comments Code Status Discussion: Reviewed Preferences * Full Code Date Activated Date Inactivated Comments 05/05/2020 6:33 AM 05/05/2020 6:45 PM Care Teams Staff Antisubmarine Officer Relationship Specialty Start Date End Date Ca Grier MD [address] [place] [address] PCP - General Family Practice 02/17/13 Marisa Skinner [address] [place] [address] Nephrology 12/11/13 Stefan Thornton MD [address] [place] [address] Endocrinology Endocrinology 12/11/13 Penny Hand RN [address] [place] [address] Rice Cleaning Machine Tender 08/23/20 [facility] [address] [place] [address] 05/28/23
--- NOTE | 2025-08-01 13:14 | CRLHL7_ITS ---
For Patients: As a result of the Century Cures Act, medical imaging exams and procedure reports are released immediately into your electronic medical record. You may view this report before your referring provider. If you have questions, please contact your health care provider. INDICATION: Shortness of breath. TECHNIQUE: PA and lateral chest x-ray. COMPARISON: November 05, 2012. FINDINGS: Since the prior studies the patient has developed diffuse interstitial prominence throughout both lungs particularly at the lung bases. The findings may reflect diffuse interstitial fibrosis. There is some linear fibrosis or atelectasis at each lung base. Overall heart size is within normal limits. No pneumothorax. No definite pleural effusion. Coronary artery calcification. Postsurgical change of the lumbar spine incompletely visualized. Mild degenerative change of the AC joints. IMPRESSION: Diffuse interstitial prominence which may reflect diffuse interstitial fibrosis. Please correlate clinically. Consider a chest CT if indicated. Dictated by Willie Knox MD @ 08/01/2025 1:59:02 PM (Electronically Signed)
--- OUTSIDE RECORDS SUMMARY | 2025-08-01 13:26 | XMS_ITS | Encounter Summary ---
Author Organization [facility] Address [address] [place] [address]. [place] [address] Care Team Providers Care Construction Safety Consultant Name Role Phone Nahun Easton MD Unavailable [phone] Ca Grier Unavailable Ca Grier Primary Care Provider [phone] Marisa Skinner MD Unavailable [phone] Stefan Thortnon Unavailable Sanjeev Pastrana MD Unavailable [phone] Ramandeep Collier RN Unavailable Un available Guy Hernandez MD Unavailable [phone] Analilia Arellano MD Unavailable [phone] Guy Hernandez MD Unavailable [phone] Guy Hernandez MD Unavailable [phone] Evens Clayton MD Unavailable Guy Hernandez MD Unavailable [phone] Kesha Jones MD Unavailable [phone] Encounter Details Date Type Department Care Team (Late st Contact Info) Description 04/12/2021 [facility] [address] [place] [address] [place] [id number] [place] [address] Social History Tobacco Use Types Packs/Day Years [...] PM CDT Legal 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 Gender Identity Male 09/09/2021 5:01 PM CDT Sexual Orientation Straight 09/09/2021 5: 01 PM CDT documented as of this encounter Plan of Treatment Upcoming Encounters Date Type Department Care Team (Late st Contact Info) Description 08/24/2025 3:00 PM CDT Office Visit [facility] [address] [address] Kesha Jones MD [address] [address] 03/25/2026 1:00 PM CDT Virtual Visit [facility] Transplant [facility] [address] [place] [phone] Guy Hernandez MD [address] [place] [phone] documented as of this encounter Visit Diagnoses Not on filedocumented in this encounter Care Teams Construction Safety Consultant Relationship Specialty Start Date End Date Ca Grier [address] [place] [address] [phone] PCP - General Family Practice 10/24/17 Nahun Easton MD [address] [place] [phone] Orthopedics 09/21/17 Ca Grier [address] [place] [address] Referring Physician Family Practice 09/21/17 Marisa Skinner MD [address] [facility] [address] [place] [address] Nephrology 04/11/18 04/20/21 Stefan Thornton [address] [place] [address] [phone] Home Sales Service Professional INTERNAL MEDICINE - ENDOCRINOLOGY, DIABETES & METABOLISM 04/11/18 Sanjeev Pastrana MD [address] [place] [address] [address] [place], [place] [phone] Assigned Surgical Provider 02/27/21 03/25/22 Ramandeep Collier, RN Registered Nurse Transplant 04/21/21 Guy Hernandez MD [address] [place] [address] Nephrology 04/21/21 Analilia Arellano MD [address] [place] [address] Dermatology 06/21/21 Guy Hernandez MD [address] [place] [address] Assigned Nephrology Provider 11/27/21 12/17/21 Guy Hernandez MD [address] [place] [address] Assigned Nephrology Provider 12/18/21 05/25/23 Evens Clayton MD [address] [place], [place] [id number] Assigned Surgical Provider 03/26/22 09/21/23 Guy Hernandez MD [address] [place] [address] [phone] Assigned Nephrology Provider 05/11/24 Kesha Jones MD [address] [place] [address] [address] [place], [place] [phone] Assigned Infectious Disease Provider 05/11/25 documented as of this encounter
[2025-08-01 13:36] LABS: PCR FLU A Negative PCR FLU A (Negative); PCR FLU B Negative PCR FLU B (Negative); PCR RSV Negative PCR RSV (Negative); SARS PCR* Negative SARS-CoV-2 (Negative)
[2025-08-01 13:54] LABS: Lactate* 1.0 mmol/L (0.5-1.9)
[2025-08-01 13:56] LABS: Hematocrit* 36.5 % (37.0-53.0); Hemoglobin* 11.6 gm/dL (13.5-17.5); Immature Granulocytes Abs Auto 0.02 K/uL (0.00-0.30); Immature Granulocytes Pct Auto 0.2 %; Lymphocytes Absolute Auto 1.80 K/uL (0.90-2.90); Mean Corpuscular HGB Conc 32 gm/dL (32-36); Mean Corpuscular Hemoglobin 29 pg (26-34); Mean Corpuscular Volume 92 fL (80-100); RDW Coefficient of Variation % 14.4 % (11.5-15.5); Red Blood Count* 3.96 m/uL (4.30-5.90); White Blood Count* 8.32 K/uL (4.50-11.00)
[2025-08-01 13:59] LABS: Troponin, Point-of-Care* 0.13 ng/ml (0.01-0.04)
--- NOTE | 2025-08-01 14:00 | ED.GENADULT ---
HPI - General Adult General Chief complaint: Shortness of Breath/Dyspnea Stated complaint: SOB Time Seen by Provider: 08/01/25 13:05 Source: patient Mode of arrival: ambulatory Limitations: no limitations History of Present Illness HPI narrative: 79-year-old male presenting today with shortness of breath for a couple of weeks now. States that he feels this mostly when he is doing any kind of physical activity. He states that he generally takes him 30 minutes some his lawn but now it is taking him 2-3 hours because he has to sit and rest repeatedly. He denies feeling any chest pain. He does feel somewhat lightheaded when this occurs, denies diaphoresis, nausea or vomiting. He states that he has a cough that comes and goes, feels like he has something stuck in his chest that he has to cough up but the cough is otherwise nonproductive. He denies any recent fevers. He does have a history of hypertension, hyperlipidemia cover type 1 diabetes and he is immunocompromised as he is a renal transplant patient. He does not feel short of breath at night when he lays down. He does have chronic bilateral lower extremity edema which he does not feel are worse than usual. Patient's was just diagnosed with COVID last night. Related Data Home Medications ?Medication ?Instructions ?Recorded ?Confirmed aspirin 81 mg capsule 81 mg PO DAILY 02/22/23 02/22/23 atorvastatin 40 mg tablet 40 mg PO DAILY 02/22/23 02/22/23 clopidogrel 75 mg tablet (Plavix) 75 mg PO DAILY 02/22/23 02/22/23 hydrochlorothiazide 25 mg tablet 25 mg PO DAILY 02/22/23 02/22/23 insulin aspart U-100 100 unit/mL 1 sliding scale dose subcut 02/22/23 02/22/23 subcutaneous solution USEASDIRECTD lisinopril 10 mg tablet 10 mg PO BID 02/22/23 02/22/23 metoprolol succinate 50 mg 50 mg PO DAILY 02/22/23 02/22/23 tablet,extended release 24 hr mycophenolate mofetil 500 mg 500 mg PO BID 02/22/23 02/22/23 tablet (CellCept) prednisone 5 mg tablet 5 mg PO DAILY 02/22/23 02/22/23 sulfamethoxazole 400 1 tab PO DAILY 02/22/23 02/22/23 mg-trimethoprim 80 mg tablet (Bactrim) Previous Rx's ?Medication ?Instructions ?Recorded doxycycline hyclate 100 mg capsule 100 mg PO BID #14 caps 04/22/25 Allergies Allergy/AdvReac Type Severity Reaction Status Date / Time levofloxacin Allergy Unknown Verified 08/01/25 12:42 Review of Systems Status of ROS: Reports: 10 or more systems reviewed and unremarkable except as noted in History and below [facility] Medical History Hypertension ?I10 - Essential (primary) hypertension (ICD-10) Hyperlipidemia ?E78.5 - Hyperlipidemia, unspecified (ICD-10) Type 1 diabetes mellitus ?E10.9 - Type 1 diabetes mellitus without complications (ICD-10) Surgical History Renal transplant, status post ?Z94.0 - Kidney transplant status (ICD-10) Social History Smoking Status: Never smoker Do you use any of these nicotine containing products: None Second hand tobacco smoke exposure: No How often do you have a drink containing alcohol: monthly or less AUDIT-C Alcohol total score: 1 Non-prescribed substance use: denies use service: No Exam Narrative: Exam Narrative: Thin, well-developed patient in no acute distress. Alert and oriented. Answers questions appropriately. Mood and affect are appropriate. Thoughts are goal oriented and rational. No tangential or magical thinking noted. Patient speaks in full sentences without needing to catch his breath. HEENT: Normocephalic atraumatic. Pupils are equally round reactive to light. Extraocular muscles are intact. Conjunctivae are moist without any icterus noted. Moist mucous membranes. Neck is supple. Cardiovascular: Heart is regular rate and rhythm S1 and S2 are present without any murmurs. Lungs: Mild Bilateral crackles. Abdomen: Soft and nontender nondistended with normal bowel sounds. Extremities: Bilateral lower extremities show 2+ pitting edema all the way to the knees. Skin: Well perfused. Widespread seborrheic keratosis. Const: Vital Signs, click to edit/add: Vital Signs - 24 hr 08/01/25 12:35 08/01/25 13:14 08/01/25 13:16 Temperature 98.1 F Pulse Rate 60 Pulse Rate [Pulse Oximeter] 63 Respiratory Rate 28 H 27 H Blood Pressure Blood Pressure [Ri ght Upper Arm] 153/85 H Pulse Oximetry 97 94 96 Oxygen Delivery Me thod Room Air Oxygen Flow Rate 08/01/25 13:32 08/01/25 13:45 08/01/25 14:00 Temperature Pulse Rate 58 L Pulse Rate [Pulse Oximeter] Respiratory Rate 27 H 34 H 19 Blood Pressure Blood Pressure [Ri ght Upper Arm] Pulse Oximetry 91 Oxygen Delivery Me thod Oxygen Flow Rate 08/01/25 14:03 08/01/25 14:04 08/01/25 14:15 Temperature Pulse Rate 57 L 57 L 55 L Pulse Rate [Pulse Oximeter] Respiratory Rate 25 H 24 22 Blood Pressure 111/84 Blood Pressure [Ri ght Upper Arm] Pulse Oximetry 95 94 93 Oxygen Delivery Me thod Room Air Oxygen Flow Rate 08/01/25 14:27 08/01/25 14:30 08/01/25 14:41 Temperature Pulse Rate 59 L 58 L 58 L Pulse Rate [Pulse Oximeter] Respiratory Rate 33 H 24 27 H Blood Pressure 138/75 123/92 H Blood Pressure [Ri ght Upper Arm] Pulse Oximetry 95 94 91 Oxygen Delivery Me thod Room Air Oxygen Flow Rate 08/01/25 14:45 08/01/25 15:00 08/01/25 15:02 Temperature Pulse Rate 58 L 56 L 55 L Pulse Rate [Pulse Oximeter] Respiratory Rate 27 H 15 16 Blood Pressure 137/74 Blood Pressure [Ri ght Upper Arm] Pulse Oximetry 91 95 92 Oxygen Delivery Me thod Room Air Oxygen Flow Rate 08/01/25 15:15 08/01/25 15:30 08/01/25 15:32 Temperature Pulse Rate 58 L 59 L 58 L Pulse Rate [Pulse Oximeter] Respiratory Rate 22 23 17 Blood Pressure 136/79 Blood Pressure [Ri ght Upper Arm] Pulse Oximetry 91 90 90 Oxygen Delivery Me thod Room Air Oxygen Flow Rate 08/01/25 15:33 08/01/25 16:35 08/01/25 16:36 Temperature Pulse Rate 56 L 58 L 58 L Pulse Rate [Pulse Oximeter] Respiratory Rate 23 20 23 Blood Pressure Blood Pressure [Ri ght Upper Arm] Pulse Oximetry 93 88 89 Oxygen Delivery Me thod Room Air Oxygen Flow Rate 08/01/25 16:45 08/01/25 16:50 Temperature Pulse Rate 60 Pulse Rate [Pulse Oximeter] Respiratory Rate 19 Blood Pressure 141/77 H Blood Pressure [Ri ght Upper Arm] Pulse Oximetry 90 93 Oxygen Delivery Me thod Room Air Nasal Cannula Oxygen Flow Rate 3 Course Course ED Course: EKG, read by me, shows sinus bradycardia with a pulse of 58. He does have a of right cabrera axis deviation with inverted T-waves in 2, 3 and AVF. Also has inverted T-waves in V5 and V6. These lateral lead inversions are new when compared to a previous EKG. CBC shows mild anemia with a hemoglobin of 11.6, thrombocytopenia with platelet count of 118. Neither Thrombocytopenia nor anemia is not new for the patient. Sodium was 136, potassium slightly elevated at 5.3. BUN is elevated at 47 with a creatinine of 1.3-appears to be around patient's baseline. Normal lactate. LFTs slightly elevated with an AST of 63 ALT of 55. Normal CRP. BNP markedly elevated at just over 16,000. Troponin elevated at 0.21. Chest x-ray, read by me, does not show evidence of congestive heart failure. Discussed patient with Dr. Chao at [facility] who is in agreement the patient should be transferred for a a non ST elevation [place]. There is certainly likely a component of congestive heart failure with bilateral lower extremity edema, shortness of breath and elevated BNP. Aspirin and heparin were started. Patient was mildly hypoxic with oxygen saturation of 90 at room air. He was started on 3 L nasal cannula and went up to 93%. This did seem to worsen slightly after heparin treatment was started. Therefore we also added 20 mg of IV Lasix. Repeat EKG was unchanged. Repeat troponin was unchanged. Patient remains asymptomatic as long as he is not doing any physical activity. Vital Signs Vital signs: Initial Vital Signs Temperature 98.1 F 08/01/25 12:35 Temperature Source Temporal Artery Scan 08/01/25 12:35 Pulse Rate 63 08/01/25 12:35 Pulse Rhythm Regular 08/01/25 12:35 Respiratory Rate 28 H 08/01/25 12:35 Respiratory Effort Tachypnea 08/01/25 12:35 Respiratory Depth Normal 08/01/25 12:35 Respiratory Pattern Normal 08/01/25 12:35 Blood Pressure 153/85 H 08/01/25 12:35 Blood Pressure Mean 107 H 08/01/25 12:35 Blood Pressure Position Sitting 08/01/25 12:35 Pulse Oximetry 97 08/01/25 12:35 Oxygen Delivery Method Room Air 08/01/25 12:35 Vital Signs Temperature 98.1 F 08/01/25 12:35 Pulse Rate 63 08/01/25 12:35 Respiratory Rate 28 H 08/01/25 12:35 Blood Pressure 153/85 H 08/01/25 12:35 Pulse Oximetry 97 08/01/25 12:35 Oxygen Delivery Method Room Air 08/01/25 12:35 Temperature 98.1 F 08/01/25 12:35 Pulse Rate 56 L 08/01/25 20:37 Respiratory Rate 19 08/01/25 20:37 Blood Pressure 110/61 08/01/25 20:37 Pulse Oximetry 96 08/01/25 20:37 Oxygen Delivery Method Nasal Cannula 08/01/25 20:37 Oxygen Flow Rate 1 08/01/25 20:37 Medications Administered Medications: Discontinued Medications Generic Name Dose Route Start Last Admin Trade Name Freq PRN Reason Stop Dose Admin Aspirin 324 mg 08/01/25 14:09 08/01/25 14:18 Aspirin 81 Mg Tab.Chew PO 08/01/25 14:10 243 mg ONCE ONE Administration Furosemide 20 mg 08/01/25 17:11 08/01/25 17:20 Furosemide 10 Mg/Ml Inj IVP 08/01/25 17:12 20 mg ONCE ONE Administration Heparin Sodium (Porcine) 4,000 unit 08/01/25 14:15 08/01/25 14:38 Heparin 5,000 Unit/0.5 Ml Inj IVP 08/01/25 14:16 4,000 unit ONCE ONE Administration Heparin Sodium/Dextrose 25,000 unit in 500 mls @ 0 mls/hr 08/01/25 14:15 08/01/25 14:39 Heparin IV 850 unit/hr .Q0M JANICE 17 mls/hr Protocol Administration Per Protocol Lisinopril 10 mg 08/01/25 17:32 08/01/25 18:49 Lisinopril 10 Mg Tablet PO 10 mg DAILY JANICE Administration Metoprolol Succinate 50 mg 08/01/25 17:35 08/01/25 18:49 Metoprolol Succinate (Xl) 50 Mg Tab PO 08/01/25 17:36 50 mg ONCE ONE Administration Mycophenolate Mofetil 500 mg 08/01/25 17:34 08/01/25 18:49 Mycophenolate Mofetil 250 Mg Capsule PO 08/01/25 17:35 500 mg ONCE ONE Administration Medical Decision Making MDM Narrative Medical decision making narrative: 79-year-old male with shortness of breath, elevated troponins consistent with a non-STEMI. Likely component of congestive heart failure also. Patient will be transferred to [place] for further management. Lab Data Lab results reviewed: Yes I reviewed the patient's lab results Labs: Lab Results 08/01/25 08/01/25 08/01/25 Range/Units 12:45 13:15 13:40 WBC 8.32 (4.50-11.00) K/uL RBC 3.96 L (4.30-5.90) m/uL Hgb 11.6 L (13.5-17.5) gm/dL Hct 36.5 L (37.0-53.0) % MCV 92 (80-100) fL MCH 29 (26-34) pg MCHC 32 (32-36) gm/dL RDW Coeff of Manan 14.4 (11.5-15.5) % Plt Count 118 L (140-440) K/uL Neut % (Auto) 72.0 (42.0-72.0) % Lymph % (Auto) 21.6 (20-44) % Piute % (Auto) 5.5 (0.0-11.0) % Eos % (Auto) 0.5 (0.0-7.0) % Baso % (Auto) 0.2 (0.0-3.0) % Neut # (Auto) 5.98 (1.7-7.0) K/uL Lymph # (Auto) 1.80 (0.90-2.90) K/uL Pi[place] # (Auto) 0.50 (0.00-0.90) K/UL Eos # (Auto) 0.04 (0.00-0.50) K/uL Baso # (Auto) 0.02 (0.00-0.30) K/uL Abs Immat Gran (auto) 0.02 (0.00-0.30) K/uL Imm/Tot Granulo (auto) 0.2 % INR 1.05 (0.91-1.10) APTT 44 H (23-33) Seconds Sodium 136 (135-149) mmol/L Potassium 5.3 H (3.6-5.1) mmol/L Chloride 106 (96-114) mmol/L Carbon Dioxide 23 (20-32) mmol/L Anion Gap 7 (7-15) mEq/L BUN 47 H (7-30) mg/dL Creatinine 1.3 (0.5-1.5) mg/dL Estimated Creat Clear 46.77 Estimated GFR 57 ml/min Glucose 140 H (60-115) mg/dL Lactate 1.0 (0.5-1.9) mmol/L Calcium 9.1 (8.4-10.6) mg/dL Magnesium 1.7 (1.5-2.6) mg/dL Total Bilirubin 0.5 (0.1-1.5) mg/dL Direct Bilirubin 0.3 (0.0-0.5) mg/dL AST 63 H (12-35) U/L ALT 55 H (4-50) U/L Alkaline Phosphatase 107 (40-150) U/L Troponin I 0.21 H* (0.01-0.04) ng/mL C-Reactive Protein < 0.5 L (0.5-1.0) mg/dL NT-Pro-B Natriuret Pep 02451 H (See Note) pg/mL Total Protein 7.3 (6.0-8.3) g/dL Albumin 4.0 (3.3-5.0) g/dL Procalcitonin 0.06 (<0.50) ng/mL SARS-CoV-2 (PCR) Negative SARS-CoV-2 (Negative) Influenza Type A (PCR) Negative PCR FLU A (Negative) Influenza Type B (PCR) Negative PCR FLU B (Negative) RSV (PCR) Negative PCR RSV (Negative) POC Troponin I 0.13 H (0.01-0.04) ng/ml 08/01/25 Range/Units 16:03 WBC (4.50-11.00) K/uL RBC (4.30-5.90) m/uL Hgb (13.5-17.5) gm/dL Hct (37.0-53.0) % MCV (80-100) fL MCH (26-34) pg MCHC (32-36) gm/dL RDW Coeff of Manan (11.5-15.5) % Plt Count (140-440) K/uL Neut % (Auto) (42.0-72.0) % Lymph % (Auto) (20-44) % Piute % (Auto) (0.0-11.0) % Eos % (Auto) (0.0-7.0) % Baso % (Auto) (0.0-3.0) % Neut # (Auto) (1.7-7.0) K/uL Lymph # (Auto) (0.90-2.90) K/uL [place] # (Auto) (0.00-0.90) K/UL Eos # (Auto) (0.00-0.50) K/uL Baso # (Auto) (0.00-0.30) K/uL Abs Immat Gran (auto) (0.00-0.30) K/uL Imm/Tot Granulo (auto) % INR (0.91-1.10) APTT (23-33) Seconds Sodium (135-149) mmol/L Potassium (3.6-5.1) mmol/L Chloride (96-114) mmol/L Carbon Dioxide (20-32) mmol/L Anion Gap (7-15) mEq/L BUN (7-30) mg/dL Creatinine (0.5-1.5) mg/dL Estimated Creat Clear Estimated GFR ml/min Glucose (60-115) mg/dL Lactate (0.5-1.9) mmol/L Calcium (8.4-10.6) mg/dL Magnesium (1.5-2.6) mg/dL Total Bilirubin (0.1-1.5) mg/dL Direct Bilirubin (0.0-0.5) mg/dL AST (12-35) U/L ALT (4-50) U/L Alkaline Phosphatase (40-150) U/L Troponin I 0.20 H* (0.01-0.04) ng/mL C-Reactive Protein (0.5-1.0) mg/dL NT-Pro-B Natriuret Pep (See Note) pg/mL Total Protein (6.0-8.3) g/dL Albumin (3.3-5.0) g/dL Procalcitonin (<0.50) ng/mL SARS-CoV-2 (PCR) (Negative) Influenza Type A (PCR) (Negative) Influenza Type B (PCR) (Negative) RSV (PCR) (Negative) POC Troponin I (0.01-0.04) ng/ml Imaging Data Chest x-ray: Attestation: I have reviewed the pertinent imaging results. Radiologist's impression: TECHNIQUE: PA and lateral chest x-ray. COMPARISON: November 05, 2012. FINDINGS: Since the prior studies the patient has developed diffuse interstitial prominence throughout both lungs particularly at the lung bases. The findings may reflect diffuse interstitial fibrosis. There is some linear fibrosis or atelectasis at each lung base. Overall heart size is within normal limits. No pneumothorax. No definite pleural effusion. Coronary artery calcification. Postsurgical change of the lumbar spine incompletely visualized. Mild degenerative change of the AC joints. IMPRESSION: Diffuse interstitial prominence which may reflect diffuse interstitial fibrosis. Please correlate clinically. Consider a chest CT if indicated. ECG Data Attestation: I personally reviewed and interpreted this ECG as follows: Discharge Plan Discharge Clinical Impression: Non-ST elevation [place] (NSTEMI), Fluid overload Patient Disposition: [facility] Condition: Stable Prescriptions: No Action aspirin 81 mg capsule 81 mg PO DAILY atorvastatin 40 mg tablet 40 mg PO DAILY clopidogrel [Plavix] 75 mg tablet 75 mg PO DAILY hydrochlorothiazide 25 mg tablet 25 mg PO DAILY lisinopril 10 mg tablet 10 mg PO BID metoprolol succinate 50 mg tablet extended release 24 hr 50 mg PO DAILY mycophenolate mofetil [CellCept] 500 mg tablet 500 mg PO BID prednisone 5 mg tablet 5 mg PO DAILY sulfamethoxazole-trimethoprim [Bactrim] 400-80 mg tablet 1 tab PO DAILY insulin aspart U-100 100 unit/mL solution 1 sliding scale dose subcut USEASDIRECTD doxycycline hyclate 100 mg capsule 100 mg PO BID Qty: 14 4RF
[2025-08-01 14:07] LABS: Slide Review Reflex No
[2025-08-01 14:15] LABS: Albumin* 4.0 g/dL (3.3-5.0); Chloride* 106 mmol/L (96-114); Sodium* 136 mmol/L (135-149)
[2025-08-01 14:16] LABS: Potassium* 5.3 mmol/L (3.6-5.1)
[2025-08-01 14:18] LABS: Alanine Aminotransferase* 55 U/L (4-50); Alkaline Phosphatase* 107 U/L (40-150); Anion Gap 7 mEq/L (7-15); Aspartate Amino Transferase* 63 U/L (12-35); Bilirubin Direct* 0.3 mg/dL (0.0-0.5); Bilirubin Total* 0.5 mg/dL (0.1-1.5); Blood Urea Nitrogen* 47 mg/dL (7-30); Carbon Dioxide* 23 mmol/L (20-32); Creatinine* 1.3 mg/dL (0.5-1.5); Est. Creatinine Clearance* 46.77; Estimated Glomerular Filt Rate 57 ml/min; Total Protein* 7.3 g/dL (6.0-8.3)
[2025-08-01] MEDS: ASPIRIN 81 MG TAB.CHEW 324 MG PO (14:18)
[2025-08-01 14:19] LABS: Calcium* 9.1 mg/dL (8.4-10.6); Glucose* 140 mg/dL (60-115)
[2025-08-01 14:35] LABS: Procalcitonin* 0.06 ng/mL (<0.50)
[2025-08-01 14:38] LABS: NT Pro B Type NatriureticPept* 16400 pg/mL (See Note)
[2025-08-01] MEDS: HEPARIN 5,000 UNIT/0.5 ML INJ 4000 UNIT IVP (14:38)
[2025-08-01] MEDS: HEPARIN 25,000 UNIT/500 ML BAG 17 UNIT IV (14:39)
[2025-08-01 14:52] LABS: INR 1.05 (0.91-1.10); Prothrombin Time 14.5 Seconds
[2025-08-01] MEDS: FUROSEMIDE 10 MG/ML inj 20 MG IVP (17:20)
[2025-08-01] MEDS: METOPROLOL SUCCINATE (XL) 50 MG TAB PO (18:49)
== END 2025-08-01 20:48 | disposition short-term general hospital (02) ==
LOC: ED 13:24
PROVIDERS: Student in an Organized Health Care Education/Training Program; Emergency Provider Family Medicine; PCP Family Medicine
DX: I21.4 Non-ST elevation (NSTEMI) myocardial infarction (principal); E87.70 Fluid overload, unspecified
CPT/HCPCS: 36415; 71046; 80048; 80076; 83605; 83735; 83880; 84145; 84484; 85025; 85610; 85730; 86140; 87631; 93005; 94761; 99285; A9270; J1644; J1938

== ENCOUNTER 2025-08-01 20:31 | Outpatient (CLI) | payer MEDICARE, BC, SELFPAY | END 2025-08-01 20:32 | disposition home or self-care (01) | LOC: AMB 08-03 13:57 | PROVIDERS: PCP Family Medicine; Visit Provider Emergency Medicine | DX: I21.4 Non-ST elevation (NSTEMI) myocardial infarction (principal) | CPT/HCPCS: A0425; A0434 ==

== ENCOUNTER 2025-09-01 13:41 | Inpatient (IN) | payer MEDICARE, BC, SELFPAY ==
[2025-09-01 13:56] VITALS: BP 107/51; PULSE 56; RESP 18; TEMP 36.4; O2SAT 97; BMI 20.5
--- NOTE | 2025-09-01 14:14 | ED.GENADULT ---
HPI - General Adult General Time Seen by Provider: 14:14 Date Seen: 09/01/25 Chief complaint: Unspecified Complaint, Adult Stated complaint: Low Oxygen levels Time Seen by Provider: 09/01/25 13:58 Source: patient and RN notes reviewed Mode of arrival: ambulatory Limitations: no limitations History of Present Illness HPI narrative: This 79-year-old male is coming in with low oxygenation saturations. He has home health nurse and was at a clinic visit today. Oxygenation has been dropping to the 80s, he states that confirmed it with the home health nurse as well as him. His states he had a chest x-ray last week that showed some fluid building up in his lungs. He does not feel like he has had more fluid in his legs. His main complaint is he is just not as perky as he usually is. He denies any chest pain, denies shortness of breath. Denies change in appetite, when ask about this he tells me when he had for breakfast and then he had some jelly on his toast and now his sugars have been in the 250s. He has taken some insulin. No fevers or chills. No abdominal pain. Patient had a 3 vessel bypass at [place] on August 10. He also has hypertension, hyperlipidemia, type 1 diabetes and is status post renal transplant. Related Data Home Medications ?Medication ?Instructions ?Recorded ?Confirmed atorvastatin 40 mg tablet 40 mg PO HS 02/22/23 09/01/25 clopidogrel 75 mg tablet (Plavix) 75 mg PO DAILY 02/22/23 09/01/25 insulin aspart U-100 100 unit/mL 1 - 70 unit subcut USEASDIRECTD 02/22/23 09/01/25 subcutaneous solution metoprolol succinate 50 mg 50 mg PO DAILY 02/22/23 09/01/25 tablet,extended release 24 hr prednisone 5 mg tablet 5 mg PO DAILY 02/22/23 09/01/25 sulfamethoxazole 400 1 tab PO DAILY 02/22/23 09/01/25 mg-trimethoprim 80 mg tablet (Bactrim) amiodarone 200 mg tablet 200 mg PO DAILY 09/01/25 09/01/25 amoxicillin 500 mg tablet 2,000 mg PO DIRECTED PRN 09/01/25 09/01/25 aspirin 81 mg tablet 81 mg PO DAILY 09/01/25 09/01/25 brimonidine 0.2 % eye drops 1 drp ophthalmic (eye) BID 09/01/25 09/01/25 cefpodoxime 200 mg tablet 200 mg PO BID 09/01/25 09/01/25 furosemide 40 mg tablet 40 mg PO DAILY 09/01/25 09/01/25 losartan 25 mg tablet 25 mg PO DAILY 09/01/25 09/01/25 mycophenolate mofetil 250 mg 500 mg PO BID 09/01/25 09/01/25 capsule nitroglycerin 0.4 mg sublingual 0.4 mg sublingual Q5M PRN 09/01/25 09/01/25 tablet sennosides 8.6 mg-docusate sodium 1 tab-cap PO BID 09/01/25 09/01/25 50 mg tablet (Senna-S) vit C 250 mg-vit E 90 mg-zinc 40 1 tab PO BID 09/01/25 09/01/25 mg-copper 1 [id number]-bebuxl capsule (PreserVision AREDS-2) Allergies Allergy/AdvReac Type Severity Reaction Status Date / Time levofloxacin Allergy Unknown Verified 09/01/25 14:06 amoxicillin AdvReac Diarrhea Verified 09/01/25 14:06 Review of Systems Status of ROS: Reports: 6 or more systems reviewed and unremarkable except as noted in History and below [facility] Medical History (Updated 09/01/25 @ 17:50 by Suzi Turner MD) Diabetic infection of right foot ?E11.628 - Type 2 diabetes mellitus with other skin complications (ICD-10) ?L08.9 - Local infection of the skin and subcutaneous tissue, unspecified (ICD-10) Decubitus ulcer of coccygeal region, stage 2 ?L89.152 - Pressure ulcer of sacral region, stage 2 (ICD-10) HFrEF (heart failure with reduced ejection fraction) ?I50.20 - Unspecified systolic (congestive) heart failure (ICD-10) Iatrogenic adrenal insufficiency ?E27.49 - Other adrenocortical insufficiency (ICD-10) Bilateral carotid artery stenosis ?I65.23 - Occlusion and stenosis of bilateral carotid arteries (ICD-10) Non-ST elevation SC (NSTEMI) (08/01/25) ?I21.4 - Non-ST elevation (NSTEMI) myocardial infarction (ICD-10) Cervical myelopathy ?G95.9 - Disease of spinal cord, unspecified (ICD-10) 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 - Immunodeficiency, unspecified (ICD-10) Perforation of left tympanic membrane ?H72.92 - Unspecified perforation of tympanic membrane, left ear (ICD-10) Malignant neoplasm of posterior wall of urinary bladder ?C67.4 - Malignant neoplasm of posterior wall of bladder (ICD-10) CKD (chronic kidney disease) ?N18.9 - Chronic kidney disease, unspecified (ICD-10) Neurogenic claudication ?R29.818 - Other symptoms and signs involving the nervous system (ICD-10) Lumbosacral radiculopathy ?M54.17 - Radiculopathy, lumbosacral region (ICD-10) 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 ?C44.621 - Squamous cell carcinoma of skin of unspecified upper limb, including shoulder (ICD-10) Insulin pump status ?Z96.41 - Presence of insulin pump (external) (internal) (ICD-10) Benign neoplasm of colon ?D12.6 - Benign neoplasm of colon, unspecified (ICD-10) Anemia of other chronic disease ?D63.8 - Anemia in other chronic diseases classified elsewhere (ICD-10) Peripheral vascular disease ?I73.9 - Peripheral vascular disease, unspecified (ICD-10) Cerebrovascular disease ?I67.9 - Cerebrovascular disease, unspecified (ICD-10) Thrombocytopenia ?D69.6 - Thrombocytopenia, unspecified (ICD-10) Ischemic heart disease ?I25.9 - Chronic ischemic heart disease, unspecified (ICD-10) Hypertension ?I10 - Essential (primary) hypertension (ICD-10) Hyperlipidemia ?E78.5 - Hyperlipidemia, unspecified (ICD-10) Type 1 diabetes mellitus ?E10.9 - Type 1 diabetes mellitus without complications (ICD-10) Surgical History (Updated 09/01/25 @ 17:50 by Suzi Turner MD) H/O vitrectomy ?Z98.890 - Other specified postprocedural states (ICD-10) H/O transurethral resection of bladder tumor (TURBT) ?Z98.890 - Other specified postprocedural states (ICD-10) ?Z86.03 - Personal history of neoplasm of uncertain behavior (ICD-10) S/P lumbar fusion ?Z98.1 - Arthrodesis status (ICD-10) History of laparotomy ?Z98.890 - Other specified postprocedural states (ICD-10) Hx laparoscopic cholecystectomy ?Z90.49 - Acquired absence of other specified parts of digestive tract (ICD-10) H/O inguinal hernia repair ?Z98.890 - Other specified postprocedural states (ICD-10) ?Z87.19 - Personal history of other diseases of the digestive system (ICD-10) S/P ERCP ?Z98.890 - Other specified postprocedural states (ICD-10) Cataract extraction status ?Z98.49 - Cataract extraction status, unspecified eye (ICD-10) Cervical vertebral fusion ?M43.22 - Fusion of spine, cervical region (ICD-10) History of PTCA ?Z98.61 - Coronary angioplasty status (ICD-10) H/O Mohs micrographic surgery for skin cancer ?Z85.828 - Personal history of other malignant neoplasm of skin (ICD-10) ?Z98.890 - Other specified postprocedural states (ICD-10) 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 EtOH socially, 1-2 per month. What is your current living situation?: I presently have a place to live Problems where you live: no known problems In the past 12 months, utilities in danger of being shut off: no In past 12 months, lack of transportation kept you from medical appts, meetings, work, or getting things needed for daily living: no In the past 12 mos, have been you worried that your food would run out before you had money to buy more?: never true In the past 12 mos, the food you bought just didn't last and you didn't have money to buy more?: never true Smoking Status: Never smoker Do you use any of these nicotine containing products: None Second hand tobacco smoke exposure: No How often do you have a drink containing alcohol: monthly or less Alcohol type: hard liquor How often do you have six or more drinks on one occasion: Never AUDIT-C Alcohol total score: 1 Non-prescribed substance use: denies use Caffeine: Yes (2 cups) How often does anyone, including family, friends and others, physically hurt you: never How often does anyone, including family, friends and others, insult or talk down to you: never How often does anyone, including family, friends and others, threaten you with harm: never How often does anyone, including family, friends and others, scream or curse at you: never service: No Exam Const: Vital Signs, click to edit/add: Vital Signs - 24 hr 09/01/25 13:56 09/01/25 15:00 09/01/25 16:39 Temperature 97.5 F L Pulse Rate [Left P ulse Oximeter] 56 L 56 L Respiratory Rate 18 18 Blood Pressure [Ri ght Upper Arm] 107/51 L 160/100 H Pulse Oximetry 97 94 97 Oxygen Delivery Me thod Room Air Room Air This 79-year-old male is seen in exam room 7. He is sitting up on the edge of the bed. It is notable that any time he starts getting into a conversation with me and is talking, his oxygen saturation will drop from the 90s down into the 80s, at 1 point went down as low as 77%. As soon as you have him stop talking, he does rebound quickly back up into the 90s. He does not feel short of breath during those times. He is alert, interactive, appears frail and has slender stature. He looks pale, no rash. He is speaking in complete sentences and does not really stop when he becomes hypoxic. Sclera clear, conjugate gaze. Does have some kyphosis, old healed scar down the center is neck. I do not hear lung sounds along his left lower lung field posteriorly, no crackles or wheezing either. He has better air entry the apex of his log on auscultation posteriorly. Here better breath sounds throughout his right lung field. CV regular, no significant murmur heard, normal S1-S2. Abdomen is slender soft. He has no abdominal tenderness, no rebound or guarding, no distention noted. He has about 2+ pitting edema of his lower extremities. Documenting provider has reviewed patient's vital signs: yes Course Course ED Course: With patient cardiac monitoring, pulse oximetry, obtain EKG. We will certainly get a two view chest x-ray, believe he probably has a pleural effusion on the left side, imaging will help elucidate if there is any associated infiltrate. May need to consider advanced imaging. Will obtain full complement of labs. If his oxygenation is continuing to drop with conversation or we note dropping at rest, patient may need supplemental oxygen started. Reevaluation(s) Time of Reevaluation #1: 16:27 Reevaluation #1: Reviewed with patient and his that he has fluid overload, we call this congestive heart failure. He will need IV diuresis. He states he was on a water pill, was taking 2 of him but he is back down to 1, see hydrochlorothiazide in his chart. We will start with 20 mg IV Lasix and see how he responds. I will talk to the hospitalists regarding him. Consultations Consultation #1: Have reviewed the case with Dr. Ramon on-call Cardiology at [place]. He states on August 26 his sodium was 137, creatinine was 1.76 with a BUN of 44, hemoglobin 9.6. He did have a noted left pleural effusion on his chest x-ray on August 24, I cannot see that to compare. His chest x-ray here from August 01 showed no fluid overload. Patient is wondering about oxygen, at rest he is 99% and if not talking, does not desaturate. He may need it if he is ambulating or talking. Reviewed with him the goal is is to bring the fluid down so that he does not even require any oxygen. Time: 16:11 Consultation #2: Have spoken with Dr. Turner and she will accept patient. Time: 16:29 Vital Signs Vital signs: Initial Vital Signs Temperature 97.5 F L 09/01/25 13:56 Temperature Source Oral 09/01/25 13:56 Pulse Rate 56 L 09/01/25 13:56 Respiratory Rate 18 09/01/25 13:56 Blood Pressure 107/51 L 09/01/25 13:56 Blood Pressure Mean 69 L 09/01/25 13:56 Blood Pressure Position Sitting 09/01/25 13:56 Pulse Oximetry 97 09/01/25 13:56 Oxygen Delivery Method Room Air 09/01/25 13:56 Vital Signs Temperature 97.5 F L 09/01/25 13:56 Pulse Rate 56 L 09/01/25 13:56 Respiratory Rate 18 09/01/25 13:56 Blood Pressure 107/51 L 09/01/25 13:56 Pulse Oximetry 97 09/01/25 13:56 Oxygen Delivery Method Room Air 09/01/25 13:56 Temperature 96.9 F L 09/01/25 17:26 Pulse Rate 57 L 09/01/25 17:26 Respiratory Rate 28 H 09/01/25 17:26 Blood Pressure 145/109 H 09/01/25 17:26 Pulse Oximetry 98 09/01/25 17:26 Oxygen Delivery Method Room Air 09/01/25 17:26 Medications Administered Medications: Discontinued Medications Generic Name Dose Route Start Last Admin Trade Name Freq PRN Reason Stop Dose Admin Furosemide 20 mg 09/01/25 16:24 09/01/25 16:34 Furosemide 10 Mg/Ml Inj IVP 09/01/25 16:25 20 mg ONCE ONE Administration Medical Decision Making Lab Data Lab results reviewed: Yes I reviewed the patient's lab results Labs: Lab Results 09/01/25 Range/Units 14:45 WBC 7.18 (4.50-11.00) K/uL RBC 3.35 L (4.30-5.90) m/uL Hgb 9.5 L (13.5-17.5) gm/dL Hct 30.7 L (37.0-53.0) % MCV 92 (80-100) fL MCH 28 (26-34) pg MCHC 31 L (32-36) gm/dL RDW Coeff of Manan 15.8 H (11.5-15.5) % Plt Count 172 (140-440) K/uL Neut % (Auto) 67.8 (42.0-72.0) % Lymph % (Auto) 24.2 (20-44) % [place] % (Auto) 6.8 (0.0-11.0) % Eos % (Auto) 0.7 (0.0-7.0) % Baso % (Auto) 0.1 (0.0-3.0) % Neut # (Auto) 4.86 (1.7-7.0) K/uL Lymph # (Auto) 1.74 (0.90-2.90) K/uL [place] # (Auto) 0.50 (0.00-0.90) K/UL Eos # (Auto) 0.05 (0.00-0.50) K/uL Baso # (Auto) 0.01 (0.00-0.30) K/uL Abs Immat Gran (auto) 0.03 (0.00-0.30) K/uL Imm/Tot Granulo (auto) 0.4 % VBG pH 7.434 H (7.32-7.43) VBG pCO2 42 (40-50) mmHG VBG pO2 31.5 (25-47) mmHG VBG HCO3 28 (21-28) mmol/L Sodium 131 L (135-149) mmol/L Potassium 4.3 (3.6-5.1) mmol/L Chloride 98 (96-114) mmol/L Carbon Dioxide 27 (20-32) mmol/L Anion Gap 6 L (7-15) mEq/L BUN 67 H (7-30) mg/dL Creatinine 1.4 (0.5-1.5) mg/dL Estimated Creat Clear 40.54 Estimated GFR 52 ml/min Glucose 211 H (60-115) mg/dL Calcium 8.4 (8.4-10.6) mg/dL Magnesium 1.6 (1.5-2.6) mg/dL Total Bilirubin 0.4 (0.1-1.5) mg/dL AST 46 H (12-35) U/L ALT 23 (4-50) U/L Alkaline Phosphatase 183 H (40-150) U/L Troponin I 0.03 (0.01-0.04) ng/mL C-Reactive Protein 2.8 H (0.5-1.0) mg/dL NT-Pro-B Natriuret Pep 12488 H (See Note) pg/mL Total Protein 5.9 L (6.0-8.3) g/dL Albumin 2.9 L (3.3-5.0) g/dL SARS-CoV-2 Ag (Rapid) Negative Imaging Data Chest x-ray: Attestation: I have reviewed the pertinent imaging results. My impression: See blunting of his right costophrenic angle in definite left pleural effusion. Radiologist's impression: Patient: SYDNI KIMBROUGH Facility:[facility] Patient ID:?[id number] Site Patient ID:?[id number]. Site :?[id number] Study:?XRay-Chest -09/01/2025 3:00:04 PM Ordering Physician:Chino Gill Final Report: Indication: not feeling well, low oxygen recent triple bypass hypoxia, dec breath sounds left side Technique: PA and lateral views of the chest. Comparison: 08/01/2025. Findings: Postsurgical changes from median sternotomy and coronary artery bypass grafting. Normal cardiomediastinal silhouette. Zimt-elqikuw-vmjm-right basilar opacities. Small to moderate left pleural effusion. Possible trace right pleural effusion. Moderate degenerative changes of the visualized spine. Impression: 1. Small to moderate left and possible trace right pleural effusions. 2. Bsmq-txkldqm-afpj-right basilar opacities are favored to represent atelectasis. Dictated by Sudhir Lomas MD @ 09/01/2025 3:17:45 PM (Electronic Signature) ECG Data Attestation: I personally reviewed and interpreted this ECG as follows: (Sinus bradycardia, 55 beats per minute. Inferior and lateral precordial T-wave changes. QT corrected 495 milliseconds. QT corrected has prolonged but otherwise similar to prior EKG in July with his SC. ) Prior ECG tracings: available for review Discharge Plan Discharge Clinical Impression: Congestive heart failure, Status post coronary artery bypass graft Patient Disposition: Admitted As Inpatient Procedures ABG Interpretation ABG Results: 09/01/25 14:45 VBG pH 7.434 H VBG pCO2 42 VBG pO2 31.5 VBG HCO3 28
--- NOTE | 2025-09-01 14:27 | CRLHL7_ITS ---
For Patients: As a result of the Century Cures Act, medical imaging exams and procedure reports are released immediately into your electronic medical record. You may view this report before your referring provider. If you have questions, please contact your health care provider. Indication: not feeling well, low oxygen recent triple bypass hypoxia, dec breath sounds left side Technique: PA and lateral views of the chest. Comparison: 08/01/2025. Findings: Postsurgical changes from median sternotomy and coronary artery bypass grafting. Normal cardiomediastinal silhouette. Wzuq-fhetuah-crua-right basilar opacities. Small to moderate left pleural effusion. Possible trace right pleural effusion. Moderate degenerative changes of the visualized spine. Impression: 1. Small to moderate left and possible trace right pleural effusions. 2. Adgj-egewnms-tgow-right basilar opacities are favored to represent atelectasis. Dictated by Sudhir Lomas MD @ 09/01/2025 3:17:45 PM (Electronically Signed)
[2025-09-01 14:53] LABS: HCO3 VBG 28 mmol/L (21-28); PCO2 VBG 42 mmHG (40-50); PO2 VBG 31.5 mmHG (25-47); pH VBG 7.434 (7.32-7.43)
[2025-09-01 14:55] LABS: Hematocrit* 30.7 % (37.0-53.0); Hemoglobin* 9.5 gm/dL (13.5-17.5); Immature Granulocytes Abs Auto 0.03 K/uL (0.00-0.30); Immature Granulocytes Pct Auto 0.4 %; Lymphocytes Absolute Auto 1.74 K/uL (0.90-2.90); Mean Corpuscular HGB Conc 31 gm/dL (32-36); Mean Corpuscular Hemoglobin 28 pg (26-34); Mean Corpuscular Volume 92 fL (80-100); RDW Coefficient of Variation % 15.8 % (11.5-15.5); Red Blood Count* 3.35 m/uL (4.30-5.90); White Blood Count* 7.18 K/uL (4.50-11.00)
[2025-09-01 15:00] VITALS: O2SAT 94
[2025-09-01 15:08] LABS: Slide Review Reflex No
[2025-09-01 15:21] LABS: Albumin* 2.9 g/dL (3.3-5.0); Chloride* 98 mmol/L (96-114); Potassium* 4.3 mmol/L (3.6-5.1); Sodium* 131 mmol/L (135-149)
[2025-09-01 15:23] LABS: Blood Urea Nitrogen* 67 mg/dL (7-30); Creatinine* 1.4 mg/dL (0.5-1.5); Est. Creatinine Clearance* 40.54; Estimated Glomerular Filt Rate 52 ml/min
[2025-09-01 15:24] LABS: Alanine Aminotransferase* 23 U/L (4-50); Alkaline Phosphatase* 183 U/L (40-150); Anion Gap 6 mEq/L (7-15); Aspartate Amino Transferase* 46 U/L (12-35); Bilirubin Total* 0.4 mg/dL (0.1-1.5); Calcium* 8.4 mg/dL (8.4-10.6); Carbon Dioxide* 27 mmol/L (20-32); Glucose* 211 mg/dL (60-115); Total Protein* 5.9 g/dL (6.0-8.3)
[2025-09-01 15:29] LABS: SARS Antigen* Negative
[2025-09-01 15:37] LABS: NT Pro B Type NatriureticPept* 25200 pg/mL (See Note)
[2025-09-01] MEDS: FUROSEMIDE 10 MG/ML inj 20 MG IVP ×2 (16:34→20:52)
[2025-09-01 16:39] VITALS: BP 160/100; PULSE 56; RESP 18; O2SAT 97
[2025-09-01 17:22] VITALS: BMI 20.7
--- NOTE | 2025-09-01 17:25 | PM.IMHP1 ---
Assessment and Plan Assessment and plan (1) Acute hypoxic respiratory failure: Problem comment: - Associated with ambulation or talking, otherwise sats in the 90's at rest (while not talking) - secondary to CHF exacerbation, treat, see below - oxygen supplementation as needed - RT consult Status: Acute (2) HFrEF (heart failure with reduced ejection fraction): Problem comment: - Acute on chronic HFrEF exacerbation. EF 30-35% on WILFREDO done intraoperatively during CABG 08/10/25. - Hypoxia, tachypnea, LE edema, pleural effusions, proBNP 24,000, known reduced EF - Complicated by CKD stage 3 and renal transplant making diuresis riskier - Admit for gentle, carefully monitored diuresis with strict I/Os, TTE, cardiac monitoring, repeat troponin in am, elevate LEs, heart heathy/low sodium diet, check TSH - he is currently on losartan, continue this. 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 04/21 stent rca 08/10/2025 3vCABG Status: Chronic (6) Type 1 diabetes mellitus: Problem comment: Per [facility] record: Diagnosed at around age 23, around 1970 continous subcutaneus insulin infusion Nephropathy transplant 1985. Follows with nephrology at [facility]. Usually annual follow-up, near the end of the calendar year. Macro: + CAD, + CVA, + PVD (stent to left lower extremity, Left SFA) Follows up with vascular specialty Micro: History of proliferative retinopathy -vitrectomy left eye 1985 - bilateral stafford retinal laser - stable 08/27;q 4 months at [facility]; stable 02/28; no active retinopathy 05/30 Has history Occular hypertension, macular degeneration Eye exam: February 2014 - exceedingly stable with no new retinopathy or issues. Visual ha normal. Eye exam: Jun 2014: Stable. No prolif retinopathy. No diabetes mellitus macular edema. ... Eye exams regularly. As of : had eye exam 04/09/25 with [facility] Mild peripheral neuropathy. Foot exam:+ hammer toes , most prominent are 2nd toes bilaterally. Decreased sensation in left 2nd hammer toe. Otherwise, mild decreased sensation, but not bad. Dry. No edema. * seeing podiatry ( left foot with Achilles tendon rupture/ ulcer ) Nephropathy: Status post renal transplant. Follows at [facility]. See above. 09/01 - Continue home insulin pump with continuous monitoring and management by patient. Status: Chronic (7) Insulin pump status: Problem comment: Began TSlim XC with Control IQ ~ April 2023- warranty done 04/2027 Pump settings in [facility] Endocrinology notes Status: Acute (8) Renal transplant, status post: Problem comment: - right - Continue cellcept and prednisone - monitor renal function closely during diuresis Status: Chronic (9) Immunosuppression: Problem comment: renal transplant Status: Chronic (10) Hypertension: Problem comment: - continue losartan, metoprolol Status: Chronic (11) Hyperlipidemia: Problem comment: - continue atorvastatin Status: Chronic (12) CKD (chronic kidney disease): Problem comment: - Kidney transplant 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 3b, Baseline Cr 1.3-1.5 - 09/01 Cr is 1.4, at baseline, recheck in am Status: Chronic (13) Diabetic infection of right foot: Problem comment: - Chronic osteomyelitis of right great toe, following with our wound care, takes cefpodoxime and bactrim - consult wound care Status: Chronic (14) Decubitus ulcer of coccygeal region, stage 2: Problem comment: - consult wound care Status: Chronic Total Time Spent Total Time Spent: Time spent: Today I spent 75 minutes seeing the patient, discussing the patient with ER staff, reviewing Expanse and EPIC notes/diagnostics, discussing the care plan with our care team that includes pharmacy and RT, senior care and documenting my impressions and plan in the medical record. MEDICAL NECESSITY FOR HOSPITALIZATION Anticipated midnights in the hospital: 2 Admitting diagnosis: Heart failure with reduced ejection fraction Risk of morbidity and mortality: [high] Acuity is characterized as high and reflected in: Heart failure with reduced ejection fraction complicated by very recent 3 vessel CABG, in a 79-year-old who has had lifelong type 1 diabetes and chronic osteomyelitis of the right great toe was also on immunosuppressive medications for longstanding history of renal transplant. This patient will require hospital services as outlined in the assessment and plan in order to stabilize and be safely discharged to a lower level of care. Because of the risk and acuity as described above, this patient cannot be managed at a lower level of care. LENGTH OF STAY: 2 IP ? Anticipated LOS>2 midnights due to acuity of clinical presentation requiring inpatient level of care Hospitalist- H&P: HPI History of Present Illness Time Seen by Provider: 18:42 Date Seen: 09/01/25 Chief complaint: Low Oxygen levels Narrative: Jon Horowitz is a 79 year old male with a complicated PMH including h/o renal transplant, longstanding type 1 DM and chronic right great toe osteomyelitis, who had an NSTEMI and subsequent 3vCABG a few weeks ago who came in for concerns of hypoxia. Tells me that he has been feeling short of breath for a few weeks prior to his myocardial infarction and that that has not changed even after getting CABG recently. In his discharge summary from that hospital stay, it notes that he had a left pleural effusion and heart failure with reduced ejection fraction with an EF of 30-35% on a WILFREDO done intraoperatively. He was sent home on lasix among other medications. He saw his PCP about a week ago and she did a CXR which showed persistent pleural effusion, so she doubled his lasix for 3 days. He denies any worsening SOB during these past few weeks, but today he noticed a bit of fatigue and his home health nurses noted he was desatting into the 80s while talking. He had not had that happen before. He also notes a dull ache at the base of his sternum sometimes since surgery that is very brief and is not associated with diaphoresis or dyspnea. He takes tylenol which seems to lessen the frequency of this symptom. He denies confusion, headache or fever. He endorses feeling chilled or sweaty since surgery sometimes. His says he sometimes looks pale when he says he feels cold. He has been following with our wound care for R toe osteomyelitis. Review of Systems Status of ROS: Reports: 10 or more systems reviewed and unremarkable except as noted in History and below Medical Decision Making Medical Decision Making Code Status: FULL CODE Has patient completed a Health Care Directive: Yes During This Stay, Who Would You Like To Make Decisions For You In The Event You Are Unable To Make Them For Yourself?: , Cherelle [facility] Medical History (Updated 09/01/25 @ 20:59 by Suzi Turner MD) Diabetic infection of right foot ?E11.628 - Type 2 diabetes mellitus with other skin complications (ICD-10) ?L08.9 - Local infection of the skin and subcutaneous tissue, unspecified (ICD-10) Decubitus ulcer of coccygeal region, stage 2 ?L89.152 - Pressure ulcer of sacral region, stage 2 (ICD-10) HFrEF (heart failure with reduced ejection fraction) ?I50.20 - Unspecified systolic (congestive) heart failure (ICD-10) Iatrogenic adrenal insufficiency ?E27.49 - Other adrenocortical insufficiency (ICD-10) Bilateral carotid artery stenosis ?I65.23 - Occlusion and stenosis of bilateral carotid arteries (ICD-10) Non-ST elevation [place] (NSTEMI) (08/01/25) ?I21.4 - Non-ST elevation (NSTEMI) myocardial infarction (ICD-10) Cervical myelopathy ?G95.9 - Disease of spinal cord, unspecified (ICD-10) 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 - Immunodeficiency, unspecified (ICD-10) Perforation of left tympanic membrane ?H72.92 - Unspecified perforation of tympanic membrane, left ear (ICD-10) Malignant neoplasm of posterior wall of urinary bladder ?C67.4 - Malignant neoplasm of posterior wall of bladder (ICD-10) CKD (chronic kidney disease) ?N18.9 - Chronic kidney disease, unspecified (ICD-10) Neurogenic claudication ?R29.818 - Other symptoms and signs involving the nervous system (ICD-10) Lumbosacral radiculopathy ?M54.17 - Radiculopathy, lumbosacral region (ICD-10) 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 ?C44.621 - Squamous cell carcinoma of skin of unspecified upper limb, including shoulder (ICD-10) Insulin pump status ?Z96.41 - Presence of insulin pump (external) (internal) (ICD-10) Benign neoplasm of colon ?D12.6 - Benign neoplasm of colon, unspecified (ICD-10) Anemia of other chronic disease ?D63.8 - Anemia in other chronic diseases classified elsewhere (ICD-10) Peripheral vascular disease ?I73.9 - Peripheral vascular disease, unspecified (ICD-10) Cerebrovascular disease ?I67.9 - Cerebrovascular disease, unspecified (ICD-10) Thrombocytopenia ?D69.6 - Thrombocytopenia, unspecified (ICD-10) Ischemic heart disease ?I25.9 - Chronic ischemic heart disease, unspecified (ICD-10) Hypertension ?I10 - Essential (primary) hypertension (ICD-10) Hyperlipidemia ?E78.5 - Hyperlipidemia, unspecified (ICD-10) Type 1 diabetes mellitus ?E10.9 - Type 1 diabetes mellitus without complications (ICD-10) Surgical History H/O vitrectomy ?Z98.890 - Other specified postprocedural states (ICD-10) H/O transurethral resection of bladder tumor (TURBT) ?Z98.890 - Other specified postprocedural states (ICD-10) ?Z86.03 - Personal history of neoplasm of uncertain behavior (ICD-10) S/P lumbar fusion ?Z98.1 - Arthrodesis status (ICD-10) History of laparotomy ?Z98.890 - Other specified postprocedural states (ICD-10) Hx laparoscopic cholecystectomy ?Z90.49 - Acquired absence of other specified parts of digestive tract (ICD-10) H/O inguinal hernia repair ?Z98.890 - Other specified postprocedural states (ICD-10) ?Z87.19 - Personal history of other diseases of the digestive system (ICD-10) S/P ERCP ?Z98.890 - Other specified postprocedural states (ICD-10) Cataract extraction status ?Z98.49 - Cataract extraction status, unspecified eye (ICD-10) Cervical vertebral fusion ?M43.22 - Fusion of spine, cervical region (ICD-10) History of PTCA ?Z98.61 - Coronary angioplasty status (ICD-10) H/O Mohs micrographic surgery for skin cancer ?Z85.828 - Personal history of other malignant neoplasm of skin (ICD-10) ?Z98.890 - Other specified postprocedural states (ICD-10) Status post coronary artery bypass graft (08/10/25) ?Z95.1 - Presence of aortocoronary bypass graft (ICD-10) Renal transplant, status post (~1985) ?Z94.0 - Kidney transplant status (ICD-10) Family History Father Cardiovascular disease Mother Cardiovascular disease High blood pressure Sister High blood pressure Social History (Updated 09/01/25 @ 19:56 by uSzi Turner MD) Narrative: , Cherelle. Quit tobacco 10/2017, 48 pk yr. EtOH socially, 1-2 per month. What is your current living situation?: I presently have a place to live Problems where you live: no known problems In the past 12 months, utilities in danger of being shut off: no In past 12 months, lack of transportation kept you from medical appts, meetings, work, or getting things needed for daily living: no In the past 12 mos, have been you worried that your food would run out before you had money to buy more?: never true In the past 12 mos, the food you bought just didn't last and you didn't have money to buy more?: never true Smoking Status: Never smoker Do you use any of these nicotine containing products: None Second hand tobacco smoke exposure: No How often do you have a drink containing alcohol: monthly or less Alcohol type: hard liquor How often do you have six or more drinks on one occasion: Never AUDIT-C Alcohol total score: 1 Non-prescribed substance use: denies use Caffeine: Yes (2 cups) How often does anyone, including family, friends and others, physically hurt you: never How often does anyone, including family, friends and others, insult or talk down to you: never How often does anyone, including family, friends and others, threaten you with harm: never How often does anyone, including family, friends and others, scream or curse at you: never service: No Meds Home Medications and Allergies Home Medications ?Medication ?Instructions ?Recorded ?Confirmed ?Type atorvastatin 40 mg tablet 40 mg PO HS 02/22/23 09/01/25 History clopidogrel 75 mg tablet (Plavix) 75 mg PO DAILY 02/22/23 09/01/25 History insulin aspart U-100 100 unit/mL 1 - 70 unit subcut USEASDIRECTD 02/22/23 09/01/25 History subcutaneous solution metoprolol succinate 50 mg 50 mg PO DAILY 02/22/23 09/01/25 History tablet,extended release 24 hr prednisone 5 mg tablet 5 mg PO DAILY 02/22/23 09/01/25 History sulfamethoxazole 400 1 tab PO DAILY 02/22/23 09/01/25 History mg-trimethoprim 80 mg tablet (Bactrim) amiodarone 200 mg tablet 200 mg PO DAILY 09/01/25 09/01/25 History amoxicillin 500 mg tablet 2,000 mg PO DIRECTED PRN 09/01/25 09/01/25 History aspirin 81 mg tablet 81 mg PO DAILY 09/01/25 09/01/25 History brimonidine 0.2 % eye drops 1 drp ophthalmic (eye) BID 09/01/25 09/01/25 History cefpodoxime 200 mg tablet 200 mg PO BID 09/01/25 09/01/25 History furosemide 40 mg tablet 40 mg PO DAILY 09/01/25 09/01/25 History losartan 25 mg tablet 25 mg PO DAILY 09/01/25 09/01/25 History mycophenolate mofetil 250 mg 500 mg PO BID 09/01/25 09/01/25 History capsule nitroglycerin 0.4 mg sublingual 0.4 mg sublingual Q5M PRN 09/01/25 09/01/25 History tablet sennosides 8.6 mg-docusate sodium 1 tab-cap PO BID 09/01/25 09/01/25 History 50 mg tablet (Senna-S) vit C 250 mg-vit E 90 mg-zinc 40 1 tab PO BID 09/01/25 09/01/25 History mg-copper 1 yj-ioqyzo-jfikwr capsule (PreserVision AREDS-2) Allergies Allergy/AdvReac Type Severity Reaction Status Date / Time levofloxacin Allergy Unknown Verified 09/01/25 14:06 amoxicillin AdvReac Diarrhea Verified 09/01/25 14:06 Exam Narrative: Exam Narrative: General: No acute distress. Awake alert oriented x3. Thin, frail. HEENT: Normocephalic atraumatic, pupils equally round and reactive to light and accommodation. Oropharynx clear. Mucous membranes are moist. Kyphotic. No cervical lymphadenopathy, thyromegaly or carotid bruits. No JVD. Cardiovascular: Regular rate and rhythm. No murmurs, gallops, or rubs. Chest: No increased work of breathing. Diminished breath sounds bilaterally with some crackles of the left lower lung field. Abdomen: Bowel sounds present. Soft, nondistended, nontender. No hepatosplenomegaly or masses. Insulin pump in place. Extremities: 3+ edema of both feet and ankles, 1+ at the calves bilaterally, poor circulation and capillary refill of both feet. Diabetic wound noted on the dorsum of the right great toe without purulence, drainage, or induration. Nontender to palpation. Skin: No jaundice, mild pallor, no rashes on visible skin. Neuro: Grossly intact. No focal deficits. Const: Vital Signs, click to edit/add: Vital Signs - 24 hr 09/01/25 13:56 09/01/25 15:00 09/01/25 16:39 Temperature 97.5 F L Pulse Rate [Left P ulse Oximeter] 56 L 56 L Respiratory Rate 18 18 Blood Pressure [Ri ght Upper Arm] 107/51 L 160/100 H Pulse Oximetry 97 94 97 Oxygen Delivery Me thod Room Air Room Air Hospitalist - H&P: Result Labs Labs: Short CBC 09/01/25 Range/Units 14:45 WBC 7.18 (4.50-11.00) K/uL Hgb 9.5 L (13.5-17.5) gm/dL Hct 30.7 L (37.0-53.0) % Plt Count 172 (140-440) K/uL BMP 09/01/25 14:45 Sodium 131 L Potassium 4.3 Chloride 98 Carbon Dioxide 27 BUN 67 H Creatinine 1.4 Glucose 211 H Calcium 8.4 Cardiac Enzymes 09/01/25 Range/Units 14:45 Troponin I 0.03 (0.01-0.04) ng/mL Liver Function 09/01/25 Range/Units 14:45 Total Bilirubin 0.4 (0.1-1.5) mg/dL AST 46 H (12-35) U/L ALT 23 (4-50) U/L Alkaline Phosphatase 183 H (40-150) U/L Albumin 2.9 L (3.3-5.0) g/dL 09/01/2025 EKG: Sinus bradycardia, 55 beats per minute, possible left atrial enlargement, T-wave abnormality, consider inferior ischemia and anterior lateral ischemia, prolonged QTC 495 milliseconds. Ordering Physician: Bridget Kong M.D. Date of Service: 09/01/25 Procedure(s): XR chest 2V Accession Number(s): [id number] cc: Ca Grier M.D.; Bridget Kong M.D.~ For Patients: As a result of the Cures Act, medical imaging exams and procedure reports are released immediately into your electronic medical record. You may view this report before your referring provider. If you have questions, please contact your health care provider. Indication: not feeling well, low oxygen recent triple bypass hypoxia, dec breath sounds left side Technique: PA and lateral views of the chest. Comparison: 08/01/2025. Findings: Postsurgical changes from median sternotomy and coronary artery bypass grafting. Normal cardiomediastinal silhouette. Juqb-nmbqhyj-yxih-right basilar opacities. Small to moderate left pleural effusion. Possible trace right pleural effusion. Moderate degenerative changes of the visualized spine. Impression: 1. Small to moderate left and possible trace right pleural effusions. 2. Zezh-dcnckcl-kryb-right basilar opacities are favored to represent atelectasis. Dictated by Sudhir Lomas MD @ 09/01/2025 3:17:45 PM (Electronically Signed)
[2025-09-01 17:26] VITALS: BP 145/109; PULSE 57; RESP 28; TEMP 36.1; O2SAT 98
--- NOTE | 2025-09-01 19:41 | PC.NURSE ---
End of shift [id number] - Pt arrived from ED at approximately 1730. Pt tolerating RA and regular diet/fluids. Denies SOB, n/v, pain. Family at bedside, pt appears to be resting comfortably in chair with call light within reach at end of shift.
[2025-09-01 19:49] VITALS: BP 130/55; PULSE 56; RESP 19; TEMP 36.2; O2SAT 93; O2SAT 97
[2025-09-01] MEDS: CEFPODOXIME PROXETIL 200 MG TABLET 400 MG PO (20:45)
[2025-09-01] MEDS: SENNOSIDES/DOCUSATE TABLET 1 TAB PO (20:46)
[2025-09-01] MEDS: ATORVASTATIN CALCIUM 40 MG TABLET PO (20:46)
[2025-09-01] MEDS: NON-FORMULARY MEDICATION (Vit C,E-Zn-Coppr-Lutein-Zeaxan [Preservision Areds-2] 250-90-40- 1 EACH PO (20:48)
[2025-09-01] MEDS: BRIMONIDINE TARTRATE 0.2% OPHTH 1 DROP EYE-BOTH (20:48)
[2025-09-01] MEDS: SODIUM CHLORIDE 0.9 % (FLUSH) 10 ML SYRINGE 5 ML IVF (20:53)
[2025-09-01 21:58] VITALS: BP 102/58; PULSE 52; RESP 19; TEMP 36.2; O2SAT 94
[2025-09-02] VITALS (11 sets, daily range): BP systolic 109–156; BP diastolic 53–73; PULSE 51–60; RESP 17–26; TEMP 36.1–36.5; O2SAT 93–99; BMI 20.2
[2025-09-02] MEDS: FUROSEMIDE 10 MG/ML inj 20 MG IVP ×3 (04:05→20:44)
[2025-09-02 05:57] LABS: Hematocrit* 28.2 % (37.0-53.0); Hemoglobin* 8.8 gm/dL (13.5-17.5); Immature Granulocytes Abs Auto 0.02 K/uL (0.00-0.30); Immature Granulocytes Pct Auto 0.3 %; Lymphocytes Absolute Auto 1.70 K/uL (0.90-2.90); Mean Corpuscular HGB Conc 31 gm/dL (32-36); Mean Corpuscular Hemoglobin 28 pg (26-34); Mean Corpuscular Volume 91 fL (80-100); RDW Coefficient of Variation % 15.8 % (11.5-15.5); Red Blood Count* 3.10 m/uL (4.30-5.90); White Blood Count* 6.89 K/uL (4.50-11.00)
[2025-09-02 06:01] LABS: Slide Review Reflex No
[2025-09-02 06:08] LABS: Chloride* 98 mmol/L (96-114)
[2025-09-02 06:09] LABS: Albumin* 2.5 g/dL (3.3-5.0); Potassium* 4.2 mmol/L (3.6-5.1); Sodium* 132 mmol/L (135-149)
[2025-09-02 06:11] LABS: Anion Gap 4 mEq/L (7-15); Blood Urea Nitrogen* 67 mg/dL (7-30); Carbon Dioxide* 30 mmol/L (20-32); Creatinine* 1.5 mg/dL (0.5-1.5); Est. Creatinine Clearance* 37.33; Estimated Glomerular Filt Rate 48 ml/min
[2025-09-02 06:12] LABS: Alanine Aminotransferase* 30 U/L (4-50); Alkaline Phosphatase* 159 U/L (40-150); Aspartate Amino Transferase* 51 U/L (12-35); Bilirubin Total* 0.4 mg/dL (0.1-1.5); Calcium* 8.4 mg/dL (8.4-10.6); Glucose* 172 mg/dL (60-115); Total Protein* 5.3 g/dL (6.0-8.3)
--- NOTE | 2025-09-02 07:54 | PC.NURSE ---
Shift note ([id number]): Patient pleasant, alert and oriented. Ambulates with wheeled walker and stand by assist. Stood at bedside to use urinal. Pt reported BS was 81 at 0045. Pt asymptomatic. He was given apple juice at that time. Pt was?offered a snack however he refused at that time. Pt reported BS of 63 a couple hours later. He was given juice, peanut butter toast and pineapple at that time. Recheck BS have been over 100 since that time. He denied any symptoms of hypoglycemia during night. Denied pain.
[2025-09-02] MEDS: CEFPODOXIME PROXETIL 200 MG TABLET 400 MG PO ×2 (08:45→20:49)
[2025-09-02] MEDS: ASPIRIN 81 MG TABLET EC PO (08:46)
[2025-09-02] MEDS: SULFA/TRIMETHOPRIM 400 MG/80 MG TABLET 1 TAB PO (08:46)
[2025-09-02] MEDS: METOPROLOL SUCCINATE (XL) 50 MG TAB PO (08:46)
[2025-09-02] MEDS: SENNOSIDES/DOCUSATE TABLET 1 TAB PO ×2 (08:46→20:50)
[2025-09-02] MEDS: BRIMONIDINE TARTRATE 0.2% OPHTH 1 DROP EYE-BOTH ×2 (08:47→20:52)
[2025-09-02] MEDS: CLOPIDOGREL 75 MG TABLET PO (08:47)
[2025-09-02] MEDS: AMIODARONE 200 MG TABLET PO (08:47)
[2025-09-02] MEDS: LOSARTAN POTASSIUM 50 MG TABLET 25 MG PO (08:47)
[2025-09-02] MEDS: SODIUM CHLORIDE 0.9 % (FLUSH) 10 ML SYRINGE 5 ML IVF ×2 (08:56→20:47)
--- NOTE | 2025-09-02 09:24 | P.NUTASMT_ITS ---
[facility] Nutrition Assessment Patient Data Patient Gender: Male Patient Age: 79 Height: 177.8 cm Weight: 64.002 kg Body Mass Index: 20.2 Weight Calculations [place] Body Weight (lbs): 166.00 [place] Body Weight (kg): 75.30 Percent of [place] Body Weight: 85 Adjusted Body Weight (lbs): 159.78 Adjusted Body Weight (kg): 72.48 Basal Energy Expenditure (BEE): 1314.39 Basal Energy Expenditure (BEE) Adjusted Weight: 1430.96 Activity/Stress Factors Injury Factor/Activity Factor Value: 1.2 Total Energy Requirements Kcal requirements (current wt): 1577.268 Kcal requirements (adj wt): 1717.152 Protein Need (current wt): 1.3 Total Protein (current wt): 83.203 Protein Need (adj wt): 1.3 Total Protein (adj wt): 94.224 Fluid Need (current wt): 30 Total Fluid (current wt): 1920.060 Fluid Need (adj wt): 30 Total Fluid (adj wt): 2174.40 Nutrition Assessment Diet Order: Heart Healthy Food Modified for Dysphagia: 7-Regular Liquid Modified for Dysphagia: 0-Thin Hx Appetite Changes: No Hx Weight Loss: No (Limited wt history in chart. ) Hx Weight Gain: No Nausea: No Vomiting: No Diarrhea: No Hx Constipation: No Chewing Difficulty: No Swallowing Difficulty: No Comments: Decubitus ulcer on coccyx, stage 2 - wound care consulted. Diabetic infection of right foot - has seen wound care in July 2025 for this. Diagnosis/Symptom or Procedure: Respiratory failure, heart failure exacerbation Clinical History: Medical history includes but not limited to HFrEF (heart failure with reduced ejection fraction), Bilateral carotid artery stenosis, Non- ST elevation [place] (NSTEMI) (08/01/25), Malignant neoplasm of posterior wall of urinary bladder, CKD (chronic kidney disease), type 1 diabetes mellitus with insulin pump, Cerebrovascular disease, Hypertension, and Hyperlipidemia. Medications Medications: reviewed. Lab Results Lab Results: reviewed. Education Dietary Topic: Low Cholesterol, Low Fat and Low Na Topic Comment: Patient declined heart healthy diet education at this time. Also declined education related to wound healing. Assessment/Plan PES Statement: Increased protein needs related to wound healing as evidenced by stage 2 decubitus ulcer on coccyx. Nutritional Assessment Summary: RDN with diet education related to heart healthy diet order and wound. Visited with patient whom reports good appetite. He tries to follow a heart healthy diet at home, however sometimes he does have sweets. He reports trying Ensure in the past and liking the chocolate flavor. He has not tried Inocencio or other protein supplements. His weight has been stable. Meal intakes since admit have been adequate at 75%+. I offered patient Ensure Enlive, he agreed to once daily at 1500. I also offered premier protein, our low carb high protein option, and Inocencio for wound healing. Patient declined both at this time. Enlive provides 350 kcals and 20 grams protein. Discharge Plan-Living Situation: Home at discharge. Goals: Adequate oral intakes of 50%+ meals and supplements. Plan/Recommendation: Heart healthy diet per MD order. Offer Ensure Enlive once daily at 1500. RDN will continue to monitor and follow-up prn.
--- NOTE | 2025-09-02 11:04 | PC.SOCIAL ---
[place] Alarm Inspector Consult: SW met with patient to assess needs and home care services. Patient reports that aside from this low oxygen he had been doing well and managing things on his own or with the support of his . Patient states that he has [facility] for RN and PT and has seen them a few times. SW explained that upon discharge we would send orders to them to resume these services. Patient reports that he hasn't started cardiac rehab yet, but does have cardiac follow-up on . Patient states that he has a HCD at home. Patient states aside from home care they do have a cleaning lady that comes every other week. Patient explains that he has no further needs/concerns at this time. SW to send orders to [facility] when patient is ready for discharge.
--- NOTE | 2025-09-02 11:32 | PM.IMPN1 ---
Assessment and Plan Assessment and plan (1) Acute hypoxic respiratory failure: Problem comment: - Associated with ambulation or talking, otherwise sats in the 90's at rest (while not talking) - secondary to CHF exacerbation - continuing IV diuresis - oxygen supplementation as needed - remains on room air for now - RT consulted and following Status: Acute (2) HFrEF (heart failure with reduced ejection fraction): Problem comment: - Acute on chronic HFrEF exacerbation. EF 30-35% on WILFREDO done intraoperatively during CABG 08/10/25. - Hypoxia, tachypnea, LE edema, pleural effusions, proBNP 24,000, known reduced EF - Complicated by CKD stage 3 and renal transplant making diuresis riskier - Admit for gentle, carefully monitored diuresis with strict I/Os, TTE, cardiac monitoring, repeat troponin in am, elevate LEs, heart heathy/low sodium diet, check TSH - he is currently on losartan, continue this. 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 Hold home lasix 09/02 - repeat troponin flat at 0.03. TSH 3.25. Echocardiogram this afternoon. Weight down 1.5 kg, urine output 2325 mL. Hemoglobin has dropped to 8.8, likely in setting of diuresis, continue to monitor Status: Acute (3) Pleural effusion due to CHF (congestive heart failure): Problem comment: - diurese, Lasix 20 mg q.8 hours - could explore therapeutic thoracentesis if hypoxia does not improve with diuresis, although I think it may be too small to tap Status: Acute (4) Status post coronary artery bypass graft: Problem comment: - 08/10/2025 three vessels: MILLER to LAD, SVG to OM, SVG to ramus Has not yet started cardiac rehab Has outpatient cardiology follow-up on 09/03/2025 Status: Acute (5) Ischemic heart disease: Problem comment: 12/21 plasty x3 & 1stent om 01/18 stent post desc &cx 03/20 stent intermediate art. 04/21 stent rca 08/10/2025 3vCABG Status: Chronic (6) Type 1 diabetes mellitus: Problem comment: Per [facility] record: Diagnosed at around age 23, around 1970 continous subcutaneus insulin infusion Nephropathy transplant 1985. Follows with nephrology at [facility]. Usually annual follow-up, near the end of the calendar year. Macro: + CAD, + CVA, + PVD (stent to left lower extremity, Left SFA) Follows up with vascular specialty Micro: History of proliferative retinopathy -vitrectomy left eye 1985 - bilateral stafford retinal laser - stable 08/27;q 4 months at [facility]; stable 02/28; no active retinopathy 05/30 Has history Occular hypertension, macular degeneration Eye exam: February 2014 - exceedingly stable with no new retinopathy or issues. Visual ha normal. Eye exam: Jun 2014: Stable. No prolif retinopathy. No diabetes mellitus macular edema. ... Eye exams regularly. As of : had eye exam 04/09/25 with [facility] Mild peripheral neuropathy. Foot exam:+ hammer toes , most prominent are 2nd toes bilaterally. Decreased sensation in left 2nd hammer toe. Otherwise, mild decreased sensation, but not bad. Dry. No edema. * seeing podiatry ( left foot with Achilles tendon rupture/ ulcer ) Nephropathy: Status post renal transplant. Follows at [facility]. See above. 09/01 - Continue home insulin pump with continuous monitoring and management by patient. Status: Chronic (7) Insulin pump status: Problem comment: Began TSlim XC with Control IQ ~ April 2023- warranty done 04/2027 Pump settings in [facility] Endocrinology notes Status: Acute (8) CKD (chronic kidney disease): Problem comment: - Kidney transplant 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 3b, Baseline Cr 1.3-1.5 - creatinine at baseline, BUN elevated, GFR at baseline, creatinine clearance decreased Status: Chronic (9) Renal transplant, status post: Problem comment: - right - Continue cellcept and prednisone - monitor renal function closely during diuresis Status: Chronic (10) Immunosuppression: Problem comment: renal transplant Status: Chronic (11) Hypertension: Problem comment: - continue losartan, metoprolol Status: Chronic (12) Hyperlipidemia: Problem comment: - continue atorvastatin Status: Chronic (13) Diabetic infection of right foot: Problem comment: - Chronic osteomyelitis of right great toe, following with our wound care - continue cefpodoxime and bactrim [facility]. De La Torre consulted, will see patient later this afternoon Status: Chronic (14) Decubitus ulcer of coccygeal region, stage 2: Problem comment: - discussed with wound care team. Images uploaded and reviewed - recommend zinc barrier and offloading. May use mepilex, changing 2-3 times weekly Status: Chronic Plan Patient has outpatient Cardiology follow-up on 09/03/2025 if stable for discharge by that time. Total Time Spent Total Time Spent: Today I spent 55 minutes seeing the patient, reviewing Expanse and EPIC notes/diagnostics, discussing the care plan with our care time that includes social work, PT/OT, pharmacy, RT, halfway and documenting my impressions and plan in the medical record. Subjective Date Seen: 09/02/25 Interval history: Patient is seen sitting up in bed. Reports feeling better than on admission. Remains short of breath while eating and with activity. Denies headache or dizziness. Denies chest pain or tightness. No nausea. Tolerating orals. Continues on IV diuresis, Lasix 20 mg q.8. Has not yet started cardiac rehab. Currently has home health and PT active. Exam Narrative: Exam Narrative: PHYSICAL EXAM General: Pleasant, conversant, NAD HEENT: Normocephalic, atraumatic, sclera white, EOMI, oral mucosa moist Cardiovascular: RRR, S1S2. Trace edema Pulmonary: CTA bilaterally without rhonchi, rales, expiratory wheezes. No dyspnea on room air Abdominal: Soft, nondistended, NTTP Neurological: Alert, answering questions appropriately, cranial nerves intact, no focal findings Extremities: No gross joint deformity or swelling. AROMI. Neurovascularly intact Skin: Warm, dry. Great toe dry without drainage or bleeding, minimal erythema. Gluteal cleft with mild erythema, minimal desquamation, no open wound at this time, no drainage or bleeding Const: Vital Signs, click to edit/add: Vital Signs - 24 hr 09/01/25 13:56 09/01/25 15:00 09/01/25 16:39 Temperature 97.5 F L Pulse Rate Pulse Rate [Left P ulse Oximeter] 56 L 56 L Pulse Rate [Right Pulse Oximeter] Respiratory Rate 18 18 Blood Pressure [Ri ght Arm] Blood Pressure [Ri ght Upper Arm] 107/51 L 160/100 H Pulse Oximetry 97 94 97 Oxygen Delivery Me thod Room Air Room Air 09/01/25 17:26 09/01/25 19:49 09/01/25 19:49 Temperature 96.9 F L 97.2 F L Pulse Rate Pulse Rate [Left P ulse Oximeter] Pulse Rate [Right Pulse Oximeter] 57 L 56 L Respiratory Rate 28 H 19 19 Blood Pressure [Ri ght Arm] 145/109 H 130/55 L Blood Pressure [Ri ght Upper Arm] Pulse Oximetry 98 97 93 Oxygen Delivery Oh thod Room Air Room Air Room Air 09/01/25 21:58 09/01/25 21:58 09/02/25 01:24 Temperature 97.2 F L Pulse Rate 51 L Pulse Rate [Left P ulse Oximeter] Pulse Rate [Right Pulse Oximeter] 52 L Respiratory Rate 19 19 Blood Pressure [Ri ght Arm] 102/58 L Blood Pressure [Ri ght Upper Arm] Pulse Oximetry 94 94 Oxygen Delivery Oh thod Room Air Room Air 09/02/25 03:37 09/02/25 07:00 09/02/25 07:00 Temperature 96.9 F L 97.4 F L Pulse Rate Pulse Rate [Left P ulse Oximeter] Pulse Rate [Right Pulse Oximeter] 60 60 Respiratory Rate 20 26 H Blood Pressure [Ri ght Arm] 145/58 H 156/73 H Blood Pressure [Ri ght Upper Arm] Pulse Oximetry 99 94 93 Oxygen Delivery Oh thod Room Air Room Air Room Air 09/02/25 07:16 09/02/25 10:54 Temperature 97.6 F Pulse Rate 57 L Pulse Rate [Left P ulse Oximeter] Pulse Rate [Right Pulse Oximeter] 57 L Respiratory Rate 18 Blood Pressure [Ri ght Arm] 110/57 L Blood Pressure [Ri ght Upper Arm] Pulse Oximetry 96 Oxygen Delivery Oh thod Room Air Labs Labs: Laboratory Results - last 24 hr 09/01/25 09/01/25 09/01/25 14:45 14:50 19:48 WBC 7.18 RBC 3.35 L Hgb 9.5 L Hct 30.7 L MCV 92 MCH 28 MCHC 31 L RDW Coeff of Manan 15.8 H Plt Count 172 Neut % (Auto) 67.8 Lymph % (Auto) 24.2 [place] % (Auto) 6.8 Eos % (Auto) 0.7 Baso % (Auto) 0.1 Neut # (Auto) 4.86 Lymph # (Auto) 1.74 [place] # (Auto) 0.50 Eos # (Auto) 0.05 Baso # (Auto) 0.01 Abs Immat Gran (auto) 0.03 Imm/Tot Granulo (auto) 0.4 VBG pH 7.434 H VBG pCO2 42 VBG pO2 31.5 VBG HCO3 28 Sodium 131 L Potassium 4.3 Chloride 98 Carbon Dioxide 27 Anion Gap 6 L BUN 67 H Creatinine 1.4 Estimated Creat Clear 40.54 Estimated GFR 52 Glucose 211 H Calcium 8.4 Magnesium 1.6 Total Bilirubin 0.4 AST 46 H ALT 23 Alkaline Phosphatase 183 H Troponin I 0.03 C-Reactive Protein 2.8 H NT-Pro-B Natriuret Pep 58268 H Total Protein 5.9 L Albumin 2.9 L TSH 3.250 SARS-CoV-2 Ag (Rapid) Negative Lab Acknowledgement Test Added 09/02/25 05:46 WBC 6.89 RBC 3.10 L Hgb 8.8 L Hct 28.2 L MCV 91 MCH 28 MCHC 31 L RDW Coeff of Manan 15.8 H Plt Count 163 Neut % (Auto) 65.1 Lymph % (Auto) 24.7 [place] % (Auto) 8.6 Eos % (Auto) 1.0 Baso % (Auto) 0.3 Neut # (Auto) 4.49 Lymph # (Auto) 1.70 [place] # (Auto) 0.60 Eos # (Auto) 0.07 Baso # (Auto) 0.02 Abs Immat Gran (auto) 0.02 Imm/Tot Granulo (auto) 0.3 VBG pH VBG pCO2 VBG pO2 VBG HCO3 Sodium 132 L Potassium 4.2 Chloride 98 Carbon Dioxide 30 Anion Gap 4 L BUN 67 H Creatinine 1.5 Estimated Creat Clear 37.33 Estimated GFR 48 Glucose 172 H Calcium 8.4 Magnesium Total Bilirubin 0.4 AST 51 H ALT 30 Alkaline Phosphatase 159 H Troponin I 0.03 C-Reactive Protein NT-Pro-B Natriuret Pep Total Protein 5.3 L Albumin 2.5 L TSH SARS-CoV-2 Ag (Rapid) Lab Acknowledgement
[2025-09-02] MEDS: NON-FORMULARY MEDICATION (Vit C,E-Zn-Coppr-Lutein-Zeaxan [Preservision Areds-2] 250-90-40- 1 EACH PO ×2 (11:48→20:51)
--- NOTE | 2025-09-02 13:44 | PC.NURSE ---
pt a/o x4, and cooperative with cares. Pt is standby assist w/walker. Pt has insulin pump amd dexcom, BG stable during shift. no complaints of pain during shift. mepelix changed during shift. Pt on RA, Pt spouse at bedside.
--- NOTE | 2025-09-02 17:32 | PM.PODCN1 ---
[facility] - Podiatry Data of Consult Time Seen by Provider: 17:00 Date Seen: 09/02/25 Patient: William Patient Consult date: 09/02/25 Requesting physician: Suzi Turner MD Primary care provider: Ca Grier MD Consult Narrative Reason for consult: Osteomyelitis right great toe Narrative: Jon Horowitz is a 79 year old male well known to me with underlying chronic osteomyelitis right great toe. He has been seeing Infectious Disease at the [facility] is on long-term oral antibiotics. [facility] the last couple of months with progressive improvement toe. He has no concerns about the toe currently feels that he continues to show improvement. cc:: CC: Suzi Turner MD Review of Systems Status of ROS: Reports: 10 or more systems reviewed and unremarkable except as noted in History and below [facility] Medical History (Updated 09/02/25 @ 11:48 by Noa Pike PA-C) Diabetic infection of right foot ?E11.628 - Type 2 diabetes mellitus with other skin complications (ICD-10) ?L08.9 - Local infection of the skin and subcutaneous tissue, unspecified (ICD-10) Decubitus ulcer of coccygeal region, stage 2 ?L89.152 - Pressure ulcer of sacral region, stage 2 (ICD-10) HFrEF (heart failure with reduced ejection fraction) ?I50.20 - Unspecified systolic (congestive) heart failure (ICD-10) Iatrogenic adrenal insufficiency ?E27.49 - Other adrenocortical insufficiency (ICD-10) Bilateral carotid artery stenosis ?I65.23 - Occlusion and stenosis of bilateral carotid arteries (ICD-10) Non-ST elevation [place] (NSTEMI) (08/01/25) ?I21.4 - Non-ST elevation (NSTEMI) myocardial infarction (ICD-10) Cervical myelopathy ?G95.9 - Disease of spinal cord, unspecified (ICD-10) 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 - Immunodeficiency, unspecified (ICD-10) Perforation of left tympanic membrane ?H72.92 - Unspecified perforation of tympanic membrane, left ear (ICD-10) Malignant neoplasm of posterior wall of urinary bladder ?C67.4 - Malignant neoplasm of posterior wall of bladder (ICD-10) CKD (chronic kidney disease) ?N18.9 - Chronic kidney disease, unspecified (ICD-10) Neurogenic claudication ?R29.818 - Other symptoms and signs involving the nervous system (ICD-10) Lumbosacral radiculopathy ?M54.17 - Radiculopathy, lumbosacral region (ICD-10) 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 ?C44.621 - Squamous cell carcinoma of skin of unspecified upper limb, including shoulder (ICD-10) Insulin pump status ?Z96.41 - Presence of insulin pump (external) (internal) (ICD-10) Benign neoplasm of colon ?D12.6 - Benign neoplasm of colon, unspecified (ICD-10) Anemia of other chronic disease ?D63.8 - Anemia in other chronic diseases classified elsewhere (ICD-10) Peripheral vascular disease ?I73.9 - Peripheral vascular disease, unspecified (ICD-10) Cerebrovascular disease ?I67.9 - Cerebrovascular disease, unspecified (ICD-10) Thrombocytopenia ?D69.6 - Thrombocytopenia, unspecified (ICD-10) Ischemic heart disease ?I25.9 - Chronic ischemic heart disease, unspecified (ICD-10) Hypertension ?I10 - Essential (primary) hypertension (ICD-10) Hyperlipidemia ?E78.5 - Hyperlipidemia, unspecified (ICD-10) Type 1 diabetes mellitus ?E10.9 - Type 1 diabetes mellitus without complications (ICD-10) Surgical History H/O vitrectomy ?Z98.890 - Other specified postprocedural states (ICD-10) H/O transurethral resection of bladder tumor (TURBT) ?Z98.890 - Other specified postprocedural states (ICD-10) ?Z86.03 - Personal history of neoplasm of uncertain behavior (ICD-10) S/P lumbar fusion ?Z98.1 - Arthrodesis status (ICD-10) History of laparotomy ?Z98.890 - Other specified postprocedural states (ICD-10) Hx laparoscopic cholecystectomy ?Z90.49 - Acquired absence of other specified parts of digestive tract (ICD-10) H/O inguinal hernia repair ?Z98.890 - Other specified postprocedural states (ICD-10) ?Z87.19 - Personal history of other diseases of the digestive system (ICD-10) S/P ERCP ?Z98.890 - Other specified postprocedural states (ICD-10) Cataract extraction status ?Z98.49 - Cataract extraction status, unspecified eye (ICD-10) Cervical vertebral fusion ?M43.22 - Fusion of spine, cervical region (ICD-10) History of PTCA ?Z98.61 - Coronary angioplasty status (ICD-10) H/O Mohs micrographic surgery for skin cancer ?Z85.828 - Personal history of other malignant neoplasm of skin (ICD-10) ?Z98.890 - Other specified postprocedural states (ICD-10) Status post coronary artery bypass graft (08/10/25) ?Z95.1 - Presence of aortocoronary bypass graft (ICD-10) Renal transplant, status post (~1985) ?Z94.0 - Kidney transplant status (ICD-10) Family History Father Cardiovascular disease Mother Cardiovascular disease High blood pressure Sister High blood pressure Social History (Updated 09/01/25 @ 19:56 by Suzi Turner MD) Narrative: , [place]. Quit tobacco 10/2017, 48 pk yr. EtOH socially, 1-2 per month. What is your current living situation?: I presently have a place to live Problems where you live: no known problems In the past 12 months, utilities in danger of being shut off: no In past 12 months, lack of transportation kept you from medical appts, meetings, work, or getting things needed for daily living: no In the past 12 mos, have been you worried that your food would run out before you had money to buy more?: never true In the past 12 mos, the food you bought just didn't last and you didn't have money to buy more?: never true Smoking Status: Never smoker Do you use any of these nicotine containing products: None Second hand tobacco smoke exposure: No How often do you have a drink containing alcohol: monthly or less Alcohol type: hard liquor How often do you have six or more drinks on one occasion: Never AUDIT-C Alcohol total score: 1 Non-prescribed substance use: denies use Caffeine: Yes (2 cups) How often does anyone, including family, friends and others, physically hurt you: never How often does anyone, including family, friends and others, insult or talk down to you: never How often does anyone, including family, friends and others, threaten you with harm: never How often does anyone, including family, friends and others, scream or curse at you: never service: No Exam Narrative: Exam Narrative: General: Sitting in chair resting with no complaints. Vascular: Nonpalpable pedal pulses. Capillary fill time less than 3 seconds all digits. Neuro: Diminished sensation to light touch. MSK: Normal muscle strength. No gross deformity. Right great toe is stable alignment. Derm: The right great toe wound over the dorsal distal head from soft toe adjacent to the nail bed is nearly healed. No exposed bone. A fibrous base. No drainage. No edema. Very minimal erythema close to baseline. Assessment: Chronic osteomyelitis right great toe, diabetic ulceration right great toe nearly healed Plan: The right great toe is a best it has looked in months. The ulceration is nearly healed and there is no exposed bone. No significant edema or any concerns. Continue antibiotics per Infectious Disease recommendations. Covered with light dry dressing or alginate with Band-Aid. Const: Vital Signs, click to edit/add: Vital Signs - 24 hr 09/01/25 19:49 09/01/25 19:49 09/01/25 21:58 Temperature 97.2 F L Pulse Rate Pulse Rate [Right Pulse Oximeter] 56 L Respiratory Rate 19 19 19 Blood Pressure [Ri ght Arm] 130/55 L Pulse Oximetry 97 93 94 Oxygen Delivery Me thod Room Air Room Air Room Air 09/01/25 21:58 09/02/25 01:24 09/02/25 03:37 Temperature 97.2 F L 96.9 F L Pulse Rate 51 L Pulse Rate [Right Pulse Oximeter] 52 L 60 Respiratory Rate 19 20 Blood Pressure [Ri ght Arm] 102/58 L 145/58 H Pulse Oximetry 94 99 Oxygen Delivery [place] thod Room Air Room Air 09/02/25 07:00 09/02/25 07:00 09/02/25 07:16 Temperature 97.4 F L Pulse Rate 57 L Pulse Rate [Right Pulse Oximeter] 60 Respiratory Rate 26 H Blood Pressure [Ri t Arm] 156/73 H Pulse Oximetry 94 93 Oxygen Delivery [place] thod Room Air Room Air 09/02/25 10:54 09/02/25 15:00 09/02/25 15:13 Temperature 97.6 F 97.7 F Pulse Rate Pulse Rate [Right Pulse Oximeter] 57 L 56 L Respiratory Rate 18 20 20 Blood Pressure [Ri ght Arm] 110/57 L 144/61 H Pulse Oximetry 96 95 95 Oxygen Delivery Me thod Room Air Room Air Room Air 09/02/25 15:40 Temperature Pulse Rate 54 L Pulse Rate [Right Pulse Oximeter] Respiratory Rate Blood Pressure [Ri ght Arm] Pulse Oximetry Oxygen Delivery Me thod Nail Debridement Qualifies If: Qualifiers If:: A patient qualifies for nail debridement if they have: 1 class A finding (Q7) 2 class B findings (Q8) OR 1 class B & 2 class C findings in addition to a primary condition (Q9)
--- NOTE | 2025-09-02 17:59 | PC.NURSE ---
Shift Summary: patient pleasant and cooperative. Up with SBA, walker and gait belt. Vitals stable, tele shows HR 57-60. Denies pain, SOB with ambulation/conversation, o2 sats drop to 86% but recovers within 1-2minutes.
[2025-09-02] MEDS: ATORVASTATIN CALCIUM 40 MG TABLET PO (20:49)
[2025-09-02 22:11] LABS: Fecal Occult Blood* Positive (Negative)
[2025-09-03 02:48] VITALS: BP 152/69; PULSE 66; RESP 18; TEMP 36.3; O2SAT 94
[2025-09-03] MEDS: FUROSEMIDE 10 MG/ML inj 20 MG IVP (04:15)
[2025-09-03 06:47] LABS: Albumin* 2.7 g/dL (3.3-5.0); Chloride* 95 mmol/L (96-114)
[2025-09-03 06:48] LABS: Hematocrit* 30.7 % (37.0-53.0); Hemoglobin* 9.5 gm/dL (13.5-17.5); Mean Corpuscular HGB Conc 31 gm/dL (32-36); Mean Corpuscular Hemoglobin 28 pg (26-34); Mean Corpuscular Volume 91 fL (80-100); Potassium* 4.1 mmol/L (3.6-5.1); Red Blood Count* 3.39 m/uL (4.30-5.90); Sodium* 130 mmol/L (135-149); White Blood Count* 6.65 K/uL (4.50-11.00)
[2025-09-03 06:50] LABS: Blood Urea Nitrogen* 66 mg/dL (7-30); Creatinine* 1.3 mg/dL (0.5-1.5); Est. Creatinine Clearance* 41.98; Estimated Glomerular Filt Rate 57 ml/min
[2025-09-03 06:51] LABS: Alanine Aminotransferase* 32 U/L (4-50); Alkaline Phosphatase* 179 U/L (40-150); Anion Gap 2 mEq/L (7-15); Aspartate Amino Transferase* 50 U/L (12-35); Bilirubin Direct* 0.1 mg/dL (0.0-0.5); Bilirubin Total* 0.4 mg/dL (0.1-1.5); Calcium* 8.6 mg/dL (8.4-10.6); Carbon Dioxide* 33 mmol/L (20-32); Glucose* 118 mg/dL (60-115); Total Protein* 5.6 g/dL (6.0-8.3)
[2025-09-03 06:57] LABS: NT Pro B Type NatriureticPept* 25700 pg/mL (See Note)
[2025-09-03 06:59] LABS: Slide Review Reflex No
[2025-09-03 07:00] VITALS: BP 135/67; PULSE 68; TEMP 37.6; O2SAT 91
[2025-09-03 07:31] VITALS: PULSE 59
--- NOTE | 2025-09-03 07:33 | PC.NURSE ---
Shift note ([id number]): Patient pleasant, alert and oriented. Ambulated with wheeled walker and stand by assist. Stood at bedside to use urinal. No low BS during night. Oxygen 91-94% on room air during night. Denied pain. ?
[2025-09-03] MEDS: CEFPODOXIME PROXETIL 200 MG TABLET 400 MG PO (08:54)
[2025-09-03] MEDS: LOSARTAN POTASSIUM 50 MG TABLET 25 MG PO (08:54)
[2025-09-03] MEDS: ASPIRIN 81 MG TABLET EC PO (08:56)
[2025-09-03] MEDS: BRIMONIDINE TARTRATE 0.2% OPHTH 1 DROP EYE-BOTH (08:57)
[2025-09-03] MEDS: SENNOSIDES/DOCUSATE TABLET 1 TAB PO (08:57)
[2025-09-03] MEDS: CLOPIDOGREL 75 MG TABLET PO (08:57)
[2025-09-03] MEDS: AMIODARONE 200 MG TABLET PO (08:58)
[2025-09-03] MEDS: NON-FORMULARY MEDICATION (Vit C,E-Zn-Coppr-Lutein-Zeaxan [Preservision Areds-2] 250-90-40- 1 EACH PO (08:58)
[2025-09-03] MEDS: SULFA/TRIMETHOPRIM 400 MG/80 MG TABLET 1 TAB PO (10:13)
[2025-09-03] MEDS: SODIUM CHLORIDE 0.9 % (FLUSH) 10 ML SYRINGE 5 ML IVF (10:19)
--- NOTE | 2025-09-03 10:24 | PC.SOCIAL ---
Addendum entered by ALINE Kimbrough 09/03/25 15:15: Called and faxed discharge orders to [facility] to resume home care. Original Note: Discharge planning: Called [facility] to confirm information provided by pt on current home care services. Pt is currently receiving nursing services from [facility]. If these need to be resumed at discharge, discharge orders including [facility] to resume home health nursing would be faxed to [facility] at fax# [phone]. PT was receiving PT services from [facility], but he had finished these last week and is not currently receiving these services. If pt needs PT or OT at discharge, a new face to face form with phyeician orders for needed services should be faxed to [facility] with discharge orders.
[2025-09-03] MEDS: METOPROLOL SUCCINATE (XL) 50 MG TAB PO (10:34)
[2025-09-03 10:41] VITALS: BP 117/62; PULSE 58; RESP 22; TEMP 36.5; O2SAT 92
--- NOTE | 2025-09-03 11:41 | PC.NURSE ---
D/C Note pt pleasant and cooperative with cares, Up standby assist with walker, Discharge education given both written and verbally to pt and spouse. Belongings returned to patient and Spouse. IV removed with Cath intact. pt left facility via wheelchair accompanied by spouse and VILMA @1521.
--- NOTE | 2025-09-03 13:33 | P.DS_ITS ---
DS: Providers Provider Date Seen: 09/03/25 Date of admission: 09/01/25 17:10 Primary care physician: Ca Grier MD Admitting Clinician: Suzi Turner MD Consults: 09/01/25 18:31 Consult to Physical Therapy [CONS] Routine Comment: Reason(s) for PT Consult:: Evaluate and Treat Any Restrictions?:: No Restrictions Consult to Respiratory Therapy [CONS] Routine Comment: Reason(s) for RT Consult:: Consult Consult to [employer] Blind Installer [CONS] Routine Comment: Reason for Consult:: Social Service Consult 09/01/25 18:33 Consult to Occupational Therapy [CONS] Routine Comment: Reason(s) for OT Consult:: Evaluate and Treat Any Restrictions?:: No Restrictions 09/01/25 19:34 Consult to Wound Care [CONS] Routine Comment: Consulting Provider[facility] 09/02/25 08:24 Consult to Physician [CONS] Routine Comment: Consulting Provider: Darin De La Torre Has provider been notified: No Attending Physician on discharge: Ruddy Alan MD Date of Discharge: 09/03/25 DS: Diagnosis Discharge Diagnosis (1) Acute hypoxic respiratory failure: Status: Acute Problem details: - Associated with ambulation or talking, otherwise sats in the 90's at rest (while not talking) - secondary to CHF exacerbation - continuing IV diuresis - oxygen supplementation as needed - remains on room air for now - RT consulted and following (2) Acute on chronic systolic heart failure: Status: Acute (3) HFrEF (heart failure with reduced ejection fraction): Status: Acute Problem details: - Acute on chronic HFrEF exacerbation. EF 30-35% on WILFREDO done intraoperatively during CABG 08/10/25. - Hypoxia, tachypnea, LE edema, pleural effusions, proBNP 24,000, known reduced EF - Complicated by CKD stage 3 and renal transplant making diuresis riskier - Admit for gentle, carefully monitored diuresis with strict I/Os, TTE, cardiac monitoring, repeat troponin in am, elevate LEs, heart heathy/low sodium diet, check TSH - he is currently on losartan, continue this. 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 Hold home lasix 09/02 - repeat troponin flat at 0.03. TSH 3.25. Echocardiogram this afternoon. Weight down 1.5 kg, urine output 2325 mL. Hemoglobin has dropped to 8.8, likely in setting of diuresis, continue to monitor (4) Pleural effusion due to CHF (congestive heart failure): Status: Acute Problem details: - diurese, Lasix 20 mg q.8 hours - could explore therapeutic thoracentesis if hypoxia does not improve with diuresis, although I think it may be too small to tap (5) Ischemic heart disease: Status: Chronic Problem details: 12/21 plasty x3 & 1stent om 01/18 stent post desc &cx 03/20 stent intermediate art. 04/21 stent rca 08/10/2025 3vCABG (6) Status post coronary artery bypass graft: Status: Acute Problem details: - 08/10/2025 three vessels: MILLER to LAD, SVG to OM, SVG to ramus Has not yet started cardiac rehab Has outpatient cardiology follow-up on 09/03/2025 (7) CKD (chronic kidney disease): Status: Chronic Problem details: - Kidney transplant 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 3b, Baseline Cr 1.3-1.5 - creatinine at baseline, BUN elevated, GFR at baseline, creatinine clearance decreased (8) Immunosuppression: Status: Chronic Problem details: renal transplant (9) Renal transplant, status post: Status: Chronic Problem details: - right - Continue cellcept and prednisone - monitor renal function closely during diuresis (10) Type 1 diabetes mellitus: Status: Chronic Problem details: Per [facility] record: Diagnosed at around age 23, around 1970 continous subcutaneus insulin infusion Nephropathy transplant 1985. Follows with nephrology at [facility]. Usually annual follow-up, near the end of the calendar year. Macro: + CAD, + CVA, + PVD (stent to left lower extremity, Left SFA) Follows up with vascular specialty Micro: History of proliferative retinopathy -vitrectomy left eye 1985 - bilateral stafford retinal laser - stable 08/27;q 4 months at [facility]; stable 02/28; no active retinopathy 05/30 Has history Occular hypertension, macular degeneration Eye exam: February 2014 - exceedingly stable with no new retinopathy or issues. Visual ha normal. Eye exam: Jun 2014: Stable. No prolif retinopathy. No diabetes mellitus macular edema. ... Eye exams regularly. As of : had eye exam 04/09/25 with [facility] Mild peripheral neuropathy. Foot exam:+ hammer toes , most prominent are 2nd toes bilaterally. Decreased sensation in left 2nd hammer toe. Otherwise, mild decreased sensation, but not bad. Dry. No edema. * seeing podiatry ( left foot with Achilles tendon rupture/ ulcer ) Nephropathy: Status post renal transplant. Follows at [facility]. See above. 09/01 - Continue home insulin pump with continuous monitoring and management by patient. (11) Decubitus ulcer of coccygeal region, stage 2: Status: Chronic Problem details: - discussed with wound care team. Images uploaded and reviewed - recommend zinc barrier and offloading. May use mepilex, changing 2-3 times weekly (12) Diabetic infection of right foot: Status: Chronic Problem details: - Chronic osteomyelitis of right great toe, following with our wound care - continue cefpodoxime and bactrim [facility]. De La Torre consulted, will see patient later this afternoon (13) Insulin pump status: Status: Acute Problem details: Began TSlim XC with Control IQ ~ April 2023- warranty done 04/2027 Pump settings in [facility] notes (14) Osteomyelitis: Status: Acute (15) Hypertension: Status: Chronic Problem details: - continue losartan, metoprolol (16) Hyperlipidemia: Status: Chronic Problem details: - continue atorvastatin DS: Summary Hospital Course Hospital Course: Admission history of present illness: ?79 year old male with a complicated PMH including h/o renal transplant, longstanding type 1 DM and chronic right great toe osteomyelitis, who had an NSTEMI and subsequent 3vCABG a few weeks ago who came in for concerns of hypoxia. Tells me that he has been feeling short of breath for a few weeks prior to his myocardial infarction and that that has not changed even after getting CABG recently. In his discharge summary from that hospital stay, it notes that he had a left pleural effusion and heart failure with reduced ejection fraction with an EF of 30-35% on a WILFREDO done intraoperatively. He was sent home on lasix among other medications. He saw his PCP about a week ago and she did a CXR which showed persistent pleural effusion, so she doubled his lasix for 3 days. He denies any worsening SOB during these past few weeks, but today he noticed a bit of fatigue and his home health nurses noted he was desatting into the 80s while talking. He had not had that happen before. He also notes a dull ache at the base of his sternum sometimes since surgery that is very brief and is not associated with diaphoresis or dyspnea. He takes tylenol which seems to lessen the frequency of this symptom. He denies confusion, headache or fever. He endorses feeling chilled or sweaty since surgery sometimes. His says he sometimes looks pale when he says he feels cold. He has been following with our wound care for R toe osteomyelitis.? In-hospital patient switch from oral furosemide 40 mg once daily to intravenous furosemide 20 mg 3 times daily. Weight on admission was 65.5 kg in weight on discharge 62.4 kg. Patient lost 3.1 kg due to diuresis efforts during the course of hospitalization. On presentation he had [place] heart [employer] Class 4 symptoms with dyspnea at rest and disabling dyspnea with minimal exertion. Upon discharge he has [place] heart [employer] class 2-3 symptoms. He acknowledges he is much improved compared to when he 1st presented. Able to walk 100 ft in the hospital before having to rest on date of discharge. Previously could hardly even move without being significantly dyspneic. We continued with treatment of his chronic conditions throughout the course ho spitalization recommend ongoing follow-up with his physicians hereafter. Status at Discharge Overall status at discharge: patient is progressing back to baseline Time Spent with Patient Time attestation: Total time spent providing and/or coordinating discharge services: Time spent: Greater than 30 minutes Exam Narrative: Exam Narrative: Examine the patient his hospital room and in the hallways. Able to ambulate 100 ft. Does not become hypoxic with this effort as he did when he 1st presented when he was hypoxic with simply moving. Does not become dyspneic with minimal exertion such as he did when he 1st presented. Lungs clear to auscultation. Heart tones with regular rhythm. Abdomen benign. Continue to sit have edema up to the level of the knees bilaterally but only trace on the right compared to 2 mm on the left. With head of bed elevated at 60? he does not have jugular venous distension but does have hepatojugular reflux. Admission weight 65.5 kg on our scale. Weight on date of discharge is 62.4 kg. 3.1 kg weight loss achieved during the course of hospitalization. BNP remains elevated at 25,700 five thousand seven hundred. Const: Vital Signs, click to edit/add: Vital Signs - 24 hr 09/02/25 15:00 09/02/25 15:13 09/02/25 15:40 Temperature 97.7 F Pulse Rate 54 L Pulse Rate [Right Pulse Oximeter] 56 L Respiratory Rate 20 20 Blood Pressure [Ri ght Arm] 144/61 H Pulse Oximetry 95 95 Oxygen Delivery Me thod Room Air Room Air 09/02/25 20:35 09/02/25 21:49 09/02/25 22:53 Temperature 97.6 F Pulse Rate 60 Pulse Rate [Right Pulse Oximeter] 60 Respiratory Rate 20 17 Blood Pressure [Ri ght Arm] 155/61 H Pulse Oximetry 95 93 Oxygen Delivery Me thod Room Air Room Air 09/02/25 22:53 09/03/25 02:48 09/03/25 07:00 Temperature 97.6 F 97.3 F L 99.6 F Pulse Rate Pulse Rate [Right Pulse Oximeter] 60 66 68 Respiratory Rate 17 18 Blood Pressure [Ri ght Arm] 109/53 L 152/69 H 135/67 Pulse Oximetry 93 94 91 Oxygen Delivery Me thod Room Air Room Air Room Air 09/03/25 07:00 09/03/25 07:31 09/03/25 10:41 Temperature 97.7 F Pulse Rate 59 L Pulse Rate [Right Pulse Oximeter] 58 L Respiratory Rate 22 Blood Pressure [Ri ght Arm] 117/62 Pulse Oximetry 91 92 Oxygen Delivery Me thod Room Air Room Air DS: Data Data Completed and Pending Labs on day of discharge: Labs from last 24 hours 09/03/25 09/02/25 05:42 18:35 WBC 6.65 RBC 3.39 L Hgb 9.5 L Hct 30.7 L MCV 91 MCH 28 MCHC 31 L Plt Count 195 Sodium 130 L Potassium 4.1 Chloride 95 L Carbon Dioxide 33 H Anion Gap 2 L BUN 66 H Creatinine 1.3 Estimated Creat Clear 41.98 Estimated GFR 57 Glucose 118 H Calcium 8.6 Total Bilirubin 0.4 Direct Bilirubin 0.1 AST 50 H ALT 32 Alkaline Phosphatase 179 H C-Reactive Protein 2.7 H NT-Pro-B Natriuret Pep 14781 H Total Protein 5.6 L Albumin 2.7 L Stool Occult Blood Positive Discharge Plan Discharge Disposition: Home, Self-Care Date of Admission: 09/01/25 17:10 Attending Provider on Discharge: Ruddy Alan Consulting Providers: Marycruz Fry; Darin De La Torre Primary Care Provider: Ca Grier Condition: Improved Anticipated Discharge Date/Time: 09/03/25 11:30 Discharge Medications: New torsemide 20 mg Tablet 40 mg PO DAILY@0800 30 Days Qty: 30 2RF Continued atorvastatin 40 mg tablet 40 mg PO HS clopidogrel [Plavix] 75 mg tablet 75 mg PO DAILY metoprolol succinate 50 mg tablet extended release 24 hr 50 mg PO DAILY prednisone 5 mg tablet 5 mg PO DAILY sulfamethoxazole-trimethoprim [Bactrim] 400-80 mg tablet 1 tab PO DAILY insulin aspart U-100 100 unit/mL solution 1 - 70 unit subcut USEASDIRECTD Rx Instructions: IN INSULIN PUMP aspirin 81 mg tablet 81 mg PO DAILY mycophenolate mofetil 250 mg capsule 500 mg PO BID nitroglycerin 0.4 mg tablet, sublingual 0.4 mg sublingual Q5M PRN amiodarone 200 mg tablet 200 mg PO DAILY amoxicillin 500 mg tablet 2,000 mg PO DIRECTED PRN Rx Instructions: PRIOR TO DENTAL APPT cefpodoxime 200 mg tablet 400 mg PO BID brimonidine 0.2 % drops 1 drp ophthalmic (eye) BID losartan 25 mg tablet 25 mg PO DAILY sennosides-docusate sodium [Senna-S] 8.6-50 mg tablet 1 tab-cap PO BID PreserVision AREDS-2 250-90-40-1 mg capsule 1 tab PO BID Discontinued furosemide 40 mg tablet 40 mg PO DAILY Discharge Orders: Discharge Order (Routine); Ordered 09/03/25 Ordered By: Ruddy Alan Patient Education: Torsemide (By mouth), Heart Failure (DC) Additional Instructions: 1. RESUME HOME CARE AND PHYSICAL THERAPY 2. Keep appointmentr with foam molder scheduled for 09/03/2025 3. Follow up with primary manager progressive care with repeat CBC in 5-10 days Activity Level: No Restrictions and Activity as Tolerated Activity Detail: Adhere to post-surgical orders from your cardiothoracic surgery team Discharge Diet: Diabetic Follow Up Appointments: Ca Grier MD [Primary Care Provider, Family Practice] Forms: [facility] Belongings, [facility] Instructions
== END 2025-09-03 11:42 | disposition home or self-care (01) | DRG 291 ==
LOC: ED 16:47 → MEDSURG 21:36
PROVIDERS: Physician Assistant; Admitting Provider Family Medicine; Emergency Provider Family Medicine; PCP Family Medicine; Visit Provider Family Medicine
DX: I13.0 Hypertensive heart and chronic kidney disease with heart failure and stage 1 through stage 4 chronic kidney disease, or unspecified chronic kidney disease (principal); I50.23 Acute on chronic systolic (congestive) heart failure; J96.01 Acute respiratory failure with hypoxia; Z94.0 Kidney transplant status; D84.81 Immunodeficiency due to conditions classified elsewhere; E10.69 Type 1 diabetes mellitus with other specified complication; M86.671 Other chronic osteomyelitis, right ankle and foot; E10.621 Type 1 diabetes mellitus with foot ulcer; L97.519 Non-pressure chronic ulcer of other part of right foot with unspecified severity; E10.22 Type 1 diabetes mellitus with diabetic chronic kidney disease; N18.32 Chronic kidney disease, stage 3b; L89.152 Pressure ulcer of sacral region, stage 2; E10.42 Type 1 diabetes mellitus with diabetic polyneuropathy; Z96.41 Presence of insulin pump (external) (internal); Z79.4 Long term (current) use of insulin; I25.10 Atherosclerotic heart disease of native coronary artery without angina pectoris; Z95.1 Presence of aortocoronary bypass graft; Z98.61 Coronary angioplasty status; I25.2 Old myocardial infarction; E78.5 Hyperlipidemia, unspecified
CPT/HCPCS: 36415; 71046; 80048; 80053; 80076; 82270; 82803; 83735; 83880; 84443; 84484; 85025; 85027; 86140; 87426; 93005; 93308; 93321; 93325; 94761; 97116; 97162; 97165; 97530; 97535; 99284; 99285; A9270; J1938; J7512

== ENCOUNTER 2025-09-09 13:12 | Outpatient (CLI) | payer MEDICARE, BC, SELFPAY | END 2025-09-09 13:13 | disposition home or self-care (01) | LOC: WOUND 13:12 | PROVIDERS: PCP Family Medicine; Visit Provider Surgery | DX: E10.621 Type 1 diabetes mellitus with foot ulcer (principal); I73.9 Peripheral vascular disease, unspecified; M86.471 Chronic osteomyelitis with draining sinus, right ankle and foot; L97.516 Non-pressure chronic ulcer of other part of right foot with bone involvement without evidence of necrosis; Z79.4 Long term (current) use of insulin; Z96.41 Presence of insulin pump (external) (internal); Z94.0 Kidney transplant status; Z79.60 Long term (current) use of unspecified immunomodulators and immunosuppressants; I25.10 Atherosclerotic heart disease of native coronary artery without angina pectoris | CPT/HCPCS: 11042 ==

== ENCOUNTER 2025-09-11 12:56 | Outpatient (CLI) | payer MEDICARE, BC, SELFPAY | END 2025-09-11 12:57 | disposition home or self-care (01) | LOC: WOUND 12:56 | PROVIDERS: PCP Family Medicine; Visit Provider Surgery | DX: E10.621 Type 1 diabetes mellitus with foot ulcer (principal); I73.9 Peripheral vascular disease, unspecified; M86.471 Chronic osteomyelitis with draining sinus, right ankle and foot; L97.516 Non-pressure chronic ulcer of other part of right foot with bone involvement without evidence of necrosis; I25.10 Atherosclerotic heart disease of native coronary artery without angina pectoris; Z79.4 Long term (current) use of insulin; Z96.41 Presence of insulin pump (external) (internal); Z94.0 Kidney transplant status; Z79.60 Long term (current) use of unspecified immunomodulators and immunosuppressants | CPT/HCPCS: G0463 ==

== ENCOUNTER 2025-09-16 12:54 | Outpatient (CLI) | payer MEDICARE, BC, SELFPAY | END 2025-09-16 12:55 | disposition home or self-care (01) | LOC: WOUND 12:54 | PROVIDERS: PCP Family Medicine; Visit Provider Surgery | DX: E10.621 Type 1 diabetes mellitus with foot ulcer (principal); M86.471 Chronic osteomyelitis with draining sinus, right ankle and foot; L97.516 Non-pressure chronic ulcer of other part of right foot with bone involvement without evidence of necrosis; I25.10 Atherosclerotic heart disease of native coronary artery without angina pectoris; Z79.4 Long term (current) use of insulin; Z96.41 Presence of insulin pump (external) (internal); Z94.0 Kidney transplant status; Z79.60 Long term (current) use of unspecified immunomodulators and immunosuppressants | CPT/HCPCS: G0463 ==

== ENCOUNTER 2025-09-18 08:49 | Outpatient (CLI) | payer MEDICARE, BC, SELFPAY | END 2025-09-18 08:50 | disposition home or self-care (01) | LOC: WOUND 08:49 | PROVIDERS: PCP Family Medicine; Visit Provider Surgery | DX: E10.621 Type 1 diabetes mellitus with foot ulcer (principal); M86.471 Chronic osteomyelitis with draining sinus, right ankle and foot; L97.516 Non-pressure chronic ulcer of other part of right foot with bone involvement without evidence of necrosis; I25.10 Atherosclerotic heart disease of native coronary artery without angina pectoris; Z79.4 Long term (current) use of insulin; Z96.41 Presence of insulin pump (external) (internal); Z94.0 Kidney transplant status; Z79.60 Long term (current) use of unspecified immunomodulators and immunosuppressants | CPT/HCPCS: G0463 ==

== ENCOUNTER 2025-09-21 08:58 | Outpatient (CLI) | payer MEDICARE, BC, SELFPAY | END 2025-09-21 08:59 | disposition home or self-care (01) | LOC: WOUND 08:58 | PROVIDERS: PCP Family Medicine; Visit Provider Family Medicine | DX: I73.9 Peripheral vascular disease, unspecified (principal); L97.516 Non-pressure chronic ulcer of other part of right foot with bone involvement without evidence of necrosis; M86.471 Chronic osteomyelitis with draining sinus, right ankle and foot | CPT/HCPCS: G0463 ==

== ENCOUNTER 2025-09-21 09:32 | Outpatient (CLI) | payer MEDICARE, BC, SELFPAY | END 2025-09-21 09:33 | disposition home or self-care (01) | LOC: WOUND 09:32 | PROVIDERS: PCP Family Medicine; Visit Provider Family Medicine | DX: I73.9 Peripheral vascular disease, unspecified (principal); M86.671 Other chronic osteomyelitis, right ankle and foot; E10.621 Type 1 diabetes mellitus with foot ulcer; L97.516 Non-pressure chronic ulcer of other part of right foot with bone involvement without evidence of necrosis; N18.32 Chronic kidney disease, stage 3b; Z94.0 Kidney transplant status; Z79.60 Long term (current) use of unspecified immunomodulators and immunosuppressants; I25.10 Atherosclerotic heart disease of native coronary artery without angina pectoris; I25.5 Ischemic cardiomyopathy; C67.9 Malignant neoplasm of bladder, unspecified | CPT/HCPCS: G0463 ==

== ENCOUNTER 2025-09-23 15:16 | Outpatient (CLI) | payer MEDICARE, BC, SELFPAY | END 2025-09-23 15:17 | disposition home or self-care (01) | LOC: WOUND 15:16 | PROVIDERS: PCP Family Medicine; Visit Provider Surgery | DX: I73.9 Peripheral vascular disease, unspecified (principal); M86.671 Other chronic osteomyelitis, right ankle and foot; E10.621 Type 1 diabetes mellitus with foot ulcer; L97.516 Non-pressure chronic ulcer of other part of right foot with bone involvement without evidence of necrosis; E10.22 Type 1 diabetes mellitus with diabetic chronic kidney disease; N18.32 Chronic kidney disease, stage 3b; Z94.0 Kidney transplant status; Z79.60 Long term (current) use of unspecified immunomodulators and immunosuppressants; I25.10 Atherosclerotic heart disease of native coronary artery without angina pectoris; I25.5 Ischemic cardiomyopathy; C67.9 Malignant neoplasm of bladder, unspecified | CPT/HCPCS: G0463 ==

== ENCOUNTER 2025-09-25 09:00 | Outpatient (CLI) | payer MEDICARE, BC, SELFPAY | END 2025-09-25 09:01 | disposition home or self-care (01) | LOC: WOUND 09:00 | PROVIDERS: PCP Family Medicine; Visit Provider Surgery | DX: I73.9 Peripheral vascular disease, unspecified (principal); M86.671 Other chronic osteomyelitis, right ankle and foot; L97.516 Non-pressure chronic ulcer of other part of right foot with bone involvement without evidence of necrosis; E10.22 Type 1 diabetes mellitus with diabetic chronic kidney disease; N18.32 Chronic kidney disease, stage 3b; Z94.0 Kidney transplant status; Z79.60 Long term (current) use of unspecified immunomodulators and immunosuppressants; I25.10 Atherosclerotic heart disease of native coronary artery without angina pectoris | CPT/HCPCS: G0463 ==

== ENCOUNTER 2025-09-28 08:59 | Outpatient (CLI) | payer MEDICARE, BC, SELFPAY | END 2025-09-28 09:00 | disposition home or self-care (01) | PROVIDERS: PCP Family Medicine; Visit Provider Surgery | DX: I73.9 Peripheral vascular disease, unspecified (principal); M86.671 Other chronic osteomyelitis, right ankle and foot; L97.516 Non-pressure chronic ulcer of other part of right foot with bone involvement without evidence of necrosis; E10.22 Type 1 diabetes mellitus with diabetic chronic kidney disease; N18.32 Chronic kidney disease, stage 3b; Z94.0 Kidney transplant status; Z79.60 Long term (current) use of unspecified immunomodulators and immunosuppressants; I25.10 Atherosclerotic heart disease of native coronary artery without angina pectoris | CPT/HCPCS: G0463 ==

== ENCOUNTER 2025-09-30 15:10 | Outpatient (CLI) | payer MEDICARE, BC, SELFPAY | END 2025-09-30 15:11 | disposition home or self-care (01) | LOC: WOUND 15:10 | PROVIDERS: PCP Family Medicine; Visit Provider Surgery | DX: E10.621 Type 1 diabetes mellitus with foot ulcer (principal); M86.471 Chronic osteomyelitis with draining sinus, right ankle and foot; L97.516 Non-pressure chronic ulcer of other part of right foot with bone involvement without evidence of necrosis; I73.9 Peripheral vascular disease, unspecified; Z96.41 Presence of insulin pump (external) (internal); Z79.4 Long term (current) use of insulin; Z94.0 Kidney transplant status; Z79.60 Long term (current) use of unspecified immunomodulators and immunosuppressants | CPT/HCPCS: G0463 ==

== ENCOUNTER 2025-10-05 09:03 | Outpatient (CLI) | payer MEDICARE, BC, SELFPAY | END 2025-10-05 09:04 | disposition home or self-care (01) | LOC: WOUND 09:03 | PROVIDERS: PCP Family Medicine; Visit Provider Surgery | DX: E10.621 Type 1 diabetes mellitus with foot ulcer (principal); M86.8X7 Other osteomyelitis, ankle and foot; I73.9 Peripheral vascular disease, unspecified; L97.518 Non-pressure chronic ulcer of other part of right foot with other specified severity; Z96.41 Presence of insulin pump (external) (internal); Z79.4 Long term (current) use of insulin; Z94.0 Kidney transplant status; Z79.60 Long term (current) use of unspecified immunomodulators and immunosuppressants; Z48.00 Encounter for change or removal of nonsurgical wound dressing | CPT/HCPCS: G0463 ==

== ENCOUNTER 2025-10-07 15:14 | Outpatient (CLI) | payer MEDICARE, BC, SELFPAY | END 2025-10-07 15:15 | disposition home or self-care (01) | LOC: WOUND 15:14 | PROVIDERS: PCP Family Medicine; Visit Provider Surgery | DX: E10.621 Type 1 diabetes mellitus with foot ulcer (principal); M86.471 Chronic osteomyelitis with draining sinus, right ankle and foot; I73.9 Peripheral vascular disease, unspecified; L97.528 Non-pressure chronic ulcer of other part of left foot with other specified severity; Z96.41 Presence of insulin pump (external) (internal); Z79.4 Long term (current) use of insulin | CPT/HCPCS: G0463 ==

== ENCOUNTER 2025-10-14 15:05 | Outpatient (CLI) | payer MEDICARE, BC, SELFPAY | END 2025-10-14 15:06 | disposition home or self-care (01) | LOC: WOUND 15:05 | PROVIDERS: PCP Family Medicine; Visit Provider Surgery | DX: M86.471 Chronic osteomyelitis with draining sinus, right ankle and foot (principal); E10.9 Type 1 diabetes mellitus without complications; Z86.31 Personal history of diabetic foot ulcer; I73.9 Peripheral vascular disease, unspecified; Z96.41 Presence of insulin pump (external) (internal); Z79.4 Long term (current) use of insulin; Z94.0 Kidney transplant status; Z79.60 Long term (current) use of unspecified immunomodulators and immunosuppressants | CPT/HCPCS: G0463 ==